=== PATIENT | male | born 1935 | race Caucasian/White ===

== ENCOUNTER 2016-11-05 15:47 | Observation (INO) | payer MEDICARE, OTHER ==
[2016-11-05] MEDS ORDERED: Sodium Chloride 0.9% 5 ML Syringe FLUSH PRN (16:48)
[2016-11-05] MEDS ORDERED: cefTRIAXone 1 GM in Sodium Chloride 0.9% 50 ML IV SCH (17:00)
[2016-11-05] MEDS: Celecoxib 100 MG Cap PO SCH (17:40)
[2016-11-05] MEDS: cefTRIAXone 1 GM Vial IVPUSH SCH (17:41)
[2016-11-05] MEDS ORDERED: Nitroglycerin 0.4 MG Tab.SL SL PRN (18:22)
[2016-11-05] MEDS ORDERED: Non-Formulary Medication 1 Each (Metformin [Glucophage] 500 MG) PO SCH (18:30)
[2016-11-05] MEDS: Fish Oil/Omega-3 Fatty Acids 1 Gm Cap PO SCH (20:31)
[2016-11-05] MEDS: Simvastatin 20 MG Tab PO SCH (20:32)
[2016-11-05] MEDS: Midodrine 5 MG Tab PO SCH (20:32)
[2016-11-05] MEDS ORDERED: FATTY ACIDS PO SCH (21:00)
[2016-11-05] MEDS ORDERED: OMEGA PO SCH (21:00)
[2016-11-06] MEDS: Omeprazole 20 MG Cap.CR PO SCH ×2 (06:34→16:43)
[2016-11-06] MEDS: Carbidopa/Levodopa 25-100 MG Tab PO SCH ×3 (06:34→16:41)
[2016-11-06] MEDS: Sodium Chloride 1 GM Tab PO SCH (08:18)
[2016-11-06] MEDS: Enalapril 5 MG Tab PO SCH (08:19)
[2016-11-06] MEDS: metFORMIN 500 MG Tab PO SCH ×2 (08:20→17:12)
[2016-11-06] MEDS: Fish Oil/Omega-3 Fatty Acids 1 Gm Cap PO SCH ×2 (08:20→20:16)
[2016-11-06] MEDS: Midodrine 5 MG Tab PO SCH ×3 (08:20→20:17)
[2016-11-06] MEDS: Sertraline 50 MG Tab PO SCH (08:21)
[2016-11-06] MEDS: Calcium Citrate/Vitamin D3 315 MG-250 Unit Tab PO SCH ×2 (08:21→17:12)
[2016-11-06] MEDS ORDERED: Non-Formulary Medication 1 Each (Simvastatin [Simvastatin] 40 MG) PO SCH (09:00)
[2016-11-06] MEDS ORDERED: Non-Formulary Medication 1 Each (Prochlorperazine [Compazine] 10 MG) PO SCH (09:00)
[2016-11-06] MEDS ORDERED: ENALAPRIL MALEATE 2.5 MG PO SCH (09:00)
[2016-11-06] MEDS: Liraglutide (rDNA Origin) 0.6 MG/0.1 ML 3 ML Pen SUBCUT SCH (09:10)
[2016-11-06] MEDS: TRESIBA SUBCUT SCH (09:12)
[2016-11-06] MEDS: [UNRECOGNIZED DRUG - OTHER] SUBCUT SCH (09:12)
--- NOTE | 2016-11-06 10:48 | PN ---
11/06/2016 PATIENT NAME: NAVNEET VALLE CHIEF COMPLAINT: Does feel better. Has some edema in his left hand. HISTORY: This 81-year-old gentleman came to clinic, saw Sandra Erleeanna, was admitted to the hospital for ongoing cellulitis and worsening left hand pain. He was diagnosed with cellulitis on 10/29/2016. Started on oral cephalosporin. He returned the following day, this was increased to t.i.d. due to worsening pain and swelling. At that time, he was initiated on prednisone 20 mg for three days. Uric acid level at that time was normal; however, he stated the prednisone has not helped much. He had some increasing pain and redness and swelling. Unable to make a closed fist, so he was admitted for IV antibiotics. The patient does have a history of myelodysplastic syndrome. He is on Revlimid. He is followed by web services manager/oncologist in [place]. He does have a history of atrial fibrillation, type 2 diabetes, Parkinson's disease, and hyponatremia or/and orthostatic hypotension. PHYSICAL EXAMINATION: VITAL SIGNS: Temperature 97.5, blood pressure 122/77, heart rate 80, O2 sats 94% on room air, and respiratory rate 16. GENERAL: The patient is alert and oriented. He is in no acute distress. He was sitting in a chair this morning, just visiting. He is polite and lucid. Left-hand he exhibits some decreased range of motion. On admission, the redness was demarcated; however, it is receding slightly with decrease in tenderness and decrease in overall edema, still has some small to moderate amount of edema and erythema in the left hand extending from his wrist to his finger,November 05, 2016 not quite his finger tips now, less tender, is able to move it more. Good distal pulses noted. CV: Irregular rhythm; however, normal rate. LUNGS: Clear to auscultation. No adventitious sounds. LABORATORY DATA: This morning; white count 3.2, RBCs of 3.50, hematocrit 32.6, MCV 93, and MCH 32. INR is slightly elevated at 3.4; however, trending down. Coumadin is being held. IMPRESSION/PLAN: 1. Cellulitis of multiple joints of the left hand and fingers, much improved. Continue on Rocephin 1 g every 24 hours. They are showing great improvement. 2. Myelodysplastic syndrome. 3. Paroxysmal atrial fibrillation. Does not appear to be on any rate control; however, his rate is controlled. He is over coagulated right now, holding Coumadin due to elevation of INR; however, it trending down. We will monitor this. 4. Type 2 diabetes with long-term use of insulin. He is on long-acting basal and Tresiba. He is also on GLP1 agonist of Victoza. 5. Orthostatic hypotension. We will check sodium level in the morning. Currently, he is on sodium chloride tablets. 6. Parkinson's disease with a significant resting tremor of the right arm. He is on Sinemet. Overall plan; continue Rocephin. Continue NSAIDs. Ice to hand. We will keep him in a sling. Trend INRs. Hold Coumadin. The patient is improving. Review x-ray from [facility]. /[id number]/MODL
[2016-11-06] MEDS ORDERED: Magnesium Oxide 500 MG Tab PO SCH (11:00)
[2016-11-06] MEDS: Prochlorperazine 5 MG Tab PO SCH (12:08)
[2016-11-06] MEDS: REVLIMID 10 MG PO SCH (12:09)
[2016-11-06] MEDS: Magnesium Oxide 500 MG Tab PO SCH (12:09)
[2016-11-06] MEDS: Celecoxib 100 MG Cap PO SCH (16:42)
[2016-11-06] MEDS: cefTRIAXone 1 GM Vial IVPUSH SCH (16:45)
[2016-11-06] MEDS: Multivitamins with Minerals/Iron/Folic Acid/Lycopene Tab PO SCH (17:14)
[2016-11-06] MEDS ORDERED: Non-Formulary Medication 1 Each (Multivit-Min/Fa/Lycopene/Lut [Centrum Silver] 1 TAB) PO SCH (18:00)
[2016-11-06] MEDS: Simvastatin 20 MG Tab PO SCH (20:17)
[2016-11-07] MEDS: Carbidopa/Levodopa 25-100 MG Tab PO SCH ×3 (06:30→16:04)
[2016-11-07] MEDS: Omeprazole 20 MG Cap.CR PO SCH ×2 (06:31→16:04)
[2016-11-07] MEDS: REVLIMID 10 MG PO SCH (08:21)
[2016-11-07] MEDS: Prochlorperazine 5 MG Tab PO SCH (08:22)
[2016-11-07] MEDS: Midodrine 5 MG Tab PO SCH ×2 (08:23→13:12)
[2016-11-07] MEDS: Calcium Citrate/Vitamin D3 315 MG-250 Unit Tab PO SCH ×2 (08:23→17:07)
[2016-11-07] MEDS: Fish Oil/Omega-3 Fatty Acids 1 Gm Cap PO SCH (08:23)
[2016-11-07] MEDS: TRESIBA SUBCUT SCH (08:24)
[2016-11-07] MEDS: metFORMIN 500 MG Tab PO SCH ×2 (08:24→17:07)
[2016-11-07] MEDS: [UNRECOGNIZED DRUG - OTHER] SUBCUT SCH (08:24)
[2016-11-07] MEDS: Sertraline 50 MG Tab PO SCH (08:25)
[2016-11-07] MEDS: Sodium Chloride 1 GM Tab PO SCH (08:25)
[2016-11-07] MEDS: Enalapril 5 MG Tab PO SCH (08:26)
[2016-11-07] MEDS: Liraglutide (rDNA Origin) 0.6 MG/0.1 ML 3 ML Pen SUBCUT SCH (08:27)
[2016-11-07] MEDS: Magnesium Oxide 500 MG Tab PO SCH (11:30)
[2016-11-07 15:49] VITALS: BP 145/86
[2016-11-07] MEDS: cefTRIAXone 1 GM Vial IVPUSH SCH (16:08)
--- NOTE | 2016-11-07 16:50 | PCM.DCSUM1 ---
Discharge Summary - Hospital Course Brief History: This is an 81 year old male initially presented to the [facility] and was admitted for cellulitis. The patient was diagnosed with left hand cellulitis on 10/29/16 and started on keflex 500 mg BID. He returned the following day as the pain and swelling had worsened. The keflex was increased to 500 mg TID and he was initiated on prednisone 20 mg for 3 days. Uric acid level was normal at that time. The patient stated the prednisone didn't help much. He presented with worsening redness, pain, and swelling--and having a hard time making a closed fist. - Discharge Data Discharge Date: 11/07/16 Discharge Disposition: Home, Self-Care 01 Condition: Good - Patient Summary/Data Complications: No complications during hospital stay Hospital Course: Hospital course went well, he was placed on IV antibiotics and his redness and swelling decreased greatly. We did place ice on it and he kept his extremity elevated in a sling. Uric acid level was normal - Patient Instructions Diet: Usual Diet as Tolerated Activity: Apply Ice, Elevate Extremity Driving: May Drive Today Showering/Bathing: May Shower Notify Provider of: Fever, Increased Pain, Swelling and Redness Other/Special Instructions: Only take 1 mg of your Coumadin tonight. After that the INR/coumadin clinic will monitor your levels. - Discharge Plan Prescriptions/Med Rec: Cephalexin [Keflex] 500 mg PO Q12HR #20 cap Home Medications: Home Meds Calcium Carbonate/Vitamin D3 [Calcium 600 + Vit D 400] 1 tab PO BIDMEALS [History] Carbidopa/Levodopa [Carbidopa-Levodopa 25-100] 2 tab PO TID@0730,1130,1630 04/24 [History] Enalapril Maleate [Vasotec] 2.5 mg PO DAILY 04/24/14 [History] Magnesium Oxide [Magnesium] 400 mg PO DAILY 04/24/14 [History] Multivit-Min/FA/Lycopene/Lut [Centrum Silver] 1 tab PO DAILY@1800 04/24/14 [ History] Nitroglycerin [Nitrostat] 1 tab SL Q5M PRN 04/24/14 [History] Bethany-3 Fatty Acids [Fish Oil] 900 mg PO BID 04/24/14 [History] Simvastatin 40 mg PO DAILY 04/24/14 [History] metFORMIN [Glucophage] 500 mg PO BIDM 04/24/14 [History] Insulin Degludec [Tresiba Flextouch U-100] 24 units SUBCUT DAILY 03/23/16 [ History] Liraglutide [Victoza] 1.2 mg SUBCUT DAILY 03/23/16 [History] Omeprazole 20 mg PO BIDMEALS 03/23/16 [History] Sertraline [Zoloft] 50 mg PO DAILY 03/23/16 [History] Midodrine 5 mg PO TID 05/24/16 [History] Sodium Chloride 1 gm PO DAILY 05/24/16 [History] Warfarin Sodium [Jantoven] 2 tab PO DAILY 07/05/16 [History] Lenalidomide [Revlimid] 10 mg PO DAILY 11/05/16 [History] Prochlorperazine [Compazine] 10 mg PO DAILY 11/05/16 [History] Cephalexin [Keflex] 500 mg PO Q12HR #20 cap 11/07/16 [Rx] Referrals: Saleem Nolan ROOFER GYPSUM [Nurse Practitioner] - (Early next week) - Discharge Summary/Plan Comment DC Time >30 min.: No Discharge Summary/Plan Comment: Final diagnoses Cellulitis right hand, much improved. Normal uric acid level myelodysplastic syndrome CAD and atrial fibrillation. He is on warfarin and enalapril. Take 1 mg of Coumadin daily of discharge type 2 diabetes mellitus. Parkinson's disease. orthostatic hypotension and hyponatremia. - Patient Data Vitals - Most Recent: Last Vital Signs Temp 97.3 F 11/07/16 15:00 Pulse 88 11/07/16 15:00 Resp 18 11/07/16 15:00 BP 145/86 H 11/07/16 15:00 Pulse Ox 96 11/07/16 15:00 Weight - Most Recent: 197 lb 5 oz I&O - Last 24 hours: Intake & Output 11/07/16 11/07/16 11/07/16 06:59 14:59 22:59 Intake Total 0 420 Output Total 1000 400 Balance -1000 20 Lab Results - Last 24 hrs: Laboratory Results - last 24 hr 11/06/16 11/07/16 11/07/16 Range/Units 17:07 06:28 07:53 PT TNP INR 2.6 H (0.9-1.1) POC Glucose 155 H 208 H (74-106) mg/dl Med Orders - Current: Current Medications Calcium Citrate (Calcium Citrate + D) 1 tab PO BIDMEALS [facility] Last Admin: 11/07/16 08:23 Dose: 1 tab Carbidopa/Levodopa (Sinemet 25-100 Mg) 2 tab PO TID@0730,1130,1630 [facility] Last Admin: 11/07/16 16:04 Dose: 2 tab Ceftriaxone Sodium (Rocephin) 1 gm IVPUSH Q24H [facility] Last Admin: 11/07/16 16:08 Dose: 1 gm Enalapril Maleate (Vasotec) 2.5 mg PO DAILY [facility] Last Admin: 11/07/16 08:26 Dose: 2.5 mg Fish Oil (Fish Oil) 1 gm PO BID [facility] Last Admin: 11/07/16 08:23 Dose: 1 gm Liraglutide (Victoza) 1.2 mg SUBCUT DAILY [facility] Last Admin: 11/07/16 08:27 Dose: 1.2 mg Magnesium Oxide (Magnesium Oxide) 500 mg PO DAILY@1200 [facility] Last Admin: 11/07/16 11:30 Dose: 500 mg Metformin HCl (Glucophage) 500 mg PO BIDM [facility] Last Admin: 11/07/16 08:24 Dose: 500 mg Midodrine (Midodrine) 5 mg PO TID [facility] Last Admin: 11/07/16 13:12 Dose: 5 mg Multivitamins/Minerals (Centrum) 1 tab PO DAILY@1800 [facility] Last Admin: 11/06/16 17:14 Dose: 1 tab Nitroglycerin (Nitrostat) 0.4 mg SL Q5M PRN PRN Reason: Chest Pain Omeprazole (Omeprazole) 20 mg PO BIDAC [facility] Last Admin: 11/07/16 16:04 Dose: 20 mg Ptom Tresiba Flextouch 100uinits/Ml Pen 24 each SUBCUT DAILY [facility] Last Admin: 11/07/16 08:24 Dose: 24 each Ptom Revlimid (10mg Capsule) 1 each PO DAILY [facility] Last Admin: 11/07/16 08:21 Dose: 1 each Prochlorperazine Maleate (Compazine) 10 mg PO DAILY [facility] Last Admin: 11/07/16 08:22 Dose: 10 mg Sertraline HCl (Zoloft) 50 mg PO DAILY [facility] Last Admin: 11/07/16 08:25 Dose: 50 mg Simvastatin (Zocor) 40 mg PO BEDTIME [facility] Last Admin: 11/06/16 20:17 Dose: 40 mg Sodium Chloride (Syrex Flush) 5 ml FLUSH Q8HR PRN PRN Reason: Keep Vein Open Last Admin: 11/05/16 17:43 Dose: 5 ml Sodium Chloride (Sodium Chloride) 1 gm PO DAILY [facility] Last Admin: 11/07/16 08:25 Dose: 1 gm Discontinued Medications Celecoxib (Celebrex) 200 mg PO DAILY@1700 [facility] Stop: 11/06/16 17:01 Last Admin: 11/06/16 16:42 Dose: 200 mg Magnesium Oxide (Magnesium Oxide) 400 mg PO DAILY [facility] *Q Meaningful Use (DIS) - VTE *Q VTE Criteria *Q: - Stroke *Q Stroke Criteria *Q: - AMI *Q AMI Criteria *Q:
[2016-11-07] MEDS: Multivitamins with Minerals/Iron/Folic Acid/Lycopene Tab PO SCH (17:07)
== END 2016-11-07 17:20 | disposition home or self-care (01) ==
LOC: KA.MS 15:50
PROVIDERS: ADMIT Nurse Practitioner Family; ATTEND Family Medicine
DX: L03.114 Cellulitis of left upper limb (principal); L03.012 Cellulitis of left finger; D46.C Myelodysplastic syndrome with isolated del(5q) chromosomal abnormality; E78.2 Mixed hyperlipidemia; E11.9 Type 2 diabetes mellitus without complications; E87.1 Hypo-osmolality and hyponatremia; I95.1 Orthostatic hypotension; G20 Parkinson's disease; Z79.01 Long term (current) use of anticoagulants; Z79.899 Other long term (current) drug therapy; Z88.8 Allergy status to other drugs, medicaments and biological substances; I48.0 Paroxysmal atrial fibrillation; F41.9 Anxiety disorder, unspecified; K21.9 Gastro-esophageal reflux disease without esophagitis; I10 Essential (primary) hypertension; I25.810 Atherosclerosis of coronary artery bypass graft(s) without angina pectoris; Z98.890 Other specified postprocedural states
CPT/HCPCS: 36415; 36416; 82962; 85025; 85610; 96374; 96376; A9270; G0378; G0379; J0696; Q0164

== ENCOUNTER 2016-11-12 18:47 | Observation (INO) | payer MEDICARE, OTHER ==
[2016-11-12] MEDS: Sodium Chloride 0.9% 50 ML SDV FLUSH ONE ×2 (19:00→20:24)
[2016-11-12] MEDS: Iopamidol 755 Mg/ML 75 ML Bottle IVPUSH ONE ×2 (19:00→20:24)
--- NOTE | 2016-11-12 19:41 | EDM.PDOC ---
ED HPI GENERAL MEDICAL PROBLEM - General Chief Complaint: General Stated Complaint: FELL BACKWARDS Time Seen by Provider: 11/12/16 19:15 Source of Information: Reports: Patient, Family History Limitations: Reports: No limitations - History of Present Illness INITIAL COMMENTS - FREE TEXT/NARRATIVE: 81 yo wm with PMH of Parkinson's and recent hospitalization for left arm swelling and possible cellulitis, presents to ER with complaints of a fall at home. Pt reports he was standing up and lost his balance falling backwards. Pt denies any injury. Pt major complaint is left arm swelling since his hospitalization last week. Pt states he is scheduled for venous doppler of left arm tomorrow in clinic. Pt reports he was treated for cellulitis in left hand which improved. Pt reports over the last few russ he can started to swell again and now swelling is into elbow. Pt denies any erythema but states his arm is warm to the touch. Onset: today Duration: Day(s): (1) Location: Reports: upper extremity, left. Denies: head, neck, chest, abdomen, back, pelvis Quality: Reports: Ache Severity: severe Improves with: Reports: Immobilization Worsens with: Reports: Movement Associated Symptoms: Reports: no other symptoms - Related Data Allergies Allergy/AdvReac Type Severity Reaction Status Date / Time morphine Allergy Intermediate Nausea and Verified 11/12/16 19:32 Vomiting Home Meds: Home Meds Calcium Carbonate/Vitamin D3 [Calcium 600 + Vit D 400] 1 tab PO BIDMEALS [History] Carbidopa/Levodopa [Carbidopa-Levodopa 25-100] 2 tab PO TID@0730,1130,1630 04/24 [History] Enalapril Maleate [Vasotec] 2.5 mg PO DAILY 04/24/14 [History] Magnesium Oxide [Magnesium] 400 mg PO DAILY 04/24/14 [History] Multivit-Min/FA/Lycopene/Lut [Centrum Silver] 1 tab PO DAILY@1800 04/24/14 [ History] Nitroglycerin [Nitrostat] 1 tab SL Q5M PRN 04/24/14 [History] Burgess-3 Fatty Acids [Fish Oil] 900 mg PO BID 04/24/14 [History] Simvastatin 40 mg PO DAILY 04/24/14 [History] metFORMIN [Glucophage] 500 mg PO BIDM 04/24/14 [History] Insulin Degludec [Tresiba Flextouch U-100] 24 units SUBCUT DAILY 03/23/16 [ History] Liraglutide [Victoza] 1.2 mg SUBCUT DAILY 03/23/16 [History] Omeprazole 20 mg PO BIDMEALS 03/23/16 [History] Sertraline [Zoloft] 50 mg PO DAILY 03/23/16 [History] Midodrine 5 mg PO TID 05/24/16 [History] Sodium Chloride 1 gm PO DAILY 05/24/16 [History] Warfarin Sodium [Jantoven] 2 tab PO DAILY 07/05/16 [History] Lenalidomide [Revlimid] 10 mg PO DAILY 11/05/16 [History] Prochlorperazine [Compazine] 10 mg PO DAILY PRN 11/05/16 [History] Cephalexin [Keflex] 500 mg PO Q12HR #20 cap 11/07/16 [Rx] predniSONE [Prednisone] 10 mg PO DAILY 11/12/16 [History] Past Medical History HEENT History: Reports: Other (see below) Other HEENT History: surgery to right eye to remove piece of steel, 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", I don't make red blood cells Immunologic History: Reports: None Oncologic (Cancer) History: Reports: Prostate Dermatologic History: Reports: None - Infectious Disease History Infectious Disease History: Reports: Measles - Past Surgical History Head Surgeries/Procedures: Reports: None HEENT Surgical History: Reports: Eye surgery, Other (see below) Other HEENT Surgeries/Procedures: see above Cardiovascular Surgical History: Reports: Coronary artery bypass Respiratory Surgical History: Reports: None GI Surgical History: Reports: Appendectomy, Colonoscopy, EGD, Other (see below) Other GI Surgeries/Procedures: hx of bleeding s/p colonoscopy in 2012, source of bleeding found to be from biopsy site Male Surgical History: Reports: Prostate Biopsy, Other (see below) Other Male Surgeries/Procedures: external radiation performed for prostate cancer in 2002 Endocrine Surgical History: Reports: None Neurological Surgical History: Reports: None Musculoskeletal Surgical History: Reports: Hip replacement, Other (see below) Other Musculoskeletal Surgeries/Procedures:: right hip replaced in 1998 Social & Family History - Family History Cardiac: Reports: Aneurysm, MA Neurological: Reports: Cerebral aneurysms Endocrine/Metabolic: Reports: Diabetes, type II Oncologic: Reports: Breast - Tobacco Use Smoking Status *Q: Never Smoker Second Hand Smoke Exposure: No - Caffeine Use Caffeine Use: Reports: Coffee, Soda - Recreational Drug Use Recreational Drug Use: No - Living Situation & Occupation Occupation: retired ED ROS GENERAL - Review of Systems Review Of Systems: See Below Constitutional: Reports: no symptoms HEENT: Reports: No symptoms Respiratory: Reports: No Symptoms. Denies: Shortness of Breath, Pleuritic Chest Pain, Cough Cardiovascular: Reports: No symptoms, Lightheadedness. Denies: Chest pain, Dyspnea on exertion, Palpitations, PND, Syncope Endocrine: Reports: no symptoms GI/Abdominal: Reports: No symptoms : Reports: no symptoms Musculoskeletal: Reports: no symptoms Skin: Reports: no symptoms Neurological: Reports: No Symptoms Psychiatric: Reports: No symptoms Hematologic/Lymphatic: Reports: no symptoms Immunologic: Reports: no symptoms ED EXAM, GENERAL - Physical Exam Exam: See Below Exam Limited By: No limitations General Appearance: alert, WD/WN, no apparent distress Eye Exam: bilateral eye: EOMI, PERRL Nose: normal inspection, normal mucosa, no blood Throat/Mouth: Normal inspection, Normal lips, Normal teeth, Normal gums, Normal oropharynx, Normal voice, No airway compromise Head: atraumatic, normocephalic Neck: normal inspection, supple, non-tender, full range of motion Respiratory/Chest: no respiratory distress, lungs clear, normal breath sounds, no accessory muscle use, chest non-tender Cardiovascular: normal peripheral pulses, regular rate, rhythm, no edema, no gallop, no JVD, no murmur, no rub GI/Abdominal: normal bowel sounds, soft, non tender, no organomegaly, no distention, no abnormal bruit, no mass Back Exam: normal inspection, full range of motion, NT Extremities: normal inspection, normal range of motion, non-tender, normal capillary refill, no pedal edema Neurological: alert, oriented, CN II-XII intact, normal cognition, normal gait, normal reflexes, no motor/sensory deficits Psychiatric: normal affect, normal mood Skin Exam: Warm, Dry, Intact, Normal color, No rash Lymphatic: no adenopathy EKG INTERPRETATION EKG Date: 11/12/16 Time: 19:31 Rhythm: NSR Rate (beats/min): 97 [place]: normal QRS: RBBB ST-T: normal QT: normal Comparison: NA - no prior EKG Course - Vital Signs Last Recorded V/S: Last Vital Signs Temp 37.3 C 11/12/16 19:01 Pulse 96 11/12/16 19:01 Resp 18 11/12/16 19:01 BP 122/61 11/12/16 19:01 Pulse Ox 93 L 11/12/16 19:01 - Orders/Labs/Meds Orders: Active Orders 24 hr Category Date Time Status EKG Documentation Completion [RC] ASDIRECTED Care 11/12/16 19:07 Active Chest 2V [CR] Stat Exams 11/12/16 19:06 Taken Chest w Cont [CT] Stat Exams 11/12/16 19:47 Ordered Sodium Chloride 0.9% @ 999 MLS/HR (1000ml) Med 11/12/16 20:14 Ordered Sodium Chloride 0.9% [Normal Saline] 1,000 ml IV .BOLUS Medication Orders Sodium Chloride (Normal Saline) 1,000 mls @ 999 mls/hr IV .BOLUS ONE Stop: 11/12/16 21:14 Last Admin: 11/12/16 20:24 Dose: 999 mls/hr Labs: Laboratory Tests 11/12/16 11/12/16 11/12/16 Range/Units 19:15 19:15 19:15 WBC 3.9 L (5.0-10.0) 10^3/uL RBC 3.18 L (4.50-6.00) 10^6/uL Hgb 10.1 L (13.0-17.0) g/dL Hct 30.3 L (40.0-52.0) % MCV 95.1 H (82.0-92.0) fL MCH 31.8 H (27.0-31.0) pg MCHC 33.4 (32.0-36.0) g/dL RDW 16.3 H (11.5-14.5) % Plt Count 120 L (150-300) 10^3/uL MPV 7.3 L (7.4-10.4) fL Neut % (Auto) 61.2 (50.0-70.0) % Lymph % (Auto) 22.1 (20.0-40.0) % [place] % (Auto) 13.2 H (2.0-8.0) % Eos % (Auto) 2.6 (1.0-3.0) % Baso % (Auto) 0.9 (0.0-1.0) % Neut # (Auto) 2.4 L (2.5-7.0) 10^3/uL Lymph # (Auto) 0.9 L (1.0-4.0) 10^3/uL [place] # (Auto) 0.5 (0.1-0.8) 10^3/uL Eos # (Auto) 0.1 (0.1-0.3) 10^3/uL Baso # (Auto) 0.0 (0.0-0.1) 10^3/uL PT 19.0 H (8.9-11.4) SEC INR 1.8 H (0.9-1.1) APTT (20.8-31.2) SEC D-Dimer, Quantitative (<400) ng/mL Sodium 132 L (136-145) mmol/L Potassium 4.3 (3.3-5.3) mmol/L Chloride 98 (98-115) mmol/L Carbon Dioxide 28.2 (21.0-32.0) mmol/L BUN 18 (6-25) mg/dL Creatinine 1.06 (0.51-1.17) mg/dL Est Cr Clr Drug Dosing 59.67 mL/min Estimated GFR (MDRD) > 60 mL/min Glucose 402 H (70-110) mg/dL Calcium 8.4 L (8.7-10.3) mg/dL Total Bilirubin 0.8 (0.2-1.0) mg/dL AST 15 (15-37) U/L ALT 34 (12-78) U/L Alkaline Phosphatase 103 (46-116) IU/L Creatine Kinase (26-276) U/L CK-MB (CK-2) (0.00-4.30) ng/mL Troponin I (0.00-0.070) ng/mL Total Protein 6.7 (6.4-8.2) g/dL Albumin 2.66 L (3.00-4.80) g/dL Specimen Type Urine Color (YELLOW) Urine Appearance (CLEAR) Urine pH (5.0-9.0) Ur Specific [place] (1.005-1.030) Urine Protein (NEGATIVE) mg/dL Urine Glucose (UA) (NEGATIVE) mg/dL Urine Ketones (NEGATIVE) mg/dL Urine Occult Blood (NEGATIVE) Urine Nitrite (NEGATIVE) Urine Bilirubin (NEGATIVE) Urine Urobilinogen (0.2-1.0) E.U./dL Ur Leukocyte Esterase (NEGATIVE) Urine RBC /HPF Urine WBC /HPF Ur Epithelial Cells /LPF Amorphous Sediment (0/HPF) /HPF Urine Bacteria (NONE TO FEW) /HPF Urine Mucus (NEGATIVE) /LPF 11/12/16 11/12/16 11/12/16 Range/Units 19:15 19:15 19:15 WBC (5.0-10.0) 10^3/uL RBC (4.50-6.00) 10^6/uL Hgb (13.0-17.0) g/dL Hct (40.0-52.0) % MCV (82.0-92.0) fL MCH (27.0-31.0) pg MCHC (32.0-36.0) g/dL RDW (11.5-14.5) % Plt Count (150-300) 10^3/uL MPV (7.4-10.4) fL Neut % (Auto) (50.0-70.0) % Lymph % (Auto) (20.0-40.0) % [place] % (Auto) (2.0-8.0) % Eos % (Auto) (1.0-3.0) % Baso % (Auto) (0.0-1.0) % Neut # (Auto) (2.5-7.0) 10^3/uL Lymph # (Auto) (1.0-4.0) 10^3/uL [place] # (Auto) (0.1-0.8) 10^3/uL Eos # (Auto) (0.1-0.3) 10^3/uL Baso # (Auto) (0.0-0.1) 10^3/uL PT (8.9-11.4) SEC INR (0.9-1.1) APTT 36.1 H (20.8-31.2) SEC D-Dimer, Quantitative 603 H (<400) ng/mL Sodium (136-145) mmol/L Potassium (3.3-5.3) mmol/L Chloride (98-115) mmol/L Carbon Dioxide (21.0-32.0) mmol/L BUN (6-25) mg/dL Creatinine (0.51-1.17) mg/dL Est Cr Clr Drug Dosing mL/min Estimated GFR (MDRD) mL/min Glucose (70-110) mg/dL Calcium (8.7-10.3) mg/dL Total Bilirubin (0.2-1.0) mg/dL AST (15-37) U/L ALT (12-78) U/L Alkaline Phosphatase (46-116) IU/L Creatine Kinase 48 (26-276) U/L CK-MB (CK-2) 1.20 (0.00-4.30) ng/mL Troponin I 0.10 H* (0.00-0.070) ng/mL Total Protein (6.4-8.2) g/dL Albumin (3.00-4.80) g/dL Specimen Type Urine Color (YELLOW) Urine Appearance (CLEAR) Urine pH (5.0-9.0) Ur Specific [place] (1.005-1.030) Urine Protein (NEGATIVE) mg/dL Urine Glucose (UA) (NEGATIVE) mg/dL Urine Ketones (NEGATIVE) mg/dL Urine Occult Blood (NEGATIVE) Urine Nitrite (NEGATIVE) Urine Bilirubin (NEGATIVE) Urine Urobilinogen (0.2-1.0) E.U./dL Ur Leukocyte Esterase (NEGATIVE) Urine RBC /HPF Urine WBC /HPF Ur Epithelial Cells /LPF Amorphous Sediment (0/HPF) /HPF Urine Bacteria (NONE TO FEW) /HPF Urine Mucus (NEGATIVE) /LPF 11/12/16 Range/Units 19:55 WBC (5.0-10.0) 10^3/uL RBC (4.50-6.00) 10^6/uL Hgb (13.0-17.0) g/dL Hct (40.0-52.0) % MCV (82.0-92.0) fL MCH (27.0-31.0) pg MCHC (32.0-36.0) g/dL RDW (11.5-14.5) % Plt Count (150-300) 10^3/uL MPV (7.4-10.4) fL Neut % (Auto) (50.0-70.0) % Lymph % (Auto) (20.0-40.0) % [place] % (Auto) (2.0-8.0) % Eos % (Auto) (1.0-3.0) % Baso % (Auto) (0.0-1.0) % Neut # (Auto) (2.5-7.0) 10^3/uL Lymph # (Auto) (1.0-4.0) 10^3/uL [place] # (Auto) (0.1-0.8) 10^3/uL Eos # (Auto) (0.1-0.3) 10^3/uL Baso # (Auto) (0.0-0.1) 10^3/uL PT (8.9-11.4) SEC INR (0.9-1.1) APTT (20.8-31.2) SEC D-Dimer, Quantitative (<400) ng/mL Sodium (136-145) mmol/L Potassium (3.3-5.3) mmol/L Chloride (98-115) mmol/L Carbon Dioxide (21.0-32.0) mmol/L BUN (6-25) mg/dL Creatinine (0.51-1.17) mg/dL Est Cr Clr Drug Dosing mL/min Estimated GFR (MDRD) mL/min Glucose (70-110) mg/dL Calcium (8.7-10.3) mg/dL Total Bilirubin (0.2-1.0) mg/dL AST (15-37) U/L ALT (12-78) U/L Alkaline Phosphatase (46-116) IU/L Creatine Kinase (26-276) U/L CK-MB (CK-2) (0.00-4.30) ng/mL Troponin I (0.00-0.070) ng/mL Total Protein (6.4-8.2) g/dL Albumin (3.00-4.80) g/dL Specimen Type Urincc Urine Color Yellow (YELLOW) Urine Appearance Clear (CLEAR) Urine pH 6.5 (5.0-9.0) Ur Specific [place] 1.020 (1.005-1.030) Urine Protein >=300 H (NEGATIVE) mg/dL Urine Glucose (UA) >=1000 H (NEGATIVE) mg/dL Urine Ketones Negative (NEGATIVE) mg/dL Urine Occult Blood Small H (NEGATIVE) Urine Nitrite Negative (NEGATIVE) Urine Bilirubin Negative (NEGATIVE) Urine Urobilinogen 0.2 (0.2-1.0) E.U./dL Ur Leukocyte Esterase Negative (NEGATIVE) Urine RBC 0-5 /HPF Urine WBC 0-5 /HPF Ur Epithelial Cells Few /LPF Amorphous Sediment Rare (0/HPF) /HPF Urine Bacteria Rare (NONE TO FEW) /HPF Urine Mucus Rare H (NEGATIVE) /LPF Meds: Medications Generic Name Dose Route Start Last Admin Trade Name Freq PRN Reason Stop Dose Admin Sodium Chloride 1,000 mls @ 999 mls/hr 11/12/16 20:14 11/12/16 20:24 Normal Saline IV 11/12/16 21:14 999 mls/hr .BOLUS ONE Administration Discontinued Medications Generic Name Dose Route Start Last Admin Trade Name Freq PRN Reason Stop Dose Admin Iopamidol 75 ml 11/12/16 19:58 11/12/16 20:24 Isovue-370 (76%) IVPUSH 11/12/16 19:59 Not Given ONETIME ONE Sodium Chloride 100 ml 11/12/16 20:00 11/12/16 20:24 Normal Saline FLUSH 11/12/16 20:01 Not Given ONETIME ONE - Radiology Interpretation Free Text/Narrative:: CXR- NAD Departure - Departure Time of Disposition: 21:10 Disposition: Refer to Observation Condition: fair Clinical Impression: Hyperglycemia, Hyponatremia, Elevated troponin I level, Arm pain, left Forms: ED Department Discharge - My Orders Last 24 Hours: My Active Orders 11/12/16 19:06 Chest 2V [CR] Stat 11/12/16 19:07 EKG Documentation Completion [RC] ASDIRECTED 11/12/16 19:47 Chest w Cont [CT] Stat 11/12/16 20:14 Sodium Chloride 0.9% @ 999 MLS/HR (1000ml) Sodium Chloride 0.9% [Normal Saline] 1,000 ml IV .BOLUS - Assessment/Plan Last 24 Hours: My Active Orders 11/12/16 19:06 Chest 2V [CR] Stat 11/12/16 19:07 EKG Documentation Completion [RC] ASDIRECTED 11/12/16 19:47 Chest w Cont [CT] Stat 11/12/16 20:14 Sodium Chloride 0.9% @ 999 MLS/HR (1000ml) Sodium Chloride 0.9% [Normal Saline] 1,000 ml IV .BOLUS Assessment:: 1. elevated trop i 2. hyperglycemia- steroid induced? 3. left arm pain and swelling Plan: 1. observation to [facility] 2. gentle fluid hydration 3. repeat trop I 4. hydrocodone for pain 5. insulin sliding scale
[2016-11-12 19:56] LABS: CHLORIDE,CL 98 mmol/L (98-115); SODIUM,NA 132 mmol/L (136-145)
[2016-11-12] MEDS ORDERED: Sodium Chloride 0.9% 1,000 ML IV ONE (20:14)
[2016-11-12] MEDS ORDERED: Sodium Chloride 0.9% 5 ML Syringe FLUSH PRN (21:15)
[2016-11-12] MEDS ORDERED: Insulin Regular, Human 100 Units/ML 10 ML Vial SUBCUT STA (21:17)
[2016-11-12] MEDS: Sodium Chloride 0.9% 1,000 ML IV SCH (21:40)
[2016-11-12] MEDS: Acetaminophen/HYDROcodone 325-5 MG Tab PO PRN (21:40)
[2016-11-12] MEDS ORDERED: Aspirin 81 MG Tab.Chew ONE (22:43)
[2016-11-12] MEDS ORDERED: Enoxaparin 100 MG/1 ML Syringe ONE (22:44)
[2016-11-12] MEDS ORDERED: Enoxaparin 100 MG/1 ML Syringe SUBCUT ONE (22:45)
[2016-11-12] MEDS ORDERED: Aspirin 81 MG Tab.Chew PO ONE (22:45)
[2016-11-13] MEDS ORDERED: Ondansetron 4 MG/2 ML SDV IVPUSH PRN (00:01)
[2016-11-13] MEDS ORDERED: EPINEPHrine 1:10,000 1 MG/10 ML Syringe IVPUSH PRN (08:35)
[2016-11-13] MEDS ORDERED: Atropine 0.1 MG/ML 10 ML Syringe IVPUSH PRN (08:35)
[2016-11-13] MEDS ORDERED: Lidocaine 2% 100 MG/5 ML Syringe IVPUSH PRN (08:35)
[2016-11-13] MEDS ORDERED: Nitroglycerin 0.4 MG Tab.SL SL PRN ×2 (08:35→10:19)
[2016-11-13] MEDS: Acetaminophen/HYDROcodone 325-5 MG Tab PO PRN (09:04)
[2016-11-13 09:37] LABS: CHLORIDE,CL 103 mmol/L (98-115); SODIUM,NA 137 mmol/L (136-145)
--- NOTE | 2016-11-13 10:00 | PCM.HP ---
H&P History of Present Illness - General Date of Service: 11/13/16 Admit Problem/Dx: Admission Diagnosis/Problem Admission Diagnosis/Problem Hyperglycemia Source of Information: Patient, Old records, Provider, RN History Limitations: Reports: No limitations - History of Present Illness Initial Comments - Free Text/Narative: This 81 yo gentleman is a recent hospitalization and cellulitis was admitted through the emergency department after the patient complained of a fall at home when he lost his balance and fell backwards. He was able to brace himself so he did not hit his head. Denies any injury however the patient has been complaining of left arm edema since her recent hospitalization. He was scheduled for a venous Doppler ultrasound of his left arm today to rule out any DVT. Previous admission she seemed to recover approximately 75% from IV antibiotics. Over the past few days he noticed his left elbow and his left hand starting to swell. Recent uric acid levels were normal. Left Hand Pain Score (Numeric/FACES): 10 - Related Data Allergies/Adverse Reactions: Allergies Allergy/AdvReac Type Severity Reaction Status Date / Time morphine Allergy Intermediate Nausea and Verified 11/12/16 19:32 Vomiting Home Medications: Home Meds Calcium Carbonate/Vitamin D3 [Calcium 600 + Vit D 400] 1 tab PO BIDMEALS [History] Carbidopa/Levodopa [Carbidopa-Levodopa 25-100] 2 tab PO TID@0730,1130,1630 04/24 [History] Enalapril Maleate [Vasotec] 2.5 mg PO DAILY 04/24/14 [History] Magnesium Oxide [Magnesium] 400 mg PO DAILY 04/24/14 [History] Multivit-Min/FA/Lycopene/Lut [Centrum Silver] 1 tab PO DAILY@1800 04/24/14 [ History] Nitroglycerin [Nitrostat] 1 tab SL Q5M PRN 04/24/14 [History] [place]-3 Fatty Acids [Fish Oil] 900 mg PO BID 04/24/14 [History] Simvastatin 40 mg PO DAILY 04/24/14 [History] metFORMIN [Glucophage] 500 mg PO BIDM 04/24/14 [History] Insulin Degludec [Tresiba Flextouch U-100] 24 units SUBCUT DAILY 03/23/16 [ History] Liraglutide [Victoza] 1.2 mg SUBCUT DAILY 03/23/16 [History] Omeprazole 20 mg PO BIDMEALS 03/23/16 [History] Sertraline [Zoloft] 50 mg PO DAILY 03/23/16 [History] Midodrine 5 mg PO TID 05/24/16 [History] Sodium Chloride 1 gm PO DAILY 05/24/16 [History] Warfarin Sodium [Jantoven] 2 tab PO DAILY 07/05/16 [History] Lenalidomide [Revlimid] 10 mg PO DAILY 11/05/16 [History] Prochlorperazine [Compazine] 10 mg PO DAILY PRN 11/05/16 [History] Cephalexin [Keflex] 500 mg PO Q12HR #20 cap 11/07/16 [Rx] predniSONE [Prednisone] 10 mg PO DAILY 11/12/16 [History] Past Medical History HEENT History: Reports: Other (see below) Other HEENT History: surgery to right eye to remove piece of steel, 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", I don't make red blood cells Immunologic History: Reports: None Oncologic (Cancer) History: Reports: Prostate Dermatologic History: Reports: None - Infectious Disease History Infectious Disease History: Reports: Measles - Past Surgical History Head Surgeries/Procedures: Reports: None HEENT Surgical History: Reports: Eye surgery, Other (see below) Other HEENT Surgeries/Procedures: see above Cardiovascular Surgical History: Reports: Coronary artery bypass Respiratory Surgical History: Reports: None GI Surgical History: Reports: Appendectomy, Colonoscopy, EGD, Other (see below) Other GI Surgeries/Procedures: hx of bleeding s/p colonoscopy in 2012, source of bleeding found to be from biopsy site Male Surgical History: Reports: Prostate Biopsy, Other (see below) Other Male Surgeries/Procedures: external radiation performed for prostate cancer in 2002 Endocrine Surgical History: Reports: None Neurological Surgical History: Reports: None Musculoskeletal Surgical History: Reports: Hip replacement, Other (see below) Other Musculoskeletal Surgeries/Procedures:: right hip replaced in 1998 Social & Family History - Family History Cardiac: Reports: Aneurysm, [place] Neurological: Reports: Cerebral aneurysms Endocrine/Metabolic: Reports: Diabetes, type II Oncologic: Reports: Breast - Tobacco Use Smoking Status *Q: Never Smoker Second Hand Smoke Exposure: No - Caffeine Use Caffeine Use: Reports: Coffee, Soda - Alcohol Use Days Per Week of Alcohol Use: 0 - Recreational Drug Use Recreational Drug Use: No - Living Situation & Occupation Occupation: retired H&P Review of Systems - Review of Systems: Review Of Systems: See Below General: Reports: no symptoms HEENT: Reports: no symptoms Pulmonary: Reports: No Symptoms Cardiovascular: Denies: chest pain, dyspnea on exertion, lightheadedness, blood pressure problem Gastrointestinal: Reports: No symptoms Genitourinary: Reports: no symptoms Musculoskeletal: Reports: joint pain, joint swelling (Left hand, left elbow) Skin: Reports: erythema (Left hand and left elbow), change in color Psychiatric: Reports: no symptoms Neurological: Reports: No Symptoms Hematologic/Lymphatic: Denies: swollen glands Immunologic: Reports: other (removed from Revlimed) Exam - Exam Exam: See Below - Vital Signs Vital Signs: Last Vital Signs Temp 97.4 F 11/13/16 06:15 Pulse 72 11/13/16 06:15 Resp 18 11/13/16 06:15 BP 115/63 11/13/16 06:15 Pulse Ox 94 L 11/13/16 08:05 Weight: 195 lb 14.4 oz - Exam Quality Assessment: No: supplemental oxygen General: alert, oriented, 4 HEENT: PERRLA, Hearing intact, Mucosa moist & pink, Nares patent, Normal nasal septum, Posterior pharynx clear, Conjunctiva clear, EOMI, EACs clear, TMs clear Neck: supple, trachea midline, 2 Lungs: Clear to auscultation, Normal respiratory effort Cardiovascular: regular rate, regular rhythm, normal S1, normal S2 Abdomen: Normal Bowel Sounds, Soft Rectal (Males) Exam: Deferred Back Exam: No: CVA tenderness (L), CVA tenderness (R) Extremities: increased warmth (Increased warmth and slight edema left elbow, left hand--severe resting tremor right arm) Skin: other (Erythremia left elbow, mild effusion). No: ecchymosis Neuro Extensive - Mental Status: alert Neuro Extensive - Motor, Sensory, Reflexes: CN II-XII intact, normal gait, normal reflexes Psychiatric: alert, normal affect, normal mood - Patient Data Lab Results last 24 hrs: Laboratory Results - last 24 hr 11/13/16 11/13/16 11/13/16 Range/Units 06:11 08:05 08:05 WBC 3.2 L (5.0-10.0) 10^3/uL RBC 3.04 L (4.50-6.00) 10^6/uL Hgb 9.8 L (13.0-17.0) g/dL Hct 29.0 L (40.0-52.0) % MCV 95.3 H (82.0-92.0) fL MCH 32.3 H (27.0-31.0) pg MCHC 33.9 (32.0-36.0) g/dL RDW 15.5 H (11.5-14.5) % Plt Count 103 L (150-300) 10^3/uL MPV 7.7 (7.4-10.4) fL Neut % (Auto) 51.1 (50.0-70.0) % Lymph % (Auto) 31.1 (20.0-40.0) % [place] % (Auto) 11.5 H (2.0-8.0) % Eos % (Auto) 6.0 H (1.0-3.0) % Baso % (Auto) 0.3 (0.0-1.0) % Neut # (Auto) 1.6 L (2.5-7.0) 10^3/uL Lymph # (Auto) 1.0 (1.0-4.0) 10^3/uL [place] # (Auto) 0.4 (0.1-0.8) 10^3/uL Eos # (Auto) 0.2 (0.1-0.3) 10^3/uL Baso # (Auto) 0.0 (0.0-0.1) 10^3/uL PT 17.9 H (8.9-11.4) SEC INR 1.7 H (0.9-1.1) Sodium (136-145) mmol/L Potassium (3.3-5.3) mmol/L Chloride (98-115) mmol/L Carbon Dioxide (21.0-32.0) mmol/L BUN (6-25) mg/dL Creatinine (0.51-1.17) mg/dL Est Cr Clr Drug Dosing mL/min Estimated GFR (MDRD) mL/min Glucose (70-110) mg/dL POC Glucose 122 H (74-106) mg/dl Calcium (8.7-10.3) mg/dL Troponin I (0.00-0.070) ng/mL 11/13/16 Range/Units 08:05 WBC (5.0-10.0) 10^3/uL RBC (4.50-6.00) 10^6/uL Hgb (13.0-17.0) g/dL Hct (40.0-52.0) % MCV (82.0-92.0) fL MCH (27.0-31.0) pg MCHC (32.0-36.0) g/dL RDW (11.5-14.5) % Plt Count (150-300) 10^3/uL MPV (7.4-10.4) fL Neut % (Auto) (50.0-70.0) % Lymph % (Auto) (20.0-40.0) % [place] % (Auto) (2.0-8.0) % Eos % (Auto) (1.0-3.0) % Baso % (Auto) (0.0-1.0) % Neut # (Auto) (2.5-7.0) 10^3/uL Lymph # (Auto) (1.0-4.0) 10^3/uL [place] # (Auto) (0.1-0.8) 10^3/uL Eos # (Auto) (0.1-0.3) 10^3/uL Baso # (Auto) (0.0-0.1) 10^3/uL PT (8.9-11.4) SEC INR (0.9-1.1) Sodium 137 (136-145) mmol/L Potassium 3.9 (3.3-5.3) mmol/L Chloride 103 (98-115) mmol/L Carbon Dioxide 28.6 (21.0-32.0) mmol/L BUN 15 (6-25) mg/dL Creatinine 1.00 (0.51-1.17) mg/dL Est Cr Clr Drug Dosing 63.25 mL/min Estimated GFR (MDRD) > 60 mL/min Glucose 116 H (70-110) mg/dL POC Glucose (74-106) mg/dl Calcium 8.5 L (8.7-10.3) mg/dL Troponin I 0.10 H* (0.00-0.070) ng/mL Result Diagrams: 11/13/16 08:05 11/13/16 08:05 *Q Meaningful Use (ADM) - VTE *Q VTE Criteria *Q: - Stroke *Q Stroke Criteria *Q: - AMI *Q AMI Criteria *Q: Problem List Initiated/Reviewed/Updated: Yes Orders Last 24hrs: Active Orders 24 hr Category Date Time Status Communication Order [RC] 0900 Care 11/13/16 00:02 Active Elbow 2V Lt [CR] Routine Exams 11/13/16 09:05 Ordered Atropine [Atropine 0.1 MG/ML] Med 11/13/16 08:35 Active 0 mg IVPUSH ASDIRECTED PRN EPINEPHrine [EPINEPHrine 1:10,000] Med 11/13/16 08:35 Active 1 mg IVPUSH ASDIRECTED PRN Lidocaine 2% [Xylocaine 2%] Med 11/13/16 08:35 Active 0 mg IVPUSH ASDIRECTED PRN Nitroglycerin [Nitrostat] Med 11/13/16 08:35 Active 0.4 mg SL ASDIRECTED PRN Ondansetron [Zofran] Med 11/13/16 00:01 Active 4 mg IVPUSH Q4H PRN Sodium Chloride 0.9% [Normal Saline] 1,000 ml Med 11/12/16 21:30 Active IV ASDIRECTED Medication Orders Hydrocodone Bitart/Acetaminophen ([place] 325-5 Mg) 1 tab PO Q4H PRN PRN Reason: Pain (moderate 4-6) Last Admin: 11/13/16 09:04 Dose: 1 tab Admin: 11/12/16 21:40 Dose: 1 tab Atropine Sulfate (Atropine 0.1 Mg/Ml) 0 mg IVPUSH ASDIRECTED PRN PRN Reason: Heart Epinephrine HCl (Epinephrine 1:10,000) 1 mg IVPUSH ASDIRECTED PRN PRN Reason: Heart Sodium Chloride (Normal Saline) 1,000 mls @ 75 mls/hr IV ASDIRECTED WILLARD Last Admin: 11/12/16 21:40 Dose: 75 mls/hr Lidocaine HCl (Xylocaine 2%) 0 mg IVPUSH ASDIRECTED PRN PRN Reason: Heart Nitroglycerin (Nitrostat) 0.4 mg SL ASDIRECTED PRN PRN Reason: Heart Ondansetron HCl (Zofran) 4 mg IVPUSH Q4H PRN PRN Reason: Nausea/Vomiting Sodium Chloride (Syrex Flush) 5 ml FLUSH Q8HR PRN PRN Reason: Keep Vein Open Assessment/Plan Comment:: HISTORY OF PRESENT ILLNESS This 81 yo gentleman is a recent hospitalization and cellulitis was admitted through the emergency department after the patient complained of a fall at home when he lost his balance and fell backwards. He was able to brace himself so he did not hit his head. Denies any injury however the patient has been complaining of left arm edema since her recent hospitalization. He was scheduled for a venous Doppler ultrasound of his left arm today to rule out any DVT. Previous admission she seemed to recover approximately 75% from IV antibiotics. Over the past few days he noticed his left elbow and his left hand starting to swell. Recent uric acid levels were normal. ESR increased to 89 from 56 past few weeks. Venous ultrasound of left upper extremity was scheduled at the [facility] today to help rule out DVT. IMPRESSION/PLAN Likely pseudogout, patient may need intra-articular injections at this time we' ll start on oral steroids. Unable to tolerate NSAIDs due to Coumadin usage, x- ray left elbow today, pain measures, uric acid level. ESR 89, CRP 76 Myocardial infarction, non-STEMI, slightly elevated cardio biomarkers on initial presentation, on telemetry, Rafa, CALI risk high due to status post CABG, CAD, Has not been on a beta niru will start low dose today Coronary artery disease with recent non-ST elevation myocardial infarction May/2016 with large fixed defect felt to be related to a previous CABG; recently seen by cardiolgy and recommend medical treatment and management of hemoglobin levels and transfuse if below 10 due to his anemia and MDS Paroxysmal Atrial fibrillation, chronic and stable. Continue warfarin. 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 - Hgb improved and stable 12.0 today - Transfuse parameters if Hb <10g/dL and symptomatic from anemia. Or transfuse to keep Hb 7-8 g/dL. Type 2 diabetes mellitus--steroid-induced hyperglycemia, 15 units NovoLog given last night--much improved. On Tresiba, Victoza and metformin. Renal function is normal.
[2016-11-13] MEDS: Omeprazole 20 MG Cap.CR PO SCH ×2 (11:22→18:33)
[2016-11-13] MEDS: Sodium Chloride 1 GM Tab PO SCH (11:22)
[2016-11-13] MEDS: Sertraline 50 MG Tab PO SCH (11:22)
[2016-11-13] MEDS: Enalapril 5 MG Tab PO SCH (11:23)
[2016-11-13] MEDS: Metoprolol Succinate 25 MG Tab.ER PO SCH (11:23)
[2016-11-13] MEDS: TRESIBA U SUBCUT SCH (11:24)
[2016-11-13] MEDS: Liraglutide (rDNA Origin) 0.6 MG/0.1 ML 3 ML Pen SUBCUT SCH (11:25)
[2016-11-13] MEDS: Carbidopa/Levodopa 25-100 MG Tab PO SCH ×2 (11:31→16:46)
[2016-11-13] MEDS ORDERED: predniSONE 20 MG Tab PO ONE (12:00)
[2016-11-13] MEDS: Midodrine 5 MG Tab PO SCH ×2 (14:01→22:02)
[2016-11-13] MEDS: Warfarin 2 MG Tab PO SCH (18:33)
[2016-11-13] MEDS: Warfarin 2.5 MG Tab PO SCH (18:33)
[2016-11-13] MEDS: Simvastatin 20 MG Tab PO SCH (22:02)
[2016-11-14] MEDS: Sodium Chloride 0.9% 1,000 ML IV SCH ×2 (06:31→20:11)
[2016-11-14] MEDS: Carbidopa/Levodopa 25-100 MG Tab PO SCH ×3 (07:58→16:08)
[2016-11-14] MEDS: Omeprazole 20 MG Cap.CR PO SCH ×2 (07:58→18:49)
[2016-11-14] MEDS: Enalapril 5 MG Tab PO SCH (08:37)
[2016-11-14] MEDS: Sertraline 50 MG Tab PO SCH (08:38)
[2016-11-14] MEDS: Magnesium Oxide 500 MG Tab PO SCH (08:38)
[2016-11-14] MEDS: Midodrine 5 MG Tab PO SCH ×3 (08:38→20:10)
[2016-11-14] MEDS: Sodium Chloride 1 GM Tab PO SCH (08:38)
[2016-11-14] MEDS ORDERED: Lidocaine 1% with EPINEPHrine 1:100,000 20 ML MDV INJECT ONE (08:45)
[2016-11-14] MEDS: Liraglutide (rDNA Origin) 0.6 MG/0.1 ML 3 ML Pen SUBCUT SCH (08:46)
[2016-11-14] MEDS: TRESIBA U SUBCUT SCH (08:47)
[2016-11-14] MEDS: Metoprolol Succinate 25 MG Tab.ER PO SCH (08:48)
[2016-11-14] MEDS ORDERED: predniSONE 20 MG Tab PO ONE ×2 (11:13)
--- NOTE | 2016-11-14 11:13 | PCM.PN ---
- General Info Date of Service: 11/14/16 Functional Status: Denies: pain controlled - Review of Systems General: Denies: Fever HEENT: Reports: no symptoms Pulmonary: Reports: no symptoms Cardiovascular: Denies: Chest Pain, Palpitations Gastrointestinal: Reports: No symptoms Musculoskeletal: Reports: arm pain, hand pain, joint swelling Skin: Reports: other (Redness left hand left elbow) Neurological: Reports: Pre-Existing Deficit, Tremors (Resting tremor right arm) . Denies: Confusion Psychiatric: Reports: no symptoms - Patient Data Vitals - most recent: Last Vital Signs Temp 97.8 F 11/14/16 07:00 Pulse 77 11/14/16 08:48 Resp 16 11/14/16 07:00 BP 128/67 11/14/16 08:48 Pulse Ox 93 L 11/14/16 07:20 Weight - most recent: 195 lb 14.4 oz I&O - last 24 hours: Intake & Output 11/13/16 11/14/16 11/14/16 22:59 06:59 14:59 Intake Total 800 610 Balance 800 610 Lab Results last 24 hrs: Laboratory Results - last 24 hr 11/13/16 11/13/16 11/13/16 Range/Units 11:16 17:44 22:33 POC Glucose 266 H 294 H 336 H (74-106) mg/dl Troponin I (0.00-0.070) ng/mL 11/14/16 11/14/16 Range/Units 05:59 07:25 POC Glucose 204 H (74-106) mg/dl Troponin I 0.10 H* (0.00-0.070) ng/mL Med Orders - Current: Current Medications Hydrocodone Bitart/Acetaminophen ([place] 325-5 Mg) 1 tab PO Q4H PRN PRN Reason: Pain (moderate 4-6) Last Admin: 11/13/16 09:04 Dose: 1 tab Atropine Sulfate (Atropine 0.1 Mg/Ml) 0 mg IVPUSH ASDIRECTED PRN PRN Reason: Heart Carbidopa/Levodopa (Sinemet 25-100 Mg) 2 tab PO TID@0730,1130,1630 [facility] Last Admin: 11/14/16 07:58 Dose: 2 tab Enalapril Maleate (Vasotec) 2.5 mg PO DAILY [facility] Last Admin: 11/14/16 08:37 Dose: 2.5 mg Epinephrine HCl (Epinephrine 1:10,000) 1 mg IVPUSH ASDIRECTED PRN PRN Reason: Heart Sodium Chloride (Normal Saline) 1,000 mls @ 75 mls/hr IV ASDIRECTED [facility] Last Admin: 11/14/16 06:31 Dose: 75 mls/hr Lidocaine HCl (Xylocaine 2%) 0 mg IVPUSH ASDIRECTED PRN PRN Reason: Heart Liraglutide (Victoza) 1.2 mg SUBCUT DAILY [facility] Last Admin: 11/14/16 08:46 Dose: 1.2 mg Magnesium Oxide (Magnesium Oxide) 500 mg PO DAILY [facility] Last Admin: 11/14/16 08:38 Dose: 500 mg Metoprolol Succinate (Toprol Xl) 12.5 mg PO DAILY [facility] Last Admin: 11/14/16 08:48 Dose: 12.5 mg Midodrine (Midodrine) 5 mg PO TID [facility] Last Admin: 11/14/16 08:38 Dose: 5 mg Nitroglycerin (Nitrostat) 0.4 mg SL Q5M PRN PRN Reason: Chest Pain Omeprazole (Omeprazole) 20 mg PO BIDMEALS [facility] Last Admin: 11/14/16 07:58 Dose: 20 mg Ondansetron HCl (Zofran) 4 mg IVPUSH Q4H PRN PRN Reason: Nausea/Vomiting Ptom Tresiba (Flextouch U-100) 24 each SUBCUT DAILY [facility] Last Admin: 11/14/16 08:47 Dose: 24 each Sertraline HCl (Zoloft) 50 mg PO DAILY [facility] Last Admin: 11/14/16 08:38 Dose: 50 mg Simvastatin (Zocor) 40 mg PO BEDTIME [facility] Last Admin: 11/13/16 22:02 Dose: 40 mg Sodium Chloride (Syrex Flush) 5 ml FLUSH Q8HR PRN PRN Reason: Keep Vein Open Sodium Chloride (Sodium Chloride) 1 gm PO DAILY [facility] Last Admin: 11/14/16 08:38 Dose: 1 gm Warfarin Sodium (Coumadin) 3 mg PO MoFr@1800 [facility] Warfarin Sodium (Coumadin) 2 mg PO SuTuWeThSa@1800 [facility] Last Admin: 11/13/16 18:33 Dose: 2 mg Warfarin Sodium (Coumadin) 2.5 mg PO SuTuWeThSa@1800 [facility] Last Admin: 11/13/16 18:33 Dose: 2.5 mg Discontinued Medications Aspirin (Aspirin) Confirm Administered Dose 81 mg .ROUTE .STK-MED ONE Stop: 11/12/16 22:44 Last Admin: 11/12/16 23:59 Dose: Not Given Aspirin (Aspirin) 81 mg PO ONETIME ONE Stop: 11/12/16 22:46 Last Admin: 11/12/16 22:50 Dose: 81 mg Enoxaparin Sodium (Lovenox) Confirm Administered Dose 100 mg .ROUTE .STK-MED ONE Stop: 11/12/16 22:45 Last Admin: 11/13/16 00:00 Dose: Not Given Enoxaparin Sodium (Lovenox) 90 mg SUBCUT ONETIME ONE Stop: 11/12/16 22:46 Last Admin: 11/13/16 00:00 Dose: 90 mg Sodium Chloride (Normal Saline) 1,000 mls @ 999 mls/hr IV .BOLUS ONE Stop: 11/12/16 21:14 Last Admin: 11/12/16 20:24 Dose: 999 mls/hr Insulin Human Regular (Novolin R) 15 unit SUBCUT NOW STA PRN Reason: Protocol Stop: 11/12/16 21:18 Last Admin: 11/12/16 23:55 Dose: 15 unit Iopamidol (Isovue-370 (76%)) 75 ml IVPUSH ONETIME ONE Stop: 11/12/16 19:59 Last Admin: 11/12/16 20:24 Dose: Not Given Prednisone (Prednisone) 40 mg PO ONETIME ONE Stop: 11/13/16 12:01 Last Admin: 11/13/16 11:24 Dose: 40 mg Sodium Chloride (Normal Saline) 100 ml FLUSH ONETIME ONE Stop: 11/12/16 20:01 Last Admin: 11/12/16 20:24 Dose: Not Given - Exam Quality Assessment: No: supplemental oxygen General: alert, oriented Neck: supple Lungs: Clear to auscultation, Normal respiratory effort Cardiovascular: Regular Rate, Regular Rhythm Abdomen: bowel sounds present, soft, no tenderness, no distension Extremities: no tenderness/swelling (Demarcated erythema and edema left hand-- improving effusion left elbow, slightly warm), edema Wound/Incisions: erythema improving Psy/Mental Status: alert, normal affect, normal mood - Problem List Review Problem List Initiated/Reviewed/Updated: Yes - My Orders Last 24 Hours: My Active Orders 11/13/16 10:19 Nitroglycerin [Nitrostat] 0.4 mg SL Q5M PRN 11/13/16 11:00 Enalapril [Vasotec] 2.5 mg PO DAILY Liraglutide [Victoza] 1.2 mg SUBCUT DAILY Metoprolol Succinate [Toprol XL] 12.5 mg PO DAILY Patient's Own Medication [Ptom] 24 each SUBCUT DAILY Sertraline [Zoloft] 50 mg PO DAILY Sodium Chloride 1 gm PO DAILY 11/13/16 11:30 Carbidopa/Levodopa [Sinemet 25-100 mg] 2 tab PO TID@0730,1130,1630 Omeprazole 20 mg PO BIDMEALS 11/13/16 14:00 Midodrine 5 mg PO TID 11/13/16 18:00 Warfarin [Coumadin] 2 mg PO SuTuWeThSa@1800 Warfarin [Coumadin] 2.5 mg PO SuTuWeThSa@1800 11/13/16 21:00 Simvastatin [Zocor] 40 mg PO BEDTIME 11/14/16 09:00 Magnesium Oxide 500 mg PO DAILY 11/15/16 05:30 INR,PT,PROTHROMBIN TIME [COAG] Routine 11/16/16 18:00 Warfarin [Coumadin] 3 mg PO MoFr@1800 11/17/16 05:30 INR,PT,PROTHROMBIN TIME [COAG] Routine 11/19/16 05:30 INR,PT,PROTHROMBIN TIME [COAG] Routine - Plan Plan:: HISTORY OF PRESENT ILLNESS This 81 yo gentleman is a recent hospitalization and cellulitis was admitted through the emergency department after the patient complained of a fall at home when he lost his balance and fell backwards. He was able to brace himself so he did not hit his head. Denies any injury however the patient has been complaining of left arm edema since her recent hospitalization. He was scheduled for a venous Doppler ultrasound of his left arm today to rule out any DVT. Previous admission she seemed to recover approximately 75% from IV antibiotics. Over the past few days he noticed his left elbow and his left hand starting to swell. Recent uric acid levels were normal. ESR increased to 89 from 56 past few weeks. Venous ultrasound of left upper extremity was scheduled at the [facility] today to help rule out DVT. Nurses reported improved pain and swelling left hand and elbow, also some PVCs multifocal reported by nurses. Radiographs left elbow show moderate joint effusion with mild degenerative changes diffuse IMPRESSION/PLAN Left joint/olecranon effusion Dr Franco aspirated serous fluid--we'll send off for CCP and crystals--continue with oral steroids Likely pseudogout, continue with oral steroids. Unable to tolerate NSAIDs due to Coumadin usage, pain measures, uric acid level. ESR 89, CRP 76 Myocardial infarction, non-STEMI, slightly elevated cardio biomarkers on initial presentation, on telemetry, Lovenox, CALI risk high due to status post CABG, CAD, Has not been on a beta niru will start low dose today Coronary artery disease with recent non-ST elevation myocardial infarction May/2016 with large fixed defect felt to be related to a previous CABG; recently seen by cardiolgy and recommend medical treatment and management of hemoglobin levels and transfuse if below 10 due to his anemia and MDS Paroxysmal Atrial fibrillation, chronic and stable. Continue warfarin. 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 - Hgb improved and stable 12.0 today - Transfuse parameters if Hb <10g/dL and symptomatic from anemia. Or transfuse to keep Hb 7-8 g/dL. Type 2 diabetes mellitus--steroid-induced hyperglycemia, 15 units NovoLog given last night--much improved. On Tresiba, Victoza and metformin. Renal function is normal. Restart metformin today
[2016-11-14] MEDS: Acetaminophen/HYDROcodone 325-5 MG Tab PO PRN (13:59)
[2016-11-14] MEDS: Warfarin 2.5 MG Tab PO SCH (18:49)
[2016-11-14] MEDS: Warfarin 2 MG Tab PO SCH (18:49)
[2016-11-14] MEDS: Simvastatin 20 MG Tab PO SCH (20:10)
[2016-11-15 06:45] VITALS: BP 156/78
[2016-11-15] MEDS: Carbidopa/Levodopa 25-100 MG Tab PO SCH ×2 (07:17→11:18)
[2016-11-15] MEDS: Omeprazole 20 MG Cap.CR PO SCH (07:17)
[2016-11-15] MEDS: Magnesium Oxide 500 MG Tab PO SCH (08:27)
[2016-11-15] MEDS: TRESIBA U SUBCUT SCH (08:27)
[2016-11-15] MEDS: Midodrine 5 MG Tab PO SCH (08:27)
[2016-11-15] MEDS: Metoprolol Succinate 25 MG Tab.ER PO SCH (08:28)
[2016-11-15] MEDS: Sodium Chloride 1 GM Tab PO SCH (08:28)
[2016-11-15] MEDS: Enalapril 5 MG Tab PO SCH (08:29)
[2016-11-15] MEDS: Sertraline 50 MG Tab PO SCH (08:29)
[2016-11-15] MEDS: Liraglutide (rDNA Origin) 0.6 MG/0.1 ML 3 ML Pen SUBCUT SCH (08:29)
--- NOTE | 2016-11-16 08:28 | DISCH ---
FINAL DIAGNOSES: 1. Pseudogout with positive calcium pyrophosphate (CCP) polyarticular involving left hand, left elbow. 2. Myocardial infarction, non-STEMI. Slightly elevated cardiac biomarkers on initial presentation. CALI risk score high due to post CABG coronary artery disease. Start a low-dose beta-niru. 3. Coronary artery disease with recent non ST-elevation myocardial infarction in May 2016. 4. Myelodysplastic syndrome. Holding Revlimid during this admission. Consider starting back up after steroid completion. 5. 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 Hemoglobin goals is to keep greater than 10. 6. Type 2 diabetes with steroid-induced hyperglycemia. This was covered while in the hospital, improving. 7. Status post recent fall, non injury. HISTORY: An 81-year-old gentleman who was recently hospitalized with cellulitis into his right hand, was admitted through the ED after the patient complained of a fall at home. He said he lost his balance, he fell backwards; however, he was able to brace himself so he did not hit his head. Denied any injury. He had been complaining of his left arm edema since his recent hospitalization, which was just a few days prior to this one. He was scheduled to have a venous Doppler ultrasound of his left arm on the day of admission to rule out any DVT. On previous admission, he seemed to recover approximately 75% from IV antibiotics. Over the past few days prior to this admission, he had noticed his left elbow and his left hand is starting to swell. His recent uric acid levels were normal. He had an elevated ESR of 89, which is up from mid 50s this past few weeks. He was admitted due to failing outpatient therapy. DIAGNOSTICS: X-rays left elbow on admission showed a moderate joint effusion with diffuse mild degenerative changes. Other significant lab values of troponin on admission was 0.10, slightly elevated, it was normal on discharge. HOSPITAL COURSE: Went quite well. We did aspirate some serous fluid from a joint effusion in the left elbow that was sent off to lab, came back as a CCP consistent with pseudogout. He was started on steroids; however, he did have a complication with a mild myocardial infarction and non-STEMI. He was placed on telemetry. He did have a few polymorphic PVCs; however, no other aberrancy. I did give him Lovenox, his CALI risk score was high due to history of coronary artery disease. He has CABG, he has been seen in the past by Cardiology and recommended medical management. We did start him on a low-dose beta-niru. He had no chest pain. We have been holding his Levemir due to his myelodysplastic syndrome. He never became hemodynamically stable. We did place him on insulin to help for his hyperglycemia due to steroid use. He felt much better. NSAIDs were not given due to him being on Coumadin. His INR was monitored carefully, it was therapeutic on discharge at 2.2. PHYSICAL EXAMINATION ON DISCHARGE: VITAL SIGNS: Blood pressure 156/78, temperature 97.6, O2 sats 95%, respiratory rate 18. LUNGS: Clear to auscultation. CV: Slightly irregular. Left hand much improved, mild edema. No warmth. Left elbow much improved, he is back to about 90% of the baseline on abduction and Apley scratch. MEDICATIONS: Metoprolol succinate 12.5 mg daily (newly added). Prednisone 20 mg p.o. daily for 3 days, 15 for 3 days, 10 mg for 3 days, 5 mg for 3 days, and discontinue (newly added). DISPOSITION: The patient will be discharged from the hospital. He is ready to go. I feel he has exceeded any benefit in his stay here. He was given specific instructions to report any increase in pain or swelling. He will follow up with Sandra Lara, nurse practitioner, tomorrow. RECOMMENDATIONS AT FOLLOWUP: Ensure INR Clinic is aware of his discharge and current INR of 2.2. Review medication compliance. The patient may need colchicine after tapering down of his steroids. MEDICAL DECISION MAKIN minutes was spent on this discharge planning, process, and pharmacy consultation. /[id number]/MODL
[2016-11-16] MEDS ORDERED: Warfarin 2 MG Tab PO SCH (18:00)
--- NOTE | 2016-11-27 08:02 | OR ---
DATE OF SURGERY: 11/15/2016 SURGEON: Yomaira Navas MD PREOPERATIVE DIAGNOSIS: The patient's left elbow effusion. POSTOPERATIVE DIAGNOSIS: The patient's left elbow effusion. OPERATION PERFORMED: Aspiration of left elbow effusion. DESCRIPTION OF PROCEDURE: Informed consent was obtained from the patient regarding this procedure. All possible complications were thoroughly discussed. He agrees to proceed. He was kept in sitting position. The skin on the posterolateral aspect of the left elbow was prepped and anesthetized the needle tract with Xylocaine 1%. Introduced an 18-gauge needle into the elbow joint and aspirated approximately 5 mL of a straw-colored fluid. This fluid was sent for histology. The patient tolerated procedure very well. There were no problems. /[id number]/MODL
== END 2016-11-15 13:40 | disposition home or self-care (01) ==
LOC: KA.ED 18:47 → KA.MS 21:15
PROVIDERS: ADMIT Physician Assistant Medical; ATTEND Nurse Practitioner Family
DX: M25.422 Effusion, left elbow (principal); E09.65 Drug or chemical induced diabetes mellitus with hyperglycemia; M19.022 Primary osteoarthritis, left elbow; I25.2 Old myocardial infarction; I10 Essential (primary) hypertension; I25.10 Atherosclerotic heart disease of native coronary artery without angina pectoris; D46.9 Myelodysplastic syndrome, unspecified; K21.9 Gastro-esophageal reflux disease without esophagitis; I45.10 Unspecified right bundle-branch block; G20 Parkinson's disease; I48.0 Paroxysmal atrial fibrillation; I49.3 Ventricular premature depolarization; R79.1 Abnormal coagulation profile; Z95.1 Presence of aortocoronary bypass graft; Z91.81 History of falling; Z86.73 Personal history of transient ischemic attack (TIA), and cerebral infarction without residual deficits; Z90.49 Acquired absence of other specified parts of digestive tract; Z85.46 Personal history of malignant neoplasm of prostate; Z98.890 Other specified postprocedural states; Z79.4 Long term (current) use of insulin; Z79.899 Other long term (current) drug therapy; Z79.82 Long term (current) use of aspirin; Z88.5 Allergy status to narcotic agent; Z79.01 Long term (current) use of anticoagulants; W19.XXXA Unspecified fall, initial encounter
CPT/HCPCS: 36415; 71020; 71260; 73070; 80048; 80053; 81001; 82550; 82553; 82962; 84484; 85025; 85379; 85610; 85730; 87205; 89060; 93005; 96360; 96361; 96372; 99285; A9270; G0378; J1650; J1817; J7030; Q9967; 86200; J3490

== ENCOUNTER 2016-12-07 12:08 | Inpatient (IN) | payer MEDICARE, OTHER ==
[2016-12-07] MEDS ORDERED: Lidocaine 2% 100 MG/5 ML Syringe IVPUSH PRN (15:36)
[2016-12-07] MEDS ORDERED: Nitroglycerin 0.4 MG Tab.SL SL PRN ×2 (15:36→20:41)
[2016-12-07] MEDS ORDERED: EPINEPHrine 1:10,000 1 MG/10 ML Syringe IVPUSH PRN (15:36)
[2016-12-07] MEDS ORDERED: Atropine 0.1 MG/ML 10 ML Syringe IVPUSH PRN (15:36)
[2016-12-07] MEDS ORDERED: Prochlorperazine 5 MG Tab PO PRN (20:41)
[2016-12-07] MEDS ORDERED: Insulin Aspart 100 Units/ML 3 ML Pen SUBCUT SCH (20:45)
[2016-12-07] MEDS: Simvastatin 20 MG Tab PO SCH (21:16)
[2016-12-07] MEDS: metFORMIN 500 MG Tab PO SCH (21:17)
[2016-12-07] MEDS: Midodrine 5 MG Tab PO SCH (21:17)
[2016-12-08] MEDS: Sodium Chloride 0.9% 1,000 ML IV SCH ×2 (06:21→20:32)
[2016-12-08 08:14] LABS: CHLORIDE,CL 101 mmol/L (98-115); SODIUM,NA 132 mmol/L (136-145)
[2016-12-08] MEDS: Carbidopa/Levodopa 25-100 MG Tab PO SCH ×3 (08:27→17:05)
[2016-12-08] MEDS: metFORMIN 500 MG Tab PO SCH ×2 (08:27→17:05)
[2016-12-08] MEDS: Midodrine 5 MG Tab PO SCH ×3 (08:27→20:31)
[2016-12-08] MEDS: Calcium Citrate/Vitamin D3 315 MG-250 Unit Tab PO SCH ×2 (08:27→17:05)
[2016-12-08] MEDS: Sodium Chloride 1 GM Tab PO SCH (08:27)
[2016-12-08] MEDS: Omeprazole 20 MG Cap.CR PO SCH ×2 (08:28→17:05)
[2016-12-08] MEDS: Magnesium Oxide 500 MG Tab PO SCH (08:28)
[2016-12-08] MEDS: Metoprolol Succinate 25 MG Tab.ER PO SCH (08:28)
[2016-12-08] MEDS: Sertraline 50 MG Tab PO SCH (08:28)
[2016-12-08] MEDS: Enalapril 5 MG Tab PO SCH (08:29)
[2016-12-08] MEDS: Liraglutide (rDNA Origin) 0.6 MG/0.1 ML 3 ML Pen SUBCUT SCH (08:33)
--- NOTE | 2016-12-08 11:17 | PCM.PN ---
- General Info Date of Service: 12/08/16 Admission Dx/Problem (Free Text): Chief complaint: Headache History of present illness: Patient is an 81-year-old white female with a complex history-atrial fibrillation, myelodysplastic syndrome, pseudogout, orthostatic hypotension, adult-onset diabetes mellitus type 2 with insulin supplementation, coronary artery disease, hyperlipidemia, Parkinson's disease, prostate cancer, GERD, previous CVA, anxiety, Patient presented on day of admission-12/07/16 with concerns of increased shortness breath, dizziness, weakness and frontal headache. Patient reported that the symptoms started on 12/06/16 and progressively worsened. Significant frontal headache and he typically does not get headaches. Patient [place]16 but caught himself and did not hit his head. He does have some associated shortness breath, weakness, dizziness , nausea but denied any cough, fever, chills, chest pain, or palpitations. Patient had been laying down in his house prior to admission-not out in the extreme heat of the day-had not taken anything for his headache. Patient has a history of myelodysplastic syndrome with 5q deletion. Patient was restarted on Revlimid one week ago after a month-long bout of pseudogout of the left elbow and hand. She reports that he had been quite sleepy, overall not feeling well and his Parkinson tremor had worsened since restarting this medication. Other history: Paroxysmal atrial fibrillation-warfarin, Toprol-XL Coronary artery disease, status post CABG Chronic hyponatremia-on sodium 1 g every day Chronic Parkinson's disease-Sinemet followed by neurology Chronic orthostatic hypotension-on midodrine Adult-onset diabetes mellitus type 2-tresiba, NovoLog, the toes are, metformin Patient admitted to observation bed for further evaluation, treatment, observation. Working diagnosis at the time of admission: Frontal headache Shortness of breath Generalized weakness Hypotension Myelodysplastic syndrome Paroxysmal atrial fibrillation Atherosclerosis of coronary artery Adult-onset diabetes type 2 Parkinson's disease Status post CABG Patient admitted monitored closely-vital signs, neuro checks, CAT scan of the head without contrast done on admission-no acute findings IV of normal saline at 75 cc an hour, Accu-Cheks 4 times a day, neuro checks every 4 hours, social work consult _ Patient reports today: Headache still present but 50% better Generalized knxfnmvj-ryoeiaamk-dnuwrh't even stand up yesterday but now doing somewhat better today Denied any nausea, vomiting, chest pain, shortness breath, abdominal pain, and the urinary symptoms Denied any fever, chills Bowels and bladder working fairly well-has had a bowel movement Appetite fair-improving Dizziness still quite marked Still feels very lethargic/sleeping-really seemed to develop after he started taking the Revlimid Still very weak Otherwise, Overall feels pretty good Nurses report today: Headache somewhat last Very drowsy and tired and weak yet No energy Weak and dizzy especially when Denied any fever, chills Lives alone Concern at home with patient's medication compliance Unintentional weight loss Failure to thrive-concern patient is only eating doughnuts-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 Denies: Fever, Chills HEENT: Reports: no symptoms Pulmonary: Reports: no symptoms. Denies: shortness of breath, pleuritic chest pain, cough, sputum, wheezing Cardiovascular: Reports: Lightheadedness (With exertion). Denies: Chest Pain, Palpitations, Edema Gastrointestinal: Reports: Decreased appetite (Improving). Denies: Abdominal pain, Constipation, Diarrhea, Nausea, Vomiting Genitourinary: Reports: no symptoms Musculoskeletal: Reports: other (Left elbow were pseudogout was is doing much better) Skin: Reports: pallor. Denies: cyanosis Neurological: Reports: Weakness, Other (Concern for some recent memory loss but converses easily today and remembers me and is alert and oriented x3 today) Psychiatric: Reports: no symptoms - Patient Data Vitals - most recent: Last Vital Signs Temp 97.6 F 12/08/16 06:37 Pulse 91 12/08/16 08:28 Resp 20 12/08/16 06:37 BP 126/71 12/08/16 08:29 Pulse Ox 92 L 12/08/16 06:37 Orthostatic Blood Pressure [ 90/49 Standing] Orthostatic Blood Pressure [ 91/45 Sitting] Orthostatic Blood Pressure [ 96/57 Supine] Weight - most recent: 195 lb 14.4 oz I&O - last 24 hours: Intake & Output 12/07/16 12/08/16 12/08/16 22:59 06:59 14:59 Intake Total 391 731 Output Total 500 Balance -109 731 Lab Results last 24 hrs: Laboratory Results - last 24 hr 12/07/16 12/07/16 12/07/16 Range/Units 16:05 18:21 21:15 WBC (5.0-10.0) 10^3/uL RBC (4.50-6.00) 10^6/uL Hgb (13.0-17.0) g/dL Hct (40.0-52.0) % MCV (82.0-92.0) fL MCH (27.0-31.0) pg MCHC (32.0-36.0) g/dL RDW (11.5-14.5) % Plt Count (150-300) 10^3/uL MPV (7.4-10.4) fL Neut % (Auto) (50.0-70.0) % Lymph % (Auto) (20.0-40.0) % [place] % (Auto) (2.0-8.0) % Eos % (Auto) (1.0-3.0) % Baso % (Auto) (0.0-1.0) % Neut # (Auto) (2.5-7.0) 10^3/uL Lymph # (Auto) (1.0-4.0) 10^3/uL [place] # (Auto) (0.1-0.8) 10^3/uL Eos # (Auto) (0.1-0.3) 10^3/uL Baso # (Auto) (0.0-0.1) 10^3/uL PT TNP INR 1.5 H (0.9-1.1) Sodium (136-145) mmol/L Potassium (3.3-5.3) mmol/L Chloride (98-115) mmol/L Carbon Dioxide (21.0-32.0) mmol/L BUN (6-25) mg/dL Creatinine (0.51-1.17) mg/dL Est Cr Clr Drug Dosing mL/min Estimated GFR (MDRD) mL/min Glucose (70-110) mg/dL POC Glucose 292 H 257 H (74-106) mg/dl Calcium (8.7-10.3) mg/dL Specimen Type Urine Color (YELLOW) Urine Appearance (CLEAR) Urine pH (5.0-9.0) Ur Specific Lowman (1.005-1.030) Urine Protein (NEGATIVE) mg/dL Urine Glucose (UA) (NEGATIVE) mg/dL Urine Ketones (NEGATIVE) mg/dL Urine Occult Blood (NEGATIVE) Urine Nitrite (NEGATIVE) Urine Bilirubin (NEGATIVE) Urine Urobilinogen (0.2-1.0) E.U./dL Ur Leukocyte Esterase (NEGATIVE) Urine RBC /HPF Urine WBC /HPF Ur Epithelial Cells /LPF Urine Bacteria (NONE TO FEW) /HPF Urine Mucus (NEGATIVE) /LPF 12/07/16 12/08/16 12/08/16 Range/Units 21:20 06:17 07:31 WBC 4.0 L (5.0-10.0) 10^3/uL RBC 2.81 L (4.50-6.00) 10^6/uL Hgb 8.9 L (13.0-17.0) g/dL Hct 26.9 L (40.0-52.0) % MCV 95.5 H (82.0-92.0) fL MCH 31.5 H (27.0-31.0) pg MCHC 33.0 (32.0-36.0) g/dL RDW 17.4 H (11.5-14.5) % Plt Count 100 L (150-300) 10^3/uL MPV 7.7 (7.4-10.4) fL Neut % (Auto) 68.7 (50.0-70.0) % Lymph % (Auto) 14.1 L (20.0-40.0) % [place] % (Auto) 5.9 (2.0-8.0) % Eos % (Auto) 11.0 H (1.0-3.0) % Baso % (Auto) 0.3 (0.0-1.0) % Neut # (Auto) 2.8 (2.5-7.0) 10^3/uL Lymph # (Auto) 0.6 L (1.0-4.0) 10^3/uL [place] # (Auto) 0.2 (0.1-0.8) 10^3/uL Eos # (Auto) 0.4 H (0.1-0.3) 10^3/uL Baso # (Auto) 0.0 (0.0-0.1) 10^3/uL PT INR (0.9-1.1) Sodium (136-145) mmol/L Potassium (3.3-5.3) mmol/L Chloride (98-115) mmol/L Carbon Dioxide (21.0-32.0) mmol/L BUN (6-25) mg/dL Creatinine (0.51-1.17) mg/dL Est Cr Clr Drug Dosing mL/min Estimated GFR (MDRD) mL/min Glucose (70-110) mg/dL POC Glucose 174 H (74-106) mg/dl Calcium (8.7-10.3) mg/dL Specimen Type Urinblad Urine Color Yellow (YELLOW) Urine Appearance Clear (CLEAR) Urine pH 7.0 (5.0-9.0) Ur Specific Lowman 1.020 (1.005-1.030) Urine Protein 100 H (NEGATIVE) mg/dL Urine Glucose (UA) 500 H (NEGATIVE) mg/dL Urine Ketones Negative (NEGATIVE) mg/dL Urine Occult Blood Trace-intact H (NEGATIVE) Urine Nitrite Negative (NEGATIVE) Urine Bilirubin Negative (NEGATIVE) Urine Urobilinogen 0.2 (0.2-1.0) E.U./dL Ur Leukocyte Esterase Negative (NEGATIVE) Urine RBC 0-5 /HPF Urine WBC Not seen /HPF Ur Epithelial Cells Moderate H /LPF Urine Bacteria Not seen (NONE TO FEW) /HPF Urine Mucus Rare H (NEGATIVE) /LPF 12/08/16 12/08/16 Range/Units 07:31 07:31 WBC (5.0-10.0) 10^3/uL RBC (4.50-6.00) 10^6/uL Hgb (13.0-17.0) g/dL Hct (40.0-52.0) % MCV (82.0-92.0) fL MCH (27.0-31.0) pg MCHC (32.0-36.0) g/dL RDW (11.5-14.5) % Plt Count (150-300) 10^3/uL MPV (7.4-10.4) fL Neut % (Auto) (50.0-70.0) % Lymph % (Auto) (20.0-40.0) % [place] % (Auto) (2.0-8.0) % Eos % (Auto) (1.0-3.0) % Baso % (Auto) (0.0-1.0) % Neut # (Auto) (2.5-7.0) 10^3/uL Lymph # (Auto) (1.0-4.0) 10^3/uL [place] # (Auto) (0.1-0.8) 10^3/uL Eos # (Auto) (0.1-0.3) 10^3/uL Baso # (Auto) (0.0-0.1) 10^3/uL PT 14.8 H INR 1.4 H (0.9-1.1) Sodium 132 L (136-145) mmol/L Potassium 3.9 (3.3-5.3) mmol/L Chloride 101 (98-115) mmol/L Carbon Dioxide 25.5 (21.0-32.0) mmol/L BUN 20 (6-25) mg/dL Creatinine 1.14 (0.51-1.17) mg/dL Est Cr Clr Drug Dosing 55.49 mL/min Estimated GFR (MDRD) > 60 mL/min Glucose 180 H (70-110) mg/dL POC Glucose (74-106) mg/dl Calcium 8.4 L (8.7-10.3) mg/dL Specimen Type Urine Color (YELLOW) Urine Appearance (CLEAR) Urine pH (5.0-9.0) Ur Specific Lowman (1.005-1.030) Urine Protein (NEGATIVE) mg/dL Urine Glucose (UA) (NEGATIVE) mg/dL Urine Ketones (NEGATIVE) mg/dL Urine Occult Blood (NEGATIVE) Urine Nitrite (NEGATIVE) Urine Bilirubin (NEGATIVE) Urine Urobilinogen (0.2-1.0) E.U./dL Ur Leukocyte Esterase (NEGATIVE) Urine RBC /HPF Urine WBC /HPF Ur Epithelial Cells /LPF Urine Bacteria (NONE TO FEW) /HPF Urine Mucus (NEGATIVE) /LPF Med Orders - Current: Current Medications Atropine Sulfate (Atropine 0.1 Mg/Ml) 0 mg IVPUSH ASDIRECTED PRN PRN Reason: Heart Calcium Citrate (Calcium Citrate + D) 1 tab PO BIDMEALS [facility] Last Admin: 12/08/16 08:27 Dose: 1 tab Carbidopa/Levodopa (Sinemet 25-100 Mg) 2 tab PO TID@0730,1130,1630 [facility] Last Admin: 12/08/16 08:27 Dose: 2 tab Enalapril Maleate (Vasotec) 2.5 mg PO DAILY [facility] Last Admin: 12/08/16 08:29 Dose: 2.5 mg Epinephrine HCl (Epinephrine 1:10,000) 1 mg IVPUSH ASDIRECTED PRN PRN Reason: Heart Sodium Chloride (Normal Saline) 1,000 mls @ 75 mls/hr IV ASDIRECTED [facility] Last Admin: 12/08/16 06:21 Dose: 75 mls/hr Insulin Aspart (Novolog) 8 unit SUBCUT QID PRN PRN Reason: Hyperglycemia Lidocaine HCl (Xylocaine 2%) 0 mg IVPUSH ASDIRECTED PRN PRN Reason: Heart Liraglutide (Victoza) 1.2 mg SUBCUT DAILY [facility] Last Admin: 12/08/16 08:33 Dose: 1.2 mg Magnesium Oxide (Magnesium Oxide) 500 mg PO DAILY [facility] Last Admin: 12/08/16 08:28 Dose: 500 mg Metformin HCl (Glucophage) 500 mg PO BIDM [facility] Last Admin: 12/08/16 08:27 Dose: 500 mg Metoprolol Succinate (Toprol Xl) 12.5 mg PO DAILY [facility] Last Admin: 12/08/16 08:28 Dose: 12.5 mg Midodrine (Midodrine) 5 mg PO TID [facility] Last Admin: 12/08/16 08:27 Dose: 5 mg Multivitamins/Minerals (Centrum) 1 tab PO DAILY@1800 [facility] Nitroglycerin (Nitrostat) 0.4 mg SL Q5M PRN PRN Reason: Chest Pain Non-Formulary Medication (Insulin Degludec [Tresiba Flextouch U-100]) 24 units SUBCUT DAILY [facility] Omeprazole (Omeprazole) 20 mg PO BIDMEALS [facility] Last Admin: 12/08/16 08:28 Dose: 20 mg Prochlorperazine Maleate (Compazine) 10 mg PO DAILY PRN PRN Reason: Nausea Sertraline HCl (Zoloft) 50 mg PO DAILY [facility] Last Admin: 12/08/16 08:28 Dose: 50 mg Simvastatin (Zocor) 40 mg PO BEDTIME [facility] Last Admin: 12/07/16 21:16 Dose: 40 mg Sodium Chloride (Sodium Chloride) 1 gm PO DAILY [facility] Last Admin: 12/08/16 08:27 Dose: 1 gm Warfarin Sodium (Coumadin) 3 mg PO MOFR@1800 [facility] Warfarin Sodium (Coumadin) 4.5 mg PO SUTUWETHSA@1800 [facility] Discontinued Medications Insulin Aspart (Novolog) 8 unit SUBCUT ASDIRECTED [facility] Nitroglycerin (Nitrostat) 0.4 mg SL ASDIRECTED PRN PRN Reason: Heart Warfarin Sodium (Coumadin) 3 mg PO ONETIME ONE Stop: 12/07/16 19:05 Last Admin: 12/07/16 19:30 Dose: 3 mg - Exam Quality Assessment: No: supplemental oxygen General: alert, oriented, cooperative, no acute distress, lethargic, other ( Increased generalized fatigue, lying in bed, pale, conversive, generalized weakness-significant) HEENT: Pupils equal, Pupils reactive, EOMI, Mucous membr. moist/pink. No: Scleral icterus Neck: supple, trachea midline, no JVD, no thyromegaly. No: lymphadenopathy Lungs: Normal respiratory effort, Decreased breath sounds, Rales (Occasional crackle in the bases). No: Rhonchi, Wheezing Cardiovascular: Irregular Rhythm, Murmurs Abdomen: bowel sounds present, soft, no tenderness, no distension. No: rigidity , rebound, guarding, tenderness, distension Extremities: no edema, no calf tenderness Skin: warm, dry, intact Neurological: no new focal deficit Psy/Mental Status: alert, normal affect, depressed (Seemed a little down in the dumps but no suicidal ideations) - Problem List Review Problem List Initiated/Reviewed/Updated: Yes - My Orders Last 24 Hours: My Active Orders 12/07/16 20:41 Nitroglycerin [Nitrostat] 0.4 mg SL Q5M PRN Prochlorperazine [Compazine] 10 mg PO DAILY PRN 12/07/16 20:45 metFORMIN [Glucophage] 500 mg PO BIDM 12/07/16 21:00 Midodrine 5 mg PO TID Simvastatin [Zocor] 40 mg PO BEDTIME 12/08/16 07:30 Carbidopa/Levodopa [Sinemet 25-100 mg] 2 tab PO TID@0730,1130,1630 12/08/16 08:00 Calcium Citrate/Vitamin D3 [Calcium Citrate + D] 1 tab PO BIDMEALS Omeprazole 20 mg PO BIDMEALS 12/08/16 09:00 Enalapril [Vasotec] 2.5 mg PO DAILY Insulin Degludec [Tresiba Flextouch U-100] 24 units SUBCUT DAILY Liraglutide [Victoza] 1.2 mg SUBCUT DAILY Magnesium Oxide 500 mg PO DAILY Metoprolol Succinate [Toprol XL] 12.5 mg PO DAILY Sertraline [Zoloft] 50 mg PO DAILY Sodium Chloride 1 gm PO DAILY 12/08/16 18:00 FA/Lycopene/Lut/MV,Ca,Iron,Min [Centrum] 1 tab PO DAILY@1800 12/10/16 18:00 Warfarin [Coumadin] 3 mg PO MOFR@1800 - Assessment Assessment:: Primary diagnosis: Frontal mbbdepbu-yokinevwu-eukjups may be medication stwcxuy-Rrnwgoie-pqykq 50% better Shortness of breath-no complaints-resolved Generalized emttvvne-nzfgcddgxj-dnrnqj for patient to go home on his own-needs to be stronger-may need long-term placement Unintentional weight loss Multiple recurrent hospitalizations-3 in the last 60 days Failure to thrive Hypotension-improving Unable to go home and safely take care of himself Recurrent hospital admission Other diagnoses: Pseudogout-left elbow-better control Myelodysplastic syndrome Anemia-suspect more secondary to above-8.9 Paroxysmal atrial fibrillation-controlled ventricular rate Atherosclerosis of coronary artery/CAD-stable Adult-onset diabetes type 2-blood sugar somewhat variable Parkinson's disease-increased with rdczdmiyjf-Zjsacfhd-sjvipj still quite pronounced Status post CABG Chronic hyponatremia history Hyperlipidemia Cholesterol lowering therapy Anxiety/component of depression History previous CVA-2004 History GERD-good control - Plan Plan:: Reviewed present treatment regimen-continue same regimen except changes as listed below Continue IV fluids Continue discontinue Revlimid Change to hospital inpatient admission Physical therapy consult Social work consult pending-may need long-term placement Unable to go home and safely live alone at present Talked with patient he agrees with this evaluation treatment plan
[2016-12-08] MEDS: Insulin Aspart 100 Units/ML 3 ML Pen SUBCUT PRN ×2 (11:49→21:18)
[2016-12-08] MEDS: Multivitamins with Minerals/Iron/Folic Acid/Lycopene Tab PO SCH (17:05)
[2016-12-08] MEDS: Simvastatin 20 MG Tab PO SCH (20:31)
[2016-12-09] MEDS: Carbidopa/Levodopa 25-100 MG Tab PO SCH ×3 (07:58→17:02)
[2016-12-09] MEDS: Magnesium Oxide 500 MG Tab PO SCH (08:00)
[2016-12-09] MEDS: Sertraline 50 MG Tab PO SCH (08:00)
[2016-12-09] MEDS: Omeprazole 20 MG Cap.CR PO SCH ×2 (08:00→17:07)
[2016-12-09] MEDS: Calcium Citrate/Vitamin D3 315 MG-250 Unit Tab PO SCH ×2 (08:00→17:06)
[2016-12-09] MEDS: Sodium Chloride 1 GM Tab PO SCH (08:00)
[2016-12-09] MEDS: Midodrine 5 MG Tab PO SCH ×3 (08:00→20:16)
[2016-12-09] MEDS: Metoprolol Succinate 25 MG Tab.ER PO SCH (08:00)
[2016-12-09] MEDS: metFORMIN 500 MG Tab PO SCH ×2 (08:00→17:06)
[2016-12-09] MEDS: Enalapril 5 MG Tab PO SCH (08:01)
[2016-12-09] MEDS: Liraglutide (rDNA Origin) 0.6 MG/0.1 ML 3 ML Pen SUBCUT SCH (08:05)
--- NOTE | 2016-12-09 10:30 | PCM.PN ---
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 Patient reported that the symptoms started on 12/06/16 and progressively worsened. Significant frontal headache and he typically does not get headaches. Patient [place] the [place] 12[place]06[place]16 but caught himself and did not hit his head. He does have some associated shortness breath, weakness, dizziness , nausea but denied any cough, fever, chills, chest pain, or palpitations. Patient had been laying down in his house prior to admission-not out in the extreme heat of the day-had not taken anything for his headache. Patient has a history of myelodysplastic syndrome with 5q deletion. Patient was restarted on Revlimid one week ago after a month-long bout of pseudogout of the left elbow and hand. She reports that he had been quite sleepy, overall not feeling well and his Parkinson tremor had worsened since restarting this medication. Other history: Paroxysmal atrial fibrillation-warfarin, Toprol-XL Coronary artery disease, status post CABG Chronic hyponatremia-on sodium 1 g every day Chronic Parkinson's disease-Sinemet followed by neurology Chronic orthostatic hypotension-on midodrine Adult-onset diabetes mellitus type 2-tresiba, NovoLog, the toes are, metformin Patient admitted to observation bed for further evaluation, treatment, observation. Working diagnosis at the time of admission: Frontal headache Shortness of breath Generalized weakness Hypotension Myelodysplastic syndrome Paroxysmal atrial fibrillation Atherosclerosis of coronary artery Adult-onset diabetes type 2 Parkinson's disease Status post CABG Patient admitted monitored closely-vital signs, neuro checks, CAT scan of the head without contrast done on admission-no acute findings IV of normal saline at 75 cc an hour, Accu-Cheks 4 times a day, neuro checks every 4 hours, social work consult _ Patient reports today: Feels better in regards to no more headache but now developed diarrhea Diarrhea since yesterday-3 liquid brown stools today Strength improving but not ideal-reports he can at least stay on now Headache gone GI upset but no vomiting Blood sugars elevated after prednisone-usually goes down once he becomes active again and is able to be out and about and walk Nurses report today: Very tired get Loose stools-question medication related No complaints of headache Decreased appetite-not optimal food/fluids intake Functional Status: Reports: pain controlled, tolerating diet, ambulating ( Somewhat with assist), urinating - Review of Systems General: Reports: Weakness, Fatigue, Malaise, Appetite (Decreased). Denies: Fever, Chills HEENT: Reports: no symptoms Pulmonary: Reports: no symptoms. Denies: shortness of breath, cough, wheezing Cardiovascular: Denies: Chest Pain, Palpitations, Edema, Lightheadedness Gastrointestinal: Reports: Abdominal pain (Morbid GI upset discomfort), Decreased appetite, Diarrhea (4 stools since yesterday), Flatus, Nausea. Denies : Constipation, Difficulty swallowing, Hematochezia, Melena Genitourinary: Reports: no symptoms Musculoskeletal: Reports: no symptoms Skin: Reports: no symptoms, other (Abrasion left leg healing) Neurological: Reports: No Symptoms Psychiatric: Reports: no symptoms - Patient Data Vitals - most recent: Last Vital Signs Temp 97.1 F 12/09/16 06:22 Pulse 89 12/09/16 08:00 Resp 20 12/09/16 06:22 BP 125/57 L 12/09/16 08:01 Pulse Ox 94 L 12/09/16 06:22 Orthostatic Blood Pressure [ 90/49 Standing] Orthostatic Blood Pressure [ 91/45 Sitting] Orthostatic Blood Pressure [ 96/57 Supine] Weight - most recent: 195 lb 14.4 oz I&O - last 24 hours: Intake & Output 12/08/16 12/09/16 12/09/16 22:59 06:59 14:59 Intake Total 794 678 Balance 794 678 Lab Results last 24 hrs: Laboratory Results - last 24 hr 12/08/16 12/08/16 12/08/16 Range/Units 11:41 17:15 21:16 POC Glucose 247 H 180 H 203 H (74-106) mg/dl 12/09/16 Range/Units 06:11 POC Glucose 214 H (74-106) mg/dl Med Orders - Current: Current Medications Atropine Sulfate (Atropine 0.1 Mg/Ml) 0 mg IVPUSH ASDIRECTED PRN PRN Reason: Heart Calcium Citrate (Calcium Citrate + D) 1 tab PO BIDMEALS [facility] Last Admin: 12/09/16 08:00 Dose: 1 tab Carbidopa/Levodopa (Sinemet 25-100 Mg) 2 tab PO TID@0730,1130,1630 [facility] Last Admin: 12/09/16 07:58 Dose: 2 tab Enalapril Maleate (Vasotec) 2.5 mg PO DAILY [facility] Last Admin: 12/09/16 08:01 Dose: 2.5 mg Epinephrine HCl (Epinephrine 1:10,000) 1 mg IVPUSH ASDIRECTED PRN PRN Reason: Heart Sodium Chloride (Normal Saline) 1,000 mls @ 75 mls/hr IV ASDIRECTED [facility] Last Admin: 12/08/16 20:32 Dose: 75 mls/hr Insulin Aspart (Novolog) 8 unit SUBCUT QID PRN PRN Reason: Hyperglycemia Last Admin: 12/08/16 21:18 Dose: 4 units Lidocaine HCl (Xylocaine 2%) 0 mg IVPUSH ASDIRECTED PRN PRN Reason: Heart Liraglutide (Victoza) 1.2 mg SUBCUT DAILY [facility] Last Admin: 12/09/16 08:05 Dose: 1.2 mg Magnesium Oxide (Magnesium Oxide) 500 mg PO DAILY [facility] Last Admin: 12/09/16 08:00 Dose: 500 mg Metformin HCl (Glucophage) 500 mg PO BIDM [facility] Last Admin: 12/09/16 08:00 Dose: 500 mg Metoprolol Succinate (Toprol Xl) 12.5 mg PO DAILY [facility] Last Admin: 12/09/16 08:00 Dose: 12.5 mg Midodrine (Midodrine) 5 mg PO TID [facility] Last Admin: 12/09/16 08:00 Dose: 5 mg Multivitamins/Minerals (Centrum) 1 tab PO DAILY@1800 [facility] Last Admin: 12/08/16 17:05 Dose: 1 tab Nitroglycerin (Nitrostat) 0.4 mg SL Q5M PRN PRN Reason: Chest Pain Non-Formulary Medication (Insulin Degludec [Tresiba Flextouch U-100]) 24 units SUBCUT DAILY [facility] Omeprazole (Omeprazole) 20 mg PO BIDMEALS [facility] Last Admin: 12/09/16 08:00 Dose: 20 mg Prochlorperazine Maleate (Compazine) 10 mg PO DAILY PRN PRN Reason: Nausea Sertraline HCl (Zoloft) 50 mg PO DAILY [facility] Last Admin: 12/09/16 08:00 Dose: 50 mg Simvastatin (Zocor) 40 mg PO BEDTIME [facility] Last Admin: 12/08/16 20:31 Dose: 40 mg Sodium Chloride (Sodium Chloride) 1 gm PO DAILY [facility] Last Admin: 12/09/16 08:00 Dose: 1 gm Warfarin Sodium (Coumadin) 3 mg PO MOFR@1800 [facility] Warfarin Sodium (Coumadin) 4.5 mg PO SUTUWETHSA@1800 [facility] Last Admin: 12/08/16 17:06 Dose: 4.5 mg Discontinued Medications Insulin Aspart (Novolog) 8 unit SUBCUT ASDIRECTED [facility] Nitroglycerin (Nitrostat) 0.4 mg SL ASDIRECTED PRN PRN Reason: Heart Warfarin Sodium (Coumadin) 3 mg PO ONETIME ONE Stop: 12/07/16 19:05 Last Admin: 12/07/16 19:30 Dose: 3 mg - Exam Quality Assessment: No: supplemental oxygen General: alert, oriented, cooperative, no acute distress, lethargic, other ( Lying in bed but does sit up with request-pale, weak, generalized fatigue, does not appear septic or toxic) HEENT: Pupils equal, Pupils reactive, EOMI, Mucous membr. moist/pink. No: Scleral icterus Neck: supple, trachea midline, no JVD, no thyromegaly. No: lymphadenopathy Lungs: Clear to auscultation, Normal respiratory effort. No: Rhonchi, Wheezing Cardiovascular: Regular Rate, Regular Rhythm, Murmurs (Slight) Abdomen: bowel sounds present, soft, no tenderness, no distension. No: rigidity , rebound, guarding, distension, abnormal bowel sounds, organomegaly Extremities: no edema, no calf tenderness Skin: warm, dry, intact, other (Pallor/somewhat ashen) Neurological: no new focal deficit Psy/Mental Status: alert, normal affect, normal mood - Problem List Review Problem List Initiated/Reviewed/Updated: Yes - My Orders Last 24 Hours: My Active Orders 12/08/16 12:08 Admission Status [Patient Status] [ADT] Routine 12/08/16 12:10 Consult to Physical Therapy [PT Evaluation and Treatment] [CONS] Routine 12/08/16 18:00 FA/Lycopene/Lut/MV,Ca,Iron,Min [Centrum] 1 tab PO DAILY@1800 12/10/16 18:00 Warfarin [Coumadin] 3 mg PO MOFR@1800 - Assessment Assessment:: Primary diagnosis: Diarrhea-acute onset-question etiology Frontal headache-resolved Shortness of breath-resolved Generalized ehrumjya-[id number]-arkngh for patient to go home on his own-needs to be stronger-may need long-term placement-discussed with patient-patient not really receptive to this Unintentional weight loss-rule out other occult pathology Multiple recurrent hospitalizations-3 in the last 60 days Failure to thrive Hypotension-resolved Unable to go home and safely take care of himself Recurrent hospital admission Other diagnoses: Pseudogout-left elbow-controlled Myelodysplastic syndrome Anemia-suspect more secondary to above-8.9 Paroxysmal atrial fibrillation-controlled ventricular rate-heart rate actually quite regular today Atherosclerosis of coronary artery/CAD-stable Adult-onset diabetes type 2-blood sugar running somewhat elevated Parkinson's disease-increased with [id number]-[id number] still quite pronounced Status post CABG Chronic hyponatremia history Hyperlipidemia Cholesterol lowering therapy Anxiety/component of depression History previous CVA-2004 History GERD-good control - Plan Plan:: Reviewed present treatment regimen-continue same regimen except changes as listed below Continue IV fluids Stool for C. difficile CBC, CMP in a.m. Physical therapy consult Social work consult pending-may need long-term placement Unable to go home and safely live alone at present Talked with patient he agrees with this evaluation treatment plan
[2016-12-09] MEDS: Sodium Chloride 0.9% 1,000 ML IV SCH (10:31)
[2016-12-09] MEDS: Multivitamins with Minerals/Iron/Folic Acid/Lycopene Tab PO SCH (17:07)
[2016-12-09] MEDS: Insulin Aspart 100 Units/ML 3 ML Pen SUBCUT PRN (17:50)
[2016-12-09] MEDS: Simvastatin 20 MG Tab PO SCH (20:16)
[2016-12-10] MEDS: Sodium Chloride 0.9% 1,000 ML IV SCH ×2 (00:06→13:15)
[2016-12-10] MEDS: Carbidopa/Levodopa 25-100 MG Tab PO SCH ×3 (08:02→17:37)
[2016-12-10] MEDS: Omeprazole 20 MG Cap.CR PO SCH ×2 (08:02→17:38)
[2016-12-10] MEDS: Calcium Citrate/Vitamin D3 315 MG-250 Unit Tab PO SCH ×2 (08:03→17:37)
[2016-12-10] MEDS: metFORMIN 500 MG Tab PO SCH ×2 (08:03→17:38)
[2016-12-10] MEDS: Sodium Chloride 1 GM Tab PO SCH (08:04)
[2016-12-10] MEDS: Midodrine 5 MG Tab PO SCH ×3 (08:04→21:22)
[2016-12-10] MEDS: Metoprolol Succinate 25 MG Tab.ER PO SCH (08:04)
[2016-12-10] MEDS: Magnesium Oxide 500 MG Tab PO SCH (08:04)
[2016-12-10] MEDS: Sertraline 50 MG Tab PO SCH (08:06)
[2016-12-10] MEDS: Enalapril 5 MG Tab PO SCH (08:06)
[2016-12-10] MEDS: Liraglutide (rDNA Origin) 0.6 MG/0.1 ML 3 ML Pen SUBCUT SCH (08:06)
[2016-12-10 08:08] LABS: CHLORIDE,CL 105 mmol/L (98-115); SODIUM,NA 135 mmol/L (136-145)
[2016-12-10] MEDS: Insulin Aspart 100 Units/ML 3 ML Pen SUBCUT PRN (08:08)
--- NOTE | 2016-12-10 12:28 | PN ---
12/10/2016 PATIENT NAME: NAVNEET VALLE SUBJECTIVE: The patient states he is feeling a little bit better today. He states his headache is gone. He says that his energy level is a little bit better. He is not feeling quite short of breath. The patient did present to clinic on Saturday with concerns about shortness of breath, dizziness, weakness, headache, and low blood pressure. He just did not feel well. The patient does have multiple medical problems. OBJECTIVE: VITAL SIGNS: Today, temperature is 96.8, pulse is 71, blood pressure is 131/66, and oxygen saturations are 92% on room air. Respiratory rate is 20. GENERAL: This is an elderly gentleman, , in no acute distress. He does look pale to me. He does look very drained, low energy level on exam. LUNGS: His lungs sounds are clear in upper lobes, diminished at bilateral bases. HEART: Heart tones are irregularly irregular consistent with atrial fibrillation. ABDOMEN: Soft, nontender, and nondistended. Bowel sounds are present x4. No pedal edema noted on exam. LABORATORY DATA: The patient's lab work that was obtained today, the patient's CBC shows a white count slightly low at 3.4. The patient's hemoglobin is low at 9.0. Chemistry panel shows GFR greater than 60. Albumin is low at 2.26, total protein is low at 6.3, otherwise unremarkable. IMPRESSION: 1. Episode of shortness of breath, dizziness, weakness, headache, and hypotension with anemia. The patient's hemoglobin today is only 9.0. He is symptomatic at this level. I am going to transfuse 1 unit of packed RBCs. Repeat a CBC in the morning, see how he is feeling. I may consider sending him home. The patient has been hospitalized three times in the last couple of months. He does live by himself in [place], [place]. 2. Diabetes mellitus type 2. Continue with Tresiba injection 24 units daily. We will continue to monitor blood sugars. Continue with sliding scale NovoLog for high blood sugars. Continue with metformin 500 mg twice a day along with Victoza injection once daily 1.2 mg daily. 3. History of Parkinson's disease. Continue with Sinemet as ordered. 4. History of coronary artery disease with hypertension. Continue with Vasotec 2.5 mg daily along with metoprolol succinate 12.5 mg daily. The patient is also on midodrine 5 mg three times a day for hypotension. He can have Nitrostat tablets as needed for chest pain. 5. History of hypomagnesemia. Continue with magnesium oxide 500 mg twice a day. 6. Gastroesophageal reflux disease. Continue with omeprazole twice daily. 7. History of depression. Continue with Zoloft 50 mg daily. 8. Hyperlipidemia. Continue with Zocor 40 mg daily. 9. Hyponatremia. Continue with 1 g of sodium chloride daily. 10.History of atrial fibrillation. Continue with Coumadin as ordered. 11.History of myelodysplastic syndromes. /[id number]/MODL MTDD
[2016-12-10] MEDS ORDERED: Sodium Chloride 0.9% 250 ML ONE (14:57)
[2016-12-10] MEDS: Multivitamins with Minerals/Iron/Folic Acid/Lycopene Tab PO SCH (17:38)
[2016-12-10] MEDS: INSULIN DEGLUDEC SUBCUT SCH ×2 (18:47→18:48)
[2016-12-10] MEDS: Simvastatin 20 MG Tab PO SCH (21:22)
[2016-12-11] MEDS: Sodium Chloride 0.9% 1,000 ML IV SCH (04:36)
[2016-12-11 06:41] VITALS: BP 130/68
[2016-12-11] MEDS: Omeprazole 20 MG Cap.CR PO SCH (07:46)
[2016-12-11] MEDS: Carbidopa/Levodopa 25-100 MG Tab PO SCH (07:46)
[2016-12-11] MEDS: Calcium Citrate/Vitamin D3 315 MG-250 Unit Tab PO SCH (07:46)
[2016-12-11] MEDS: metFORMIN 500 MG Tab PO SCH (07:46)
[2016-12-11] MEDS: INSULIN DEGLUDEC SUBCUT SCH (08:13)
[2016-12-11] MEDS: Sodium Chloride 1 GM Tab PO SCH (08:14)
[2016-12-11] MEDS: Midodrine 5 MG Tab PO SCH (08:14)
[2016-12-11] MEDS: Metoprolol Succinate 25 MG Tab.ER PO SCH (08:14)
[2016-12-11] MEDS: Magnesium Oxide 500 MG Tab PO SCH (08:14)
[2016-12-11] MEDS: Sertraline 50 MG Tab PO SCH (08:14)
[2016-12-11] MEDS: Liraglutide (rDNA Origin) 0.6 MG/0.1 ML 3 ML Pen SUBCUT SCH (08:15)
[2016-12-11] MEDS: Enalapril 5 MG Tab PO SCH (08:15)
--- NOTE | 2016-12-12 09:27 | DISCH ---
ADMITTING DIAGNOSIS: Hypotension, weakness, and new onset headache. FINAL DIAGNOSIS: Headache, resolved; blood pressure, stable; anemia, improved; weakness and fatigue, improved also. BRIEF HISTORY AND ESSENTIAL PHYSICAL FINDINGS: The patient had presented to the clinic this past Saturday with concerns about a frontal headache. He was feeling very weak and fatigued. He did not have strength, he felt short of breath. He was kind of dizzy, he just had generalized malaise. He does live at home by himself in [place], [place]. He has had frequent hospital stays lately. Head CT at that time was negative for any acute findings. He was hospitalized at that time for further evaluation and treatment. SIGNIFICANT LABS XRAYS AND CONSULTATION FINDINGS: The patient did have a CT of the head upon admission, which was negative for any acute processes. The patient's lab work that he obtained throughout his hospital stay. Blood work that was obtained on 12/10/2016 CBC showed a white count of slightly low at 3.4. The patient's hemoglobin at that time was 9.0, platelet count was 105. The patient's chemistry panel was unremarkable except for albumin low at 2.26 and total protein low at 6.3. On the day of discharge, the patient's repeat lab work. CBC showed a white count slightly low at 3.2, hemoglobin had come up to 9.9, platelet count at 112, INR at that time was in therapeutic range at 2.2. Blood sugars have been well controlled throughout the hospital stay. COURSE IN HOSPITAL WITH COMPLICATIONS IF ANY: The patient's strength did improve. He did have a physical therapy consult to help with strengthening. The patient was transfused 1 unit of packed RBCs. On telemetry, he had no irregular heart rhythms throughout the hospital stay. The patient even stated on day of discharge that his Parkinson's symptoms are improved, his strength feels better, and he is not dizzy. No chest pain or shortness of breath. CONDITION TREATMENT AND FINAL DISPOSITION ON DISCHARGE AND PROGNOSIS: Condition is stable. Final disposition will be home. IMPRESSION AND PLAN: 1. Recent episode of shortness of breath, dizziness, weakness, and headache with some low blood pressure. Most likely secondary to anemia. Plan: I am going to send the patient home. The patient has had frequent hospitalizations lately. I did discuss with the patient about considering senior living placement. At this time, he wants to go home. He does not want to consider senior living placement at this time. He did have a mental health social worker consult. The patient's hemoglobin was low at 9.0, he is very symptomatic when it is that low. We transfused him 1 unit of packed RBCs. His hemoglobin came up to 9.9, and he felt much better. He felt more improved, more strength. He denied any further dizziness, weakness, headache, or shortness of breath. 2. History of diabetes mellitus type 2. Plan: I am going to send the patient on his regular medications. We are going to continue with Tresiba 24 units injected daily. He does check his blood sugars at home. We will continue with metformin 500 mg twice a day along with Victoza injection once a day at 1.2 mg. 3. History of Parkinson's disease. Continue with Sinemet as ordered. 4. History of coronary artery disease with hypertension. Plan: Continue with Vasotec 2.5 mg daily along with Toprol-XL 12.5 mg daily. The patient also does take midodrine 5 mg three times a day for hypotension. He can also take some Nitrostat tablets as needed for chest pain if needed. 5. History of hypomagnesemia. Plan: Continue with magnesium oxide 500 mg twice a day. 6. History of GERD. Continue with omeprazole twice daily. 7. History of depression. Plan: Continue with Zoloft 50 mg daily. 8. Hyperlipidemia. Plan: Continue with Zocor 40 mg daily. 9. History of hyponatremia. Plan: Continue with 1 g of sodium chloride daily in the morning. 10.History of atrial fibrillation. Continue with Coumadin as ordered. INR clinic does manage him. 11.History of MDS. OVERALL PLAN: The patient will follow up in the clinic with Sandra Lara in next week for re-evaluation at that time. I am going to start the patient on Niferex 150 mg daily for his anemia. We will see at that time how his stomach is handling it and if he is having any further episodes of dizziness or weakness. /[id number]/MODL
== END 2016-12-11 10:35 | disposition home or self-care (01) | DRG 103 ==
LOC: KA.MS 12:08 → OBSVTOIN 12-08 12:08 → UNDODISIN 12-11 10:35
PROVIDERS: ADMIT Nurse Practitioner Family; ATTEND Nurse Practitioner Family
DX: R51 Headache (principal); E87.1 Hypo-osmolality and hyponatremia; R06.02 Shortness of breath; D64.9 Anemia, unspecified; R53.1 Weakness; D46.9 Myelodysplastic syndrome, unspecified; I48.91 Unspecified atrial fibrillation; I25.10 Atherosclerotic heart disease of native coronary artery without angina pectoris; G20 Parkinson's disease; I95.1 Orthostatic hypotension; E11.9 Type 2 diabetes mellitus without complications; E83.42 Hypomagnesemia; F32.9 Major depressive disorder, single episode, unspecified; Z79.899 Other long term (current) drug therapy; Z79.4 Long term (current) use of insulin; Z88.8 Allergy status to other drugs, medicaments and biological substances; Z79.01 Long term (current) use of anticoagulants; Z95.1 Presence of aortocoronary bypass graft; Z79.51 Long term (current) use of inhaled steroids
CPT/HCPCS: 36415; 36416; 70450; 80048; 82962 ×4; 85025; 85610 ×2; 96360; 96361; A9270 ×12; G0378; J1815; J7030; 36430; 80053; 81001; 86850; 86900; 86901; 86920; 86922; 87324; 97110-GP; 97162-GP; J3490; J7050; P9016

== ENCOUNTER 2017-02-16 08:37 | Emergency (ER) | payer MEDICARE, OTHER ==
[2017-02-16] MEDS ORDERED: Ibuprofen 600 MG Tab PO ONE (09:12)
--- NOTE | 2017-02-16 09:16 | EDM.PDOC ---
ED HPI GENERAL MEDICAL PROBLEM - General Chief Complaint: Back Pain or Injury Stated Complaint: RIGHT FLANK PAIN Time Seen by Provider: 02/16/17 09:00 Source of Information: Reports: Patient, Family History Limitations: Reports: No Limitations - History of Present Illness INITIAL COMMENTS - FREE TEXT/NARRATIVE: 82 YO WM presents to ER with right upper back pain x 2 days. Pt denies any injury. Pt reports pain is worse with movement. Pt denies any dysuria, urinary frequency or urgency. Pt denies any fever/chills. Pt reports he is in physical therapy for stregthening but denies any noted injury. Pt denies shortness of breath or chest pain. Onset Date: 02/14/17 Duration: Day(s): (2) Location: Reports: Back Quality: Reports: Ache Severity: Mild Improves with: Reports: Rest Worsens with: Reports: Movement Associated Symptoms: Reports: No Other Symptoms. Denies: Chest Pain, Cough, cough w sputum, Fever/Chills, Nausea/Vomiting, Shortness of Breath Right Back Pain Score (Numeric/FACES): 8 - Related Data Allergies Allergy/AdvReac Type Severity Reaction Status Date / Time morphine Allergy Intermediate Nausea and Verified 11/12/16 19:32 Vomiting Home Meds: Home Meds Calcium Carbonate/Vitamin D3 [Calcium 600 + Vit D 400] 1 tab PO BIDMEALS [History] Carbidopa/Levodopa [Carbidopa-Levodopa 25-100] 2 tab PO TID@0730,1130,1630 04/24 [History] Enalapril Maleate [Vasotec] 2.5 mg PO DAILY 04/24/14 [History] Magnesium Oxide [Magnesium] 400 mg PO DAILY 04/24/14 [History] Multivit-Min/FA/Lycopene/Lut [Centrum Silver] 1 tab PO DAILY@1800 04/24/14 [ History] Nitroglycerin [Nitrostat] 1 tab SL Q5M PRN 04/24/14 [History] Simvastatin 40 mg PO BEDTIME 04/24/14 [History] metFORMIN [Glucophage] 500 mg PO BIDM 04/24/14 [History] Insulin Degludec [Tresiba Flextouch U-100] 24 units SUBCUT DAILY 03/23/16 [ History] Liraglutide [Victoza] 1.2 mg SUBCUT DAILY 03/23/16 [History] Omeprazole 20 mg PO BIDMEALS 03/23/16 [History] Sertraline [Zoloft] 50 mg PO DAILY 03/23/16 [History] Midodrine 5 mg PO TID 05/24/16 [History] Sodium Chloride 1 gm PO DAILY 05/24/16 [History] Warfarin Sodium [Jantoven] 3 mg PO MOFR@1800 07/05/16 [History] Prochlorperazine [Compazine] 10 mg PO DAILY PRN 11/05/16 [History] Metoprolol Succinate [Toprol XL] 12.5 mg PO DAILY #30 tab.er 11/15/16 [Rx] Insulin Aspart [NovoLOG] 8 units SUBCUT ASDIRECTED PRN 12/07/16 [History] Lenalidomide [Revlimid] 10 mg PO 12/07/16 [History] Warfarin Sodium [Jantoven] 4.5 mg PO SUTUWETHSA@1800 12/07/16 [History] Iron Aspgly&PS/B12/C/Ca/FA/Suc [Niferex-150 Forte] 1 cap PO DAILY #30 cap [Rx] Cyclobenzaprine [Flexeril] 10 mg PO TID PRN #15 tablet 02/16/17 [Rx] predniSONE 20 mg PO WITHBREAKFAST #15 tablet 02/16/17 [Rx] traMADol [Ultram] 50 mg PO Q6H PRN #15 tablet 02/16/17 [Rx] Past Medical History HEENT History: Reports: Other (See Below) Other HEENT History: surgery to right eye to remove piece of steel, 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 Genitourinary History: Reports: Prostate Disorder Musculoskeletal History: Reports: None Neurological History: Reports: CVA, Parkinson's Psychiatric History: Reports: None Endocrine/Metabolic History: Reports: Diabetes, Type II Hematologic History: Reports: Anemia, Other (See Below) Other Hematologic History: MDS Immunologic History: Reports: None Oncologic (Cancer) History: Reports: Prostate Dermatologic History: Reports: None - Infectious Disease History Infectious Disease History: Reports: Measles - Past Surgical History Head Surgeries/Procedures: Reports: None HEENT Surgical History: Reports: Eye Surgery, Other (See Below) Cardiovascular Surgical History: Reports: Coronary Artery Bypass Respiratory Surgical History: Reports: None GI Surgical History: Reports: Appendectomy, Colonoscopy, EGD, Other (See Below) Male Surgical History: Reports: Prostate Biopsy, Other (See Below) Neurological Surgical History: Reports: None Musculoskeletal Surgical History: Reports: Hip Replacement, Other (See Below) Social & Family History - Family History Cardiac: Reports: Aneurysm, [place] Neurological: Reports: Cerebral Aneurysms Endocrine/Metabolic: Reports: Diabetes, type II Oncologic: Reports: Breast - Tobacco Use Smoking Status *Q: Never Smoker Second Hand Smoke Exposure: No - Caffeine Use Caffeine Use: Reports: Coffee, Soda - Alcohol Use Days Per Week of Alcohol Use: 0 - Recreational Drug Use Recreational Drug Use: No - Living Situation & Occupation Occupation: Retired ED ROS GENERAL - Review of Systems Review Of Systems: See Below Constitutional: Reports: No Symptoms HEENT: Reports: No Symptoms Respiratory: Reports: No Symptoms Cardiovascular: Reports: No Symptoms Endocrine: Reports: No Symptoms GI/Abdominal: Reports: No Symptoms : Reports: No Symptoms Musculoskeletal: Reports: Back Pain (right upper back pain) Skin: Reports: No Symptoms Neurological: Reports: No Symptoms Psychiatric: Reports: No Symptoms Hematologic/Lymphatic: Reports: No Symptoms Immunologic: Reports: No Symptoms ED EXAM, UPPER BACK/NECK PAIN - Physical Exam Exam: See Below Exam Limited By: No Limitations General Appearance: Alert, WD/WN, No Apparent Distress Throat/Mouth Exam: Normal Inspection, Normal Lips, Normal Teeth, Normal Gums, Normal Oropharynx, Normal Voice, No Airway Compromise Head Exam: Atraumatic, Normocephalic Neck Exam: Non-Tender, Full Range of Motion, Normal Alignment, Normal Inspection Cardiovascular/Respiratory: Regular Rate, Rhythm, No M/R/G, Normal Peripheral Pulses, No JVD, Normal Breath Sounds, No Respiratory Distress GI/Abdominal: Normal Bowel Sounds, Soft, Non-Tender, No Organomegaly, No Distention, No Abnormal Bruit, No Mass Back Exam: Muscle Spasm (right upper back- reproducible), Paraspinal Tenderness. No: CVA Tenderness (L), CVA Tenderness (R), Vertebral Tenderness Extremities: Normal Inspection, Normal Range of Motion, Non-Tender, No Pedal Edema, Normal Capillary Refill Neurologic: senior systems engineer II-XII nml As Tested, No Motor/Sensory Deficits, Alert, Normal Mood/Affect, Oriented x 3 Psychiatric: Normal Affect, Normal Mood Skin Exam: Normal Color, Warm/Dry Lymphatic: No Adenopathy Course - Vital Signs Last Recorded V/S: Last Vital Signs Temp 36.3 C 02/16/17 09:40 Pulse 73 02/16/17 09:40 Resp 18 02/16/17 09:40 BP 138/71 02/16/17 09:40 Pulse Ox 99 02/16/17 09:40 - Orders/Labs/Meds Orders: Active Orders 24 hr Category Date Time Status Chest 2V [CR] Stat Exams 02/16/17 09:12 Ordered Labs: Laboratory Tests 02/16/17 Range/Units 09:40 Specimen Type Urincc Urine Color Yellow (YELLOW) Urine Appearance Clear (CLEAR) Urine pH 8.5 (5.0-9.0) Ur Specific [place] 1.020 (1.005-1.030) Urine Protein >=300 H (NEGATIVE) mg/dL Urine Glucose (UA) 500 H (NEGATIVE) mg/dL Urine Ketones Negative (NEGATIVE) mg/dL Urine Occult Blood Negative (NEGATIVE) Urine Nitrite Negative (NEGATIVE) Urine Bilirubin Negative (NEGATIVE) Urine Urobilinogen 0.2 (0.2-1.0) E.U./dL Ur Leukocyte Esterase Negative (NEGATIVE) Urine RBC 0-5 /HPF Urine WBC 0-5 /HPF Ur Epithelial Cells Few /LPF Urine Bacteria Few (NONE TO FEW) /HPF Meds: Medications Discontinued Medications Generic Name Dose Route Start Last Admin Trade Name Freq PRN Reason Stop Dose Admin Ibuprofen 600 mg 02/16/17 09:12 02/16/17 09:28 Motrin PO 02/16/17 09:13 600 mg ONETIME ONE Administration - Radiology Interpretation Free Text/Narrative:: CXR- NAD Departure - Departure Time of Disposition: 09:58 Disposition: Home, Self-Care 01 Condition: Good Clinical Impression: Strain of thoracic spine Qualifiers: Encounter type: initial encounter Qualified Code(s): S29.019A - Strain of muscle and tendon of unspecified wall of thorax, initial encounter - Discharge Information Prescriptions: Cyclobenzaprine [Flexeril] 10 mg PO TID PRN #15 tablet PRN Reason: Muscle Spasm predniSONE 20 mg PO WITHBREAKFAST #15 tablet traMADol [Ultram] 50 mg PO Q6H PRN #15 tablet PRN Reason: Pain Instructions: Thoracic Strain, [id number] Referrals: Yomaira Navas MD [Primary Care Provider] - - My Orders Last 24 Hours: My Active Orders 02/16/17 09:12 Chest 2V [CR] Stat - Assessment/Plan Last 24 Hours: My Active Orders 02/16/17 09:12 Chest 2V [CR] Stat Assessment:: 1. Thoracic strain Plan: 1. flexirl 10mg PO TID PRN 2. ultram 50mg PO Q6 PRN 3. prednisone 60mg PO QD x 5 days 4. heat to back 5. follow up in clinic for further evaluation and treatment 6. return to ER for worsening symptoms
[2017-02-16 09:48] VITALS: BP 138/71
== END 2017-02-16 11:05 | disposition home or self-care (01) ==
LOC: KA.ED 08:37
DX: S29.012A Strain of muscle and tendon of back wall of thorax, initial encounter (principal); I10 Essential (primary) hypertension; I25.2 Old myocardial infarction; K21.9 Gastro-esophageal reflux disease without esophagitis; Z86.73 Personal history of transient ischemic attack (TIA), and cerebral infarction without residual deficits; E11.9 Type 2 diabetes mellitus without complications; Z86.2 Personal history of diseases of the blood and blood-forming organs and certain disorders involving the immune mechanism; Z95.1 Presence of aortocoronary bypass graft; Z90.49 Acquired absence of other specified parts of digestive tract; Z96.649 Presence of unspecified artificial hip joint; Z85.46 Personal history of malignant neoplasm of prostate; Z79.4 Long term (current) use of insulin; Z79.899 Other long term (current) drug therapy; Z88.5 Allergy status to narcotic agent; X58.XXXA Exposure to other specified factors, initial encounter
CPT/HCPCS: 71020; 81001; 99284; A9270; 99283

== ENCOUNTER 2017-04-07 14:20 | Emergency (ER) | payer MEDICARE, OTHER ==
[2017-04-07 14:36] VITALS: BP 126/68
--- NOTE | 2017-04-07 15:28 | EDM.PDOC ---
ED HPI GENERAL MEDICAL PROBLEM - General Chief Complaint: General Stated Complaint: STIFF NECK AND HEADACHE Time Seen by Provider: 04/07/17 15:09 Source of Information: Reports: Patient History Limitations: Reports: No Limitations - History of Present Illness INITIAL COMMENTS - FREE TEXT/NARRATIVE: PT STATES HE WAS SEEN BY [facility] 2 TIMES THIS PAST WEEK FOR NECK PAIN. SYMPTOMS PERSISTED AND BECAME WORSE TODAY AND NOW WITH HEADACHE. DENIES FEVER, TRAUMA, N/V/D, VISION CHANGES, CP, OR SOB. Onset: Gradual Duration: Day(s):, Getting Worse Location: Reports: Head, Neck Quality: Reports: Ache, Pressure Severity: Moderate Improves with: Reports: None Worsens with: Reports: Movement Associated Symptoms: Reports: Headaches. 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 Headache Pain Score (Numeric/FACES): 8 Neck Pain Score (Numeric/FACES): 8 - Related Data Allergies Allergy/AdvReac Type Severity Reaction Status Date / Time morphine Allergy Intermediate Nausea and Verified 04/07/17 14:49 Vomiting Home Meds: Home Meds Calcium Carbonate/Vitamin D3 [Calcium 600 + Vit D 400] 1 tab PO BIDMEALS [History] Carbidopa/Levodopa [Carbidopa-Levodopa 25-100] 1.5 tab PO 04/24/14 [ History] Enalapril Maleate [Vasotec] 2.5 mg PO DAILY 04/24/14 [History] Magnesium Oxide [Magnesium] 400 mg PO DAILY 04/24/14 [History] Multivit-Min/FA/Lycopene/Lut [Centrum Silver] 1 tab PO DAILY@1800 04/24/14 [ History] Nitroglycerin [Nitrostat] 1 tab SL Q5M PRN 04/24/14 [History] Simvastatin 40 mg PO BEDTIME 04/24/14 [History] Insulin Degludec [Tresiba Flextouch U-100] 24 units SUBCUT DAILY 03/23/16 [ History] Liraglutide [Victoza] 1.8 mg SUBCUT DAILY 03/23/16 [History] Omeprazole 20 mg PO BIDMEALS 03/23/16 [History] Sertraline [Zoloft] 50 mg PO DAILY 03/23/16 [History] Midodrine 5 mg PO TID 05/24/16 [History] Sodium Chloride 1 gm PO DAILY 05/24/16 [History] Warfarin Sodium [Jantoven] 3 mg PO SUTUWETHFRSA 07/05/16 [History] Metoprolol Succinate [Toprol XL] 12.5 mg PO DAILY #30 tab.er 11/15/16 [Rx] Lenalidomide [Revlimid] 10 mg PO DAILY 12/07/16 [History] Warfarin Sodium [Jantoven] 4.5 mg PO MO 12/07/16 [History] Iron Aspgly&PS/B12/C/Ca/FA/Suc [Niferex-150 Forte] 1 cap PO DAILY #30 cap [Rx] Cyclobenzaprine [Flexeril] 10 mg PO TID PRN #15 tablet 02/16/17 [Rx] predniSONE 20 mg PO WITHBREAKFAST #15 tablet 02/16/17 [Rx] Past Medical History HEENT History: Reports: Other (See Below) Other HEENT History: surgery to right eye to remove piece of steel, now has decreased vision to this eye Cardiovascular History: Reports: Hypertension, [place] Respiratory History: Reports: None Gastrointestinal History: Reports: GERD, Other (See Below) Other Gastrointestinal History: Hx of bleeding ulcer. Genitourinary History: Reports: Prostate Disorder Musculoskeletal History: Reports: None Neurological History: Reports: CVA, Parkinson's Psychiatric History: Reports: None Endocrine/Metabolic History: Reports: Diabetes, Type II Hematologic History: Reports: Anemia, Other (See Below) Other Hematologic History: MDS Immunologic History: Reports: None Oncologic (Cancer) History: Reports: Prostate Dermatologic History: Reports: None - Infectious Disease History Infectious Disease History: Reports: Measles - Past Surgical History Head Surgeries/Procedures: Reports: None HEENT Surgical History: Reports: Eye Surgery, Other (See Below) Cardiovascular Surgical History: Reports: Coronary Artery Bypass Respiratory Surgical History: Reports: None GI Surgical History: Reports: Appendectomy, Colonoscopy, EGD, Other (See Below) Male Surgical History: Reports: Prostate Biopsy, Other (See Below) Neurological Surgical History: Reports: None Musculoskeletal Surgical History: Reports: Hip Replacement, Other (See Below) Social & Family History - Family History Family Medical History: Noncontributory Cardiac: Reports: Aneurysm, [place] Neurological: Reports: Cerebral Aneurysms Endocrine/Metabolic: Reports: Diabetes, type II Oncologic: Reports: Breast - Tobacco Use Smoking Status *Q: Never Smoker Second Hand Smoke Exposure: No - Caffeine Use Caffeine Use: Reports: Coffee, Soda - Alcohol Use Days Per Week of Alcohol Use: 0 - Recreational Drug Use Recreational Drug Use: No - Living Situation & Occupation Occupation: Retired ED ROS GENERAL - Review of Systems Review Of Systems: ROS reveals no pertinent complaints other than HPI. Constitutional: Reports: No Symptoms HEENT: Reports: No Symptoms Respiratory: Reports: No Symptoms Cardiovascular: Reports: No Symptoms Endocrine: Reports: No Symptoms GI/Abdominal: Reports: No Symptoms : Reports: No Symptoms Musculoskeletal: Reports: No Symptoms Skin: Reports: No Symptoms Neurological: Reports: Headache. Denies: Confusion, Dizziness, Numbness, Syncope, Tingling, Trouble Speaking, Change in Speech Psychiatric: Reports: No Symptoms Hematologic/Lymphatic: Reports: No Symptoms Immunologic: Reports: No Symptoms ED EXAM, GENERAL - Physical Exam Exam: See Below Exam Limited By: No Limitations General Appearance: Alert, WD/WN, Mild Distress Eye Exam: Bilateral Eye: Normal Inspection Ears: Normal External Exam, Normal Canal, Normal TMs Nose: Normal Inspection, Normal Mucosa, No Blood Throat/Mouth: Normal Inspection, Normal Oropharynx, No Airway Compromise Head: Atraumatic, Normocephalic Neck: Limited Range of Motion, Tender Lateral. No: Carotid Bruit, Lymphadenopathy (L), Lymphadenopathy (R) Respiratory/Chest: No Respiratory Distress, Lungs Clear, Normal Breath Sounds Cardiovascular: Regular Rate, Rhythm, Systolic Murmur GI/Abdominal: Normal Bowel Sounds, Soft, Non-Tender Back Exam: Normal Inspection. No: CVA Tenderness (L), CVA Tenderness (R) Extremities: Normal Inspection Neurological: Alert, Oriented, CN II-XII Intact, Normal Cognition Psychiatric: Normal Affect, Normal Mood Skin Exam: Warm, Dry, Intact, Normal Color, No Rash Lymphatic: No Adenopathy Course - Vital Signs Last Recorded V/S: Last Vital Signs Temp 97.1 F 04/07/17 14:31 Pulse 95 04/07/17 14:31 Resp 18 04/07/17 14:31 BP 126/68 04/07/17 14:31 Pulse Ox 93 L 04/07/17 14:31 - Orders/Labs/Meds Orders: Active Orders 24 hr Category Date Time Status Head wo Cont [CT] Stat Exams 04/07/17 15:10 Ordered CBC WITH AUTO DIFF [HEME] Stat Lab 04/07/17 15:10 Ordered COMPREHENSIVE METABOLIC PN,CMP [CHEM] Stat Lab 04/07/17 15:10 Ordered INR,PT,PROTHROMBIN TIME [COAG] Stat Lab 04/07/17 15:10 Ordered PTT,PARTIAL THROMBOPLSTIN TIME [COAG] Stat Lab 04/07/17 15:10 Ordered - Radiology Interpretation Free Text/Narrative:: CT WITHOUT CONTRAST OF HEAD NEGATIVE FOR ACUTE PROCESS CT Results Date: 04/07/17 - Re-Assessments/Exams Free Text/Narrative Re-Assessment/Exam: 04/07/17 16:19 PT AFEBRILE, NONTOXIC APPEARING, VSS, STIFFNESS AND KATZ SUBSIDING. Departure - Departure Time of Disposition: 16:25 Disposition: Home, Self-Care 01 Condition: Good Clinical Impression: Degenerative disc disease, cervical, Cervical muscle pain, Muscle spasms of neck - Discharge Information Instructions: Muscle Cramps and Spasms, Degenerative Disk Disease, Headache and Arthritis Referrals: Sandra Lara CLEAN UP HELPER BANQUET [Primary Care Provider] - Additional Instructions: FOLLOW UP AT [facility] IN 1-2 DAYS. AVOID [facility] UNTIL YOU SEE PCP. RETURN TO ER IF SYMPTOMS WORSEN - My Orders Last 24 Hours: My Active Orders 04/07/17 15:10 Head wo Cont [CT] Stat CBC WITH AUTO DIFF [HEME] Stat COMPREHENSIVE METABOLIC PN,CMP [CHEM] Stat INR,PT,PROTHROMBIN TIME [COAG] Stat PTT,PARTIAL THROMBOPLSTIN TIME [COAG] Stat - Assessment/Plan Last 24 Hours: My Active Orders 04/07/17 15:10 Head wo Cont [CT] Stat CBC WITH AUTO DIFF [HEME] Stat COMPREHENSIVE METABOLIC PN,CMP [CHEM] Stat INR,PT,PROTHROMBIN TIME [COAG] Stat PTT,PARTIAL THROMBOPLSTIN TIME [COAG] Stat Assessment:: DEGENERATIVE CERVICAL DISC DISEASE
[2017-04-07 15:32] LABS: CHLORIDE,CL 100 mmol/L (98-115); SODIUM,NA 135 mmol/L (136-145)
[2017-04-07] MEDS ORDERED: Diazepam 5 MG Tab PO ONE (16:12)
== END 2017-04-07 16:35 | disposition home or self-care (01) ==
LOC: KA.ED 14:20
DX: M50.30 Other cervical disc degeneration, unspecified cervical region (principal); I10 Essential (primary) hypertension; I25.2 Old myocardial infarction; E11.9 Type 2 diabetes mellitus without complications; K21.9 Gastro-esophageal reflux disease without esophagitis; Z86.73 Personal history of transient ischemic attack (TIA), and cerebral infarction without residual deficits; Z79.899 Other long term (current) drug therapy; Z79.4 Long term (current) use of insulin; Z79.01 Long term (current) use of anticoagulants; Z88.5 Allergy status to narcotic agent; Z86.79 Personal history of other diseases of the circulatory system; Z95.1 Presence of aortocoronary bypass graft
CPT/HCPCS: 36415; 70450; 80053; 85025; 85610; 85730; 99284; A9270

== ENCOUNTER 2017-04-08 20:30 | Observation (INO) | payer MEDICARE, OTHER ==
[2017-04-08] MEDS ORDERED: Sodium Chloride 0.9% 5 ML Syringe FLUSH PRN (20:41)
[2017-04-08] MEDS ORDERED: Sodium Chloride 0.9% 1,000 ML IV SCH (20:45)
--- NOTE | 2017-04-08 20:54 | EDM.PDOC ---
ED HPI GENERAL MEDICAL PROBLEM - General Chief Complaint: Headache Stated Complaint: HEADACHES,DIZZINESS,STIFF NECK Time Seen by Provider: 04/08/17 20:41 Source of Information: Reports: Patient History Limitations: Reports: No Limitations - History of Present Illness INITIAL COMMENTS - FREE TEXT/NARRATIVE: PT SEEN HERE LAST NIGHT FOR CHRONIC NECK PAIN AND KATZ SYMPTOMS. LAB WORK AND CT HEAD WAS NEGATIVE. PT GIVEN VALIUM AND SYMPTOMS SUBSIDED AND WAS D/C HOME. PAIN GRADUALLY RETURNED TODAY AND HE DOES NOT HAVE ANY MEDICATION AT THE HOUSE SO DECIDED TO PRESENT TO ER. DENIES VISION CHANGES, FACIAL NUMBNESS OR TINGLING, FEVER, TRAUMA, HREAD INJURY, CP, SOB, OR N/V/D. Onset: Gradual Duration: Day(s): Location: Reports: Head, Neck Quality: Reports: Ache, Pressure Improves with: Reports: None Worsens with: Reports: None Associated Symptoms: Reports: No Other Symptoms, Headaches - Related Data Allergies Allergy/AdvReac Type Severity Reaction Status Date / Time morphine Allergy Intermediate Nausea and Verified 04/08/17 20:32 Vomiting Home Meds: Home Meds Calcium Carbonate/Vitamin D3 [Calcium 600 + Vit D 400] 1 tab PO BIDMEALS [History] Carbidopa/Levodopa [Carbidopa-Levodopa 25-100] 1.5 tab PO 04/24/14 [ History] Enalapril Maleate [Vasotec] 2.5 mg PO DAILY 04/24/14 [History] Magnesium Oxide [Magnesium] 400 mg PO DAILY 04/24/14 [History] Multivit-Min/FA/Lycopene/Lut [Centrum Silver] 1 tab PO DAILY@1800 04/24/14 [ History] Nitroglycerin [Nitrostat] 1 tab SL Q5M PRN 04/24/14 [History] Simvastatin 40 mg PO BEDTIME 04/24/14 [History] Insulin Degludec [Tresiba Flextouch U-100] 24 units SUBCUT DAILY 03/23/16 [ History] Liraglutide [Victoza] 1.8 mg SUBCUT DAILY 03/23/16 [History] Omeprazole 20 mg PO BIDMEALS 03/23/16 [History] Sertraline [Zoloft] 50 mg PO DAILY 03/23/16 [History] Midodrine 5 mg PO TID 05/24/16 [History] Sodium Chloride 1 gm PO DAILY 05/24/16 [History] Warfarin Sodium [Jantoven] 3 mg PO SUTUWETHFRSA 07/05/16 [History] Metoprolol Succinate [Toprol XL] 12.5 mg PO DAILY #30 tab.er 11/15/16 [Rx] Lenalidomide [Revlimid] 10 mg PO DAILY 12/07/16 [History] Warfarin Sodium [Jantoven] 4.5 mg PO MO 12/07/16 [History] Iron Aspgly&PS/B12/C/Ca/FA/Suc [Niferex-150 Forte] 1 cap PO DAILY #30 cap [Rx] Cyclobenzaprine [Flexeril] 10 mg PO TID PRN #15 tablet 02/16/17 [Rx] predniSONE 20 mg PO WITHBREAKFAST #15 tablet 02/16/17 [Rx] Past Medical History HEENT History: Reports: Other (See Below) Other HEENT History: surgery to right eye to remove piece of steel, now has 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 Genitourinary History: Reports: Prostate Disorder Musculoskeletal History: Reports: None Neurological History: Reports: CVA, Parkinson's Psychiatric History: Reports: None Endocrine/Metabolic History: Reports: Diabetes, Type II Hematologic History: Reports: Anemia, Other (See Below) Other Hematologic History: MDS Immunologic History: Reports: None Oncologic (Cancer) History: Reports: Prostate Dermatologic History: Reports: None - Infectious Disease History Infectious Disease History: Reports: Measles - Past Surgical History Head Surgeries/Procedures: Reports: None HEENT Surgical History: Reports: Eye Surgery, Other (See Below) Cardiovascular Surgical History: Reports: Coronary Artery Bypass Respiratory Surgical History: Reports: None GI Surgical History: Reports: Appendectomy, Colonoscopy, EGD, Other (See Below) Male Surgical History: Reports: Prostate Biopsy, Other (See Below) Neurological Surgical History: Reports: None Musculoskeletal Surgical History: Reports: Hip Replacement, Other (See Below) Social & Family History - Family History Family Medical History: Noncontributory Cardiac: Reports: Aneurysm, [place] Neurological: Reports: Cerebral Aneurysms Endocrine/Metabolic: Reports: Diabetes, type II Oncologic: Reports: Breast - Tobacco Use Smoking Status *Q: Never Smoker Second Hand Smoke Exposure: No - Caffeine Use Caffeine Use: Reports: Coffee, Soda - Alcohol Use Days Per Week of Alcohol Use: 0 - Recreational Drug Use Recreational Drug Use: No - Living Situation & Occupation Occupation: Retired ED ROS GENERAL - Review of Systems Review Of Systems: ROS reveals no pertinent complaints other than HPI. Constitutional: Reports: No Symptoms HEENT: Reports: No Symptoms Respiratory: Reports: No Symptoms Cardiovascular: Reports: No Symptoms Endocrine: Reports: No Symptoms GI/Abdominal: Reports: No Symptoms : Reports: No Symptoms Musculoskeletal: Reports: Neck Pain (OF CHRONIC NATURE) Skin: Reports: No Symptoms Neurological: Reports: Headache. Denies: Dizziness, Numbness, Change in Speech Psychiatric: Reports: No Symptoms Hematologic/Lymphatic: Reports: No Symptoms Immunologic: Reports: No Symptoms - Physical Exam Exam: See Below Exam Limited By: No Limitations General Appearance: Alert, WD/WN, No Apparent Distress Eye Exam: Bilateral Eye: Normal Inspection Ears: Normal External Exam, Normal Canal, Normal TMs Nose: Normal Inspection, Normal Mucosa, No Blood Throat/Mouth: Normal Inspection, Normal Oropharynx, No Airway Compromise Head Exam: Atraumatic, Normocephalic Neck: Limited Range of Motion, Tender Lateral. No: Lymphadenopathy (L), Lymphadenopathy (R) Respiratory/Chest: No Respiratory Distress, Lungs Clear, Normal Breath Sounds, No Accessory Muscle Use, Chest Non-Tender Cardiovascular: Regular Rate, Rhythm GI/Abdominal: Normal Bowel Sounds, Soft, Non-Tender Neuro Exam (Abbreviated): Alert, Oriented, CN II-XII Intact, Normal Cognition Extremities: Normal Inspection, No Pedal Edema Psychiatric: Normal Affect, Normal Mood Skin Exam: Warm, Dry, Intact, Normal Color, No Rash Course - Orders/Labs/Meds Orders: Active Orders 24 hr Category Date Time Status Patient Status [ADT] Routine ADT 04/08/17 20:45 Ordered Oxygen Therapy [RC] PRN Care 04/08/17 20:45 Ordered Peripheral IV Care [RC] . DIRECTED Care 04/08/17 20:41 Ordered VTE/DVT Education [RC] PER UNIT ROUTINE Care 04/08/17 20:45 Ordered Vital Signs [RC] Q4H Care 04/08/17 20:45 Ordered Sodium Chloride 0.9% @ 125 MLS/HR (1000ml) Med 04/08/17 20:45 Ordered Sodium Chloride 0.9% [Normal Saline] 1,000 ml IV ASDIRECTED Sodium Chloride 0.9% [Syrex Flush] Med 04/08/17 20:41 Ordered 5 ml FLUSH Q8HR PRN Peripheral IV Insertion Adult [OM.PC] Routine Oth 04/08/17 20:41 Ordered Resuscitation Status Routine Resus Stat 04/08/17 20:45 Ordered Medication Orders Sodium Chloride (Normal Saline) 1,000 mls @ 125 mls/hr IV ASDIRECTED WILLARD Sodium Chloride (Syrex Flush) 5 ml FLUSH Q8HR PRN PRN Reason: Keep Vein Open Meds: Medications Generic Name Dose Route Start Last Admin Trade Name Freq PRN Reason Stop Dose Admin Sodium Chloride 1,000 mls @ 125 mls/hr 04/08/17 20:45 Normal Saline IV ASDIRECTED WILLARD Sodium Chloride 5 ml 04/08/17 20:41 Syrex Flush FLUSH Q8HR PRN Keep Vein Open Discontinued Medications Generic Name Dose Route Start Last Admin Trade Name Freq PRN Reason Stop Dose Admin Diazepam 5 mg 04/08/17 20:41 Valium IVPUSH 04/08/17 20:42 ONETIME ONE - Re-Assessments/Exams Free Text/Narrative Re-Assessment/Exam: 04/08/17 20:54 PT AFEBRILE, NONTOXIC APPEARING, VSS. DISCUSSED CASE WITH JENNY LARA NP. WILL ADMIT TO OBS AND FOLLOW Departure - Departure Time of Disposition: 20:55 Disposition: Refer to Observation Condition: Fair Clinical Impression: Tension-type headache, Chronic neck pain - Discharge Information Referrals: Jenny Lara NP [Primary Care Provider] - Forms: ED Department Discharge - My Orders Last 24 Hours: My Active Orders 04/08/17 20:41 Peripheral IV Care [RC] . DIRECTED Sodium Chloride 0.9% [Syrex Flush] 5 ml FLUSH Q8HR PRN Peripheral IV Insertion Adult [OM.PC] Routine 04/08/17 20:45 Patient Status [ADT] Routine Oxygen Therapy [RC] PRN VTE/DVT Education [RC] PER UNIT ROUTINE Vital Signs [RC] Q4H Sodium Chloride 0.9% @ 125 MLS/HR (1000ml) Sodium Chloride 0.9% [Normal Saline] 1,000 ml IV ASDIRECTED Resuscitation Status Routine - Assessment/Plan Last 24 Hours: My Active Orders 04/08/17 20:41 Peripheral IV Care [RC] . DIRECTED Sodium Chloride 0.9% [Syrex Flush] 5 ml FLUSH Q8HR PRN Peripheral IV Insertion Adult [OM.PC] Routine 04/08/17 20:45 Patient Status [ADT] Routine Oxygen Therapy [RC] PRN VTE/DVT Education [RC] PER UNIT ROUTINE Vital Signs [RC] Q4H Sodium Chloride 0.9% @ 125 MLS/HR (1000ml) Sodium Chloride 0.9% [Normal Saline] 1,000 ml IV ASDIRECTED Resuscitation Status Routine Assessment:: HEADACHE / CHRONIC NECK PAIN Plan: ADMIT TO OBS FOR LUND
[2017-04-08] MEDS ORDERED: Nitroglycerin 0.4 MG Tab.SL SL PRN (20:58)
[2017-04-08] MEDS ORDERED: Acetaminophen 500 MG Tab PO PRN (21:00)
[2017-04-08] MEDS ORDERED: Warfarin 2 MG Tab ONE (22:08)
[2017-04-08] MEDS ORDERED: Warfarin 2.5 MG Tab ONE (22:09)
[2017-04-08] MEDS: Carbidopa/Levodopa 25-100 MG Tab ONE (22:14)
[2017-04-08] MEDS: Simvastatin 20 MG Tab PO SCH (22:14)
[2017-04-08] MEDS ORDERED: Warfarin 2.5 MG Tab PO SCH (22:30)
[2017-04-08] MEDS ORDERED: Warfarin 2.5 MG Tab PO ONE (22:30)
[2017-04-08] MEDS ORDERED: Warfarin 2 MG Tab PO ONE (22:30)
[2017-04-08] MEDS ORDERED: Carbidopa/Levodopa 25-100 MG Tab ONE (22:47)
[2017-04-08] MEDS: Carbidopa/Levodopa 25-100 MG Tab PO SCH (22:49)
[2017-04-09] MEDS ORDERED: Ketorolac 30 MG/ML SDV IVPUSH ONE (02:02)
[2017-04-09] MEDS: Omeprazole 20 MG Cap.CR PO SCH ×2 (06:33→17:13)
[2017-04-09 07:50] LABS: CHLORIDE,CL 106 mmol/L (98-115); SODIUM,NA 142 mmol/L (136-145)
[2017-04-09] MEDS ORDERED: predniSONE 20 MG Tab PO SCH (08:00)
[2017-04-09] MEDS: Calcium Citrate/Vitamin D3 315 MG-250 Unit Tab PO SCH ×2 (08:28→17:53)
[2017-04-09] MEDS: Magnesium Oxide 500 MG Tab PO SCH (08:29)
[2017-04-09] MEDS: Carbidopa/Levodopa 25-100 MG Tab PO SCH ×5 (08:31→20:13)
[2017-04-09] MEDS: Sodium Chloride 1 GM Tab PO SCH (08:32)
[2017-04-09] MEDS: Sertraline 50 MG Tab PO SCH (08:33)
[2017-04-09] MEDS: Metoprolol Succinate 25 MG Tab.ER PO SCH (08:33)
[2017-04-09] MEDS: Enalapril 5 MG Tab PO SCH (08:34)
[2017-04-09] MEDS: Midodrine 5 MG Tab PO SCH ×3 (08:51→20:14)
[2017-04-09] MEDS ORDERED: LIRAGLUTIDE 0.6 MG/0.1 ML SUBCUT SCH (09:00)
[2017-04-09] MEDS ORDERED: Liraglutide (rDNA Origin) 0.6 MG/0.1 ML 3 ML Pen SUBCUT SCH (09:00)
[2017-04-09] MEDS ORDERED: Iron Polysaccharides Complex 150 MG Cap PO SCH (09:00)
[2017-04-09] MEDS ORDERED: Acetaminophen 500 MG Tab PO SCH (09:00)
[2017-04-09] MEDS ORDERED: INSULIN DEGLUDEC 100 UNIT/ML SQ SCH (09:00)
[2017-04-09] MEDS ORDERED: [UNRECOGNIZED DRUG - OTHER] PO SCH (09:00)
[2017-04-09] MEDS: REVLIMID 10 MG PO SCH (09:01)
[2017-04-09] MEDS: LIRAGLUTIDE 0.6 MG/0.1 ML SUBCUT SCH (09:01)
[2017-04-09] MEDS: INSULIN DEGLUDEC 100 UNIT/ML SUBCUT SCH (09:01)
[2017-04-09] MEDS: Ketoprofen 12 GM, Menthol 1.8 GM, Trolamine Salicylate/Aloe Vera 46.2 GM TOP SCH ×12 (10:09→20:14)
[2017-04-09] MEDS: Cyclobenzaprine 5 MG Tab PO SCH ×3 (11:37→20:14)
--- NOTE | 2017-04-09 13:20 | PCM.HP ---
H&P History of Present Illness - General Date of Service: 04/09/17 Admit Problem/Dx: Admission Diagnosis/Problem Admission Diagnosis/Problem Headache Source of Information: Patient, Old Records, RN History Limitations: Reports: No Limitations - History of Present Illness Initial Comments - Free Text/Narative: This 82-year-old gentleman who has had multiple ED visits and multiple admissions was admitted last night for acute on chronic neck pain and headache symptoms. Patient was seen twice in the ED first released home and then he returns the next evening for neck pain. ED evaluation determined CT was negative. His initial ED visit 48 hours ago he was given Valium and it seemed to subside his symptoms quite a bit. However the next day he said his pain gradually returned. Denied facial numbness tingling strokelike symptoms or head injury. Had no nausea vomiting diarrhea or chest pain or shortness of breath or visual changes. Patient does live alone and is independent fairly well on his own neck and head Pain Score (Numeric/FACES): 7 - Related Data Allergies/Adverse Reactions: Allergies Allergy/AdvReac Type Severity Reaction Status Date / Time morphine Allergy Intermediate Nausea and Verified 04/08/17 20:32 Vomiting Home Medications: Home Meds Calcium Carbonate/Vitamin D3 [Calcium 600 + Vit D 400] 1 tab PO BIDMEALS [History] Carbidopa/Levodopa [Carbidopa-Levodopa 25-100] 1.5 tab PO 5X04/24/14 [ History] Enalapril Maleate [Vasotec] 2.5 mg PO DAILY 04/24/14 [History] Magnesium Oxide [Magnesium] 400 mg PO DAILY 04/24/14 [History] Multivit-Min/FA/Lycopene/Lut [Centrum Silver] 1 tab PO DAILY@1800 04/24/14 [ History] Nitroglycerin [Nitrostat] 1 tab SL Q5M PRN 04/24/14 [History] Simvastatin 40 mg PO BEDTIME 04/24/14 [History] Insulin Degludec [Tresiba Flextouch U-100] 24 units SUBCUT DAILY 03/23/16 [ History] Liraglutide [Victoza] 1.8 mg SUBCUT DAILY 03/23/16 [History] Omeprazole 20 mg PO BIDMEALS 03/23/16 [History] Sertraline [Zoloft] 50 mg PO DAILY 03/23/16 [History] Midodrine 5 mg PO TID 05/24/16 [History] Sodium Chloride 1 gm PO DAILY 05/24/16 [History] Warfarin Sodium [Jantoven] 3 mg PO SUTUWETHFRSA 07/05/16 [History] Metoprolol Succinate [Toprol XL] 12.5 mg PO DAILY #30 tab.er 11/15/16 [Rx] Lenalidomide [Revlimid] 10 mg PO DAILY 12/07/16 [History] Warfarin Sodium [Jantoven] 4.5 mg PO MO 12/07/16 [History] Iron Aspgly&PS/B12/C/Ca/FA/Suc [Niferex-150 Forte] 1 cap PO DAILY #30 cap [Rx] Cyclobenzaprine [Flexeril] 10 mg PO TID PRN #15 tablet 02/16/17 [Rx] Past Medical History HEENT History: Reports: Other (See Below) Other HEENT History: surgery to right eye to remove piece of steel, now has decreased vision to this eye Cardiovascular History: Reports: Hypertension, [place] Respiratory History: Reports: None Gastrointestinal History: Reports: GERD, Other (See Below) Other Gastrointestinal History: Hx of bleeding ulcer. Genitourinary History: Reports: Prostate Disorder Musculoskeletal History: Reports: None Neurological History: Reports: CVA, Parkinson's Psychiatric History: Reports: None Endocrine/Metabolic History: Reports: Diabetes, Type II Hematologic History: Reports: Anemia, Other (See Below) Other Hematologic History: MDS Immunologic History: Reports: None Oncologic (Cancer) History: Reports: Prostate Dermatologic History: Reports: None - Infectious Disease History Infectious Disease History: Reports: Measles - Past Surgical History Head Surgeries/Procedures: Reports: None HEENT Surgical History: Reports: Eye Surgery, Other (See Below) Cardiovascular Surgical History: Reports: Coronary Artery Bypass Respiratory Surgical History: Reports: None GI Surgical History: Reports: Appendectomy, Colonoscopy, EGD, Other (See Below) Male Surgical History: Reports: Prostate Biopsy, Other (See Below) Neurological Surgical History: Reports: None Musculoskeletal Surgical History: Reports: Hip Replacement, Other (See Below) Social & Family History - Family History HEENT: Reports: None Cardiac: Reports: Aneurysm, [place] : Reports: None OBGYN: Reports: None Musculoskeletal: Reports: None Neurological: Reports: Cerebral Aneurysms Psychiatric: Reports: None Endocrine/Metabolic: Reports: Diabetes, type II Hematologic: Reports: None Immunologic: Reports: None Dermatologic: Reports: None Oncologic: Reports: Breast - Tobacco Use Smoking Status *Q: Never Smoker Second Hand Smoke Exposure: No - Caffeine Use Caffeine Use: Reports: Coffee, Soda - Alcohol Use Days Per Week of Alcohol Use: 0 - Recreational Drug Use Recreational Drug Use: No - Living Situation & Occupation Occupation: Retired H&P Review of Systems - Review of Systems: Review Of Systems: See Below General: Reports: No Symptoms HEENT: Denies: Ear Pain Pulmonary: Reports: No Symptoms Cardiovascular: Reports: No Symptoms Gastrointestinal: Reports: No Symptoms Genitourinary: Reports: No Symptoms Musculoskeletal: Reports: Neck Pain Skin: Reports: No Symptoms Psychiatric: Reports: No Symptoms Neurological: Denies: Confusion, Dizziness, Headache, Numbness, Seizure, Syncope , Tingling, Change in Speech Hematologic/Lymphatic: Reports: Anemia Immunologic: Reports: No Symptoms Exam - Exam Exam: See Below - Vital Signs Vital Signs: Last Vital Signs Temp 97.2 F 04/09/17 06:16 Pulse 78 04/09/17 08:33 Resp 20 04/09/17 06:16 BP 130/82 04/09/17 08:34 Pulse Ox 95 04/09/17 07:00 Weight: 199 lb - Exam Quality Assessment: No: Supplemental Oxygen General: Alert, Oriented, Cooperative. No: Mild Distress, Sedated, Lethargic HEENT: Hearing Intact, Mucosa Moist & Haring Neck: No: Full Range of Motion (Cervical range of motion limited by approximately 50%. 35 left and right rotation. Very poor extension and flexion), Lymphadenopathy Lungs: Clear to Auscultation, Normal Respiratory Effort Cardiovascular: Regular Rate, Regular Rhythm GI/Abdominal Exam: Normal Bowel Sounds, Soft, Non-Tender, No Organomegaly, No Distention, No Abnormal Bruit, No Mass, Pelvis Stable (Male) Exam: Deferred Rectal (Males) Exam: Deferred Back Exam: No: CVA Tenderness (L), CVA Tenderness (R), Muscle Spasm Extremities: No Pedal Edema Peripheral Pulses: 2+: Radial (L), Radial (R) Skin: Warm, Dry, Intact Neurological: Cranial Nerves Intact, Strength Equal Bilateral, Normal Speech, Sensation Intact Neuro Extensive - Mental Status: Alert, Oriented x3, Normal Mood/Affect, Normal Cognition Neuro Extensive - Motor, Sensory, Reflexes: CN II-XII Intact Psychiatric: Alert, Normal Affect, Normal Mood - Patient Data Lab Results Last 24 hrs: Laboratory Results - last 24 hr 04/09/17 04/09/17 04/09/17 Range/Units 06:32 07:17 07:18 WBC 2.0 L (5.0-10.0) 10^3/uL RBC 3.00 L (4.50-6.00) 10^6/uL Hgb 9.4 L (13.0-17.0) g/dL Hct 29.3 L (40.0-52.0) % MCV 97.7 H (82.0-92.0) fL MCH 31.2 H (27.0-31.0) pg MCHC 32.0 (32.0-36.0) g/dL RDW 18.2 H (11.5-14.5) % Plt Count 101 L (150-300) 10^3/uL MPV 9.1 (7.4-10.4) fL Neut % (Auto) 38.1 L (50.0-70.0) % Lymph % (Auto) 33.8 (20.0-40.0) % [place] % (Auto) 22.1 H (2.0-8.0) % Eos % (Auto) 5.4 H (1.0-3.0) % Baso % (Auto) 0.6 (0.0-1.0) % Neut # (Auto) 0.8 L (2.5-7.0) 10^3/uL Lymph # (Auto) 0.7 L (1.0-4.0) 10^3/uL [place] # (Auto) 0.4 (0.1-0.8) 10^3/uL Eos # (Auto) 0.1 (0.1-0.3) 10^3/uL Baso # (Auto) 0.0 (0.0-0.1) 10^3/uL ESR 82 H (0-15) mm/hr Sodium (136-145) mmol/L Potassium (3.3-5.3) mmol/L Chloride (98-115) mmol/L Carbon Dioxide (21.0-32.0) mmol/L BUN (6-25) mg/dL Creatinine (0.51-1.17) mg/dL Est Cr Clr Drug Dosing mL/min Estimated GFR (MDRD) mL/min Glucose (70-110) mg/dL POC Glucose 135 H (74-106) mg/dl Calcium (8.7-10.3) mg/dL Magnesium (1.8-2.4) mg/dL 04/09/17 Range/Units 07:18 WBC (5.0-10.0) 10^3/uL RBC (4.50-6.00) 10^6/uL Hgb (13.0-17.0) g/dL Hct (40.0-52.0) % MCV (82.0-92.0) fL MCH (27.0-31.0) pg MCHC (32.0-36.0) g/dL RDW (11.5-14.5) % Plt Count (150-300) 10^3/uL MPV (7.4-10.4) fL Neut % (Auto) (50.0-70.0) % Lymph % (Auto) (20.0-40.0) % [place] % (Auto) (2.0-8.0) % Eos % (Auto) (1.0-3.0) % Baso % (Auto) (0.0-1.0) % Neut # (Auto) (2.5-7.0) 10^3/uL Lymph # (Auto) (1.0-4.0) 10^3/uL [place] # (Auto) (0.1-0.8) 10^3/uL Eos # (Auto) (0.1-0.3) 10^3/uL Baso # (Auto) (0.0-0.1) 10^3/uL ESR (0-15) mm/hr Sodium 142 (136-145) mmol/L Potassium 4.0 (3.3-5.3) mmol/L Chloride 106 (98-115) mmol/L Carbon Dioxide 27.1 (21.0-32.0) mmol/L BUN 16 (6-25) mg/dL Creatinine 0.96 (0.51-1.17) mg/dL Est Cr Clr Drug Dosing 64.73 mL/min Estimated GFR (MDRD) > 60 mL/min Glucose 144 H (70-110) mg/dL POC Glucose (74-106) mg/dl Calcium 8.4 L (8.7-10.3) mg/dL Magnesium 2.0 (1.8-2.4) mg/dL Result Diagrams: 04/09/17 07:18 04/09/17 07:18 *Q Meaningful Use (ADM) - VTE *Q VTE Criteria *Q: - Stroke *Q Stroke Criteria *Q: - AMI *Q AMI Criteria *Q: Problem List Initiated/Reviewed/Updated: Yes Orders Last 24hrs: Active Orders 24 hr Category Date Time Status Blood Glucose Check, Bedside [] ONETIME Care 04/09/17 07:00 Active Up With Assistance [] DAILY Care 04/08/17 21:01 Active ADA Diabetic [[place] [employer] Diet] [DIET Diet 04/09/17 Breakfast Active ] Cervical Spine 2V or 3V [CR] Routine Exams 04/09/17 10:34 Taken Acetaminophen [Tylenol Extra Strength] Med 04/09/17 09:00 Active 1,000 mg PO Q8H Calcium Citrate/Vitamin D3 [Calcium Citrate + D] Med 04/09/17 08:00 Active 2 tab PO BIDMEALS Carbidopa/Levodopa [Sinemet 25-100 mg] Med 04/09/17 08:00 Active 1.5 tab PO 5XDAY Cyclobenzaprine [Flexeril] Med 04/09/17 11:00 Active 5 mg PO TID Enalapril [Vasotec] Med 04/09/17 09:00 Active 2.5 mg PO DAILY FA/Lycopene/Lut/MV,Ca,Iron,Min [Centrum] Med 04/09/17 18:00 Active 1 tab PO DAILY@1800 Iron Polysaccharides Complex [Ferrex 150] Med 04/10/17 12:00 Active 150 mg PO DAILY@1200 Ketoprofen 12 gm Med 04/09/17 09:00 Active Menthol 1.8 gm Trolamine Salicylate/Aloe Vera [Aspercreme 10%] 46.2 gm TOP QID Magnesium Oxide Med 04/09/17 09:00 Active 500 mg PO DAILY Metoprolol Succinate [Toprol XL] Med 04/09/17 09:00 Active 12.5 mg PO DAILY Midodrine Med 04/09/17 09:00 Active 5 mg PO TID Nitroglycerin [Nitrostat] Med 04/08/17 20:58 Active 0.4 mg SL Q5M PRN Omeprazole Med 04/09/17 07:00 Active 20 mg PO BID@0700,1700 Patient's Own Medication [Ptom] Med 04/09/17 09:00 Active 1 each PO DAILY Patient's Own Medication [Ptom] Med 04/09/17 09:00 Active 1.8 each SUBCUT DAILY Patient's Own Medication [Ptom] Med 04/09/17 09:00 Active 24 each SUBCUT DAILY Sertraline [Zoloft] Med 04/09/17 09:00 Active 50 mg PO DAILY Simvastatin [Zocor] Med 04/08/17 21:00 Active 40 mg PO BEDTIME Sodium Chloride Med 04/09/17 09:00 Active 1 gm PO DAILY Warfarin [Coumadin] Med 04/15/17 18:00 Active 2 mg PO Mo@1800 Warfarin [Coumadin] Med 04/15/17 18:00 Active 2.5 mg PO Mo@1800 Warfarin [Coumadin] Med 04/09/17 18:00 Hold 3 mg PO SuTuWeThFrSa@1800 Medication Orders Acetaminophen (Tylenol Extra Strength) 1,000 mg PO Q8H [facility] Last Admin: 04/09/17 10:08 Dose: 1,000 mg Calcium Citrate (Calcium Citrate + D) 2 tab PO BIDMEALS [facility] Last Admin: 04/09/17 08:28 Dose: 2 tab Carbidopa/Levodopa (Sinemet 25-100 Mg) 1.5 tab PO 5XDAY [facility] Last Admin: 04/09/17 11:37 Dose: 1.5 tab Admin: 04/09/17 08:31 Dose: 1.5 tab Admin: 04/08/17 22:49 Dose: 0.5 tab Ketoprofen 12 gm/ Menthol 1.8 gm/ Trolamine Salicylate 46.2 gm 0 gm TOP QID [facility] Last Admin: 04/09/17 10:09 Dose: 1 edy Cyclobenzaprine HCl (Flexeril) 5 mg PO TID [facility] Last Admin: 04/09/17 11:37 Dose: 5 mg Enalapril Maleate (Vasotec) 2.5 mg PO DAILY [facility] Last Admin: 04/09/17 08:34 Dose: 2.5 mg Magnesium Oxide (Magnesium Oxide) 500 mg PO DAILY [facility] Last Admin: 04/09/17 08:29 Dose: 500 mg Metoprolol Succinate (Toprol Xl) 12.5 mg PO DAILY [facility] Last Admin: 04/09/17 08:33 Dose: 12.5 mg Midodrine (Midodrine) 5 mg PO TID [facility] Last Admin: 04/09/17 08:51 Dose: 5 mg Multivitamins/Minerals (Centrum) 1 tab PO DAILY@1800 [facility] Nitroglycerin (Nitrostat) 0.4 mg SL Q5M PRN PRN Reason: Chest Pain Omeprazole (Omeprazole) 20 mg PO BID@0700,1700 [facility] Last Admin: 04/09/17 06:33 Dose: 20 mg PtomRevlimid 10 (Mg Capsule) 1 each PO DAILY [facility] Last Admin: 04/09/17 09:01 Dose: 1 each Ptom Insulin Degludec (Tresiba) * 100 Unit/Ml Pen 24 each SUBCUT DAILY [facility] Last Admin: 04/09/17 09:01 Dose: 24 each Ptom Liraglutide (Rdna Origin) 0.6 Mg/0.1 Ml 3 Ml Pen 1.8 each SUBCUT DAILY [facility] Last Admin: 04/09/17 09:01 Dose: 1.8 each Polysaccharide Iron Complex (Ferrex 150) 150 mg PO DAILY@1200 [facility] Sertraline HCl (Zoloft) 50 mg PO DAILY [facility] Last Admin: 04/09/17 08:33 Dose: 50 mg Simvastatin (Zocor) 40 mg PO BEDTIME [facility] Last Admin: 04/08/17 22:14 Dose: 40 mg Sodium Chloride (Syrex Flush) 5 ml FLUSH Q8HR PRN PRN Reason: Keep Vein Open Sodium Chloride (Sodium Chloride) 1 gm PO DAILY [facility] Last Admin: 04/09/17 08:32 Dose: 1 gm Warfarin Sodium (Coumadin) 3 mg PO SuTuWeThFrSa@1800 [facility] Warfarin Sodium (Coumadin) 2.5 mg PO Mo@1800 [facility] Warfarin Sodium (Coumadin) 2 mg PO Mo@1800 [facility] Assessment/Plan Comment:: HISTORY OF PRESENT ILLNESS This 82-year-old gentleman who has had multiple ED visits and multiple admissions was admitted last night for acute on chronic neck pain and headache symptoms. Patient was seen twice in the ED first released home and then he returns the next evening for neck pain. ED evaluation determined CT was negative. His initial ED visit 48 hours ago he was given Valium and it seemed to subside his symptoms quite a bit. However the next day he said his pain gradually returned. Denied facial numbness tingling strokelike symptoms or head injury. Had no nausea vomiting diarrhea or chest pain or shortness of breath or visual changes. Patient does live alone and is independent fairly well on his own Further workup needed, Since arrival on the floor other orders/diagnostics required include cervical neck x-rays. Impression/plan Cervical neck pain, rule out polymyalgia rheumatica, muscle spasms, x-rays today cervical spine. Prednisone 20 mg 1, low-dose Flexeril, NSAID topical 4 times a day, change Tylenol to scheduled. Patient may need cervical nerve block. ESR today OTHER CHRONIC MEDICAL CONDITIONS History of Myocardial infarction, non-STEMI, History of CABG, on beta niru CAD, seen by cardiolgy and recommend medical treatment and management Coronary artery disease with non-ST elevation myocardial infarction 2015 with large fixed defect felt to be related to a previous CABG; Paroxysmal Atrial fibrillation, chronic and stable. 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 - Hgb improved and stable 12.0 today - Transfuse parameters if Hb <10g/dL and symptomatic from anemia. Or transfuse to keep Hb 7-8 g/dL. Type 2 diabetes mellitus--steroid-induced hyperglycemia, Tresiba, Victoza. Since given 20 mg of prednisone monitor for steroid-induced hyperglycemia CODE STATUS, full code .
[2017-04-09] MEDS: Carbidopa/Levodopa 25-100 MG Tab ONE (13:27)
[2017-04-09] MEDS ORDERED: Ibuprofen 400 MG Tab PO SCH (15:29)
[2017-04-09] MEDS: Ibuprofen 400 MG Tab PO SCH ×2 (16:36→23:03)
[2017-04-09] MEDS ORDERED: Multivitamins with Minerals/Iron/Folic Acid/Lycopene Tab PO SCH (18:00)
[2017-04-09] MEDS: Acetaminophen 500 MG Tab PO SCH (20:13)
[2017-04-09] MEDS: Simvastatin 20 MG Tab PO SCH (20:14)
[2017-04-10] MEDS: Omeprazole 20 MG Cap.CR PO SCH (06:36)
[2017-04-10] MEDS: Acetaminophen 500 MG Tab PO SCH (06:36)
[2017-04-10] MEDS: Calcium Citrate/Vitamin D3 315 MG-250 Unit Tab PO SCH (07:41)
[2017-04-10] MEDS: Carbidopa/Levodopa 25-100 MG Tab PO SCH ×2 (07:41→10:53)
[2017-04-10] MEDS: Cyclobenzaprine 5 MG Tab PO SCH (09:04)
[2017-04-10] MEDS: Sertraline 50 MG Tab PO SCH (09:04)
[2017-04-10] MEDS: Sodium Chloride 1 GM Tab PO SCH (09:04)
[2017-04-10] MEDS: Magnesium Oxide 500 MG Tab PO SCH (09:04)
[2017-04-10] MEDS: Midodrine 5 MG Tab PO SCH (09:04)
[2017-04-10] MEDS: Ibuprofen 400 MG Tab PO SCH (09:07)
[2017-04-10] MEDS: Ketoprofen 12 GM, Menthol 1.8 GM, Trolamine Salicylate/Aloe Vera 46.2 GM TOP SCH ×3 (09:08)
[2017-04-10] MEDS: LIRAGLUTIDE 0.6 MG/0.1 ML SUBCUT SCH (09:09)
[2017-04-10] MEDS: INSULIN DEGLUDEC 100 UNIT/ML SUBCUT SCH (09:09)
[2017-04-10] MEDS: REVLIMID 10 MG PO SCH (09:09)
[2017-04-10] MEDS: Enalapril 5 MG Tab PO SCH (09:17)
[2017-04-10] MEDS: Metoprolol Succinate 25 MG Tab.ER PO SCH (09:18)
[2017-04-10 09:20] VITALS: BP 95/59
[2017-04-10] MEDS ORDERED: Phytonadione 1 MG/0.5 ML Syringe SUBCUT ONE (09:33)
[2017-04-10] MEDS ORDERED: predniSONE 10 MG Tab PO ONE (10:04)
[2017-04-10] MEDS ORDERED: Iron Polysaccharides Complex 150 MG Cap PO SCH (12:00)
--- NOTE | 2017-04-11 08:12 | DISCH ---
FINAL DIAGNOSES: 1. Cervical neck pain and spasms. 2. Possible polymyalgia rheumatica. 3. Cervical spondylosis. HISTORY: This 82-year-old gentleman who had multiple ED visits and multiple admissions over the past few weeks, was admitted into observation status. He came to the ED for acute on chronic neck pain and headache symptoms. The patient was seen twice in the ED, first released at home, then returned about 24 hours later for ongoing neck pain. His initial evaluation, he was given Valium. He had some improvement in the ED; however, he stated he returned back due to worsening symptoms. ED evaluation determined CT of the head was negative. He denied any facial numbness, tingling, or any stroke-like symptoms. Denied any head injuries. No nausea, vomiting. No chest pain. No shortness of breath. The patient does live alone and is quite independent, fairly well on his own, he does continue to drive. The patient does have recent history of possible septic joint and elbow, was recently given antibiotics. He did seem to have a mild headache with some parietal scalp sensation; however, no temporal headaches. No visual changes. HOSPITAL COURSE: Quite uneventful. However, he did have initial pain on admission and again through the middle of the night, he was given ketorolac. The patient is on Coumadin. I was holding this Coumadin in anticipation of cervical nerve blocks. Cervical x-rays were done which show advanced lower cervical spondylosis. He was given NSAIDs. Coumadin was held in anticipation of possible cervical nerve block. Likely, the patient could have polymyalgia rheumatica. Prednisone was given 20 mg x1 on initial presentation. He was discharged on 10 mg p.o. daily. He was given nonsteroidal creams to his neck. The patient had significant improvement in his pain. SIGNIFICANT LABS: ESR on morning of admission was 82, concerning for rheumatological etiology. White count low, hemoglobin 9.4, hematocrit 29.3. INR on discharge was 2.6. Sodium, potassium, BUN, and creatinine were good. MICROBIOLOGY: None. He was also given low-dose ibuprofen. Tylenol was changed to scheduled. He was also given Valium 1 time in the emergency department. He never became hemodynamically unstable. No visual changes. No temporal headache. No shoulder pain. MEDICATION CHANGES/ADJUSTMENTS: 1. Acetaminophen 1 g every 8 hours (changed from p.r.n. to scheduled). 2. Diclofenac sodium Voltaren gel 1% t.i.d. to cervical neck area (newly added). 3. Prednisone 10 mg p.o. daily, #14 tablets given (newly added). 4. Coumadin, hold until further notice, likely after his injection. The patient can continue on all other home medications except Coumadin until further notice. Continue with PPI therapy. REVIEW OF SYSTEMS: Significant improvement in cervical neck range of motion and pain 1/10 pain scale. Denies visual decrease. Denies temporal headache. No scalp tenderness. No allodynia. Negative shoulder pathology. Denies any weakness. Denies any facial drooping or slurred speech. PHYSICAL EXAM ON DISCHARGE: VITAL SIGNS: Blood pressure low 100/60. Weight 199 pounds, heart rate 72 and regular, O2 sats 95% on room air. HEENT: Eyes, full accommodation. Equal EOM. NECK: Cervical neck range of motion, right rotation 50%, reduction around 25%. Left rotation down significantly approximately 20 degrees. No palpable temporal artery nodularity. GENERAL: The patient is alert and oriented. DISPOSITION: The patient will be discharged home. He is to take his prescribed medicine as directed. He will follow up tomorrow at [facility], 2 p.m. for possible cervical nerve injection. He was given vitamin K 1 mg upon discharge. INR check tomorrow. Hopefully, we get this down to 1.2. He will follow up with Sandra Lara in approximately one week at [facility]. RECOMMENDATIONS AT FOLLOWUP: Assess for improvement from cervical nerve block. Ensure Coumadin has been restarted. Assess ESR level. MEDICAL DECISION MAKIN minutes was spent on this discharge planning and process. /[id number]/MODL MTDD
[2017-04-15] MEDS ORDERED: Warfarin 2 MG Tab PO SCH (18:00)
[2017-04-15] MEDS ORDERED: Warfarin 2.5 MG Tab PO SCH (18:00)
== END 2017-04-10 10:55 | disposition home or self-care (01) ==
LOC: KA.ED 20:30 → KA.MS 20:45
PROVIDERS: ADMIT Physician Assistant Surgical; ATTEND Nurse Practitioner Family
DX: M47.892 Other spondylosis, cervical region (principal); I10 Essential (primary) hypertension; K21.9 Gastro-esophageal reflux disease without esophagitis; E11.9 Type 2 diabetes mellitus without complications; I63.9 Cerebral infarction, unspecified; I21.3 ST elevation (STEMI) myocardial infarction of unspecified site; Z88.8 Allergy status to other drugs, medicaments and biological substances; Z79.4 Long term (current) use of insulin; Z79.01 Long term (current) use of anticoagulants; Z79.899 Other long term (current) drug therapy; Z98.890 Other specified postprocedural states; Z95.1 Presence of aortocoronary bypass graft; Z90.49 Acquired absence of other specified parts of digestive tract; Z96.649 Presence of unspecified artificial hip joint
CPT/HCPCS: 36415; 72040; 80048; 82962; 83735; 85025; 85610; 85651; 96361; 96372; 96375; 99284; A9270; G0378; J1885; J3360; J7030; 96374

== ENCOUNTER 2017-05-23 17:03 | Inpatient (IN) | payer MEDICARE, OTHER ==
[2017-05-23] MEDS ORDERED: Furosemide 40 MG/4 ML VIAL ONE (18:44)
[2017-05-23] MEDS: Warfarin 2 MG Tab PO SCH (19:00)
[2017-05-23] MEDS ORDERED: Furosemide 40 MG/4 ML VIAL IVPUSH ONE (19:21)
[2017-05-23] MEDS ORDERED: Warfarin 2 MG Tab PO ONE (19:22)
[2017-05-23] MEDS ORDERED: Nitroglycerin 0.4 MG Tab.SL SL PRN (20:47)
[2017-05-23] MEDS ORDERED: Non-Formulary Medication 1 Each (Warfarin 3 MG) PO SCH (21:00)
[2017-05-23] MEDS ORDERED: Carbidopa/Levodopa 25-100 MG Tab ONE (21:36)
[2017-05-23] MEDS: Diclofenac Sodium 1% Gel 100 GM Tube TOP SCH (21:38)
[2017-05-23] MEDS: Acetaminophen 500 MG Tab PO SCH (21:39)
[2017-05-23] MEDS: Simvastatin 20 MG Tab PO SCH (21:39)
[2017-05-23] MEDS: Carbidopa/Levodopa 25-100 MG Tab PO SCH (21:41)
[2017-05-24] MEDS: Acetaminophen 500 MG Tab PO SCH ×4 (05:45→21:45)
[2017-05-24] MEDS: Carbidopa/Levodopa 25-100 MG Tab PO SCH ×5 (08:45→20:28)
[2017-05-24] MEDS: Magnesium Oxide 500 MG Tab PO SCH (08:47)
[2017-05-24] MEDS: Enalapril 5 MG Tab PO SCH (08:49)
[2017-05-24] MEDS: Metoprolol Succinate 25 MG Tab.ER PO SCH (08:49)
[2017-05-24] MEDS: Sertraline 50 MG Tab PO SCH (08:51)
[2017-05-24] MEDS: INSULIN DEGLUDEC 100 UNIT/ML SQ SCH (08:52)
[2017-05-24] MEDS: Liraglutide (rDNA Origin) 0.6 MG/0.1 ML 3 ML Pen SUBCUT SCH (08:54)
[2017-05-24] MEDS: Diclofenac Sodium 1% Gel 100 GM Tube TOP SCH ×3 (08:58→20:34)
[2017-05-24] MEDS ORDERED: [UNRECOGNIZED DRUG - OTHER] PO SCH (09:00)
[2017-05-24] MEDS ORDERED: Iron Polysaccharides Complex 150 MG Cap PO SCH (10:45)
[2017-05-24] MEDS: Iron Polysaccharides Complex 150 MG Cap PO SCH (11:44)
--- NOTE | 2017-05-24 12:35 | PN ---
05/24/2017 PATIENT NAME: NAVNEET VALLE CHIEF COMPLAINT: Overall does feel better, however, is still does have some weakness and an ongoing cough. The patient was seen and evaluated yesterday at [facility]. He had some shortness of breath, weakness, and a cough. He has had blood work done on 05/16/2017, noted to be anemic, hemoglobin 8.8. He did receive a 1 unit of blood and then shortly after that he developed a cough and had some more shortness of breath, weak, and cold-like symptoms, feeling cold. The patient does have systolic heart failure. BNP 2 weeks ago was 1340. He was placed in the hospital and he did lose some weight last night, approximately 8 pounds. He was seen and evaluated on 05/06/2017, where his weight was down to 188 pounds from 213 pounds. At that time, his Lasix and potassium were discontinued. Recent echocardiogram shows EF 50%, dilatation of the ascending aorta, moderate pulmonary hypertension. Does have moderately dilated right and left atrium. The patient has had multiple admissions for various reasons such as weakness. The patient does have coronary artery disease, atrial fibrillation, type 2 diabetes, Parkinson, hyperlipidemia, MDS, chronic CHF with depression with history of prostate cancer and history of CABG. Significant outpatient workup includes BNP 1160. White count 1.2, RBC is 3.14, hemoglobin 10, hematocrit 31.4, MCV 100, RDW significant at 74. Sodium 132, normal potassium, creatinine 0.99, BUN 19, calcium 8.8. Alkaline phosphatase, ALT, and AST normal. Normal albumin. Chest x-ray was obtained at [facility] still pending. Labs this morning, INR 2.4. Sodium and other chemistries normal. Calcium 8.4. PHYSICAL EXAMINATION: The patient weight down to 182 pounds, 8 pounds loss. VITAL SIGNS: Blood pressure 110/68, heart rate 77, O2 sats 98% on 2 L nasal cannula. GENERAL: The patient is alert and oriented. LUNGS: Mild crackles, left lower base. NECK: Negative JVD. Negative hepatojugular reflux. CV: Slightly S3 sound. ABDOMINAL: Soft. Good bowel tones. EXTREMITIES: Little edema lower extremities. IMPRESSION AND PLAN: 1. Heart failure with preserved ejection fraction, acute, much improved diuretic therapy. Doubtful that it is infectious process. 2. Neutropenia. White count 1.2. ANC below 500. In light of that and his immunocompromised state, we will start antibiotics. 3. Atrial fibrillation paroxysmal. CHADS2-VASc score high on anticoagulation, therapeutic INR, rate controlled. 4. Mild dysplastic syndrome, decreased ANC. 5. Parkinson disease. Negative cogwheel rigidity. 6. Debilitation and weakness, significant. The patient most likely will be placed in long-term care. Social Service consultation. OVERALL PLAN: We will continue diuresing, monitoring patient, start antibiotics due to decreased ANC. So, service consultation for possible long-term care placement or assisted living. /[id number]/MODL
[2017-05-24] MEDS: Levofloxacin 500 MG Tab PO SCH (13:07)
[2017-05-24] MEDS: Warfarin 2 MG Tab PO SCH (18:25)
[2017-05-24] MEDS: Simvastatin 20 MG Tab PO SCH (20:29)
[2017-05-25] MEDS: Acetaminophen 500 MG Tab PO SCH ×3 (06:29→21:07)
[2017-05-25] MEDS: Carbidopa/Levodopa 25-100 MG Tab PO SCH ×5 (08:26→21:06)
[2017-05-25] MEDS: Magnesium Oxide 500 MG Tab PO SCH (08:27)
[2017-05-25] MEDS: Iron Polysaccharides Complex 150 MG Cap PO SCH (08:27)
[2017-05-25] MEDS: Diclofenac Sodium 1% Gel 100 GM Tube TOP SCH ×3 (08:29→22:08)
[2017-05-25] MEDS: Sertraline 50 MG Tab PO SCH (08:30)
[2017-05-25] MEDS: Liraglutide (rDNA Origin) 0.6 MG/0.1 ML 3 ML Pen SUBCUT SCH (08:32)
[2017-05-25] MEDS: INSULIN DEGLUDEC 100 UNIT/ML SQ SCH (08:34)
[2017-05-25] MEDS: Metoprolol Succinate 25 MG Tab.ER PO SCH (10:02)
[2017-05-25] MEDS: Enalapril 5 MG Tab PO SCH (10:03)
--- NOTE | 2017-05-25 11:12 | PCM.PN ---
- General Info Date of Service: 05/25/17 Functional Status: Denies: Pain Controlled, Tolerating Diet - Review of Systems General: Denies: Fever HEENT: Denies: No Symptoms Pulmonary: Reports: Shortness of Breath (mild SOB with activity. states significantly improving.). Denies: Cough, Wheezing Cardiovascular: Denies: Chest Pain, Palpitations Gastrointestinal: Denies: No Symptoms Musculoskeletal: Denies: No Symptoms Skin: Denies: No Symptoms - Patient Data Vitals - Most Recent: Last Vital Signs Temp 96.9 F 05/25/17 06:24 Pulse 90 05/25/17 06:24 Resp 18 05/25/17 06:24 BP 94/45 L 05/25/17 06:24 Pulse Ox 96 05/25/17 06:24 Weight - Most Recent: 182 lb 11.2 oz I&O - Last 24 Hours: Intake & Output 05/24/17 05/25/17 05/25/17 22:59 06:59 14:59 Intake Total 150 250 Output Total 100 Balance 50 250 Lab Results Last 24 Hours: Laboratory Results - last 24 hr 05/24/17 05/24/17 05/24/17 Range/Units 11:41 17:32 20:33 WBC (5.0-10.0) 10^3/uL RBC (4.50-6.00) 10^6/uL Hgb (13.0-17.0) g/dL Hct (40.0-52.0) % MCV (82.0-92.0) fL MCH (27.0-31.0) pg MCHC (32.0-36.0) g/dL RDW (11.5-14.5) % Plt Count (150-300) 10^3/uL MPV (7.4-10.4) fL Neut % (Auto) (50.0-70.0) % Lymph % (Auto) (20.0-40.0) % Cole % (Auto) (2.0-8.0) % Eos % (Auto) (1.0-3.0) % Baso % (Auto) (0.0-1.0) % Neut # (Auto) (2.5-7.0) 10^3/uL Lymph # (Auto) (1.0-4.0) 10^3/uL Cole # (Auto) (0.1-0.8) 10^3/uL Eos # (Auto) (0.1-0.3) 10^3/uL Baso # (Auto) (0.0-0.1) 10^3/uL PT (8.9-11.4) SEC INR (0.9-1.1) POC Glucose 193 H 173 H 200 H (74-106) mg/dl 05/25/17 05/25/17 05/25/17 Range/Units 06:28 07:10 07:10 WBC 1.6 L* (5.0-10.0) 10^3/uL RBC 3.12 L (4.50-6.00) 10^6/uL Hgb 9.2 L (13.0-17.0) g/dL Hct 30.1 L (40.0-52.0) % MCV 96.4 H (82.0-92.0) fL MCH 29.5 (27.0-31.0) pg MCHC 30.6 L (32.0-36.0) g/dL RDW 23.0 H (11.5-14.5) % Plt Count 84 L (150-300) 10^3/uL MPV 9.0 (7.4-10.4) fL Neut % (Auto) 36.5 L (50.0-70.0) % Lymph % (Auto) 39.4 (20.0-40.0) % Cole % (Auto) 18.7 H (2.0-8.0) % Eos % (Auto) 3.7 H (1.0-3.0) % Baso % (Auto) 1.7 H (0.0-1.0) % Neut # (Auto) 0.6 L (2.5-7.0) 10^3/uL Lymph # (Auto) 0.6 L (1.0-4.0) 10^3/uL Cole # (Auto) 0.3 (0.1-0.8) 10^3/uL Eos # (Auto) 0.1 (0.1-0.3) 10^3/uL Baso # (Auto) 0.0 (0.0-0.1) 10^3/uL PT 34.1 H (8.9-11.4) SEC INR 3.5 H (0.9-1.1) POC Glucose 90 (74-106) mg/dl Med Orders - Current: Current Medications Acetaminophen (Tylenol Extra Strength) 1,000 mg PO Q8HR [facility] Last Admin: 05/25/17 06:29 Dose: 1,000 mg Carbidopa/Levodopa (Sinemet 25-100 Mg) 1.5 tab PO 5XDAY [facility] Last Admin: 05/25/17 08:26 Dose: 1.5 tab Diclofenac Sodium (Voltaren 1% Gel) 0 gm TOP TID [facility] Last Admin: 05/25/17 08:29 Dose: Not Given Enalapril Maleate (Vasotec) 2.5 mg PO DAILY [facility] Last Admin: 05/25/17 10:03 Dose: Not Given Levofloxacin (Levaquin) 500 mg PO Q24H [facility] Last Admin: 05/24/17 13:07 Dose: 500 mg Liraglutide (Victoza) 1.2 mg SUBCUT DAILY [facility] Last Admin: 05/25/17 08:32 Dose: 1.2 mg Magnesium Oxide (Magnesium Oxide) 500 mg PO DAILY [facility] Last Admin: 05/25/17 08:27 Dose: 500 mg Metoprolol Succinate (Toprol Xl) 12.5 mg PO DAILY [facility] Last Admin: 05/25/17 10:02 Dose: Not Given Nitroglycerin (Nitrostat) 0.4 mg SL Q5M PRN PRN Reason: Chest Pain Polysaccharide Iron Complex (Ferrex 150) 150 mg PO DAILY [facility] Last Admin: 05/25/17 08:27 Dose: 150 mg Sertraline HCl (Zoloft) 50 mg PO DAILY [facility] Last Admin: 05/25/17 08:30 Dose: 50 mg Simvastatin (Zocor) 40 mg PO BEDTIME [facility] Last Admin: 05/24/17 20:29 Dose: 40 mg Sodium Chloride (Syrex Flush) 5 ml FLUSH Q8HR PRN PRN Reason: Keep Vein Open Warfarin Sodium (Coumadin) 3 mg PO SuTuWeThFrSa@1800 [facility] Last Admin: 05/24/17 18:25 Dose: 3 mg Warfarin Sodium (Coumadin) 2 mg PO MO@1800 [facility] Warfarin Sodium (Coumadin) 2.5 mg PO Mo@1800 [facility] Discontinued Medications Carbidopa/Levodopa (Sinemet 25-100 Mg) Confirm Administered Dose 2 tab .ROUTE .STK-MED ONE Stop: 05/23/17 21:37 Last Admin: 05/23/17 22:36 Dose: Not Given Furosemide (Lasix) Confirm Administered Dose 40 mg .ROUTE .STK-MED ONE Stop: 05/23/17 18:45 Last Admin: 05/24/17 19:40 Dose: Not Given Furosemide (Lasix) 40 mg IVPUSH NOW ONE Stop: 05/23/17 19:22 Last Admin: 05/23/17 19:20 Dose: 40 mg Polysaccharide Iron Compl/Vitamins (Niferex-150 Forte) 1 cap PO DAILY [facility] Last Admin: 05/24/17 19:40 Dose: Not Given Polysaccharide Iron Complex (Ferrex 150) 150 mg PO DAILY [facility] Warfarin Sodium (Coumadin) Confirm Administered Dose 3 mg .ROUTE .STK-MED ONE Stop: 05/23/17 19:14 Last Admin: 05/24/17 19:40 Dose: Not Given Warfarin Sodium (Coumadin) 4.5 mg PO MO@1800 [facility] - Exam General: No: Alert, Oriented, Cooperative, No Acute Distress Neck: No: Supple Lungs: No: Normal Respiratory Effort, Crackles (faint crackles in the LLL) Cardiovascular: No: Regular Rate, Regular Rhythm GI/Abdominal Exam: No: Normal Bowel Sounds, Soft, Non-Tender Extremities: No: Normal Inspection, Non-Tender, Pedal Edema (trace edema of the lower extremities bilateral to ankles.) - Problem List Review Problem List Initiated/Reviewed/Updated: Yes - Assessment Assessment:: Assessment and plan. Heart failure with preserved ejection fraction. Improving with diuretic management. Patient had initially been seen at [facility] due to shortness of breath, weakness and cough. He was placed on Levaquin therapy. We'll progress with therapy 48 hours. History reveals a hemoglobin of 8.8 with 1 unit of packed RBCs. As a result patient did develop cough, shortness of breath , cold like symptoms and weakness. His BNP 2 weeks ago was 1340. He has had weight loss with current medication protocol. Weight stable at 182 pounds. Recent echocardiogram indicated an ejection fraction of 50%, dilatation of the ascending aorta, moderate pulmonary hypertension. He does have a moderately dilated right and left atrium. Neutropenia/mild dysplastic syndrome White count today is 1.6 which has improved from yesterday at 1.2. In review of patient records it is noted that he is managed by oncology and received Revlimid routinely. last dose was on 2016. It appears his baseline WBC is around 2.0. He does have routine follow-up with oncology. We will obtain a CBC on Saturday. Atrial fibrillation, paroxysmal. Patient does receive anticoagulation, INR, rate controlled. Parkinson's disease. Dehabilitation/weakness. Consideration for long-term care placement with social service consultation. Remaining history includes hyperlipidemia, depression, history of prostate cancer and history of CABG. Discussed case with
[2017-05-25] MEDS: Levofloxacin 500 MG Tab PO SCH (13:21)
[2017-05-25] MEDS ORDERED: Warfarin 2 MG Tab PO ONE (17:38)
[2017-05-25] MEDS: Warfarin 2 MG Tab PO SCH (17:39)
[2017-05-25] MEDS ORDERED: Warfarin 2 MG Tab ONE (20:58)
[2017-05-25] MEDS: Simvastatin 20 MG Tab PO SCH (21:06)
[2017-05-26] MEDS: Acetaminophen 500 MG Tab PO SCH ×3 (06:53→22:00)
[2017-05-26] MEDS: Carbidopa/Levodopa 25-100 MG Tab PO SCH ×5 (08:42→20:05)
[2017-05-26] MEDS: Magnesium Oxide 500 MG Tab PO SCH (08:43)
[2017-05-26] MEDS: Metoprolol Succinate 25 MG Tab.ER PO SCH (08:43)
[2017-05-26] MEDS: Iron Polysaccharides Complex 150 MG Cap PO SCH (08:43)
[2017-05-26] MEDS: INSULIN DEGLUDEC 100 UNIT/ML SQ SCH (08:43)
[2017-05-26] MEDS: Enalapril 5 MG Tab PO SCH (08:44)
[2017-05-26] MEDS: Liraglutide (rDNA Origin) 0.6 MG/0.1 ML 3 ML Pen SUBCUT SCH (08:44)
[2017-05-26] MEDS: Diclofenac Sodium 1% Gel 100 GM Tube TOP SCH (08:44)
[2017-05-26] MEDS: Sertraline 50 MG Tab PO SCH (08:44)
[2017-05-26] MEDS ORDERED: Furosemide 40 MG/4 ML VIAL IVPUSH ONE (11:04)
[2017-05-26] MEDS ORDERED: Diclofenac Sodium 1% Gel 100 GM Tube TOP PRN (11:06)
--- NOTE | 2017-05-26 11:52 | PCM.PN ---
- General Info Date of Service: 05/26/17 Functional Status: Denies: Pain Controlled, Tolerating Diet, Ambulating (notes some SOB with ambulation) - Review of Systems General: Denies: Fever HEENT: Denies: Ear Pain, Headaches, Sore Throat Pulmonary: Reports: Shortness of Breath (reports mild increased SOB since yesterday. Has increased cough with phlegm production), Cough, Sputum (clear in nature) Cardiovascular: Reports: Dyspnea on Exertion (with ambulation), Edema (left lower extremty). Denies: Chest Pain, Palpitations Gastrointestinal: Denies: Abdominal Pain, Constipation, Decreased Appetite Musculoskeletal: Denies: No Symptoms - Patient Data Vitals - Most Recent: Last Vital Signs Temp 98.4 F 05/26/17 11:00 Pulse 95 05/26/17 11:00 Resp 18 05/26/17 11:00 BP 113/77 05/26/17 11:00 Pulse Ox 97 05/26/17 11:00 Weight - Most Recent: 182 lb 8 oz I&O - Last 24 Hours: Intake & Output 05/25/17 05/26/17 05/26/17 22:59 06:59 14:59 Intake Total 120 150 Output Total 400 100 Balance -280 50 Lab Results Last 24 Hours: Laboratory Results - last 24 hr 05/25/17 05/25/17 05/25/17 Range/Units 11:35 17:26 21:05 PT (8.9-11.4) SEC INR (0.9-1.1) POC Glucose 215 H 190 H 129 H (74-106) mg/dl 05/26/17 05/26/17 Range/Units 06:36 07:25 PT 37.1 H (8.9-11.4) SEC INR 3.8 H (0.9-1.1) POC Glucose 92 (74-106) mg/dl Med Orders - Current: Current Medications Acetaminophen (Tylenol Extra Strength) 1,000 mg PO Q8HR [facility] Last Admin: 05/26/17 06:53 Dose: Not Given Carbidopa/Levodopa (Sinemet 25-100 Mg) 1.5 tab PO 5XDAY [facility] Last Admin: 05/26/17 11:18 Dose: 1.5 tab Diclofenac Sodium (Voltaren 1% Gel) 4 gm TOP TID PRN PRN Reason: Pain Enalapril Maleate (Vasotec) 2.5 mg PO DAILY [facility] Last Admin: 05/26/17 08:44 Dose: 2.5 mg Levofloxacin (Levaquin) 500 mg PO DAILY@1400 [facility] Liraglutide (Victoza) 1.2 mg SUBCUT DAILY [facility] Last Admin: 05/26/17 08:44 Dose: 1.2 mg Magnesium Oxide (Magnesium Oxide) 500 mg PO DAILY [facility] Last Admin: 05/26/17 08:43 Dose: 500 mg Metoprolol Succinate (Toprol Xl) 12.5 mg PO DAILY [facility] Last Admin: 05/26/17 08:43 Dose: 12.5 mg Nitroglycerin (Nitrostat) 0.4 mg SL Q5M PRN PRN Reason: Chest Pain Polysaccharide Iron Complex (Ferrex 150) 150 mg PO DAILY [facility] Last Admin: 05/26/17 08:43 Dose: 150 mg Sertraline HCl (Zoloft) 50 mg PO DAILY [facility] Last Admin: 05/26/17 08:44 Dose: 50 mg Simvastatin (Zocor) 40 mg PO BEDTIME [facility] Last Admin: 05/25/17 21:06 Dose: 40 mg Sodium Chloride (Syrex Flush) 5 ml FLUSH Q8HR PRN PRN Reason: Keep Vein Open Warfarin Sodium (Coumadin) 3 mg PO SuTuWeThFrSa@1800 [facility] Last Admin: 05/25/17 17:39 Dose: Not Given Warfarin Sodium (Coumadin) 2 mg PO MO@1800 [facility] Warfarin Sodium (Coumadin) 2.5 mg PO Mo@1800 [facility] Discontinued Medications Carbidopa/Levodopa (Sinemet 25-100 Mg) Confirm Administered Dose 2 tab .ROUTE .STK-MED ONE Stop: 05/23/17 21:37 Last Admin: 05/23/17 22:36 Dose: Not Given Diclofenac Sodium (Voltaren 1% Gel) 0 gm TOP TID [facility] Last Admin: 05/26/17 08:44 Dose: Not Given Furosemide (Lasix) Confirm Administered Dose 40 mg .ROUTE .STK-MED ONE Stop: 05/23/17 18:45 Last Admin: 05/24/17 19:40 Dose: Not Given Furosemide (Lasix) 40 mg IVPUSH NOW ONE Stop: 05/23/17 19:22 Last Admin: 05/23/17 19:20 Dose: 40 mg Furosemide (Lasix) 20 mg IVPUSH NOW ONE Stop: 05/26/17 11:05 Last Admin: 05/26/17 11:19 Dose: 20 mg Levofloxacin (Levaquin) 500 mg PO Q24H [facility] Last Admin: 05/25/17 13:21 Dose: 500 mg Polysaccharide Iron Compl/Vitamins (Niferex-150 Forte) 1 cap PO DAILY [facility] Last Admin: 05/24/17 19:40 Dose: Not Given Polysaccharide Iron Complex (Ferrex 150) 150 mg PO DAILY [facility] Warfarin Sodium (Coumadin) Confirm Administered Dose 3 mg .ROUTE .STK-MED ONE Stop: 05/23/17 19:14 Last Admin: 05/24/17 19:40 Dose: Not Given Warfarin Sodium (Coumadin) 4.5 mg PO MO@1800 [facility] Warfarin Sodium (Coumadin) 2 mg PO ONETIME ONE Stop: 05/25/17 17:39 Last Admin: 05/25/17 21:05 Dose: 2 mg Warfarin Sodium (Coumadin) Confirm Administered Dose 2 mg .ROUTE .STK-MED ONE Stop: 05/25/17 20:59 Last Admin: 05/25/17 17:40 Dose: 2 mg - Exam General: No: Alert, Oriented, Cooperative, No Acute Distress Neck: No: Supple Lungs: No: Normal Respiratory Effort, Crackles (Fine crackles in the LLL) Cardiovascular: No: Regular Rate, Regular Rhythm GI/Abdominal Exam: No: Normal Bowel Sounds, Soft, Non-Tender Extremities: No: Non-Tender, Pedal Edema (trace to 1 + edema of the LL extremity to above the ankle) Skin: No: Warm, Dry - Problem List Review Problem List Initiated/Reviewed/Updated: Yes - My Orders Last 24 Hours: My Active Orders 05/26/17 10:58 Incentive Breathing [RT Incentive Spirometry] [RC] ASDIRECTED 05/26/17 11:06 Diclofenac Sodium [Voltaren 1% Gel] 4 gm TOP TID PRN 05/27/17 05:11 CBC WITH AUTO DIFF [HEME] Routine CMP [COMPREHENSIVE METABOLIC PN,CMP] [CHEM] Routine - Assessment Assessment:: Assessment and plan. Heart failure with preserved ejection fraction. Improving with diuretic management. Patient had initially been seen at [facility] due to shortness of breath, weakness and cough. He was placed on Levaquin therapy. We'll progress with therapy 48 hours. Discussed change in patient status with Dr. Horan this AM. Note slight increased SOB especially with ambulation, increased fine crackles in LLL and trace to 1 + edema of the LL extremity. Will continue Levaquin for an additional day and give a one time dose of Lasix 20mg IVP today. Weight is stable. Will reevaluate medication management tomorrow. History reveals a hemoglobin of 8.8 with 1 unit of packed RBCs. As a result patient did develop cough, shortness of breath, cold like symptoms and weakness. His BNP 2 weeks ago was 1340. He has had weight loss with current medication protocol. Weight stable at 182 pounds. Recent echocardiogram indicated an ejection fraction of 50%, dilatation of the ascending aorta, moderate pulmonary hypertension. He does have a moderately dilated right and left atrium. Neutropenia/mild dysplastic syndrome Recent white count is 1.6 which has improved from 1.2. In review of patient records it is noted that he is managed by oncology and receives Revlimid routinely. last dose was on 2016. It appears his baseline WBC is around 2.0. He does have routine follow-up with oncology. We will obtain a CBC,CMP, INR on Saturday. Atrial fibrillation, paroxysmal. Patient does receive anticoagulation, INR, rate controlled. Previously notified of incorrect coumadin dose given last evening. INR today 3.8. Will hold Coumadin dose today and restart tomorrow. Parkinson's disease. Dehabilitation/weakness. Consideration for long-term care placement with social service consultation. Discussed post hospital placement with patient today. presently his wish is to return to his home. Encouraged him to consider alternatives for assistance of his needs. Readdress tomorrow. Remaining history includes hyperlipidemia, depression, history of prostate cancer and history of CABG. Discussed case with
[2017-05-26] MEDS: Levofloxacin 500 MG Tab PO SCH (14:07)
[2017-05-26] MEDS: Simvastatin 20 MG Tab PO SCH (20:05)
[2017-05-26] MEDS ORDERED: Nystatin Ointment 15 GM Tube TOP SCH (21:00)
[2017-05-27] MEDS: Acetaminophen 500 MG Tab PO SCH ×3 (06:40→21:26)
[2017-05-27] MEDS: Carbidopa/Levodopa 25-100 MG Tab PO SCH ×5 (08:16→20:54)
[2017-05-27] MEDS: Sertraline 50 MG Tab PO SCH (08:17)
[2017-05-27] MEDS: INSULIN DEGLUDEC 100 UNIT/ML SQ SCH (08:17)
[2017-05-27] MEDS: Iron Polysaccharides Complex 150 MG Cap PO SCH (08:17)
[2017-05-27] MEDS: Magnesium Oxide 500 MG Tab PO SCH (08:17)
[2017-05-27] MEDS: Liraglutide (rDNA Origin) 0.6 MG/0.1 ML 3 ML Pen SUBCUT SCH (08:18)
[2017-05-27 08:35] LABS: CHLORIDE,CL 105 mmol/L (98-115); SODIUM,NA 139 mmol/L (136-145)
[2017-05-27] MEDS: Metoprolol Succinate 25 MG Tab.ER PO SCH (09:33)
[2017-05-27] MEDS: Enalapril 5 MG Tab PO SCH (09:34)
--- NOTE | 2017-05-27 10:53 | PCM.PN ---
- General Info Date of Service: 05/27/17 Functional Status: Reports: Pain Controlled, Tolerating Diet, Ambulating, Incentive Spirometry. Denies: New Symptoms - Review of Systems General: Reports: Weakness HEENT: Reports: No Symptoms Pulmonary: Denies: Cough, Wheezing Cardiovascular: Denies: Dyspnea on Exertion, Edema, Lightheadedness Gastrointestinal: Reports: No Symptoms Genitourinary: Reports: No Symptoms Musculoskeletal: Reports: No Symptoms Neurological: Reports: Weakness. Denies: Confusion Psychiatric: Reports: No Symptoms - Patient Data Vitals - Most Recent: Last Vital Signs Temp 97.8 F 05/27/17 06:33 Pulse 80 05/27/17 09:33 Resp 18 05/27/17 06:33 BP 120/67 05/27/17 09:33 Pulse Ox 97 05/27/17 07:50 Weight - Most Recent: 179 lb 8 oz I&O - Last 24 Hours: Intake & Output 05/26/17 05/27/17 05/27/17 22:59 06:59 14:59 Intake Total 150 100 Balance 150 100 Lab Results Last 24 Hours: Laboratory Results - last 24 hr 05/26/17 05/26/17 05/26/17 Range/Units 12:11 17:30 21:05 WBC (5.0-10.0) 10^3/uL RBC (4.50-6.00) 10^6/uL Hgb (13.0-17.0) g/dL Hct (40.0-52.0) % MCV (82.0-92.0) fL MCH (27.0-31.0) pg MCHC (32.0-36.0) g/dL RDW (11.5-14.5) % Plt Count (150-300) 10^3/uL MPV (7.4-10.4) fL Neut % (Auto) (50.0-70.0) % Lymph % (Auto) (20.0-40.0) % Walsh % (Auto) (2.0-8.0) % Eos % (Auto) (1.0-3.0) % Baso % (Auto) (0.0-1.0) % Neut # (Auto) (2.5-7.0) 10^3/uL Lymph # (Auto) (1.0-4.0) 10^3/uL Walsh # (Auto) (0.1-0.8) 10^3/uL Eos # (Auto) (0.1-0.3) 10^3/uL Baso # (Auto) (0.0-0.1) 10^3/uL PT (8.9-11.4) SEC INR (0.9-1.1) Sodium (136-145) mmol/L Potassium (3.3-5.3) mmol/L Chloride (98-115) mmol/L Carbon Dioxide (21.0-32.0) mmol/L BUN (6-25) mg/dL Creatinine (0.51-1.17) mg/dL Est Cr Clr Drug Dosing mL/min Estimated GFR (MDRD) mL/min Glucose (70-110) mg/dL POC Glucose 169 H 175 H 184 H (74-106) mg/dl Calcium (8.7-10.3) mg/dL Total Bilirubin (0.2-1.0) mg/dL AST (15-37) U/L ALT (12-78) U/L Alkaline Phosphatase (46-116) IU/L Total Protein (6.4-8.2) g/dL Albumin (3.00-4.80) g/dL 05/27/17 05/27/17 05/27/17 Range/Units 07:35 07:35 07:35 WBC 2.2 L (5.0-10.0) 10^3/uL RBC 3.15 L (4.50-6.00) 10^6/uL Hgb 9.8 L (13.0-17.0) g/dL Hct 30.5 L (40.0-52.0) % MCV 96.9 H (82.0-92.0) fL MCH 31.1 H (27.0-31.0) pg MCHC 32.1 (32.0-36.0) g/dL RDW 23.1 H (11.5-14.5) % Plt Count 84 L (150-300) 10^3/uL MPV 8.8 (7.4-10.4) fL Neut % (Auto) 39.8 L (50.0-70.0) % Lymph % (Auto) 42.6 H (20.0-40.0) % Walsh % (Auto) 14.1 H (2.0-8.0) % Eos % (Auto) 1.1 (1.0-3.0) % Baso % (Auto) 2.4 H (0.0-1.0) % Neut # (Auto) 0.9 L (2.5-7.0) 10^3/uL Lymph # (Auto) 0.9 L (1.0-4.0) 10^3/uL Walsh # (Auto) 0.3 (0.1-0.8) 10^3/uL Eos # (Auto) 0.0 L (0.1-0.3) 10^3/uL Baso # (Auto) 0.1 (0.0-0.1) 10^3/uL PT 25.7 H (8.9-11.4) SEC INR 2.6 H (0.9-1.1) Sodium 139 (136-145) mmol/L Potassium 4.3 (3.3-5.3) mmol/L Chloride 105 (98-115) mmol/L Carbon Dioxide 28.3 (21.0-32.0) mmol/L BUN 24 (6-25) mg/dL Creatinine 1.05 (0.51-1.17) mg/dL Est Cr Clr Drug Dosing 59.19 mL/min Estimated GFR (MDRD) > 60 mL/min Glucose 113 H (70-110) mg/dL POC Glucose (74-106) mg/dl Calcium 8.6 L (8.7-10.3) mg/dL Total Bilirubin 0.6 (0.2-1.0) mg/dL AST 31 (15-37) U/L ALT 20 (12-78) U/L Alkaline Phosphatase 117 H (46-116) IU/L Total Protein 6.3 L (6.4-8.2) g/dL Albumin 2.66 L (3.00-4.80) g/dL Med Orders - Current: Current Medications Acetaminophen (Tylenol Extra Strength) 1,000 mg PO Q8HR [facility] Last Admin: 05/27/17 06:40 Dose: Not Given Carbidopa/Levodopa (Sinemet 25-100 Mg) 1.5 tab PO 5XDAY [facility] Last Admin: 05/27/17 08:16 Dose: 1.5 tab Diclofenac Sodium (Voltaren 1% Gel) 4 gm TOP TID PRN PRN Reason: Pain Enalapril Maleate (Vasotec) 2.5 mg PO DAILY [facility] Last Admin: 05/27/17 09:34 Dose: Not Given Levofloxacin (Levaquin) 500 mg PO DAILY@1400 [facility] Last Admin: 05/26/17 14:07 Dose: 500 mg Liraglutide (Victoza) 1.2 mg SUBCUT DAILY [facility] Last Admin: 05/27/17 08:18 Dose: 1.2 mg Magnesium Oxide (Magnesium Oxide) 500 mg PO DAILY [facility] Last Admin: 05/27/17 08:17 Dose: 500 mg Metoprolol Succinate (Toprol Xl) 12.5 mg PO DAILY [facility] Last Admin: 05/27/17 09:33 Dose: 12.5 mg Nitroglycerin (Nitrostat) 0.4 mg SL Q5M PRN PRN Reason: Chest Pain Polysaccharide Iron Complex (Ferrex 150) 150 mg PO DAILY [facility] Last Admin: 05/27/17 08:17 Dose: 150 mg Sertraline HCl (Zoloft) 50 mg PO DAILY [facility] Last Admin: 05/27/17 08:17 Dose: 50 mg Simvastatin (Zocor) 40 mg PO BEDTIME [facility] Last Admin: 05/26/17 20:05 Dose: 40 mg Sodium Chloride (Syrex Flush) 5 ml FLUSH Q8HR PRN PRN Reason: Keep Vein Open Warfarin Sodium (Coumadin) 3 mg PO SuTuWeThFrSa@1800 [facility] Last Admin: 05/25/17 17:39 Dose: Not Given Warfarin Sodium (Coumadin) 2 mg PO MO@1800 [facility] Warfarin Sodium (Coumadin) 2.5 mg PO Mo@1800 [facility] Discontinued Medications Carbidopa/Levodopa (Sinemet 25-100 Mg) Confirm Administered Dose 2 tab .ROUTE .STK-MED ONE Stop: 05/23/17 21:37 Last Admin: 05/23/17 22:36 Dose: Not Given Diclofenac Sodium (Voltaren 1% Gel) 0 gm TOP TID [facility] Last Admin: 05/26/17 08:44 Dose: Not Given Furosemide (Lasix) Confirm Administered Dose 40 mg .ROUTE .STK-MED ONE Stop: 05/23/17 18:45 Last Admin: 05/24/17 19:40 Dose: Not Given Furosemide (Lasix) 40 mg IVPUSH NOW ONE Stop: 05/23/17 19:22 Last Admin: 05/23/17 19:20 Dose: 40 mg Furosemide (Lasix) 20 mg IVPUSH NOW ONE Stop: 05/26/17 11:05 Last Admin: 05/26/17 11:19 Dose: 20 mg Levofloxacin (Levaquin) 500 mg PO Q24H [facility] Last Admin: 05/25/17 13:21 Dose: 500 mg Polysaccharide Iron Compl/Vitamins (Niferex-150 Forte) 1 cap PO DAILY [facility] Last Admin: 05/24/17 19:40 Dose: Not Given Polysaccharide Iron Complex (Ferrex 150) 150 mg PO DAILY [facility] Warfarin Sodium (Coumadin) Confirm Administered Dose 3 mg .ROUTE .STK-MED ONE Stop: 05/23/17 19:14 Last Admin: 05/24/17 19:40 Dose: Not Given Warfarin Sodium (Coumadin) 4.5 mg PO MO@1800 [facility] Warfarin Sodium (Coumadin) 2 mg PO ONETIME ONE Stop: 05/25/17 17:39 Last Admin: 05/25/17 21:05 Dose: 2 mg Warfarin Sodium (Coumadin) Confirm Administered Dose 2 mg .ROUTE .STK-MED ONE Stop: 05/25/17 20:59 Last Admin: 05/25/17 17:40 Dose: 2 mg - Exam Quality Assessment: No: Supplemental Oxygen General: Alert, Oriented Neck: Supple Lungs: Rhonchi Cardiovascular: Irregular Rhythm GI/Abdominal Exam: Soft, Distended (Male) Exam: Deferred Back Exam: No: CVA Tenderness (L), CVA Tenderness (R) Extremities: No Pedal Edema Skin: Warm, Dry, Intact Neurological: No New Focal Deficit Psy/Mental Status: Alert, Normal Affect, Normal Mood - Problem List Review Problem List Initiated/Reviewed/Updated: Yes - My Orders Last 24 Hours: My Active Orders 05/26/17 14:00 Levofloxacin [Levaquin] 500 mg PO DAILY@1400 05/28/17 05:15 INR,PT,PROTHROMBIN TIME [COAG] DAILY - Plan Plan:: HISTORY; this gentleman was initially admitted to the [facility] due to shortness of breath weakness and a cough. It appeared he had some fluid overload status when he received a unit of blood due to anemia hemoglobin 8.8. Date he developed significant coughing more shortness of breath and weak with flulike symptoms. Patient does have myelodysplastic syndrome. BNP 2 weeks ago was 1340. He has been diuresing well since being in the hospital with significant weight loss. Impression/plan HFpEF; EF 50%, moderate PH. Left atrium dilatation, with preserved ejection fraction he may be candidate for Entresto, will have to view echocardiogram were closely and make determination. MAP 60-70's. Continue low-dose CÉSAR inhibitor, continue BB. Now euvolemic, hold Lasix. Likely at dry weight 179 Anemia, hemoglobin 9.8. ACD; iron supplementation MDS; white count 2.2, slight improvement, followed by oncology, Revlimid routinely, last dose was on 05/23/2017. Atrial fibrillation, paroxysmal. BB for rate control, therapeutic INR, [id number]- VASc 4. continue anticoagulation, MAP adequate. Supracoagulation, improved to 2.6 today. Continue anticoagulation Coumadin. Parkinson's disease, carbidopa levodopa, Dehabilitation/weakness. Patient refusing long-term care or assisted living. PT consultation today for possible swing bed therapy to optimize for home status. HLD; Zocor, DMT2; GLP1-a. Disposition; likely can be discharged from acute care within the next 24 hours. PT consultation for possible swing bed therapy here optimize for potential home status.
[2017-05-27] MEDS: Levofloxacin 500 MG Tab PO SCH (13:54)
[2017-05-27] MEDS: Sodium Chloride 0.9% 5 ML Syringe FLUSH PRN ×2 (17:32→20:55)
[2017-05-27] MEDS ORDERED: Warfarin 2.5 MG Tab PO SCH (18:00)
[2017-05-27] MEDS ORDERED: Warfarin 2 MG Tab PO SCH ×3 (18:00)
[2017-05-27] MEDS ORDERED: WARFARIN PO SCH (20:47)
[2017-05-27] MEDS: Simvastatin 20 MG Tab PO SCH (20:54)
[2017-05-28] MEDS: Acetaminophen 500 MG Tab PO SCH (06:19)
[2017-05-28] MEDS: Sodium Chloride 0.9% 5 ML Syringe FLUSH PRN (06:22)
[2017-05-28] MEDS: Carbidopa/Levodopa 25-100 MG Tab PO SCH ×2 (08:14→10:52)
[2017-05-28] MEDS: Magnesium Oxide 500 MG Tab PO SCH (08:15)
[2017-05-28] MEDS: Liraglutide (rDNA Origin) 0.6 MG/0.1 ML 3 ML Pen SUBCUT SCH (08:15)
[2017-05-28] MEDS: Sertraline 50 MG Tab PO SCH (08:15)
[2017-05-28] MEDS: Iron Polysaccharides Complex 150 MG Cap PO SCH (08:15)
[2017-05-28] MEDS: INSULIN DEGLUDEC 100 UNIT/ML SQ SCH (08:16)
[2017-05-28] MEDS: Metoprolol Succinate 25 MG Tab.ER PO SCH (09:27)
[2017-05-28] MEDS: Enalapril 5 MG Tab PO SCH (09:27)
[2017-05-28 11:44] VITALS: BP 120/72
--- NOTE | 2017-05-29 07:41 | DISCH ---
FINAL DIAGNOSES: 1. Acute heart failure with preserved ejection fraction, much improved at dry weight 178 pounds. 2. Anemia/anemia of chronic disease, iron supplementation, recent blood transfusion. 3. Myelodysplastic syndrome. He is on immune modulator, needs to be restarted. White count 2.2, followed by Oncology. 4. Atrial fibrillation, paroxysmal, beta niru for rate control. Therapeutic INR. CHADS2-VASc score 4. Continue anticoagulation. Mean arterial pressure adequate. 5. Parkinson's disease, on carbidopa levodopa. 6. Debilitation, weakness, much improved. Physical therapy consultation and evaluation. The patient does not qualify for inpatient swing bed therapy neither home health. BRIEF HISTORY: This elderly gentleman with multiple admissions in the past few months, was evaluated at [facility] due to cough, shortness of breath, and some weakness. He did have blood transfusion 1 unit which he became shortness of breath, likely fluid overload, became weak and had some cold-like symptoms. He did have a BNP a couple of weeks ago was 1340. He did have his Lasix and potassium discontinued on outpatient. HOSPITAL COURSE: Hospital course went fairly well. Physical therapy did not qualify him for swing bed. He was given diuretics, and he responded with weight loss of approximately 8 pounds, was short of breath on admission. However, on discharge, he was ambulating in the halls. No shortness of breath. No edema. He never became hemodynamically unstable. He did not require blood transfusions. He had atrial fibrillation, we continue with beta niru due to high MARJAN VASc score. At one point, he was slightly supra-coagulated; however, doses were adjusted and held and it was therapeutic on discharge. He continued on Zocor, also on his GLP-1 agonist for diabetes. PHYSICAL EXAM ON DISCHARGE: VITAL SIGNS: On discharge, blood pressure 121/78, heart rate 70, temperature 98.1. LUNGS: Clear to auscultation. CV: Irregular rate and rhythm, however, rate was controlled. He had no pedal edema. GI: Soft and tender. NEUROLOGIC: The patient is alert and oriented. Physical therapy evaluation demonstrated normal Tinetti Gait, good step length clearance, quite independent, no instability. Tinetti balance score 15. LABORATORY DATA: White count 2.2, hemoglobin 9.8, hematocrit 30.5, MCV 96.9, INR 2.5. Sodium, potassium, BUN, and creatinine are normal. Glucose 135, calcium 8.6 corrected to albumin of 2.66, total protein is 6.3, alkaline phosphatase slightly high at 117. MEDICATIONS: The patient can continue on home medications including immunomodulator. DISPOSITION: The patient will be discharged from the hospital. He is to report any weakness, shortness of breath. He is to weigh himself. He will follow up with Priscilla Moraes as outpatient next week. MEDICAL DECISION MAKIN minutes was spent on this discharge planning process. /[id number]/MODL
== END 2017-05-28 12:55 | disposition home or self-care (01) | DRG 293 ==
LOC: KA.MS 17:07
PROVIDERS: ADMIT Physician Assistant Medical; ATTEND Nurse Practitioner Family
DX: I50.20 Unspecified systolic (congestive) heart failure (principal); D63.8 Anemia in other chronic diseases classified elsewhere; D46.9 Myelodysplastic syndrome, unspecified; I48.91 Unspecified atrial fibrillation; G20 Parkinson's disease; R53.1 Weakness; Z79.899 Other long term (current) drug therapy; Z79.01 Long term (current) use of anticoagulants
CPT/HCPCS: 36415; 36416; 80048; 80053; 81001; 82962; 85025; 85610; 97161-GP; A9270-GY; J1940; J3490

== ENCOUNTER 2017-08-05 09:28 | Inpatient (IN) | payer MEDICARE, OTHER ==
[2017-08-05] MEDS ORDERED: Aspirin 81 MG Tab.Chew PO ONE (09:43)
[2017-08-05] MEDS ORDERED: Aspirin 81 MG Tab.Chew ONE (09:45)
--- NOTE | 2017-08-05 10:15 | EDM.PDOC ---
ED HPI GENERAL MEDICAL PROBLEM - General Chief Complaint: Chest Pain Time Seen by Provider: 08/05/17 09:50 Source of Information: Reports: Patient History Limitations: Reports: No Limitations - History of Present Illness INITIAL COMMENTS - FREE TEXT/NARRATIVE: Patient presents with complaint of chest pain and dyspnea that he felt 0300 ( about 7 hours ago). He got up and took a Nitro and then sat up in his recliner awhile. The chest pain went away pretty quick and the dyspnea improved but didn 't completely resolve. He hasn't had any chest pain since then but says he has had to use his nitro about 5-6 times in the last two weeks. Pt denies neck, jaw , arm or shoulder pain. He had an [place] in 1991 and 3 vessel CABG in 1998. He has carried Nitro ever since then but says he has never had to use it until the last two weeks. He says he did take his regular medications this morning, including his metoprolol. He has Myelodysplastic Syndrome. Pt takes warfarin for A Fib. Treatments PRODUCT EXAMINER: Reports: Nitroglycerin - Related Data Allergies Allergy/AdvReac Type Severity Reaction Status Date / Time morphine Allergy Intermediate Nausea and Verified 08/05/17 09:50 Vomiting Home Meds: Home Meds Calcium Carbonate/Vitamin D3 [Calcium 600 + Vit D 400] 1 tab PO BIDMEALS [History] Carbidopa/Levodopa [Carbidopa-Levodopa 25-100] 1.5 tab PO 5XDAY 04/24/14 [ History] Enalapril Maleate [Vasotec] 2.5 mg PO DAILY 04/24/14 [History] Magnesium Oxide [Magnesium] 400 mg PO DAILY 04/24/14 [History] Multivit-Min/FA/Lycopene/Lut [Centrum Silver] 1 tab PO DAILY@1800 04/24/14 [ History] Nitroglycerin [Nitrostat] 1 tab SL Q5M PRN 04/24/14 [History] Simvastatin 40 mg PO BEDTIME 04/24/14 [History] Insulin Degludec [Tresiba Flextouch U-100] 24 units SUBCUT DAILY 03/23/16 [ History] Liraglutide [Victoza] 1.2 mg SUBCUT DAILY 03/23/16 [History] Sertraline [Zoloft] 50 mg PO DAILY 03/23/16 [History] Midodrine 5 mg PO TID 05/24/16 [History] Warfarin Sodium [Jantoven] 3 mg PO SUTUTHSA 07/05/16 [History] Metoprolol Succinate [Toprol XL] 12.5 mg PO DAILY #30 tab.er 11/15/16 [Rx] Warfarin Sodium [Jantoven] 4.5 mg PO MOWEFR 12/07/16 [History] Iron Aspgly&PS/B12/C/Ca/FA/Suc [Niferex-150 Forte] 1 cap PO DAILY #30 cap [Rx] Diclofenac Sodium [Voltaren 1% Gel] 100 gm TOP TID PRN 05/25/17 [History] Acetaminophen [Tylenol Extra Strength] 1,000 mg PO Q8HR PRN 08/05/17 [History] Cetirizine [ZyrTEC] 5 mg PO DAILY PRN 08/05/17 [History] Lenalidomide [Revlimid] 5 mg PO DAILY 08/05/17 [History] Omeprazole 20 mg PO DAILY 08/05/17 [History] Past Medical History HEENT History: Reports: Other (See Below) Other HEENT History: surgery to right eye to remove piece of steel, now has 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 Genitourinary History: Reports: Prostate Disorder Musculoskeletal History: Reports: None Neurological History: Reports: CVA, Parkinson's Psychiatric History: Reports: None Endocrine/Metabolic History: Reports: Diabetes, Type II Hematologic History: Reports: Anemia, Other (See Below) Other Hematologic History: MDS Immunologic History: Reports: None Oncologic (Cancer) History: Reports: Prostate Dermatologic History: Reports: None - Infectious Disease History Infectious Disease History: Reports: Influenza, Measles, Mumps - Past Surgical History Head Surgeries/Procedures: Reports: None HEENT Surgical History: Reports: Eye Surgery, Other (See Below) Cardiovascular Surgical History: Reports: Coronary Artery Bypass Respiratory Surgical History: Reports: None GI Surgical History: Reports: Appendectomy, Colonoscopy, EGD, Other (See Below) Male Surgical History: Reports: Prostate Biopsy, Other (See Below) Neurological Surgical History: Reports: None Musculoskeletal Surgical History: Reports: Hip Replacement, Other (See Below) Social & Family History - Family History Family Medical History: Noncontributory HEENT: Reports: None Cardiac: Reports: Aneurysm, [place] : Reports: None OBGYN: Reports: None Musculoskeletal: Reports: None Neurological: Reports: Cerebral Aneurysms Psychiatric: Reports: None Endocrine/Metabolic: Reports: Diabetes, type II Hematologic: Reports: None Immunologic: Reports: None Dermatologic: Reports: None Oncologic: Reports: Breast - Tobacco Use Smoking Status *Q: Never Smoker Second Hand Smoke Exposure: No - Caffeine Use Caffeine Use: Reports: Coffee, Soda - Alcohol Use Days Per Week of Alcohol Use: 0 - Recreational Drug Use Recreational Drug Use: No - Living Situation & Occupation Occupation: Retired ED ROS GENERAL - Review of Systems Review Of Systems: See Below Constitutional: Denies: Fever, Chills, Malaise, Weakness HEENT: Denies: Ear Pain, Throat Pain, Vision Change Respiratory: Reports: Shortness of Breath. Denies: Cough Cardiovascular: Reports: Chest Pain. Denies: Lightheadedness, Syncope GI/Abdominal: Denies: Abdominal Pain, Constipation, Diarrhea, Nausea, Vomiting : Denies: Dysuria, Flank Pain Musculoskeletal: Reports: No Symptoms Skin: Denies: Cyanosis, Jaundice, Mottled, Pallor, Diaphoresis Neurological: Denies: Confusion, Dizziness, Headache, Seizure, Syncope, Trouble Speaking Psychiatric: Denies: Agitation, Anxiety, Confusion ED EXAM, GENERAL - Physical Exam Exam: See Below Exam Limited By: No Limitations General Appearance: Alert, WD/WN, No Apparent Distress Eye Exam: Bilateral Eye: EOMI, Normal Inspection, PERRL Ears: Normal External Exam, Hearing Grossly Normal Nose: Normal Inspection, No Blood Throat/Mouth: Normal Inspection, Normal Lips, Normal Voice, No Airway Compromise Head: Atraumatic, Normocephalic Neck: Normal Inspection, Supple, Non-Tender, Full Range of Motion. No: Carotid Bruit Respiratory/Chest: No Respiratory Distress, Lungs Clear, Normal Breath Sounds, No Accessory Muscle Use Cardiovascular: Normal Peripheral Pulses, Regular Rate, Rhythm, No Edema, No Murmur GI/Abdominal: Normal Bowel Sounds, Soft, Non-Tender, No Organomegaly, No Distention, No Abnormal Bruit, No Mass Back Exam: Normal Inspection, Full Range of Motion. No: CVA Tenderness (L), CVA Tenderness (R) Extremities: Normal Inspection, Normal Range of Motion, Non-Tender, No Pedal Edema Neurological: Alert, Oriented, Normal Cognition, No Motor/Sensory Deficits Psychiatric: Normal Affect, Normal Mood Skin Exam: Warm, Dry, Intact, Normal Color, No Rash Course - Vital Signs Last Recorded V/S: Last Vital Signs Temp 97.1 F 08/05/17 09:47 Pulse 104 H 08/05/17 09:47 Resp 20 08/05/17 09:47 BP 149/104 H 08/05/17 09:47 Pulse Ox 97 08/05/17 09:47 - Orders/Labs/Meds Orders: Active Orders 24 hr Category Date Time Status Patient Status [ADT] Routine ADT 08/05/17 10:51 Ordered EKG Documentation Completion [RC] ASDIRECTED Care 08/05/17 09:44 Active EKG 12 Lead [EK] Routine Ther 08/05/17 09:43 Ordered Labs: Laboratory Tests 08/05/17 08/05/17 08/05/17 Range/Units 09:35 09:35 09:35 WBC 2.7 L (5.0-10.0) 10^3/uL RBC 2.74 L (4.50-6.00) 10^6/uL Hgb 9.1 L (13.0-17.0) g/dL Hct 27.4 L (40.0-52.0) % MCV 100.0 H (82.0-92.0) fL MCH 33.2 H (27.0-31.0) pg MCHC 33.2 (32.0-36.0) g/dL RDW 21.1 H (11.5-14.5) % Plt Count 71 L (150-300) 10^3/uL MPV 8.7 (7.4-10.4) fL Add Manual Diff Yes Neutrophils % (Manual) 35 L (50-70) % Lymphocytes % (Manual) 52 H (20-40) % Monocytes % (Manual) 13 H (2-8) % Eosinophils % (Manual) 0 L (1-3) % Basophils % (Manual) 0 (0-1) % Anisocytosis 1+ slight Tear Drop Cells Occasional Elliptocytes 1+ slight Schistocytes Occasional PT 22.0 H (8.9-11.4) SEC INR 2.2 H (0.9-1.1) Sodium 142 (136-145) mmol/L Potassium 4.6 (3.3-5.3) mmol/L Chloride 105 (98-115) mmol/L Carbon Dioxide 28.1 (21.0-32.0) mmol/L BUN 23 (6-25) mg/dL Creatinine 0.99 (0.51-1.17) mg/dL Est Cr Clr Drug Dosing 62.77 mL/min Estimated GFR (MDRD) > 60 mL/min Glucose 212 H (70-110) mg/dL Calcium 8.6 L (8.7-10.3) mg/dL Creatine Kinase 51 (26-276) U/L CK-MB (CK-2) 1.70 (0.00-4.30) ng/mL Troponin I 0.05 (0.00-0.070) ng/mL Meds: Medications Discontinued Medications Generic Name Dose Route Start Last Admin Trade Name Freq PRN Reason Stop Dose Admin Aspirin 324 mg 08/05/17 09:43 08/05/17 09:58 Aspirin PO 08/05/17 09:44 324 mg ONETIME ONE Administration Aspirin Confirm 08/05/17 09:45 08/05/17 09:58 Aspirin Administered 08/05/17 09:46 Not Given Dose 324 mg .ROUTE .STK-MED ONE - Re-Assessments/Exams Free Text/Narrative Re-Assessment/Exam: 08/05/17 10:47 Pt given ASA 81 x 4 tabs. EKG shows Sinus Rhythm with frequent PVCs. Troponin is normal at 0.05, WBC is 2.7. Discussed findings with Dr. Franco who accepted for admission for unstable angina. Discussed this with patient who is agreeable with this plan. Patient has remained stable throughout ER course. 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
[2017-08-05 10:23] LABS: CHLORIDE,CL 105 mmol/L (98-115); SODIUM,NA 142 mmol/L (136-145)
[2017-08-05] MEDS ORDERED: Cetirizine 10 MG Tab PO PRN (11:26)
[2017-08-05] MEDS ORDERED: Acetaminophen 500 MG Tab PO PRN (11:26)
[2017-08-05] MEDS: Carbidopa/Levodopa 25-100 MG Tab PO SCH ×4 (11:40→20:13)
[2017-08-05] MEDS ORDERED: Ondansetron 4 MG/2 ML SDV IV PRN (12:18)
[2017-08-05] MEDS ORDERED: Sodium Chloride 0.9% 5 ML Syringe FLUSH PRN (12:18)
[2017-08-05] MEDS: Nitroglycerin 0.2 MG/HR Transdermal Patch TRDERM SCH (12:43)
[2017-08-05] MEDS ORDERED: Diclofenac Sodium 1% Gel 100 GM Tube TOP PRN (14:00)
[2017-08-05] MEDS ORDERED: Lidocaine 2% 100 MG/5 ML Syringe IVPUSH PRN (15:44)
[2017-08-05] MEDS ORDERED: Nitroglycerin 0.4 MG Tab.SL SL PRN (15:44)
[2017-08-05] MEDS ORDERED: EPINEPHrine 1:10,000 1 MG/10 ML Syringe IVPUSH PRN (15:44)
[2017-08-05] MEDS ORDERED: Atropine 0.1 MG/ML 10 ML Syringe IVPUSH PRN (15:44)
[2017-08-05] MEDS: Calcium Citrate/Vitamin D3 315 MG-250 Unit Tab PO SCH (17:49)
[2017-08-06] MEDS: Carbidopa/Levodopa 25-100 MG Tab PO SCH ×5 (08:24→20:03)
[2017-08-06] MEDS: Nitroglycerin 0.2 MG/HR Transdermal Patch TRDERM SCH (08:24)
[2017-08-06] MEDS: Calcium Citrate/Vitamin D3 315 MG-250 Unit Tab PO SCH ×2 (08:24→17:52)
[2017-08-06] MEDS: Enalapril 5 MG Tab PO SCH (08:25)
[2017-08-06] MEDS: Liraglutide (rDNA Origin) 0.6 MG/0.1 ML 3 ML Pen SUBCUT SCH (08:27)
[2017-08-06] MEDS: [UNRECOGNIZED DRUG - OTHER] SUBCUT SCH (08:28)
[2017-08-06] MEDS: TRESIBA SUBCUT SCH (08:28)
[2017-08-06] MEDS ORDERED: Insulin Detemir 100 Units/ML 3 ML Pen SUBCUT SCH (09:00)
[2017-08-06] MEDS ORDERED: Metoprolol Succinate 25 MG Tab.ER PO SCH ×2 (09:00→10:15)
--- NOTE | 2017-08-06 09:44 | PCM.HP ---
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 He was admitted for rule out DE with a working diagnosis of angina. However further interview with patient the morning he stated he never did have chest pain. He stated he woke up at 0300 in the morning like he usually does extremely thirsty, it did admit to some shortness of breath. He took the nitroglycerin due to his shortness of breath and then it went away. 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 He states he goes to the gym almost daily rides a 30-minute stationary bicycle along with brisk walks around his gym. He stated he has not done this about the past 3 days because of overall not feeling well. He does have atrial fibrillation which he takes anticoagulation. 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 Patient has had multiple hospital admissions for various reasons over the past 1-2 years. His cardiac history is significant for DE in 1991 and 3-vessel CABG in 1998. - Related Data Allergies/Adverse Reactions: Allergies Allergy/AdvReac Type Severity Reaction Status Date / Time morphine Allergy Intermediate Nausea and Verified 08/05/17 09:50 Vomiting Home Medications: Home Meds Calcium Carbonate/Vitamin D3 [Calcium 600 + Vit D 400] 1 tab PO BIDMEALS [History] Carbidopa/Levodopa [Carbidopa-Levodopa 25-100] 1.5 tab PO 5XDAY 04/24/14 [ History] Enalapril Maleate [Vasotec] 2.5 mg PO DAILY 04/24/14 [History] Magnesium Oxide [Magnesium] 400 mg PO DAILY 04/24/14 [History] Multivit-Min/FA/Lycopene/Lut [Centrum Silver] 1 tab PO DAILY@1800 04/24/14 [ History] Nitroglycerin [Nitrostat] 1 tab SL Q5M PRN 04/24/14 [History] Simvastatin 40 mg PO BEDTIME 04/24/14 [History] Insulin Degludec [Tresiba Flextouch U-100] 24 units SUBCUT DAILY 03/23/16 [ History] Liraglutide [Victoza] 1.2 mg SUBCUT DAILY 03/23/16 [History] Sertraline [Zoloft] 50 mg PO DAILY 03/23/16 [History] Midodrine 5 mg PO TID 05/24/16 [History] Warfarin Sodium [Jantoven] 3 mg PO SUTUTHSA 07/05/16 [History] Metoprolol Succinate [Toprol XL] 12.5 mg PO DAILY #30 tab.er 11/15/16 [Rx] Warfarin Sodium [Jantoven] 4.5 mg PO MOWEFR 12/07/16 [History] Iron Aspgly&PS/B12/C/Ca/FA/Suc [Niferex-150 Forte] 1 cap PO DAILY #30 cap [Rx] Diclofenac Sodium [Voltaren 1% Gel] 100 gm TOP TID PRN 05/25/17 [History] Acetaminophen [Tylenol Extra Strength] 1,000 mg PO Q8HR PRN 08/05/17 [History] Cetirizine [ZyrTEC] 5 mg PO DAILY PRN 08/05/17 [History] Lenalidomide [Revlimid] 5 mg PO DAILY 08/05/17 [History] Omeprazole 20 mg PO DAILY 08/05/17 [History] Past Medical History HEENT History: Reports: Other (See Below) Other HEENT History: surgery to right eye to remove piece of steel, 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 Genitourinary History: Reports: Prostate Disorder Musculoskeletal History: Reports: None Neurological History: Reports: CVA, Parkinson's Psychiatric History: Reports: None Endocrine/Metabolic History: Reports: Diabetes, Type II Hematologic History: Reports: Anemia, Other (See Below) Other Hematologic History: MDS Immunologic History: Reports: None Oncologic (Cancer) History: Reports: Prostate Other Oncologic History: MDS Dermatologic History: Reports: None - Infectious Disease History Infectious Disease History: Reports: Influenza, Measles, Mumps - Past Surgical History Head Surgeries/Procedures: Reports: None HEENT Surgical History: Reports: Eye Surgery, Other (See Below) Cardiovascular Surgical History: Reports: Coronary Artery Bypass Respiratory Surgical History: Reports: None GI Surgical History: Reports: Appendectomy, Colonoscopy, EGD, Other (See Below) Male Surgical History: Reports: Prostate Biopsy Neurological Surgical History: Reports: None Musculoskeletal Surgical History: Reports: Hip Replacement Social & Family History - Family History HEENT: Reports: None Cardiac: Reports: Aneurysm, DE : Reports: None OBGYN: Reports: None Musculoskeletal: Reports: None Neurological: Reports: Cerebral Aneurysms Psychiatric: Reports: None Endocrine/Metabolic: Reports: Diabetes, type II Hematologic: Reports: None Immunologic: Reports: None Dermatologic: Reports: None Oncologic: Reports: Breast - Tobacco Use Smoking Status *Q: Never Smoker Second Hand Smoke Exposure: No - Caffeine Use Caffeine Use: Reports: Soda - Alcohol Use Days Per Week of Alcohol Use: 0 - Recreational Drug Use Recreational Drug Use: No - Living Situation & Occupation Occupation: Retired H&P Review of Systems - Review of Systems: Review Of Systems: See Below General: Reports: Other HEENT: Reports: Other Pulmonary: Denies: Shortness of Breath, Pleuritic Chest Pain, Cough, Sputum, Hemoptysis Cardiovascular: Denies: Chest Pain, Orthopnea, PND, Edema Gastrointestinal: Reports: No Symptoms Genitourinary: Reports: No Symptoms Musculoskeletal: Reports: No Symptoms Skin: Reports: No Symptoms Psychiatric: Reports: No Symptoms Neurological: Reports: Pre-Existing Deficit, Other (parkinson tremor right hand) Hematologic/Lymphatic: Reports: Anemia, Easy Bleeding Immunologic: Reports: No Symptoms Exam - Exam Exam: See Below - Vital Signs Vital Signs: Last Vital Signs Temp 99.1 F 08/06/17 06:28 Pulse 89 08/06/17 08:24 Resp 18 08/06/17 06:28 BP 118/72 08/06/17 08:25 Pulse Ox 97 08/06/17 08:45 Weight: 190 lb - Exam General: Alert, Oriented, Cooperative. No: Mild Distress HEENT: Mucosa Moist & Mccaskill, Nares Patent Neck: Supple, Trachea Midline, 2 Lungs: Clear to Auscultation, Normal Respiratory Effort. No: Decreased Breath Sounds, Crackles, Rales Cardiovascular: Irregular Rhythm, Tachycardia GI/Abdominal Exam: Normal Bowel Sounds, Soft, Non-Tender, No Organomegaly, No Distention, No Abnormal Bruit, No Mass, Pelvis Stable (Male) Exam: Deferred Rectal (Males) Exam: Deferred Back Exam: No: CVA Tenderness (R) Extremities: No Pedal Edema. No: Pedal Edema Peripheral Pulses: 0: Radial (L) (bypass, no radial pulse. ), 2+: Radial (R) Skin: Warm, Dry, Intact Neurological: Cranial Nerves Intact, Reflexes Equal Bilateral Neuro Extensive - Mental Status: Alert, Oriented x3, Normal Mood/Affect, Normal Cognition Neuro Extensive - Motor, Sensory, Reflexes: CN II-XII Intact Psychiatric: Alert, Normal Affect, Normal Mood - Patient Data Lab Results Last 24 hrs: Laboratory Results - last 24 hr 08/05/17 Range/Units 14:55 Troponin I 0.04 (0.00-0.070) ng/mL Result Diagrams: 08/05/17 09:35 08/05/17 09:35 EKG INTERPRETATION EKG Date: 08/06/17 Rhythm: A-Fib Hurley: Normal P-Wave: Absent QRS: RBBB ST-T: Normal QT: Normal Comparison: Change From Previous EKG *Q Meaningful Use (ADM) - VTE *Q VTE Criteria *Q: - Stroke *Q Stroke Criteria *Q: - AMI *Q AMI Criteria *Q: Problem List Initiated/Reviewed/Updated: Yes Orders Last 24hrs: Active Orders 24 hr Category Date Time Status Patient Status [ADT] Routine ADT 08/05/17 10:51 Ordered Cardiac Monitoring [RC] 0300,0700,1100,1500,1900,2300 Care 08/05/17 12:18 Active EKG Documentation Completion [RC] 0700 Care 08/05/17 15:57 Active Oxygen Therapy [RC] PRN Care 08/05/17 12:18 Active Up to Chair [RC] ASDIRECTED Care 08/05/17 12:18 Active Vital Signs [RC] 0300,0700,1100,1500,1900,2300 Care 08/05/17 12:18 Active Consult to Case Management [CONS] Routine Cons 08/05/17 12:18 Active Heart Healthy Diet [DIET] Diet 08/05/17 Lunch Active Acetaminophen [Tylenol Extra Strength] Med 08/05/17 11:26 Active 1,000 mg PO Q8HR PRN Atropine [Atropine 0.1 MG/ML] Med 08/05/17 15:44 Active 0 mg IVPUSH ASDIRECTED PRN Calcium Citrate/Vitamin D3 [Calcium Citrate + D] Med 08/05/17 18:00 Active 2 tab PO BIDMEALS Carbidopa/Levodopa [Sinemet 25-100 mg] Med 08/05/17 11:30 Active 1.5 tab PO 5XDAY Cetirizine [ZyrTEC] Med 08/05/17 11:26 Active 5 mg PO DAILY PRN Diclofenac Sodium [Voltaren 1% Gel] Med 08/05/17 14:00 Active 1 gm TOP TID PRN EPINEPHrine [EPINEPHrine 1:10,000] Med 08/05/17 15:44 Active 1 mg IVPUSH ASDIRECTED PRN Enalapril [Vasotec] Med 08/06/17 09:00 Active 2.5 mg PO DAILY Lidocaine 2% [Xylocaine 2%] Med 08/05/17 15:44 Active 0 mg IVPUSH ASDIRECTED PRN Liraglutide [Victoza] Med 08/06/17 09:00 Active 1.2 mg SUBCUT DAILY Metoprolol Succinate [Toprol XL] Med 08/06/17 09:00 Active 12.5 mg PO DAILY Nitroglycerin [Nitro-Dur 0.2 MG/Hr] Med 08/05/17 12:30 Active 0.2 mg TRDERM DAILY Nitroglycerin [Nitrostat] Med 08/05/17 15:44 Active 0.4 mg SL ASDIRECTED PRN Ondansetron [Zofran] Med 08/05/17 12:18 Active 4 mg IV Q4H PRN Patient's Own Medication [Ptom] Med 08/06/17 09:00 Active 1 each PO DAILY Patient's Own Medication [Ptom] Med 08/06/17 09:00 Active 24 each SUBCUT DAILY Remove Patch Med 08/05/17 21:00 Active 1 ea TRDERM BEDTIME Sodium Chloride 0.9% [Syrex Flush] Med 08/05/17 12:18 Active 5 ml FLUSH Q8HR PRN Saline Lock Insert [OM.PC] Routine Oth 08/05/17 12:18 Ordered Code Status [Resuscitation Status] Routine Resus Stat 08/05/17 12:16 Ordered EKG 12 Lead [EK] Routine Ther 08/06/17 07:00 Ordered Medication Orders Acetaminophen (Tylenol Extra Strength) 1,000 mg PO Q8HR PRN PRN Reason: Pain Atropine Sulfate (Atropine 0.1 Mg/Ml) 0 mg IVPUSH ASDIRECTED PRN PRN Reason: Heart Calcium Citrate (Calcium Citrate + D) 2 tab PO BIDMEALS [facility] Last Admin: 08/06/17 08:24 Dose: 2 tab Admin: 08/05/17 17:49 Dose: 2 tab Carbidopa/Levodopa (Sinemet 25-100 Mg) 1.5 tab PO 5XDAY [facility] Last Admin: 08/06/17 08:24 Dose: 1.5 tab Admin: 08/05/17 20:13 Dose: 1.5 tab Admin: 08/05/17 17:49 Dose: 1.5 tab Admin: 08/05/17 14:01 Dose: 1.5 tab Admin: 08/05/17 11:40 Dose: 1.5 tab Cetirizine HCl (Zyrtec) 5 mg PO DAILY PRN PRN Reason: Congestion Diclofenac Sodium (Voltaren 1% Gel) 1 gm TOP TID PRN PRN Reason: Pain Enalapril Maleate (Vasotec) 2.5 mg PO DAILY [facility] Last Admin: 08/06/17 08:25 Dose: 2.5 mg Epinephrine HCl (Epinephrine 1:10,000) 1 mg IVPUSH ASDIRECTED PRN PRN Reason: Heart Lidocaine HCl (Xylocaine 2%) 0 mg IVPUSH ASDIRECTED PRN PRN Reason: Heart Liraglutide (Victoza) 1.2 mg SUBCUT DAILY [facility] Last Admin: 08/06/17 08:27 Dose: 1.2 units Metoprolol Succinate (Toprol Xl) 12.5 mg PO DAILY [facility] Last Admin: 08/06/17 08:24 Dose: 12.5 mg Miscellaneous Information (Remove Patch) 1 ea TRDERM BEDTIME [facility] Last Admin: 08/05/17 20:14 Dose: 1 ea Nitroglycerin (Nitro-Dur 0.2 Mg/Hr) 0.2 mg TRDERM DAILY [facility] Last Admin: 08/06/17 08:24 Dose: 0.2 mg Admin: 08/05/17 12:43 Dose: 0.2 mg Nitroglycerin (Nitrostat) 0.4 mg SL ASDIRECTED PRN PRN Reason: Heart Ondansetron HCl (Zofran) 4 mg IV Q4H PRN PRN Reason: Nausea/Vomiting Ptom ( Lenalidomide [ Revlimid] 5 Mg Capsule 1 each PO DAILY [facility] Ptom Tresiba 100u/Ml (Insulin Degludec Injection) 24 each SUBCUT DAILY [facility] Last Admin: 08/06/17 08:28 Dose: 24 each Sodium Chloride (Syrex Flush) 5 ml FLUSH Q8HR PRN PRN Reason: Keep Vein Open Assessment/Plan Comment:: HISTORY OF PRESENT ILLNESS This 82-year-old gentleman came to the ED stating he had shortness of breath and chest pain which started at 0300 and the morning in which he took a nitroglycerin and it went away. He was admitted for rule out DE with a working diagnosis of angina. However further interview with patient the morning he stated he never did have chest pain. He stated he woke up at 0300 in the morning like he usually does extremely thirsty, it did admit to some shortness of breath. He took the nitroglycerin due to his shortness of breath and then it went away. 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 He states he goes to the gym almost daily rides a 30-minute stationary bicycle along with brisk walks around his gym. He stated he has not done this about the past 3 days because of overall not feeling well. He does have atrial fibrillation which he takes anticoagulation. 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 Patient has had multiple hospital admissions for various reasons over the past 1-2 years. His cardiac history is significant for DE in 1991 and 3-vessel CABG in 1998. Upon arrival to the floor patient required further intervention including, labs , medication adjustments and additions, medication reconciliation. Primary assessment Rule out angina, history not consistent with angina, with further investigation/ patient interviewing denies having chest pain at all. History consistent with likely A. fib with RVR Atrial fibrillation, RVR, chronic, rate control strategy, HR 100-115, needs improved control, anticoagulation with Coumadin, therapeutic INR 2.2. [id number] VASc Score high 6. HAS-BLED riskhigh-6. Does admit to some dark stools, will guaic stools. Hemoglobin 9.1, history--MDS. Withhold aspirin, increase BB/ metoprolol 25 mg succinate daily starting today. Continue with telemetry, ambulate on the floor Thrombocytopenia, platelets 71,000, currently on immune modulator Revlimid for MDS. Not actively bleeding, will monitor closely Chronic medical problems Hypertension, BB/ACEI, creatinine good. Increase BB T2DM; GLP-1A, Tresiba. Parkinson's disease, stable MDS, immune modulator Revlimid Overall plan, disposition, discharge planning, increase beta niru for improved rate control, ambulatory on floor today. Guiac stools, Likely discharge in a.m. if patient has better rate control. Monitor for any worsening thrombocytopenia
[2017-08-06] MEDS: LENALIDOMIDE 5 MG PO SCH (10:50)
[2017-08-06] MEDS: Omeprazole 20 MG Cap.CR PO SCH (10:50)
[2017-08-07] MEDS: Omeprazole 20 MG Cap.CR PO SCH (07:42)
[2017-08-07] MEDS: Enalapril 5 MG Tab PO SCH (08:08)
[2017-08-07] MEDS: LENALIDOMIDE 5 MG PO SCH (08:08)
[2017-08-07] MEDS: Calcium Citrate/Vitamin D3 315 MG-250 Unit Tab PO SCH ×2 (08:08→17:40)
[2017-08-07] MEDS: TRESIBA SUBCUT SCH (08:09)
[2017-08-07] MEDS: [UNRECOGNIZED DRUG - OTHER] SUBCUT SCH (08:09)
[2017-08-07] MEDS: Liraglutide (rDNA Origin) 0.6 MG/0.1 ML 3 ML Pen SUBCUT SCH (08:09)
[2017-08-07] MEDS: Carbidopa/Levodopa 25-100 MG Tab PO SCH ×5 (08:09→19:59)
[2017-08-07] MEDS: Nitroglycerin 0.2 MG/HR Transdermal Patch TRDERM SCH (08:10)
[2017-08-07] MEDS ORDERED: Metoprolol Succinate 25 MG Tab.ER PO SCH (09:00)
[2017-08-07] MEDS ORDERED: Metoprolol Succinate 25 MG Tab.ER PO ONE (09:03)
--- NOTE | 2017-08-07 09:39 | PCM.PN ---
- General Info Date of Service: 08/07/17 Functional Status: Reports: Pain Controlled, Tolerating Diet, Ambulating, Urinating. Denies: New Symptoms - Review of Systems General: Reports: No Symptoms HEENT: Reports: No Symptoms Pulmonary: Reports: No Symptoms. Denies: Cough, Sputum Cardiovascular: Denies: Chest Pain, Palpitations, Dyspnea on Exertion, Orthopnea , PND, Edema, Lightheadedness Gastrointestinal: Reports: No Symptoms Genitourinary: Reports: No Symptoms Skin: Reports: No Symptoms Neurological: Reports: Pre-Existing Deficit (Parkinson's tremor). Denies: Difficulty Walking, Weakness Psychiatric: Reports: No Symptoms - Patient Data Vitals - Most Recent: Last Vital Signs Temp 98.8 F 08/07/17 06:20 Pulse 90 08/07/17 08:09 Resp 18 08/07/17 06:20 BP 126/74 08/07/17 08:09 Pulse Ox 94 L 08/07/17 06:40 Weight - Most Recent: 190 lb I&O - Last 24 Hours: Intake & Output 08/06/17 08/07/17 08/07/17 22:59 06:59 14:59 Intake Total 500 200 Output Total 200 300 Balance 300 -100 Lab Results Last 24 Hours: Laboratory Results - last 24 hr 08/07/17 08/07/17 08/07/17 Range/Units 01:31 06:55 07:25 PT TNP INR 1.9 H (0.9-1.1) POC Glucose 138 H 108 H (74-106) mg/dl He Results Last 24 Hours: Microbiology 08/06/17 13:00 Stool Occult Blood (HE) - Final Stool / Feces - Stool, Formed Med Orders - Current: Current Medications Acetaminophen (Tylenol Extra Strength) 1,000 mg PO Q8HR PRN PRN Reason: Pain Atropine Sulfate (Atropine 0.1 Mg/Ml) 0 mg IVPUSH ASDIRECTED PRN PRN Reason: Heart Calcium Citrate (Calcium Citrate + D) 2 tab PO BIDMEALS [facility] Last Admin: 08/07/17 08:08 Dose: 2 tab Carbidopa/Levodopa (Sinemet 25-100 Mg) 1.5 tab PO 5XDAY [facility] Last Admin: 08/07/17 08:09 Dose: 1.5 tab Cetirizine HCl (Zyrtec) 5 mg PO DAILY PRN PRN Reason: Congestion Diclofenac Sodium (Voltaren 1% Gel) 1 gm TOP TID PRN PRN Reason: Pain Enalapril Maleate (Vasotec) 2.5 mg PO DAILY [facility] Last Admin: 08/07/17 08:08 Dose: 2.5 mg Epinephrine HCl (Epinephrine 1:10,000) 1 mg IVPUSH ASDIRECTED PRN PRN Reason: Heart Lidocaine HCl (Xylocaine 2%) 0 mg IVPUSH ASDIRECTED PRN PRN Reason: Heart Liraglutide (Victoza) 1.2 mg SUBCUT DAILY [facility] Last Admin: 08/07/17 08:09 Dose: 1.2 units Metoprolol Succinate (Toprol Xl) 25 mg PO DAILY [facility] Last Admin: 08/07/17 08:09 Dose: 25 mg Miscellaneous Information (Remove Patch) 1 ea TRDERM BEDTIME [facility] Last Admin: 08/06/17 21:15 Dose: 1 ea Nitroglycerin (Nitro-Dur 0.2 Mg/Hr) 0.2 mg TRDERM DAILY [facility] Last Admin: 08/07/17 08:10 Dose: 0.2 mg Nitroglycerin (Nitrostat) 0.4 mg SL ASDIRECTED PRN PRN Reason: Heart Omeprazole (Omeprazole) 20 mg PO ACBREAKFAST [facility] Last Admin: 08/07/17 07:42 Dose: 20 mg Ondansetron HCl (Zofran) 4 mg IV Q4H PRN PRN Reason: Nausea/Vomiting Ptom ( Lenalidomide [ Revlimid] 5 Mg Capsule 1 each PO DAILY [facility] Last Admin: 08/07/17 08:08 Dose: 1 each Ptom Tresiba 100u/Ml (Insulin Degludec Injection) 24 each SUBCUT DAILY [facility] Last Admin: 08/07/17 08:09 Dose: 24 each Sodium Chloride (Syrex Flush) 5 ml FLUSH Q8HR PRN PRN Reason: Keep Vein Open Discontinued Medications Aspirin (Aspirin) 324 mg PO ONETIME ONE Stop: 08/05/17 09:44 Last Admin: 08/05/17 09:58 Dose: 324 mg Aspirin (Aspirin) Confirm Administered Dose 324 mg .ROUTE .STK-MED ONE Stop: 08/05/17 09:46 Last Admin: 08/05/17 09:58 Dose: Not Given Insulin Detemir (Levemir) 24 unit SUBCUT DAILY [facility] Metoprolol Succinate (Toprol Xl) 12.5 mg PO DAILY [facility] Last Admin: 08/06/17 08:24 Dose: 12.5 mg Metoprolol Succinate (Toprol Xl) 12.5 mg PO ONETIME [facility] Stop: 08/06/17 11:00 Last Admin: 08/06/17 10:50 Dose: 12.5 mg Metoprolol Succinate (Toprol Xl) 25 mg PO ONETIME ONE Stop: 08/07/17 09:04 - Exam Quality Assessment: No: Supplemental Oxygen General: Alert, Oriented Neck: Supple Lungs: Clear to Auscultation, Normal Respiratory Effort Cardiovascular: Irregular Rhythm, Tachycardia GI/Abdominal Exam: Soft Back Exam: No: CVA Tenderness (L), CVA Tenderness (R) Extremities: No: Pedal Edema Peripheral Pulses: 0: Radial (L), 2+: Radial (R) Skin: Other (No pallor this) Psy/Mental Status: Alert, Normal Affect, Normal Mood - Problem List Review Problem List Initiated/Reviewed/Updated: Yes - My Orders Last 24 Hours: My Active Orders 08/06/17 09:00 Enalapril [Vasotec] 2.5 mg PO DAILY Liraglutide [Victoza] 1.2 mg SUBCUT DAILY Patient's Own Medication [Ptom] 1 each PO DAILY Patient's Own Medication [Ptom] 24 each SUBCUT DAILY 08/06/17 10:30 Omeprazole 20 mg PO ACBREAKFAST 08/07/17 09:00 Metoprolol Succinate [Toprol XL] 25 mg PO DAILY 08/07/17 Breakfast ADA Diabetic [[employer] Diet] [DIET] - Plan Plan:: HISTORY OF PRESENT ILLNESS This 82-year-old gentleman came to the ED stating he had shortness of breath and chest pain which started at 0300 and the morning in which he took a nitroglycerin and it went away. He was admitted for rule out AK with a working diagnosis of angina. However further interview with patient the morning he stated he never did have chest pain. He stated he woke up at 0300 in the morning like he usually does extremely thirsty, it did admit to some shortness of breath. He took the nitroglycerin due to his shortness of breath and then it went away. He does have a history of myocardial infarction 1992 however has been stable. He states he goes to the gym almost daily rides a 30-minute stationary bicycle along with brisk walks around his gym. He stated he has not done this about the past 3 days because of overall not feeling well. He does have atrial fibrillation which he takes anticoagulation. 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 Patient has had multiple hospital admissions for various reasons over the past 1-2 years. His cardiac history is significant for AK in 1991 and 3-vessel CABG in 1998. Update today; no chest pain since admission, telemetry reviewed improvement in heart rate however upon ambulation breaks through into 120s. HR 80s to 90s at rest. Stool positive for Hemoccult. Primary assessment Rule out angina, history not consistent with angina, with further investigation/ patient interviewing denies having chest pain at all. History consistent with likely A. fib with RVR Atrial fibrillation, RVR, chronic, rate control strategy, HR 90-120, still needs improved control, start back on anticoagulation with Coumadin, INR 1.9. [id number] Score high 6. HAS-BLED riskhigh-6. Does admit to some dark stools, positive guaic stools. Recheck hemoglobin today. history--MDS. Withhold aspirin , increase BB/metoprolol to 50mg succinate daily starting today. Continue with telemetry, ambulate on the floor to assess heart rate. Thrombocytopenia, platelets 71,000, currently on immune modulator Revlimid for MDS. Not actively bleeding, will monitor closely Anemia, myelodysplastic syndrome, possible GI ulceration along with low haptoglobin with possible low level hemolysis. Has had fluid overload with previous transfusions so caution is advised. Transfuse if symptomatic anemia or hemoglobin <8. Will hold off for any transfusion since no active CAD. He has been exercising in bike 30 minutes everyday without any chest pain or shortness of breath. Chronic medical problems Hypertension, BB/ACEI, creatinine good. Increase metoprolol to 50 mg Increase BB T2DM; GLP-1A, Tresiba. Parkinson's disease, stable MDS, immune modulator Revlimid Overall plan, disposition, discharge planning, increase beta niru for improved rate control, ambulatory on floor today. Start back on Coumadin despite guaiac stools. PPI therapy. Likely discharge in a.m. if patient has better rate control. Monitor for any worsening thrombocytopenia. Check hemoglobin today.
[2017-08-07] MEDS ORDERED: [UNRECOGNIZED DRUG - OTHER] PO SCH (09:45)
[2017-08-07] MEDS ORDERED: Non-Formulary Medication 1 Each (Omeprazole [Omeprazole] 20 MG) PO SCH (09:45)
[2017-08-07] MEDS: Sertraline 50 MG Tab PO SCH (11:25)
[2017-08-07] MEDS: Iron Polysaccharides Complex 150 MG Cap PO SCH (11:27)
[2017-08-07] MEDS: Midodrine 5 MG Tab PO SCH ×2 (14:10→19:59)
[2017-08-07] MEDS ORDERED: Warfarin 0.5 MG, Warfarin 4 MG PO SCH ×2 (18:00)
[2017-08-07] MEDS ORDERED: Warfarin 2 MG Tab PO SCH (18:00)
[2017-08-07] MEDS ORDERED: Multivitamins with Minerals/Iron/Folic Acid/Lycopene Tab PO SCH (18:00)
[2017-08-07] MEDS ORDERED: Simvastatin 20 MG Tab PO SCH (21:00)
[2017-08-08 06:23] VITALS: BP 116/59
[2017-08-08] MEDS: Omeprazole 20 MG Cap.CR PO SCH (07:45)
[2017-08-08] MEDS: [UNRECOGNIZED DRUG - OTHER] SUBCUT SCH (08:21)
[2017-08-08] MEDS: TRESIBA SUBCUT SCH (08:21)
[2017-08-08] MEDS: Carbidopa/Levodopa 25-100 MG Tab PO SCH ×2 (08:22→11:23)
[2017-08-08] MEDS: Liraglutide (rDNA Origin) 0.6 MG/0.1 ML 3 ML Pen SUBCUT SCH (08:22)
[2017-08-08] MEDS: LENALIDOMIDE 5 MG PO SCH (08:22)
[2017-08-08] MEDS: Enalapril 5 MG Tab PO SCH (08:23)
[2017-08-08] MEDS: Calcium Citrate/Vitamin D3 315 MG-250 Unit Tab PO SCH (08:23)
[2017-08-08] MEDS: Nitroglycerin 0.2 MG/HR Transdermal Patch TRDERM SCH (08:24)
[2017-08-08] MEDS: Sertraline 50 MG Tab PO SCH (08:30)
[2017-08-08] MEDS: Iron Polysaccharides Complex 150 MG Cap PO SCH (08:30)
[2017-08-08] MEDS: Midodrine 5 MG Tab PO SCH (08:30)
[2017-08-08] MEDS ORDERED: Magnesium Oxide 500 MG Tab PO SCH (09:00)
[2017-08-08] MEDS ORDERED: Metoprolol Succinate 50 MG Tab.ER PO SCH (09:00)
[2017-08-08] MEDS ORDERED: Warfarin 2 MG Tab PO SCH (18:00)
--- NOTE | 2017-08-09 08:10 | DISCH ---
FINAL DIAGNOSIS: 1. Atrial fibrillation, controlled variable rhythm, chronic rate control strategy, beta-niru increased to 50 mg succinate qd, Coumadin 1.9. CHAD2 - VASc score, high at 6. HAS-BLED, high risk of 6. Does admit to some dark stools, was taking iron prior to admission. Positive guaiac stool. Aspirin withheld. Increased beta niru. 2. Thrombocytopenia. 3. 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 4. Claudication, likely peripheral vascular disease. Further workup needed. 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 HISTORY: This 82-year-old gentleman initially came to the emergency department stating he has some shortness of breath and chest pain which started at 0300, the morning of admission. He had to take a nitroglycerin. He stated it went away. He was admitted for rule out myocardial infarction with a working diagnosis of angina. However, further interview with the patient the morning on rounds, he stated he never did have chest pain despite what he informed the ED provider. He stated he woke up at 0300 in the morning like he usually does, extremely thirsty. Chest pain did not wake him up. He did admit to some shortness of breath at that time. He took nitroglycerin due only to his shortness of breath and then he stated it went away. He does have a history of myocardial infarction in 1991. However, this has all been stable. The patient is quite active. He goes to the gym almost daily, rides a 3-minute stationary bicycle along with brisk walks around the gym. However, he had not done that in about three days prior to coming into the ED because he stated he just was not feeling overall very good. He does have a history of atrial fibrillation in which he was on anticoagulation of Coumadin. He is being followed closely by Hematology due to MDS. He does have multiple admissions for various reasons over the past 1-2 years. His cardiac history is significant for myocardial infarction in 1991 with a 3-vessel CABG in 1998. Morning of rounds, the patient was on telemetry. He did have a fast heart rate, approximately 120. Over the course of a day or two in the hospital, I slowly increased his metoprolol. He did have much improved heart rate. However, he did have some breakthroughs around 100-115 on ambulation. He never did have chest pains. I kept him on telemetry. He never did have shortness of breath. No fluid overload. Stool for guaiac, however, was positive, but he was never hemodynamically unstable. Platelets did decrease down to 71,000. I did hold his aspirin, however, I continued him on his Coumadin. However, he did miss the first dose while in hospital. INR was therapeutic on admission, it was 1.9 on discharge. The patient did have ongoing chronic pain in back of both lower extremities, likely claudication, relieved at rest. MEDICATIONS: Metoprolol succinate 50 mg p.o. daily (newly increased from 12.5 daily), aspirin (hold). He can continue on all other home medications including Coumadin despite guaiac stool positive. DISPOSITION: The patient will be discharged from the hospital. Special instructions to include monitoring for any lightheadedness or chest pain or shortness of breath. CONSIDERATIONS AT FOLLOWUP: Likely will need a colonoscopy. Decision to continue Coumadin highly probable due to high risk CHAD2-VASc score. Possibly consider INR 1.5-1.8 as target. Transfuse if symptomatic anemia or hemoglobin below 8. Not a good candidate for any transfusions d/t hx of flash PE, consider if active CAD sx only. The patient will need further evaluation for liver ultrasound scheduled as outpatient, previously scheduled. Consider workuk for his bilateral claudication--could be pseudo. The patient will follow up next week with Sandra Lara APRN [facility]. /[id number]/MODL MTDD
== END 2017-08-08 14:40 | disposition home or self-care (01) | DRG 309 ==
LOC: KA.ED 09:28 → KA.MS 10:50
PROVIDERS: ADMIT Physician Assistant Surgical; ATTEND Family Medicine
DX: I25.110 Atherosclerotic heart disease of native coronary artery with unstable angina pectoris (principal); I48.91 Unspecified atrial fibrillation; K92.2 Gastrointestinal hemorrhage, unspecified; D62 Acute posthemorrhagic anemia; I25.2 Old myocardial infarction; D69.6 Thrombocytopenia, unspecified; D63.0 Anemia in neoplastic disease; D46.9 Myelodysplastic syndrome, unspecified; I73.9 Peripheral vascular disease, unspecified; I10 Essential (primary) hypertension; E11.9 Type 2 diabetes mellitus without complications; G20 Parkinson's disease; Z88.5 Allergy status to narcotic agent; Z79.899 Other long term (current) drug therapy; Z79.01 Long term (current) use of anticoagulants; Z79.4 Long term (current) use of insulin; Z85.46 Personal history of malignant neoplasm of prostate; Z86.73 Personal history of transient ischemic attack (TIA), and cerebral infarction without residual deficits
CPT/HCPCS: 36415; 80048; 82550; 82553; 84484; 85025; 85610; 86140; 93005; 99285; A9270; 36416; 82272; 82962; J3490

== ENCOUNTER 2017-08-26 11:59 | Emergency (ER) | payer MEDICARE, OTHER ==
[2017-08-26 12:30] VITALS: BP 120/59
--- NOTE | 2017-08-26 13:07 | EDM.PDOC ---
ED HPI GENERAL MEDICAL PROBLEM - General Chief Complaint: General Stated Complaint: ITCHY RASH ALL OVER BACK AND NECK Time Seen by Provider: 08/26/17 12:53 Source of Information: Reports: Patient History Limitations: Reports: No Limitations - History of Present Illness INITIAL COMMENTS - FREE TEXT/NARRATIVE: Patient presents with some itchy spots on his upper back that he says developed while he was hospitalized for his A Fib. He has otherwise been doing well since he was discharged from the hospital last week. - Related Data Allergies Allergy/AdvReac Type Severity Reaction Status Date / Time morphine Allergy Intermediate Nausea and Verified 08/26/17 12:33 Vomiting Home Meds: Home Meds Calcium Carbonate/Vitamin D3 [Calcium 600 + Vit D 400] 1 tab PO BIDMEALS [History] Carbidopa/Levodopa [Carbidopa-Levodopa 25-100] 1.5 tab PO 5XDAY 04/24/14 [ History] Enalapril Maleate [Vasotec] 2.5 mg PO DAILY 04/24/14 [History] Magnesium Oxide [Magnesium] 400 mg PO DAILY 04/24/14 [History] Multivit-Min/FA/Lycopene/Lut [Centrum Silver] 1 tab PO DAILY@1800 04/24/14 [ History] Nitroglycerin [Nitrostat] 1 tab SL Q5M PRN 04/24/14 [History] Simvastatin 40 mg PO BEDTIME 04/24/14 [History] Insulin Degludec [Tresiba Flextouch U-100] 24 units SUBCUT DAILY 03/23/16 [ History] Liraglutide [Victoza] 1.2 mg SUBCUT DAILY 03/23/16 [History] Sertraline [Zoloft] 50 mg PO DAILY 03/23/16 [History] Midodrine 5 mg PO TID 05/24/16 [History] Warfarin Sodium [Jantoven] 3 mg PO SUTUTHSA 07/05/16 [History] Warfarin Sodium [Jantoven] 4.5 mg PO MOWEFR 12/07/16 [History] Iron Aspgly&PS/B12/C/Ca/FA/Suc [Niferex-150 Forte] 1 cap PO DAILY #30 cap [Rx] Diclofenac Sodium [Voltaren 1% Gel] 100 gm TOP TID PRN 05/25/17 [History] Acetaminophen [Tylenol Extra Strength] 1,000 mg PO Q8HR PRN 08/05/17 [History] Cetirizine [ZyrTEC] 5 mg PO DAILY PRN 08/05/17 [History] Lenalidomide [Revlimid] 5 mg PO DAILY 08/05/17 [History] Omeprazole 20 mg PO DAILY 08/05/17 [History] Metoprolol Succinate 50 mg PO DAILY #30 tab.er.24h 08/08/17 [Rx] Past Medical History HEENT History: Reports: Other (See Below) Other HEENT History: surgery to right eye to remove piece of steel, 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 Genitourinary History: Reports: Prostate Disorder Musculoskeletal History: Reports: None Neurological History: Reports: CVA, Parkinson's Psychiatric History: Reports: None Endocrine/Metabolic History: Reports: Diabetes, Type II Hematologic History: Reports: Anemia, Other (See Below) Other Hematologic History: MDS Immunologic History: Reports: None Oncologic (Cancer) History: Reports: Prostate Other Oncologic History: MDS Dermatologic History: Reports: None - Infectious Disease History Infectious Disease History: Reports: Influenza, Measles, Mumps - Past Surgical History Head Surgeries/Procedures: Reports: None HEENT Surgical History: Reports: Eye Surgery Cardiovascular Surgical History: Reports: Coronary Artery Bypass Respiratory Surgical History: Reports: None GI Surgical History: Reports: Appendectomy, Colonoscopy, EGD, Other (See Below) Male Surgical History: Reports: Prostate Biopsy Neurological Surgical History: Reports: None Musculoskeletal Surgical History: Reports: Hip Replacement Social & Family History - Family History Family Medical History: Noncontributory HEENT: Reports: None Cardiac: Reports: Aneurysm, [place] : Reports: None OBGYN: Reports: None Musculoskeletal: Reports: None Neurological: Reports: Cerebral Aneurysms Psychiatric: Reports: None Endocrine/Metabolic: Reports: Diabetes, type II Hematologic: Reports: None Immunologic: Reports: None Dermatologic: Reports: None Oncologic: Reports: Breast - Tobacco Use Smoking Status *Q: Never Smoker Second Hand Smoke Exposure: No - Caffeine Use Caffeine Use: Reports: Soda - Alcohol Use Days Per Week of Alcohol Use: 0 - Recreational Drug Use Recreational Drug Use: No - Living Situation & Occupation Occupation: Retired ED ROS GENERAL - Review of Systems Review Of Systems: See Below Constitutional: Denies: Fever, Weakness, Decreased Appetite HEENT: Reports: No Symptoms Respiratory: Denies: Shortness of Breath Cardiovascular: Reports: Edema (mild in his ankles when he doesn't elevate like he was instructed). Denies: Chest Pain, Syncope GI/Abdominal: Denies: Abdominal Pain, Vomiting : Reports: No Symptoms Musculoskeletal: Reports: No Symptoms Skin: Reports: Pruritis, Rash (upper back) Neurological: Denies: Confusion, Seizure, Syncope Psychiatric: Denies: Agitation, Anxiety, Confusion ED EXAM, GENERAL - Physical Exam Exam: See Below Exam Limited By: No Limitations General Appearance: Alert, WD/WN, No Apparent Distress Eye Exam: Bilateral Eye: EOMI, Normal Inspection, PERRL Ears: Normal External Exam, Hearing Grossly Normal Nose: Normal Inspection, No Blood Throat/Mouth: Normal Inspection, Normal Lips, Normal Voice, No Airway Compromise Head: Atraumatic, Normocephalic Neck: Full Range of Motion Respiratory/Chest: No Respiratory Distress, Lungs Clear, Normal Breath Sounds, No Accessory Muscle Use Cardiovascular: Regular Rate, Rhythm, No Murmur Neurological: Alert, Oriented, Normal Cognition Psychiatric: Normal Affect, Normal Mood Skin Exam: Warm, Dry, Intact, Normal Color, Other (There are 6-8 mildly erythematous macules with small scabs intact. No cellulitis, papules or pustules. Skin is dry.) Course - Vital Signs Last Recorded V/S: Last Vital Signs Temp 97.6 F 08/26/17 12:27 Pulse 99 08/26/17 12:27 Resp 18 08/26/17 12:27 BP 120/59 L 08/26/17 12:27 Pulse Ox 99 08/26/17 12:27 - Re-Assessments/Exams Free Text/Narrative Re-Assessment/Exam: 08/26/17 13:13 Discussed findings and treatment plan with patient. Pt is discharged in stable condition with instructions to follow up with his PCP if this persists. Departure - Departure Time of Disposition: 13:01 Disposition: Home, Self-Care 01 Condition: Good Clinical Impression: Pruritus - Discharge Information Instructions: Pruritus Referrals: Sandra Lara PRINTING SPECIALIST [Primary Care Provider] - Additional Instructions: 1. Drink adequate fluids/water. 2. Use moisturizer lotion for the itch and if needed can use [id number] hydrocortisone cream. 3. You can use your Zyrtec for the itch also. 4. Follow up with your PCP if not improving in a few days.
== END 2017-08-26 13:35 | disposition home or self-care (01) ==
LOC: KA.ED 11:59
DX: L29.9 Pruritus, unspecified (principal); I10 Essential (primary) hypertension; E11.9 Type 2 diabetes mellitus without complications; Z88.5 Allergy status to narcotic agent; Z79.899 Other long term (current) drug therapy; Z79.4 Long term (current) use of insulin; Z79.01 Long term (current) use of anticoagulants
CPT/HCPCS: 99282

== ENCOUNTER 2017-09-02 12:40 | Inpatient (IN) | payer MEDICARE, OTHER ==
[2017-09-02] MEDS ORDERED: Sodium Chloride 0.9% 5 ML Syringe FLUSH PRN (13:18)
[2017-09-02] MEDS ORDERED: EPINEPHrine 1:10,000 1 MG/10 ML Syringe IVPUSH PRN (13:20)
[2017-09-02] MEDS ORDERED: Nitroglycerin 0.4 MG Tab.SL SL PRN ×2 (13:20→18:34)
[2017-09-02] MEDS ORDERED: Lidocaine 2% 100 MG/5 ML Syringe IVPUSH PRN (13:20)
[2017-09-02] MEDS ORDERED: Atropine 0.1 MG/ML 10 ML Syringe IVPUSH PRN (13:20)
[2017-09-02] MEDS: Furosemide 40 MG/4 ML VIAL IVPUSH SCH ×2 (13:52→17:46)
[2017-09-02] MEDS: Spironolactone 25 MG Tab PO SCH (14:51)
[2017-09-02] MEDS: Carvedilol 6.25 MG Tab PO SCH (17:47)
[2017-09-02] MEDS ORDERED: Diclofenac Sodium 1% Gel 100 GM Tube TOP PRN (18:34)
[2017-09-02] MEDS ORDERED: Acetaminophen 500 MG Tab PO PRN (18:34)
[2017-09-02] MEDS: Midodrine 5 MG Tab PO SCH (20:44)
[2017-09-02] MEDS: Enalapril 5 MG Tab PO SCH (20:44)
[2017-09-02] MEDS: Calcium Citrate/Vitamin D3 315 MG-250 Unit Tab PO SCH (20:44)
[2017-09-02] MEDS: Simvastatin 20 MG Tab PO SCH (20:45)
[2017-09-03] MEDS ORDERED: Carbidopa/Levodopa 25-100 MG Tab PO SCH ×2 (07:30→19:30)
[2017-09-03] MEDS ORDERED: Omeprazole 20 MG Cap.CR PO SCH (07:30)
[2017-09-03] MEDS ORDERED: Furosemide 40 MG/4 ML VIAL IVPUSH SCH (08:00)
[2017-09-03] MEDS: Carvedilol 6.25 MG Tab PO SCH ×2 (08:16→17:50)
[2017-09-03] MEDS: Spironolactone 25 MG Tab PO SCH (08:52)
[2017-09-03] MEDS: Iron Polysaccharides Complex 150 MG Cap PO SCH (08:54)
[2017-09-03] MEDS: Magnesium Oxide 500 MG Tab PO SCH (08:54)
[2017-09-03] MEDS: Calcium Citrate/Vitamin D3 315 MG-250 Unit Tab PO SCH ×2 (08:54→17:54)
[2017-09-03] MEDS: Midodrine 5 MG Tab PO SCH ×3 (08:55→20:01)
[2017-09-03] MEDS: Sertraline 50 MG Tab PO SCH (08:56)
[2017-09-03] MEDS: LENALIDOMIDE 5 MG PO SCH (08:57)
[2017-09-03] MEDS: TRESIBA U SUBCUT SCH (08:59)
[2017-09-03] MEDS ORDERED: Cetirizine 10 MG Tab PO PRN (09:00)
[2017-09-03] MEDS ORDERED: Carbidopa/Levodopa 25-100 MG Tab PO ONE (09:00)
[2017-09-03] MEDS ORDERED: [UNRECOGNIZED DRUG - OTHER] PO SCH (09:00)
[2017-09-03] MEDS: Liraglutide (rDNA Origin) 0.6 MG/0.1 ML 3 ML Pen SUBCUT SCH (09:01)
[2017-09-03] MEDS ORDERED: Omeprazole 20 MG Cap.CR PO PRN (09:45)
--- NOTE | 2017-09-03 10:31 | PN ---
09/03/2017 PATIENT NAME: NAVNEET VALLE CHIEF COMPLAINT: Feels much better, much less edema, 1+ in his lower extremities, diuresed well, lost approximately 3 to 4 pounds since admission. HISTORY: This 82-year-old patient who has had multiple hospitalizations due to various acute on chronic medical conditions over the past few months. He was admitted for acute on chronic congestive heart failure exacerbation. He was admitted by Dr. Arnett. The patient had been seen a few days ago by another [facility] provider for continued monitoring of acute CHF exacerbation. He had been responding poorly to outpatient therapy and having increasing shortness of breath with retention of fluid in his lower extremities. A BNP was checked at that time. The patient's renal function was stable with GFR of 61 with a potassium of 3.8. However, his BNP was noted to be increased at 1979 at that time. However, the patient did refuse admission. The patient's Lasix was increased a few days ago from 40 daily to 40 b.i.d. Upon the day of admission yesterday, the patient states that he had noted some mild improvement in his lower extremity edema. However, ongoing shortness of breath, especially with exertion, however, denied any chest pain or cough. He was up considerably about 9 pounds from just a few days. The patient does have a combined systolic and diastolic heart failure with history of atrial fibrillation, right bundle branch block. The patient normally does walk approximately 2 to 3 miles per day with cycling also. Chest x-ray, baseline admission does show enlargement of cardiac however, mild. EKG, right bundle-branch block. Daily weight. The patient is 191 pounds, approximately 3 pounds since admission yesterday, decrease. LABS: Sodium 140, potassium 3.8, BUN 25, creatinine 1.25, calcium 8.8, glucose 142. BNP 1979, dated 09/02. INR yesterday 1.8. He is on Coumadin. PHYSICAL EXAMINATION: GENERAL: The patient is alert and oriented. LUNGS: Clear to auscultation with good breath sounds, all godinez are clear. NECK: Negative JVD. CV: Irregular rate and rhythm, however, controlled rate. GI: Good bowel tones. LOWER EXTREMITIES: 1+ pitting edema. VITAL SIGNS: Blood pressure 118/65, slightly up from this morning. Heart rate 78, irregular, temperature 98.3, O2 sats 94% on room air, respiratory rate 20. IMPRESSION/PLAN: 1. Heart failure, preserved ejection fraction of 50%, however combined systolic and diastolic dysfunction. Metoprolol succinate was discontinued. Superior Coreg was added yesterday on admission. Mean arterial pressure, 70s to 80s. Aldosterone antagonist of Aldactone was added yesterday. Discontinued potassium supplementation. The patient continues to diurese. Strict intakes and output. Daily weights. Reduce Lasix to 40 mg IV push daily. The patient responding clinically, dramatic improvement. Low- sodium diet. 2. Atrial fibrillation, currently on anticoagulation Coumadin. High SNQ3HO2- VASc score. Reassess INR in the a.m. 3. Type 2 diabetes mellitus, currently on Victoza, Tresiba, recent A1c 7.2%. 4. History of MDS, followed closely by Hematology. 5. Parkinson's disease with ongoing tremor, on carbidopa-levodopa .. DISCHARGE PLANNING: The patient will continue in inpatient status. He is responding clinically to diuretics and medication adjustments and additions. Daily weights. Decrease IV Lasix. Social Service consult due to multiple admissions. [facility] actually sooner rather than later. The patient is on long list of replacement. We can discontinue telemetry today. /[id number]/MODL
[2017-09-03] MEDS: Carbidopa/Levodopa 25-100 MG Tab PO SCH ×4 (10:53→20:01)
[2017-09-03] MEDS ORDERED: Warfarin 2 MG Tab PO SCH (18:00)
[2017-09-03] MEDS: Simvastatin 20 MG Tab PO SCH (20:01)
[2017-09-03] MEDS: Enalapril 5 MG Tab PO SCH (20:02)
[2017-09-04] MEDS: Magnesium Oxide 500 MG Tab PO SCH (08:20)
[2017-09-04] MEDS: Carvedilol 6.25 MG Tab PO SCH (08:21)
[2017-09-04] MEDS: Spironolactone 25 MG Tab PO SCH (08:21)
[2017-09-04] MEDS: Carbidopa/Levodopa 25-100 MG Tab PO SCH ×2 (08:23→10:28)
[2017-09-04] MEDS: Midodrine 5 MG Tab PO SCH (08:24)
[2017-09-04] MEDS: Calcium Citrate/Vitamin D3 315 MG-250 Unit Tab PO SCH (08:24)
[2017-09-04] MEDS: Sertraline 50 MG Tab PO SCH (08:26)
[2017-09-04] MEDS: Iron Polysaccharides Complex 150 MG Cap PO SCH (08:26)
[2017-09-04] MEDS: LENALIDOMIDE 5 MG PO SCH (08:28)
[2017-09-04] MEDS: Liraglutide (rDNA Origin) 0.6 MG/0.1 ML 3 ML Pen SUBCUT SCH (08:52)
[2017-09-04] MEDS: TRESIBA U SUBCUT SCH (08:54)
[2017-09-04] MEDS ORDERED: Furosemide 40 MG/4 ML VIAL IVPUSH SCH (09:00)
[2017-09-04 11:13] VITALS: BP 119/65
[2017-09-04] MEDS ORDERED: Warfarin 2.5 MG Tab PO SCH ×2 (18:00)
[2017-09-04] MEDS ORDERED: Warfarin 0.5 MG, Warfarin 4 MG PO SCH ×2 (18:00)
--- NOTE | 2017-09-05 08:27 | DISCH ---
FINAL DIAGNOSES: 1. Heart failure with preserved ejection fraction, combined systolic and diastolic dysfunction exacerbation, much improved. 2. Atrial fibrillation, currently on anticoagulation, high CHAD2-VASc score. 3. Type 2 diabetes mellitus, currently on Victoza and Tresiba, recent A1c 7.2%. 4. History of myelodysplastic syndrome, followed closely by Hematology. 5. Parkinson's disease with ongoing tremor. He is on carbidopa and levodopa. HISTORY OF ADMISSION: An 82-year-old patient who has had multiple hospitalizations due to various acute on chronic medical conditions over the past few months. He was admitted due to acute on chronic congestive heart failure. He was seen in the clinic a few days prior to the day he came in for ongoing increasing in his weight in his extremities. He did have medication adjustments. BNP was checked at that time, which was elevated. However, the patient did refuse admission. The patient's Lasix was increased a few days ago from 40 daily to 40 b.i.d. On the day of admission, the patient stated he had noticed some mild improvement in his lower extremities. However, he had worsening shortness of breath, especially on exertion. Did not have any chest pains or cough. He stated his weight was up 9 pounds just in the past few days. HOSPITAL COURSE: Hospital course went well. It was uneventful. He did lose 8 pounds of fluid. He had 4+ pitting edema in the lower extremities on admission, it was 1+ on discharge. His Lasix was increased on admission from 40 daily to 40 b.i.d., Aldactone was added 25 mg on admission, the patient's Coreg was added in replace of metoprolol succinate. DIAGNOSTICS: Chest x-ray on admission did show enlargement of the cardiac profile with right bundle-branch block. He did not have any chest pain. We had him on a low-sodium and a diabetic diet. He got extensive education regarding performing ankle pumps and daily weights and low-sodium diet. All electrolytes were monitored. BNP reduced by almost 50% to 1160. Sodium 140, potassium 4.2, BUN 24, creatinine 1.17, estimated GFR 60. MEDICATION ADJUSTMENTS: Metoprolol succinate was discontinued, Coreg 3.125 mg p.o. b.i.d. was added (newly added), Lasix 40 mg p.o. daily, and Aldactone 25 mg p.o. daily that was newly added on this admission. PHYSICAL EXAMINATION: GENERAL: The patient was alert and oriented, ambulatory in room. LUNGS: Clear to auscultation. NECK: Negative JVD. CARDIOVASCULAR: No S3 sound. EXTREMITIES: Lower extremities, 1+ pitting edema. DISPOSITION: The patient will be discharged from the hospital, close followup in the clinic within 48 hours. Educated the patient regarding low-sodium diet, warm ankle pumps, incentive spirometer, keep legs elevated when sitting in chair, daily weights at home, bring weight logs to the clinic, and report any shortness of breath or any increasing in his weight. /[id number]/MODL
== END 2017-09-04 12:50 | disposition home or self-care (01) | DRG 293 ==
LOC: KA.MS 12:40
PROVIDERS: ADMIT Internal Medicine; ATTEND Nurse Practitioner Family
DX: I50.40 Unspecified combined systolic (congestive) and diastolic (congestive) heart failure (principal); I48.91 Unspecified atrial fibrillation; E11.9 Type 2 diabetes mellitus without complications; G20 Parkinson's disease; D46.9 Myelodysplastic syndrome, unspecified; Z79.899 Other long term (current) drug therapy; Z79.01 Long term (current) use of anticoagulants; Z88.5 Allergy status to narcotic agent
CPT/HCPCS: 36415; 80048; 82962; 83880; 85610; A9270-GY; J1940; J3490

== ENCOUNTER 2017-10-19 09:16 | Emergency (ER) | payer MEDICARE, OTHER ==
[2017-10-19 09:41] VITALS: BP 105/53
--- NOTE | 2017-10-19 10:03 | EDM.PDOC ---
ED HPI GENERAL MEDICAL PROBLEM - General Chief Complaint: Upper Extremity Injury/Pain Stated Complaint: RIGHT ARM PAIN Time Seen by Provider: 10/19/17 09:30 Source of Information: Reports: Patient History Limitations: Reports: No Limitations - History of Present Illness INITIAL COMMENTS - FREE TEXT/NARRATIVE: Patient is an 82-year-old gentleman who presents to the emergency department from the assisted living nursing facility this morning with a complaint of right upper extremity pain. Patient states pain began on 2 days ago after riding stationary bike. Bike is said to be both upper extremity and leg manipulation. Patient states had some aching of his shoulder following the use of the bike and daily the pain has increased in to right bicep. Patient denies any pain distal to elbow, chest pain, shortness of breath, nausea, vomiting, diarrhea, or pain anywhere else. Patient is currently on Coumadin. Onset: Gradual Onset Date: 10/17/17 Duration: Day(s):, Getting Worse Location: Reports: Upper Extremity, Right Quality: Reports: Ache Severity: Mild Improves with: Reports: Rest Worsens with: Reports: Movement Context: Reports: Exercise Associated Symptoms: Reports: No Other Symptoms - Related Data Allergies Allergy/AdvReac Type Severity Reaction Status Date / Time morphine Allergy Intermediate Nausea and Verified 10/19/17 09:41 Vomiting Home Meds: Home Meds Calcium Carbonate/Vitamin D3 [Calcium 600 + Vit D 400] 1 tab PO BIDMEALS [History] Carbidopa/Levodopa [Carbidopa-Levodopa 25-100] 1.5 tab PO 5X04/24/14 [ History] Enalapril Maleate [Vasotec] 2.5 mg PO BEDTIME 04/24/14 [History] Magnesium Oxide [Magnesium] 400 mg PO DAILY 04/24/14 [History] Multivit-Min/FA/Lycopene/Lut [Centrum Silver] 1 tab PO DAILY@1800 04/24/14 [ History] Nitroglycerin [Nitrostat] 1 tab SL Q5M PRN 04/24/14 [History] Simvastatin 40 mg PO BEDTIME 04/24/14 [History] Insulin Degludec [Tresiba Flextouch U-100] 24 units SUBCUT DAILY 03/23/16 [ History] Liraglutide [Victoza] 1.2 mg SUBCUT DAILY 03/23/16 [History] Sertraline [Zoloft] 50 mg PO DAILY 03/23/16 [History] Midodrine 5 mg PO TID 05/24/16 [History] Warfarin Sodium [Jantoven] 3 mg PO ASDIRECTED 07/05/16 [History] Warfarin Sodium [Jantoven] 4.5 mg PO ASDIRECTED 12/07/16 [History] Diclofenac Sodium [Voltaren 1% Gel] 100 gm TOP TID PRN 05/25/17 [History] Acetaminophen [Tylenol Extra Strength] 1,000 mg PO Q8HR PRN 08/05/17 [History] Cetirizine [ZyrTEC] 5 mg PO DAILY PRN 08/05/17 [History] Lenalidomide [Revlimid] 5 mg PO DAILY 08/05/17 [History] Omeprazole 20 mg PO DAILY PRN 08/05/17 [History] Iron Aspgly&PS/B12/C/Ca/FA/Suc [Niferex-150 Forte] 1 cap PO DAILY 09/02/17 [ History] Carvedilol [Coreg] 3.125 mg PO BIDMEALS #60 tablet 09/04/17 [Rx] Furosemide [Lasix] 40 mg PO DAILY #60 tablet 09/04/17 [Rx] Spironolactone [Aldactone] 25 mg PO DAILY #30 tablet 09/04/17 [Rx] Past Medical History HEENT History: Reports: Other (See Below) Other HEENT History: surgery to right eye to remove piece of steel, 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 Genitourinary History: Reports: Prostate Disorder Musculoskeletal History: Reports: None Neurological History: Reports: CVA, Parkinson's Psychiatric History: Reports: None Endocrine/Metabolic History: Reports: Diabetes, Type II Hematologic History: Reports: Anemia, Other (See Below) Other Hematologic History: MDS Immunologic History: Reports: None Oncologic (Cancer) History: Reports: Prostate Other Oncologic History: MDS Dermatologic History: Reports: None - Infectious Disease History Infectious Disease History: Reports: Influenza, Measles, Mumps - Past Surgical History Head Surgeries/Procedures: Reports: None HEENT Surgical History: Reports: Eye Surgery Cardiovascular Surgical History: Reports: Coronary Artery Bypass Respiratory Surgical History: Reports: None GI Surgical History: Reports: Appendectomy, Colonoscopy, EGD, Other (See Below) Male Surgical History: Reports: Prostate Biopsy Neurological Surgical History: Reports: None Musculoskeletal Surgical History: Reports: Hip Replacement Social & Family History - Family History Family Medical History: Noncontributory HEENT: Reports: None Cardiac: Reports: Aneurysm, [place] : Reports: None OBGYN: Reports: None Musculoskeletal: Reports: None Neurological: Reports: Cerebral Aneurysms Psychiatric: Reports: None Endocrine/Metabolic: Reports: Diabetes, type II Hematologic: Reports: None Immunologic: Reports: None Dermatologic: Reports: None Oncologic: Reports: Breast - Tobacco Use Smoking Status *Q: Never Smoker Second Hand Smoke Exposure: No - Caffeine Use Caffeine Use: Reports: Soda - Alcohol Use Days Per Week of Alcohol Use: 0 - Recreational Drug Use Recreational Drug Use: No - Living Situation & Occupation Occupation: Retired Review of Systems - Review of Systems Review Of Systems: ROS reveals no pertinent complaints other than HPI. Constitutional: Reports: No Symptoms Eyes: Reports: No Symptoms Ears: Reports: No Symptoms Nose: Reports: No Symptoms Mouth/Throat: Reports: No Symptoms Respiratory: Reports: No Symptoms Cardiovascular: Reports: No Symptoms GI/Abdominal: Reports: No Symptoms Genitourinary: Reports: No Symptoms Musculoskeletal: Reports: Arm Pain (Right upper extremity from elbow to shoulder.), Muscle Pain Skin: Reports: No Symptoms Neurological: Reports: No Symptoms Psychiatric: Reports: No Symptoms ED EXAM, GENERAL - Physical Exam Exam: See Below Exam Limited By: No Limitations General Appearance: Alert, WD/WN, No Apparent Distress Nose: Normal Inspection, Normal Mucosa, No Blood Throat/Mouth: Normal Inspection, Normal Oropharynx, No Airway Compromise Head: Atraumatic, Normocephalic Neck: Normal Inspection, Supple, Tender Lateral (Right side with motion to left) . No: Lymphadenopathy (L), Lymphadenopathy (R) Respiratory/Chest: No Respiratory Distress, Lungs Clear, Normal Breath Sounds, No Accessory Muscle Use, Chest Non-Tender Cardiovascular: Regular Rate, Rhythm, No Murmur Back Exam: Normal Inspection Extremities: Arm Pain (Right upper extremity tender to palpation from posterior elbow, bicep, and shoulder with range of motion. No erythema, palpable cord, or edema distal to elbow ) Neurological: Alert, Oriented, Normal Cognition Psychiatric: Normal Affect, Normal Mood Skin Exam: Warm, Dry, Intact, Normal Color, No Rash Lymphatic: No Adenopathy Course - Vital Signs Last Recorded V/S: Last Vital Signs Temp 97.7 F 10/19/17 09:25 Pulse 56 L 10/19/17 09:25 Resp 18 10/19/17 09:25 BP 105/53 L 10/19/17 09:25 Pulse Ox 97 10/19/17 09:25 - Orders/Labs/Meds Orders: Active Orders 24 hr Category Date Time Status CBC WITH AUTO DIFF [HEME] Stat Lab 10/19/17 10:03 Ordered COMPREHENSIVE METABOLIC PN,CMP [CHEM] Stat Lab 10/19/17 10:03 Ordered INR,PT,PROTHROMBIN TIME [COAG] Stat Lab 10/19/17 10:03 Ordered Ice Pack [Ice Therapy] [OM.PC] Routine Oth 10/19/17 09:56 Ordered - Re-Assessments/Exams Free Text/Narrative Re-Assessment/Exam: 10/19/17 10:54 Patient afebrile, nontoxic appearing, vital signs stable. He is discussed with Dr. Camacho and she is aware of irregular lab values, which were found to be stable for him. Patient will be advised to not ride stationary bicycle until symptoms resolve. Patient will follow-up at [facility] on Saturday. Departure - Departure Time of Disposition: 10:55 Disposition: Home, Self-Care 01 Condition: Good Clinical Impression: Musculoskeletal arm pain Qualifiers: Laterality: right Qualified Code(s): M79.601 - Pain in right arm - Discharge Information Instructions: Shoulder Pain, [id number], Musculoskeletal Pain Referrals: Sandra Lara [employer] [Primary Care Provider] - Forms: ED Department Discharge Additional Instructions: Follow-up at [facility] on Saturday. Do not ride stationary bike until okayed by primary care doctor. Return to emergency room sooner if symptoms continue or worsen. - My Orders Last 24 Hours: My Active Orders 10/19/17 09:56 Ice Pack [Ice Therapy] [OM.PC] Routine 10/19/17 10:03 CBC WITH AUTO DIFF [HEME] Stat COMPREHENSIVE METABOLIC PN,CMP [CHEM] Stat INR,PT,PROTHROMBIN TIME [COAG] Stat - Assessment/Plan Last 24 Hours: My Active Orders 10/19/17 09:56 Ice Pack [Ice Therapy] [OM.PC] Routine 10/19/17 10:03 CBC WITH AUTO DIFF [HEME] Stat COMPREHENSIVE METABOLIC PN,CMP [CHEM] Stat INR,PT,PROTHROMBIN TIME [COAG] Stat Assessment:: Right upper extremity muscular skeletal pain Plan: Follow-up at [facility] in 2 days
[2017-10-19 10:45] LABS: CHLORIDE,CL 98 mmol/L (98-115); SODIUM,NA 134 mmol/L (136-145)
== END 2017-10-19 11:15 | disposition home or self-care (01) ==
LOC: KA.ED 09:16
DX: M79.601 Pain in right arm (principal); I10 Essential (primary) hypertension; I25.2 Old myocardial infarction; E11.9 Type 2 diabetes mellitus without complications; Z88.5 Allergy status to narcotic agent; Z79.899 Other long term (current) drug therapy; Z79.4 Long term (current) use of insulin
CPT/HCPCS: 36415; 80053; 85025; 85610; 99283

== ENCOUNTER 2018-03-24 12:41 | Inpatient (IN) | payer MEDICARE, OTHER ==
[2018-03-24] MEDS ORDERED: Furosemide 40 MG/4 ML VIAL IVPUSH ONE ×2 (14:30→17:30)
[2018-03-24] MEDS ORDERED: Atropine 0.1 MG/ML 10 ML Syringe IVPUSH PRN (15:00)
[2018-03-24] MEDS ORDERED: EPINEPHrine 1:10,000 1 MG/10 ML Syringe IVPUSH PRN (15:00)
[2018-03-24] MEDS ORDERED: Nitroglycerin 0.4 MG Tab.SL SL PRN ×2 (15:00→16:00)
[2018-03-24] MEDS ORDERED: Lidocaine 2% 100 MG/5 ML Syringe IVPUSH PRN (15:00)
[2018-03-24] MEDS ORDERED: Acetaminophen 325 MG Tab PO ONE (15:03)
[2018-03-24] MEDS ORDERED: diphenhydrAMINE 25 MG Cap PO ONE (15:10)
[2018-03-24] MEDS ORDERED: Sodium Chloride 0.9% 250 ML IV SCH (15:15)
[2018-03-24] MEDS ORDERED: Diclofenac Sodium 1% Gel 100 GM Tube TOP PRN (16:00)
[2018-03-24] MEDS ORDERED: Carbidopa/Levodopa 25-100 MG Tab PO SCH (16:30)
[2018-03-24] MEDS ORDERED: INSULIN DEGLUDEC 100 UNIT/ML SQ SCH (16:30)
[2018-03-24] MEDS: Carbidopa/Levodopa 25-100 MG Tab PO SCH ×2 (17:34→21:30)
[2018-03-24] MEDS: Calcium Citrate/Vitamin D3 315 MG-250 Unit Tab PO SCH (17:35)
[2018-03-24] MEDS: Midodrine 5 MG Tab PO SCH (17:35)
[2018-03-24] MEDS: Phytonadione 100 MCG Tab PO SCH (17:36)
[2018-03-24] MEDS: Carvedilol 6.25 MG Tab PO SCH (17:36)
[2018-03-24] MEDS ORDERED: Insulin Aspart 100 Units/ML 3 ML Pen SUBCUT ONE (21:22)
[2018-03-24] MEDS: Simvastatin 20 MG Tab PO SCH (21:30)
[2018-03-24] MEDS: Magnesium Oxide 500 MG Tab PO SCH (21:30)
[2018-03-25] MEDS: Omeprazole 20 MG Cap.CR PO SCH (06:38)
[2018-03-25] MEDS ORDERED: Carbidopa/Levodopa 25-100 MG Tab PO SCH (07:30)
[2018-03-25 08:03] LABS: ANION GAP 7.5 mmol/L (5-15)
[2018-03-25] MEDS ORDERED: Liraglutide (rDNA Origin) 0.6 MG/0.1 ML 3 ML Pen SUBCUT SCH (09:00)
[2018-03-25] MEDS: Iron Polysaccharides Complex 150 MG Cap PO SCH (09:01)
[2018-03-25] MEDS: Calcium Citrate/Vitamin D3 315 MG-250 Unit Tab PO SCH ×2 (09:01→18:01)
[2018-03-25] MEDS: Sertraline 50 MG Tab PO SCH (09:01)
[2018-03-25] MEDS: Carvedilol 6.25 MG Tab PO SCH ×2 (09:01→18:02)
[2018-03-25] MEDS: Midodrine 5 MG Tab PO SCH ×3 (09:01→18:02)
[2018-03-25] MEDS: Carbidopa/Levodopa 25-100 MG Tab PO SCH ×4 (09:02→21:27)
[2018-03-25] MEDS: INSULIN DEGLUDEC 200 UNIT/ML SUBCUT SCH (09:02)
[2018-03-25] MEDS: LIRAGLUTIDE SUBCUT SCH (09:03)
[2018-03-25] MEDS: LENALIDOMIDE 2.5 MG PO SCH (09:03)
--- NOTE | 2018-03-25 11:42 | PCM.PN ---
- General Info Date of Service: 03/25/18 Functional Status: Reports: Pain Controlled, Tolerating Diet, Ambulating, Urinating. Denies: New Symptoms - Review of Systems General: Reports: No Symptoms HEENT: Reports: No Symptoms Pulmonary: Denies: Shortness of Breath, Cough, Wheezing Cardiovascular: Reports: Edema. Denies: Chest Pain, Palpitations, Orthopnea, PND, Lightheadedness Gastrointestinal: Reports: No Symptoms Genitourinary: Reports: No Symptoms Musculoskeletal: Reports: No Symptoms Skin: Reports: No Symptoms Neurological: Reports: No Symptoms Psychiatric: Reports: No Symptoms - Patient Data Vitals - Most Recent: Last Vital Signs Temp 97.9 F 03/25/18 11:00 Pulse 77 03/25/18 11:00 Resp 18 03/25/18 11:00 BP 85/42 L 03/25/18 11:00 Pulse Ox 93 L 03/25/18 11:00 Weight - Most Recent: 207 lb 1.6 oz I&O - Last 24 Hours: Intake & Output 03/24/18 03/25/18 03/25/18 22:59 06:59 14:59 Intake Total 695 100 Output Total 1900 2425 Balance -1205 -2325 Lab Results Last 24 Hours: Laboratory Results - last 24 hr 03/24/18 03/24/18 03/24/18 Range/Units 13:15 17:29 21:11 WBC (5.00-10.00) 10^3/uL RBC (4.50-6.00) 10^6/uL Hgb (13.0-17.0) g/dL Hct (40.0-52.0) % MCV (82.0-92.0) fL MCH (27.0-31.0) pg MCHC (32.0-36.0) g/dL RDW (11.5-14.5) % Plt Count (150-400) 10^3/uL Add Manual Diff Neutrophils % (Manual) (50-70) % Lymphocytes % (Manual) (20-40) % Monocytes % (Manual) (2-8) % Eosinophils % (Manual) (1-3) % Absolute Neutrophils Lymphocytes # (Manual) Monocytes # (Manual) Eosinophils # (Manual) Platelet Estimate PT (8.9-11.4) SEC INR (0.9-1.1) Sodium (136-145) mmol/L Potassium (3.3-5.3) mmol/L Chloride (98-115) mmol/L Carbon Dioxide (21.0-32.0) mmol/L Anion Gap (5-15) mmol/L BUN (6-25) mg/dL Creatinine (0.51-1.17) mg/dL Est Cr Clr Drug Dosing mL/min Estimated GFR (MDRD) mL/min Glucose mg/dL POC Glucose 287 H 326 H (74-106) mg/dl Calcium (8.7-10.3) mg/dL Blood Type O POSITIVE Gel Antibody Screen Negative Crossmatch See Detail 03/24/18 03/24/18 03/25/18 Range/Units 21:25 22:47 06:39 WBC (5.00-10.00) 10^3/uL RBC (4.50-6.00) 10^6/uL Hgb 8.1 L (13.0-17.0) g/dL Hct 25.2 L (40.0-52.0) % MCV (82.0-92.0) fL MCH (27.0-31.0) pg MCHC (32.0-36.0) g/dL RDW (11.5-14.5) % Plt Count (150-400) 10^3/uL Add Manual Diff Neutrophils % (Manual) (50-70) % Lymphocytes % (Manual) (20-40) % Monocytes % (Manual) (2-8) % Eosinophils % (Manual) (1-3) % Absolute Neutrophils Lymphocytes # (Manual) Monocytes # (Manual) Eosinophils # (Manual) Platelet Estimate PT (8.9-11.4) SEC INR (0.9-1.1) Sodium (136-145) mmol/L Potassium (3.3-5.3) mmol/L Chloride (98-115) mmol/L Carbon Dioxide (21.0-32.0) mmol/L Anion Gap (5-15) mmol/L BUN (6-25) mg/dL Creatinine (0.51-1.17) mg/dL Est Cr Clr Drug Dosing mL/min Estimated GFR (MDRD) mL/min Glucose mg/dL POC Glucose 268 H 83 (74-106) mg/dl Calcium (8.7-10.3) mg/dL Blood Type Gel Antibody Screen Crossmatch 03/25/18 03/25/18 03/25/18 Range/Units 07:10 07:10 07:10 WBC 6.51 (5.00-10.00) 10^3/uL RBC 2.53 L (4.50-6.00) 10^6/uL Hgb 8.4 L (13.0-17.0) g/dL Hct 26.5 L (40.0-52.0) % MCV 104.7 H D (82.0-92.0) fL MCH 33.2 H (27.0-31.0) pg MCHC 31.7 L (32.0-36.0) g/dL RDW 23.9 H (11.5-14.5) % Plt Count 35 L (150-400) 10^3/uL Add Manual Diff Yes Neutrophils % (Manual) 76 H (50-70) % Lymphocytes % (Manual) 19 L (20-40) % Monocytes % (Manual) 1 L (2-8) % Eosinophils % (Manual) 4 H (1-3) % Absolute Neutrophils 4.9476 Lymphocytes # (Manual) 1.2369 Monocytes # (Manual) 0.0651 Eosinophils # (Manual) 0.2604 Platelet Estimate Decreased PT 15.9 H (8.9-11.4) SEC INR 1.6 H (0.9-1.1) Sodium 132 L (136-145) mmol/L Potassium 3.5 (3.3-5.3) mmol/L Chloride 99 (98-115) mmol/L Carbon Dioxide 29.0 (21.0-32.0) mmol/L Anion Gap 7.5 (5-15) mmol/L BUN 31 H (6-25) mg/dL Creatinine 1.17 (0.51-1.17) mg/dL Est Cr Clr Drug Dosing 52.17 mL/min Estimated GFR (MDRD) 59 mL/min Glucose 116 mg/dL POC Glucose (74-106) mg/dl Calcium 8.1 L (8.7-10.3) mg/dL Blood Type Gel Antibody Screen Crossmatch 03/25/18 Range/Units 11:04 WBC (5.00-10.00) 10^3/uL RBC (4.50-6.00) 10^6/uL Hgb (13.0-17.0) g/dL Hct (40.0-52.0) % MCV (82.0-92.0) fL MCH (27.0-31.0) pg MCHC (32.0-36.0) g/dL RDW (11.5-14.5) % Plt Count (150-400) 10^3/uL Add Manual Diff Neutrophils % (Manual) (50-70) % Lymphocytes % (Manual) (20-40) % Monocytes % (Manual) (2-8) % Eosinophils % (Manual) (1-3) % Absolute Neutrophils Lymphocytes # (Manual) Monocytes # (Manual) Eosinophils # (Manual) Platelet Estimate PT (8.9-11.4) SEC INR (0.9-1.1) Sodium (136-145) mmol/L Potassium (3.3-5.3) mmol/L Chloride (98-115) mmol/L Carbon Dioxide (21.0-32.0) mmol/L Anion Gap (5-15) mmol/L BUN (6-25) mg/dL Creatinine (0.51-1.17) mg/dL Est Cr Clr Drug Dosing mL/min Estimated GFR (MDRD) mL/min Glucose mg/dL POC Glucose 255 H (74-106) mg/dl Calcium (8.7-10.3) mg/dL Blood Type Gel Antibody Screen Crossmatch Med Orders - Current: Current Medications Atropine Sulfate (Atropine 0.1 Mg/Ml) 0 mg IVPUSH ASDIRECTED PRN PRN Reason: Heart Calcium Citrate (Calcium Citrate + D) 2 tab PO BIDMEALS [facility] Last Admin: 03/25/18 09:01 Dose: 2 tab Carbidopa/Levodopa (Sinemet 25-100 Mg) 1.5 tab PO QID [facility] Last Admin: 03/25/18 09:02 Dose: 1.5 tab Carvedilol (Coreg) 3.125 mg PO BIDMEALS [facility] Last Admin: 03/25/18 09:01 Dose: 3.125 mg Diclofenac Sodium (Voltaren 1% Gel) 0 gm TOP TID PRN PRN Reason: Pain Epinephrine HCl (Epinephrine 1:10,000) 1 mg IVPUSH ASDIRECTED PRN PRN Reason: Heart Furosemide (Lasix) 40 mg PO DAILY [facility] Lidocaine HCl (Xylocaine 2%) 0 mg IVPUSH ASDIRECTED PRN PRN Reason: Heart Magnesium Oxide (Magnesium Oxide) 500 mg PO BEDTIME [facility] Last Admin: 03/24/18 21:30 Dose: 500 mg Midodrine (Midodrine) 5 mg PO TID@0800,1200,1800 [facility] Last Admin: 03/25/18 09:01 Dose: 5 mg Multivitamins/Minerals (Centrum) 1 tab PO DAILY@1200 [facility] Nitroglycerin (Nitrostat) 0.4 mg SL ASDIRECTED PRN PRN Reason: Heart Omeprazole (Omeprazole) 20 mg PO ACBREAKFAST [facility] Last Admin: 03/25/18 06:38 Dose: 20 mg Lenalidomide [ (Revlimid] 2.5 Mg Tab) 1 each PO DAILY [facility] Last Admin: 03/25/18 09:03 Dose: 1 each Insulin Degludec ( Tresiba) 200 Unit/Ml Pen 18 each SUBCUT DAILY [facility] Last Admin: 03/25/18 09:02 Dose: 18 each Victoza (Liraglutide () 6 Mg/1 Ml 3 Ml Pen) 1.2 each SUBCUT DAILY [facility] Last Admin: 03/25/18 09:03 Dose: 1.2 each Phytonadione (Vitamin K) 100 mcg PO DAILY@1800 [facility] Last Admin: 03/24/18 17:36 Dose: 100 mcg Polysaccharide Iron Complex (Ferrex 150) 150 mg PO WITHBREAKFAST [facility] Last Admin: 03/25/18 09:01 Dose: 150 mg Sertraline HCl (Zoloft) 50 mg PO DAILY [facility] Last Admin: 03/25/18 09:01 Dose: 50 mg Simvastatin (Zocor) 40 mg PO BEDTIME [facility] Last Admin: 03/24/18 21:30 Dose: 40 mg Warfarin Sodium (Coumadin) 1.5 mg PO SUTUTHSA@1800 [facility] Warfarin Sodium (Coumadin) 3 mg PO MOWEFR@1800 [facility] Last Admin: 03/24/18 17:35 Dose: 3 mg Discontinued Medications Acetaminophen (Tylenol) 650 mg PO NOW ONE Stop: 03/24/18 15:04 Last Admin: 03/24/18 15:16 Dose: 650 mg Carbidopa/Levodopa (Sinemet 25-100 Mg) 1.5 tab PO TID@0730,1030,1330 [facility] Diphenhydramine HCl (Benadryl) 25 mg PO ONETIME ONE Stop: 03/24/18 15:11 Last Admin: 03/24/18 15:17 Dose: 25 mg Furosemide (Lasix) 40 mg IVPUSH NOW ONE Stop: 03/24/18 14:31 Last Admin: 03/24/18 15:17 Dose: 40 mg Furosemide (Lasix) 40 mg IVPUSH NOW ONE Stop: 03/24/18 17:31 Last Admin: 03/24/18 21:29 Dose: 40 mg Sodium Chloride (Normal Saline) 250 mls @ 125 mls/hr IV ASDIRECTED [facility] Stop: 03/24/18 21:00 Last Admin: 03/24/18 15:59 Dose: 125 mls/hr Insulin Aspart (Novolog) 8 unit SUBCUT ONETIME ONE Stop: 03/24/18 21:23 Last Admin: 03/24/18 21:49 Dose: 8 unit Insulin Degludec (Tresiba Flextouch U-100) 18 unit SQ DAILY [facility] Liraglutide (Victoza) 1.2 mg SUBCUT DAILY [facility] Warfarin Sodium (Coumadin) 1.5 mg PO ONETIME ONE Stop: 03/24/18 18:01 - Exam Quality Assessment: No: Supplemental Oxygen General: Alert, Oriented Neck: JVD Lungs: No: Clear to Auscultation, Crackles, Wheezing Cardiovascular: Gallops GI/Abdominal Exam: Soft, Non-Tender (Male) Exam: Deferred Back Exam: No: CVA Tenderness (L), CVA Tenderness (R) Extremities: Pedal Edema (1-2+ LLE) Skin: Warm, Dry, Intact Neurological: Normal Gait, Sensation Intact Psy/Mental Status: Alert, Normal Affect, Normal Mood - Problem List Review Problem List Initiated/Reviewed/Updated: Yes - My Orders Last 24 Hours: My Active Orders 03/25/18 11:02 Discontinue Telemetry Monitoring [Cardiac Monitoring Discontinue] [RC] Click to Edit 03/25/18 11:30 Furosemide [Lasix] 40 mg PO DAILY 03/26/18 05:11 BASIC METABOLIC PANEL,BMP [CHEM] AM 03/26/18 06:00 INR,PT,PROTHROMBIN TIME [COAG] AM - Plan Plan:: History: 83-year-old gentleman was admitted to the hospital due to acute on chronic CHF exacerbation. Patient was seen March 24 [facility] complaining of increased shortness of breath, weight gain, increased swelling in lower extremities. Patient was recently discharged from the hospital due to acute on chronic CHF exacerbation and pneumonia in which he did well in the hospital and subsequent follow-up appointment he was doing quite well. Patient has had multiple hospital admissions for the past few months. He lives in assisted living facility and does get help with medication set up an pill packs however speaking with pharmacy they state they're at his apartment 2-3 x a week to help him with this medication. She did have anemia due to his cardiac history was transfused 1 unit packed red blood cells last night with her mitten diuretic therapy Primary hospital problems HFpEF; acute on chronic, combined. Chronic problems Atrial fibrillation, paroxysmal, [id number] CVR, INR goal for patient 1.5-2. Therapeutic T2DM CAD with VT/CABG hx CVA hx, embolic HLD Parkinsonism Prostate CA MDS, recently reduce Revlimid GERD Overweight PULMONARY: Pulmonary status has improved, No rales, pox 96%--RA, Denies PND, orthopnea. CV: Atrial fibrillation, paroxysmal, [id number] high, CVR, anticoagulation with Coumadin, INR 1.6 which is therapeutic for patient. She knew Coumadin. Rate control with B1a coreg; MAP now 80's. BNP 1490 [facility]. improving clinically with diuretics with less edema in LE, however mild JVD, with S3 gallop noted. 6 pound weight loss last night. Diuresing well. ECHO (2017) noted EF 50%, mild to moderate LVH, mildly reduced systolic function and hypokinetic wall segments. Continue with Lasix hour we will change to oral assess if he diuresis with this to determine home compliance. HEMATOLOGY: Hgb/Hct 8.4/27.0 macrocytic with anisocytosis however MDS; improved after 1 unit of transfusion yesterday. no neutrophilia. FLUIDS, ELECTROLYTES, AND RENAL: No IV fluids. I/O, >3,000 mL O/P; Mild Hypotension, asymptomatic. no stools, no vomiting, change Lasix to oral. Add potassium as anticipate renal loss. BUN 31, creatinine 1.17, GFR greater than 60. Calcium 8.1, NA+ 132, on mg supplementation ENDOCRINE: T2DM, on GLP-1A, and Long-acting Basal Tresiba, A1c 7%, Metformin was DC'd . GI: No vomiting, tolerating diet, add low-sodium diet INFECTIOUS DISEASE: Recent pneumonia/hospitalization. Denies cough or sputum. immunization status good. HEALTH MAINTENANCE: DVT prophylaxis on Coumadin due to atrial fibrillation, TEDS, Full code Overall plan today, change Lasix to oral. Discontinue telemetry. Social service consultation as patient has had multiple prior admissions, medication mistakes at home, With the need of extensive pharmacy aide failing outpatient treatment. Strongly recommend SNF on discharge as patient is very high risk on readmission.
[2018-03-25] MEDS: Furosemide 40 MG Tab PO SCH (11:47)
[2018-03-25] MEDS: Multivitamins with Minerals/Iron/Folic Acid/Lycopene Tab PO SCH (11:47)
[2018-03-25] MEDS ORDERED: Potassium Bicarbonate/Potassium Chloride 25 MEQ Tab.Eff PO ONE (12:45)
[2018-03-25] MEDS: Phytonadione 100 MCG Tab PO SCH (18:03)
[2018-03-25] MEDS: Magnesium Oxide 500 MG Tab PO SCH (21:27)
[2018-03-25] MEDS: Simvastatin 20 MG Tab PO SCH (21:27)
[2018-03-26] MEDS: Omeprazole 20 MG Cap.CR PO SCH (06:35)
[2018-03-26 07:48] LABS: ANION GAP 12.7 mmol/L (5-15)
[2018-03-26] MEDS: Calcium Citrate/Vitamin D3 315 MG-250 Unit Tab PO SCH ×2 (08:05→17:01)
[2018-03-26] MEDS: Iron Polysaccharides Complex 150 MG Cap PO SCH (08:06)
[2018-03-26] MEDS: Sertraline 50 MG Tab PO SCH (08:06)
[2018-03-26] MEDS: Furosemide 40 MG Tab PO SCH (08:06)
[2018-03-26] MEDS: Midodrine 5 MG Tab PO SCH ×3 (08:06→17:01)
[2018-03-26] MEDS: Carbidopa/Levodopa 25-100 MG Tab PO SCH ×4 (08:07→21:20)
[2018-03-26] MEDS: LIRAGLUTIDE SUBCUT SCH (08:07)
[2018-03-26] MEDS: INSULIN DEGLUDEC 200 UNIT/ML SUBCUT SCH (08:08)
[2018-03-26] MEDS: LENALIDOMIDE 2.5 MG PO SCH (08:09)
[2018-03-26] MEDS: Carvedilol 6.25 MG Tab PO SCH ×2 (08:10→17:00)
--- NOTE | 2018-03-26 10:35 | PCM.PN ---
- General Info Date of Service: 03/26/18 Functional Status: Reports: Pain Controlled - Review of Systems General: Reports: No Symptoms HEENT: Reports: No Symptoms Pulmonary: Reports: No Symptoms Cardiovascular: Reports: Edema (Much less edema) Gastrointestinal: Reports: No Symptoms Genitourinary: Reports: No Symptoms Musculoskeletal: Reports: No Symptoms Skin: Reports: No Symptoms Neurological: Reports: No Symptoms Psychiatric: Reports: No Symptoms - Patient Data Vitals - Most Recent: Last Vital Signs Temp 98.8 F 03/26/18 06:33 Pulse 88 03/26/18 08:10 Resp 20 03/26/18 06:33 BP 112/62 03/26/18 08:10 Pulse Ox 96 03/26/18 06:33 Weight - Most Recent: 206 lb 1 oz I&O - Last 24 Hours: Intake & Output 03/25/18 03/26/18 03/26/18 22:59 06:59 14:59 Intake Total 320 0 Output Total 1000 400 Balance -680 -400 Lab Results Last 24 Hours: Laboratory Results - last 24 hr 03/25/18 03/25/18 03/25/18 Range/Units 11:04 17:51 21:25 PT (8.9-11.4) SEC INR (0.9-1.1) Sodium (136-145) mmol/L Potassium (3.3-5.3) mmol/L Chloride (98-115) mmol/L Carbon Dioxide (21.0-32.0) mmol/L Anion Gap (5-15) mmol/L BUN (6-25) mg/dL Creatinine (0.51-1.17) mg/dL Est Cr Clr Drug Dosing mL/min Estimated GFR (MDRD) mL/min Glucose mg/dL POC Glucose 255 H 248 H 308 H (74-106) mg/dl Calcium (8.7-10.3) mg/dL 03/26/18 03/26/18 03/26/18 Range/Units 07:05 07:05 07:09 PT 17.2 H (8.9-11.4) SEC INR 1.7 H (0.9-1.1) Sodium 139 (136-145) mmol/L Potassium 3.9 (3.3-5.3) mmol/L Chloride 101 (98-115) mmol/L Carbon Dioxide 29.2 (21.0-32.0) mmol/L Anion Gap 12.7 (5-15) mmol/L BUN 29 H (6-25) mg/dL Creatinine 1.23 H (0.51-1.17) mg/dL Est Cr Clr Drug Dosing 49.62 mL/min Estimated GFR (MDRD) 56 mL/min Glucose 152 mg/dL POC Glucose 168 H (74-106) mg/dl Calcium 7.9 L (8.7-10.3) mg/dL Med Orders - Current: Current Medications Atropine Sulfate (Atropine 0.1 Mg/Ml) 0 mg IVPUSH ASDIRECTED PRN PRN Reason: Heart Calcium Citrate (Calcium Citrate + D) 2 tab PO BIDMEALS [facility] Last Admin: 03/26/18 08:05 Dose: 2 tab Carbidopa/Levodopa (Sinemet 25-100 Mg) 1.5 tab PO QID [facility] Last Admin: 03/26/18 08:07 Dose: 1.5 tab Carvedilol (Coreg) 3.125 mg PO BIDMEALS [facility] Last Admin: 03/26/18 08:10 Dose: 3.125 mg Diclofenac Sodium (Voltaren 1% Gel) 0 gm TOP TID PRN PRN Reason: Pain Epinephrine HCl (Epinephrine 1:10,000) 1 mg IVPUSH ASDIRECTED PRN PRN Reason: Heart Furosemide (Lasix) 40 mg PO DAILY [facility] Last Admin: 03/26/18 08:06 Dose: 40 mg Lidocaine HCl (Xylocaine 2%) 0 mg IVPUSH ASDIRECTED PRN PRN Reason: Heart Magnesium Oxide (Magnesium Oxide) 500 mg PO BEDTIME [facility] Last Admin: 03/25/18 21:27 Dose: 500 mg Midodrine (Midodrine) 5 mg PO TID@0800,1200,1800 [facility] Last Admin: 03/26/18 08:06 Dose: 5 mg Multivitamins/Minerals (Centrum) 1 tab PO DAILY@1200 [facility] Last Admin: 03/25/18 11:47 Dose: 1 tab Nitroglycerin (Nitrostat) 0.4 mg SL ASDIRECTED PRN PRN Reason: Heart Omeprazole (Omeprazole) 20 mg PO ACBREAKFAST [facility] Last Admin: 03/26/18 06:35 Dose: 20 mg Lenalidomide [ (Revlimid] 2.5 Mg Tab) 1 each PO DAILY [facility] Last Admin: 03/26/18 08:09 Dose: 1 each Insulin Degludec ( Tresiba) 200 Unit/Ml Pen 18 each SUBCUT DAILY [facility] Last Admin: 03/26/18 08:08 Dose: 18 each Victoza (Liraglutide () 6 Mg/1 Ml 3 Ml Pen) 1.2 each SUBCUT DAILY [facility] Last Admin: 03/26/18 08:07 Dose: 1.2 each Phytonadione (Vitamin K) 100 mcg PO DAILY@1800 [facility] Last Admin: 03/25/18 18:03 Dose: 100 mcg Polysaccharide Iron Complex (Ferrex 150) 150 mg PO WITHBREAKFAST [facility] Last Admin: 03/26/18 08:06 Dose: 150 mg Sertraline HCl (Zoloft) 50 mg PO DAILY [facility] Last Admin: 03/26/18 08:06 Dose: 50 mg Simvastatin (Zocor) 40 mg PO BEDTIME [facility] Last Admin: 03/25/18 21:27 Dose: 40 mg Warfarin Sodium (Coumadin) 1.5 mg PO SUTUTHSA@1800 [facility] Last Admin: 03/25/18 18:02 Dose: 1.5 mg Warfarin Sodium (Coumadin) 3 mg PO MOWEFR@1800 [facility] Last Admin: 03/24/18 17:35 Dose: 3 mg Discontinued Medications Acetaminophen (Tylenol) 650 mg PO NOW ONE Stop: 03/24/18 15:04 Last Admin: 03/24/18 15:16 Dose: 650 mg Carbidopa/Levodopa (Sinemet 25-100 Mg) 1.5 tab PO TID@0730,1030,1330 [facility] Diphenhydramine HCl (Benadryl) 25 mg PO ONETIME ONE Stop: 03/24/18 15:11 Last Admin: 03/24/18 15:17 Dose: 25 mg Furosemide (Lasix) 40 mg IVPUSH NOW ONE Stop: 03/24/18 14:31 Last Admin: 03/24/18 15:17 Dose: 40 mg Furosemide (Lasix) 40 mg IVPUSH NOW ONE Stop: 03/24/18 17:31 Last Admin: 03/24/18 21:29 Dose: 40 mg Sodium Chloride (Normal Saline) 250 mls @ 125 mls/hr IV ASDIRECTED [facility] Stop: 03/24/18 21:00 Last Admin: 03/24/18 15:59 Dose: 125 mls/hr Insulin Aspart (Novolog) 8 unit SUBCUT ONETIME ONE Stop: 03/24/18 21:23 Last Admin: 03/24/18 21:49 Dose: 8 unit Insulin Degludec (Tresiba Flextouch U-100) 18 unit SQ DAILY [facility] Liraglutide (Victoza) 1.2 mg SUBCUT DAILY [facility] Potassium Bicarb/Potassium Chloride (Potassium Chloride, Effervescent) 25 meq PO ONETIME ONE Stop: 03/25/18 12:46 Last Admin: 03/25/18 13:22 Dose: 25 meq Warfarin Sodium (Coumadin) 1.5 mg PO ONETIME ONE Stop: 03/24/18 18:01 - Exam Quality Assessment: No: Supplemental Oxygen General: Alert, Oriented Neck: No JVD Lungs: Clear to Auscultation, Normal Respiratory Effort Cardiovascular: Regular Rate, Regular Rhythm GI/Abdominal Exam: Soft (Male) Exam: Deferred Back Exam: No: CVA Tenderness (L) Extremities: Pedal Edema (1+ pedal edema BLE much improved) Neurological: No New Focal Deficit Psy/Mental Status: Alert, Normal Affect, Normal Mood - Problem List Review Problem List Initiated/Reviewed/Updated: Yes - My Orders Last 24 Hours: My Active Orders 03/25/18 11:02 Discontinue Telemetry Monitoring [Cardiac Monitoring Discontinue] [RC] Click to Edit 03/25/18 11:30 Furosemide [Lasix] 40 mg PO DAILY 03/25/18 12:09 Consult to Case Management/Emergency Communications Dispatcher [CONS] Routine - Plan Plan:: History: 83-year-old gentleman was admitted to the hospital due to acute on chronic CHF exacerbation. Patient was seen March 24 [facility] complaining of increased shortness of breath, weight gain, increased swelling in lower extremities. Patient was recently discharged from the hospital due to acute on chronic CHF exacerbation and pneumonia in which he did well in the hospital and subsequent follow-up appointment he was doing quite well. Patient has had multiple hospital admissions for the past few months. He lives in assisted living facility and does get help with medication set up an pill packs however speaking with pharmacy they state they're at his apartment 2-3 x a week to help him with this medication. She did have anemia due to his cardiac history was transfused 1 unit packed red blood cells last night with her mitten diuretic therapy Primary hospital problems HFpEF; acute on chronic, combined. Chronic problems Atrial fibrillation, paroxysmal, [id number] CVR, INR goal for patient 1.5-2. 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 No rales, pox 96%--RA, Denies PND, orthopnea. CV: Atrial fibrillation, paroxysmal, [id number] high, CVR, anticoagulation with Coumadin, INR 1.6 which is therapeutic for patient. Continue Coumadin. Rate control with B1a coreg; MAP now 80's. BNP 1490 [facility]. improving clinically with diuretics with less edema in LE, longer JVD, however mild S3 gallop noted. 7 pound weight loss since admission. Diuresing well. ECHO (2017 ) noted EF 50%, mild to moderate LVH, mildly reduced systolic function and hypokinetic wall segments. Likely drying out and becoming euvolemic. Reduce by mouth Lasix. HEMATOLOGY: Hgb/Hct 8.4/27.0 macrocytic with anisocytosis however MDS; improved after 1 unit of transfusion. no neutrophilia. FLUIDS, ELECTROLYTES, AND RENAL: No IV fluids. I/O, >4,000 mL O/P; Hypotension now normalized. no vomiting, BUN 31, creatinine 1.23, GFR greater than 60. Calcium 8.1, NA+ 132, on mg supplementation. Creatinine slightly creeping up. Reduce Lasix. ENDOCRINE: T2DM, on GLP-1A, and Long-acting Basal Tresiba, A1c 7%, Metformin was DC'd . GI: No vomiting, tolerating diet, added low-sodium diet INFECTIOUS DISEASE: Recent pneumonia/hospitalization. Denies cough or sputum. immunization status UTD. HEALTH MAINTENANCE: DVT prophylaxis on Coumadin due to atrial fibrillation, TEDS, Full code Overall plan today, continue acute care stay. reduce Lasix, however continue Aldactone. lavender farm worker and I long discussion with patient regarding eventual discharge to detention facility. Initially patient quite reluctant however he appears conducive to at least temporary SNF. Anticipate discharge to SNF Saturday.
[2018-03-26] MEDS ORDERED: Iron Polysaccharides Complex 150 MG Cap PO SCH (10:45)
[2018-03-26] MEDS: Multivitamins with Minerals/Iron/Folic Acid/Lycopene Tab PO SCH (12:05)
[2018-03-26] MEDS: Phytonadione 100 MCG Tab PO SCH (17:02)
[2018-03-26] MEDS: Simvastatin 20 MG Tab PO SCH (21:20)
[2018-03-26] MEDS: Magnesium Oxide 500 MG Tab PO SCH (21:20)
[2018-03-27] MEDS: Omeprazole 20 MG Cap.CR PO SCH (06:47)
[2018-03-27 06:56] VITALS: BP 115/72
[2018-03-27 08:02] LABS: ANION GAP 8.2 mmol/L (5-15)
[2018-03-27] MEDS: LENALIDOMIDE 2.5 MG PO SCH (08:15)
[2018-03-27] MEDS: Sertraline 50 MG Tab PO SCH (08:15)
[2018-03-27] MEDS: Midodrine 5 MG Tab PO SCH ×2 (08:16→12:54)
[2018-03-27] MEDS: LIRAGLUTIDE SUBCUT SCH (08:16)
[2018-03-27] MEDS: Carbidopa/Levodopa 25-100 MG Tab PO SCH (08:16)
[2018-03-27] MEDS: INSULIN DEGLUDEC 200 UNIT/ML SUBCUT SCH (08:17)
[2018-03-27] MEDS: Calcium Citrate/Vitamin D3 315 MG-250 Unit Tab PO SCH (08:18)
[2018-03-27] MEDS: Carvedilol 6.25 MG Tab PO SCH (08:18)
[2018-03-27] MEDS ORDERED: Furosemide 40 MG Tab PO SCH (09:00)
[2018-03-27] MEDS ORDERED: Furosemide 20 MG Tab PO SCH (09:00)
--- NOTE | 2018-03-27 09:50 | PCM.DCSUM1 ---
Discharge Summary - Hospital Course Diagnosis: Stroke: No - Discharge Data Discharge Date: 03/27/18 Discharge Disposition: DC/Tfer to SNF 03 Condition: Good - Patient Summary/Data Consults: Consultations 03/25/18 12:09 Consult to Case Management/Finish Repair Worker [CONS] Routine 03/26/18 17:44 Consult to Physical Therapy [PT Evaluation and Treatment] [CONS] Routine - Patient Instructions Activity: As Tolerated Showering/Bathing: November Shower Notify Provider of: Fever, Nausea and/or Vomiting Other/Special Instructions: Weigh patient on Mondays and . Report weight gain more than 5 pounds - Discharge Plan *PRESCRIPTION DRUG MONITORING PROGRAM REVIEWED*: Not Applicable *COPY OF PRESCRIPTION DRUG MONITORING REPORT IN PATIENT DOMENICA: Not Applicable Prescriptions/Med Rec: Liraglutide [Victoza] 1.2 mg SUBCUT DAILY #6 ml Lisinopril [Zestril] 2.5 mg PO DAILY #30 tablet Home Medications: Home Meds Calcium Carbonate/Vitamin D3 [Calcium 600 + Vit D 400] 1 tab PO BIDMEALS [History] Multivit-Min/FA/Lycopene/Lut [Centrum Silver] 1 tab PO DAILY@1200 04/24/14 [ History] Simvastatin 40 mg PO BEDTIME 04/24/14 [History] Sertraline [Zoloft] 50 mg PO DAILY 03/23/16 [History] Diclofenac Sodium [Voltaren 1% Gel] 1 gm TOP TID PRN 05/25/17 [History] Insulin Degludec [Tresiba Flextouch U-200] 18 units SUBCUT DAILY 03/24/18 [ History] Carbidopa/Levodopa [Carbidopa-Levodopa 25-100] 1.5 tab PO QID tablet 03/27/18 [ Rx] Carbidopa/Levodopa [Carbidopa-Levodopa 25-100] 1.5 tab PO QID #0 03/27/18 [Rx] Carvedilol [Coreg] 3.125 mg PO BIDMEALS #30 03/27/18 [Rx] Furosemide [Lasix] 20 mg PO DAILY #0 03/27/18 [Rx] Furosemide [Lasix] 20 mg PO DAILY #0 tablet 03/27/18 [Rx] Iron Polysaccharide Complex [Poly-Iron] 150 mg PO Q48H #0 03/27/18 [Rx] Lenalidomide [Revlimid] 2.5 mg PO DAILY #0 03/27/18 [Rx] Liraglutide [Victoza] 1.2 mg SUBCUT DAILY #6 ml 03/27/18 [Rx] Lisinopril [Zestril] 2.5 mg PO DAILY #30 tablet 03/27/18 [Rx] Magnesium Oxide 500 mg PO BEDTIME #0 03/27/18 [Rx] Midodrine 5 mg PO TID@0800,1200,1800 #0 03/27/18 [Rx] Nitroglycerin [Nitrostat] 0.4 mg SL ASDIRECTED PRN tab.sl 03/27/18 [Rx] Nitroglycerin [Nitrostat] 1 tab SL Q5M PRN #1 bottle 03/27/18 [Rx] Omeprazole 20 mg PO DAILY #0 03/27/18 [Rx] Patient's Own Medication [Ptom] 18 each SUBCUT DAILY #0 each 03/27/18 [Rx] Phytonadione [Vitamin K] 100 mcg PO DAILY@1800 #0 03/27/18 [Rx] Spironolactone [Aldactone] 25 mg PO DAILY #30 tablet 03/27/18 [Rx] Warfarin Sodium [Jantoven] 3 mg PO MOWEFR@1800 #0 03/27/18 [Rx] Warfarin [Coumadin] 1.5 mg PO SUTUTHSA@1800 #0 03/27/18 [Rx] - Discharge Summary/Plan Comment DC Time >30 min.: Yes Discharge Summary/Plan Comment: Final diagnosis HFpEF; acute on chronic, combined. Chronic problems Atrial fibrillation, paroxysmal, [id number] CVR, INR goal for patient 1.5-2. T2DM CAD with CA/CABG hx CVA hx, embolic HLD Parkinsonism Prostate CA MDS, recently reduced Revlimid GERD Overweight History: Rebecca is an 83-year-old gentleman was admitted to the hospital due to acute on chronic CHF exacerbation. Patient was seen March 24 [facility] complaining of increased shortness of breath, weight gain, increased swelling in lower extremities. Patient was recently discharged from the hospital due to acute on chronic CHF exacerbation and pneumonia in which he did well in the hospital and subsequent follow-up appointment he was doing quite well. Patient has had multiple hospital admissions for the past few months for various reasons but many were due to fluid overload status. She does live by himself in assisted living facility however he does get significant help with setting of his medication. He admits to strict compliance guarding taken proper pill packs. Hospital course Total course went well and as expected. He diuresed significantly and lost approximately 8 pounds. The Lasix was given, he was in fluid overload status upon admission. Electrolytes were carefully monitored. He did have slightly low blood pressure at times however normalized. His pulmonary status was monitored carefully. On discharge he had No rales, pox 96%--RA, Denies PND, orthopnea. CV status was monitored carefully. Does have Atrial fibrillation, paroxysmal, [id number] high, CVR, anticoagulation with Coumadin, INR remained therapeutic and upon discharge it was 1.7 which is therapeutic for patient. His goal is 1.5-2.0 INR. ECHO (2017) noted EF 50%, mild to moderate LVH, mildly reduced systolic function and hypokinetic wall segments. On discharge he was very near dry weight of 203 lbs. Hgb/Hct 8.4/27.0 macrocytic with anisocytosis however MDS; improved after 1 unit of transfusion--due to cardiac history and hemoglobin threshold. He remained on his diabetes medication of GLP- 1A, and Long-acting Basal Tresiba, A1c 7%, Metformin was DC'd in past for unknown reasons. He was placed on a low-sodium diet. His immunization status is up-to-date. Medication changes/adjustments on discharge Lisinopril 2.5 mg's by mouth daily (newly added due to heart failure)--goal 20- 30 mg Changed iron to every other day Continue with Lasix 20 mg daily and spironolactone 5 mg daily along with other home medications. Disposition Long discussion with patient and in coordination with 7th grade social studies teacher. Due to multiple readmissions patient will be discharged to [facility]. MDM, greater than 60 minutes was spent on discharge summary, discharge planning , care coordination, pharmacy consultation and 7th grade social studies teacher coronation for placement. - General Info Functional Status: Reports: Pain Controlled - Review of Systems General: Reports: No Symptoms HEENT: Reports: No Symptoms Pulmonary: Reports: Other (Patient stated he did cough up slightly bloody mucus one time last night.) Cardiovascular: Reports: Edema (Very slight edema minimal bilateral lower extremities). Denies: Chest Pain, Palpitations, Dyspnea on Exertion Gastrointestinal: Reports: No Symptoms Genitourinary: Reports: No Symptoms Musculoskeletal: Reports: No Symptoms Skin: Reports: Bruising Neurological: Reports: No Symptoms - Patient Data Vitals - Most Recent: Last Vital Signs Temp 98.9 F 03/27/18 06:53 Pulse 87 03/27/18 08:18 Resp 16 03/27/18 06:53 BP 115/72 03/27/18 08:18 Pulse Ox 95 03/27/18 06:53 Weight - Most Recent: 206 lb 1 oz I&O - Last 24 hours: Intake & Output 03/26/18 03/27/18 03/27/18 22:59 06:59 14:59 Intake Total 300 50 Output Total 1050 550 Balance -750 -500 Lab Results - Last 24 hrs: Laboratory Results - last 24 hr 03/26/18 03/26/18 03/26/18 Range/Units 11:58 17:52 21:32 Sodium (136-145) mmol/L Potassium (3.3-5.3) mmol/L Chloride (98-115) mmol/L Carbon Dioxide (21.0-32.0) mmol/L Anion Gap (5-15) mmol/L BUN (6-25) mg/dL Creatinine (0.51-1.17) mg/dL Est Cr Clr Drug Dosing mL/min Estimated GFR (MDRD) mL/min Glucose mg/dL POC Glucose 216 H 217 H 285 H (74-106) mg/dl Calcium (8.7-10.3) mg/dL 03/27/18 03/27/18 Range/Units 06:46 07:10 Sodium 137 (136-145) mmol/L Potassium 3.8 (3.3-5.3) mmol/L Chloride 103 (98-115) mmol/L Carbon Dioxide 29.6 (21.0-32.0) mmol/L Anion Gap 8.2 (5-15) mmol/L BUN 26 H (6-25) mg/dL Creatinine 1.22 H (0.51-1.17) mg/dL Est Cr Clr Drug Dosing 50.03 mL/min Estimated GFR (MDRD) 56 mL/min Glucose 144 mg/dL POC Glucose 161 H (74-106) mg/dl Calcium 8.0 L (8.7-10.3) mg/dL Med Orders - Current: Current Medications Calcium Citrate (Calcium Citrate + D) 2 tab PO BIDMEALS [facility] Last Admin: 03/27/18 08:18 Dose: 2 tab Carbidopa/Levodopa (Sinemet 25-100 Mg) 1.5 tab PO QID [facility] Last Admin: 03/27/18 08:16 Dose: 1.5 tab Carvedilol (Coreg) 3.125 mg PO BIDMEALS [facility] Last Admin: 03/27/18 08:18 Dose: 3.125 mg Diclofenac Sodium (Voltaren 1% Gel) 0 gm TOP TID PRN PRN Reason: Pain Furosemide (Lasix) 20 mg PO DAILY [facility] Last Admin: 03/27/18 08:18 Dose: 20 mg Magnesium Oxide (Magnesium Oxide) 500 mg PO BEDTIME [facility] Last Admin: 03/26/18 21:20 Dose: 500 mg Midodrine (Midodrine) 5 mg PO TID@0800,1200,1800 [facility] Last Admin: 03/27/18 08:16 Dose: 5 mg Multivitamins/Minerals (Centrum) 1 tab PO DAILY@1200 [facility] Last Admin: 03/26/18 12:05 Dose: 1 tab Nitroglycerin (Nitrostat) 0.4 mg SL ASDIRECTED PRN PRN Reason: Heart Omeprazole (Omeprazole) 20 mg PO ACBREAKFAST [facility] Last Admin: 03/27/18 06:47 Dose: 20 mg Lenalidomide [ (Revlimid] 2.5 Mg Tab) 1 each PO DAILY [facility] Last Admin: 03/27/18 08:15 Dose: 1 each Insulin Degludec ( Tresiba) 200 Unit/Ml Pen 18 each SUBCUT DAILY [facility] Last Admin: 03/27/18 08:17 Dose: 18 each Victoza (Liraglutide () 6 Mg/1 Ml 3 Ml Pen) 1.2 each SUBCUT DAILY [facility] Last Admin: 03/27/18 08:16 Dose: 1.2 each Phytonadione (Vitamin K) 100 mcg PO DAILY@1800 [facility] Last Admin: 03/26/18 17:02 Dose: 100 mcg Polysaccharide Iron Complex (Ferrex 150) 150 mg PO Q48H [facility] Last Admin: 03/26/18 11:41 Dose: Not Given Sertraline HCl (Zoloft) 50 mg PO DAILY [facility] Last Admin: 03/27/18 08:15 Dose: 50 mg Simvastatin (Zocor) 40 mg PO BEDTIME [facility] Last Admin: 03/26/18 21:20 Dose: 40 mg Warfarin Sodium (Coumadin) 1.5 mg PO SUTUTHSA@1800 [facility] Last Admin: 03/25/18 18:02 Dose: 1.5 mg Warfarin Sodium (Coumadin) 3 mg PO MOWEFR@1800 [facility] Last Admin: 03/26/18 17:01 Dose: 3 mg Discontinued Medications Acetaminophen (Tylenol) 650 mg PO NOW ONE Stop: 03/24/18 15:04 Last Admin: 03/24/18 15:16 Dose: 650 mg Atropine Sulfate (Atropine 0.1 Mg/Ml) 0 mg IVPUSH ASDIRECTED PRN PRN Reason: Heart Carbidopa/Levodopa (Sinemet 25-100 Mg) 1.5 tab PO TID@0730,1030,1330 [facility] Diphenhydramine HCl (Benadryl) 25 mg PO ONETIME ONE Stop: 03/24/18 15:11 Last Admin: 03/24/18 15:17 Dose: 25 mg Epinephrine HCl (Epinephrine 1:10,000) 1 mg IVPUSH ASDIRECTED PRN PRN Reason: Heart Furosemide (Lasix) 40 mg IVPUSH NOW ONE Stop: 03/24/18 14:31 Last Admin: 03/24/18 15:17 Dose: 40 mg Furosemide (Lasix) 40 mg IVPUSH NOW ONE Stop: 03/24/18 17:31 Last Admin: 03/24/18 21:29 Dose: 40 mg Furosemide (Lasix) 40 mg PO DAILY [facility] Last Admin: 03/26/18 08:06 Dose: 40 mg Furosemide (Lasix) 20 mg PO DAILY [facility] Sodium Chloride (Normal Saline) 250 mls @ 125 mls/hr IV ASDIRECTED [facility] Stop: 03/24/18 21:00 Last Admin: 03/24/18 15:59 Dose: 125 mls/hr Insulin Aspart (Novolog) 8 unit SUBCUT ONETIME ONE Stop: 03/24/18 21:23 Last Admin: 03/24/18 21:49 Dose: 8 unit Insulin Degludec (Tresiba Flextouch U-100) 18 unit SQ DAILY [facility] Lidocaine HCl (Xylocaine 2%) 0 mg IVPUSH ASDIRECTED PRN PRN Reason: Heart Liraglutide (Victoza) 1.2 mg SUBCUT DAILY [facility] Polysaccharide Iron Complex (Ferrex 150) 150 mg PO WITHBREAKFAST [facility] Last Admin: 03/26/18 08:06 Dose: 150 mg Potassium Bicarb/Potassium Chloride (Potassium Chloride, Effervescent) 25 meq PO ONETIME ONE Stop: 03/25/18 12:46 Last Admin: 03/25/18 13:22 Dose: 25 meq Warfarin Sodium (Coumadin) 1.5 mg PO ONETIME ONE Stop: 03/24/18 18:01 - Exam Quality Assessment: Denies: Skin Breakdown General: Reports: Alert, Oriented Neck: Reports: Supple Lungs: Reports: Clear to Auscultation, Normal Respiratory Effort Cardiovascular: Reports: Regular Rate, Regular Rhythm GI/Abdominal Exam: No Distention. No: Distended (Male) Exam: Deferred Rectal (Males) Exam: Deferred Extremities: Pedal Edema (Very minimal pitting edema BLE--very near euvolemic status) Neurological: Reports: No New Focal Deficit Psy/Mental Status: Reports: Alert, Normal Affect, Normal Mood
[2018-03-27] MEDS: Multivitamins with Minerals/Iron/Folic Acid/Lycopene Tab PO SCH (12:54)
== END 2018-03-27 12:15 | DRG 293 ==
LOC: KA.MS 12:45
PROVIDERS: ADMIT Nurse Practitioner Family; ATTEND Family Medicine
PROC: 30233N1 Transfusion of Nonautologous Red Blood Cells into Peripheral Vein, Percutaneous Approach (ICD-10-PCS; principal; 2018-03-24)
DX: I50.43 Acute on chronic combined systolic (congestive) and diastolic (congestive) heart failure (principal); E11.9 Type 2 diabetes mellitus without complications; I48.0 Paroxysmal atrial fibrillation; I25.10 Atherosclerotic heart disease of native coronary artery without angina pectoris; Z68.30 Body mass index [BMI] 30.0-30.9, adult; E78.5 Hyperlipidemia, unspecified; G20 Parkinson's disease; C61 Malignant neoplasm of prostate; D46.9 Myelodysplastic syndrome, unspecified; K21.9 Gastro-esophageal reflux disease without esophagitis; E66.3 Overweight; Z95.1 Presence of aortocoronary bypass graft; I25.2 Old myocardial infarction; Z86.73 Personal history of transient ischemic attack (TIA), and cerebral infarction without residual deficits; Z79.899 Other long term (current) drug therapy; Z88.5 Allergy status to narcotic agent
CPT/HCPCS: 36415; 36430; 80048; 82962; 85014; 85018; 85025; 85610; 86850; 86900; 86901; 86920; 86922; 97162-GP; A9270-GY; J1815-GY; J1940; J7050; P9016

== ENCOUNTER 2018-07-16 02:43 | Inpatient (IN) | payer MEDICARE, OTHER ==
--- NOTE | 2018-07-16 03:47 | EDM.PDOC ---
ED HPI GENERAL MEDICAL PROBLEM - General Chief Complaint: General Stated Complaint: back pain, fever Time Seen by Provider: 07/16/18 03:27 Source of Information: Reports: Patient, Custodial Records History Limitations: Reports: No Limitations - History of Present Illness INITIAL COMMENTS - FREE TEXT/NARRATIVE: Patient [place] via ambulance from [place] with right flank pain and fever that started a couple hours ago. He says he felt a little flank pain when he went to bed but it woke him up during the night and [place] staff found him to have fever and tachycardia so called Dr. Franco and sent him to ER. No history of kidney infections or stones. - Related Data Allergies Allergy/AdvReac Type Severity Reaction Status Date / Time morphine Allergy Intermediate Nausea and Verified 07/10/18 13:22 Vomiting Home Meds: Home Meds Calcium Carbonate/Vitamin D3 [Calcium 600 + Vit D 400] 1 tab PO 1200,1800 [History] Simvastatin 40 mg PO BEDTIME 04/24/14 [History] Sertraline [Zoloft] 50 mg PO DAILY 03/23/16 [History] Diclofenac Sodium [Voltaren 1% Gel] 1 gm TOP TID PRN 05/25/17 [History] Insulin Degludec [Tresiba Flextouch U-200] 20 units SUBCUT DAILY 03/24/18 [ History] Carvedilol [Coreg] 3.125 mg PO BIDMEALS #30 03/27/18 [Rx] Furosemide [Lasix] 20 mg PO DAILY #0 tablet 03/27/18 [Rx] Iron Polysaccharide Complex [Poly-Iron] 150 mg PO Q48H #0 03/27/18 [Rx] Liraglutide [Victoza] 1.2 mg SUBCUT DAILY #6 ml 03/27/18 [Rx] Lisinopril [Zestril] 2.5 mg PO DAILY #30 tablet 03/27/18 [Rx] Midodrine 5 mg PO TID@0800,1200,1800 #0 03/27/18 [Rx] Nitroglycerin [Nitrostat] 1 tab SL Q5M PRN #1 bottle 03/27/18 [Rx] Omeprazole 20 mg PO DAILY #0 03/27/18 [Rx] Spironolactone [Aldactone] 25 mg PO DAILY #30 tablet 03/27/18 [Rx] Lanolin/Min Oil/NaCl/Pet,Wh [Lubriderm Daily Moisture Lotion] 177 ml TOP BID PRN 05/15/18 [History] Loperamide HCl [Imodium A-D] 2 mg PO ASDIRECTED PRN MDD 8 capsules/24hr [History] Magnesium Oxide 400 mg PO BEDTIME 05/15/18 [History] Carbidopa/Levodopa [Carbidopa-Levodopa 25-100] 2 tab PO 0700,1100,1600,2000 03/26 [History] Carboxymethylcellulose Sodium [Refresh Tears] 1 drop EYEBOTH QID PRN 07/16/18 [ History] Multivit-Min/FA/Lycopene/Lut [Centrum Silver Tablet] 1 tab PO DAILY 07/16/18 [ History] Saline Solution 0.65% 2 spray NASBOTH QID 07/16/18 [History] Past Medical History HEENT History: Reports: Other (See Below) Other HEENT History: surgery to right eye to remove piece of steel, 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 Genitourinary History: Reports: Prostate Disorder Musculoskeletal History: Reports: None Neurological History: Reports: CVA, Parkinson's Psychiatric History: Reports: None Endocrine/Metabolic History: Reports: Diabetes, Type II Hematologic History: Reports: Anemia, Blood Transfusion(s), Other (See Below) Other Hematologic History: MDS Immunologic History: Reports: None Oncologic (Cancer) History: Reports: Prostate Other Oncologic History: MDS Dermatologic History: Reports: None - Infectious Disease History Infectious Disease History: Reports: Chicken Pox, Measles - Past Surgical History Head Surgeries/Procedures: Reports: None HEENT Surgical History: Reports: Eye Surgery Cardiovascular Surgical History: Reports: Coronary Artery Bypass Respiratory Surgical History: Reports: None GI Surgical History: Reports: Appendectomy, Colonoscopy, EGD, Other (See Below) Male Surgical History: Reports: Prostate Biopsy Neurological Surgical History: Reports: None Musculoskeletal Surgical History: Reports: Hip Replacement Social & Family History - Family History Family Medical History: Noncontributory HEENT: Reports: None Cardiac: Reports: Aneurysm, [place] : Reports: None OBGYN: Reports: None Musculoskeletal: Reports: None Neurological: Reports: Cerebral Aneurysms Psychiatric: Reports: None Endocrine/Metabolic: Reports: Diabetes, type II Hematologic: Reports: None Immunologic: Reports: None Dermatologic: Reports: None Oncologic: Reports: Breast - Caffeine Use Caffeine Use: Reports: Soda Other Caffeine Use: coke - Living Situation & Occupation Occupation: Retired ED ROS GENERAL - Review of Systems Review Of Systems: See Below Constitutional: Reports: Fever. Denies: Chills, Malaise, Weakness HEENT: Reports: Nosebleed (quite often) Respiratory: Denies: Shortness of Breath, Cough Cardiovascular: Denies: Chest Pain, Lightheadedness, Syncope GI/Abdominal: Denies: Abdominal Pain, Bloody Stool (but was having last week so his warfarin was stopped), Constipation, Diarrhea, Nausea, Vomiting : Reports: Dysuria (yesterday morning), Flank Pain, Incontinence. Denies: Hematuria Musculoskeletal: Reports: No Symptoms Skin: Denies: Cyanosis, Jaundice, Mottled, Pallor, Diaphoresis Neurological: Reports: Confusion (a little tonight per [facility]; he was yelling for the nurse instead of using his call-light as usual). Denies: Trouble Speaking Psychiatric: Denies: Anxiety Hematologic/Lymphatic: Reports: Easy Bleeding ED EXAM, GENERAL - Physical Exam Exam: See Below Exam Limited By: No Limitations General Appearance: Alert, WD/WN, No Apparent Distress Eye Exam: Bilateral Eye: EOMI, Normal Inspection, PERRL Ears: Normal External Exam, Hearing Grossly Normal Nose: Normal Inspection, Other (dried blood under left nare but no active bleeding) Throat/Mouth: Normal Inspection, Normal Lips, Normal Voice, No Airway Compromise Head: Atraumatic, Normocephalic Neck: Normal Inspection, Full Range of Motion Respiratory/Chest: No Respiratory Distress, Lungs Clear, Normal Breath Sounds ( had some crackles in left lung that cleared with respirations), No Accessory Muscle Use. No: Crackles, Rales, Rhonchi, Wheezing, Stridor Cardiovascular: Tachycardia, Systolic Murmur Peripheral Pulses: 2+: Brachial (L), Brachial (R), Posterior Tibial (L), Posterior Tibial (R) GI/Abdominal: Normal Bowel Sounds, Soft, Non-Tender, No Organomegaly, Distended (mild). No: Guarding, Rigid, Tender Back Exam: Normal Inspection, Full Range of Motion. No: CVA Tenderness (L), CVA Tenderness (R) Extremities: Normal Inspection, Normal Range of Motion, Non-Tender, No Pedal Edema, Normal Capillary Refill Neurological: Alert, Oriented, Normal Cognition, No Motor/Sensory Deficits Psychiatric: Normal Affect, Normal Mood Skin Exam: Warm, Dry, Intact, Normal Color, No Rash Course - Vital Signs Last Recorded V/S: Last Vital Signs Temp 101.7 F H 07/16/18 04:43 Pulse 111 H 07/16/18 02:50 Resp 20 07/16/18 02:50 BP 129/74 07/16/18 02:50 Pulse Ox 94 L 07/16/18 02:50 - Orders/Labs/Meds Orders: Active Orders 24 hr Category Date Time Status Patient Status [ADT] Routine ADT 07/16/18 06:34 Ordered Abdomen Pelvis w Cont [CT] Stat Exams 07/16/18 04:27 Ordered Chest 2V [CR] Stat Exams 07/16/18 04:27 Ordered CULTURE BLOOD [BC] Stat Lab 07/16/18 03:06 Ordered CULTURE BLOOD [BC] Stat Lab 07/16/18 03:06 Ordered Sodium Chloride 0.9% @ 999 MLS/HR (1000ml) Med 07/16/18 06:36 Ordered Sodium Chloride 0.9% [Normal Saline] 1,000 ml IV .BOLUS Sodium Chloride 0.9% [Normal Saline] 50 ml Med 07/16/18 05:15 Active IV ASDIRECTED Blood Culture x2 Reflex Set [OM.PC] Stat Oth 07/16/18 03:06 Ordered Medication Orders Sodium Chloride (Normal Saline) 50 mls @ 3 mls/sec IV ASDIRECTED WILLARD Last Admin: 07/16/18 05:59 Dose: 3 mls/sec Sodium Chloride (Normal Saline) 1,000 mls @ 999 mls/hr IV .BOLUS ONE Stop: 07/16/18 07:36 Labs: Laboratory Tests 07/16/18 07/16/18 07/16/18 Range/Units 03:35 03:35 03:35 WBC 2.80 L (5.00-10.00) 10^3/uL RBC 2.52 L (4.50-6.00) 10^6/uL Hgb 8.2 L (13.0-17.0) g/dL Hct 24.7 L (40.0-52.0) % MCV 98.0 H D (82.0-92.0) fL MCH 32.5 H (27.0-31.0) pg MCHC 33.2 (32.0-36.0) g/dL RDW 18.8 H (11.5-14.5) % Plt Count 21 L* (150-400) 10^3/uL Immature Gran % (Auto) 0.7 (0.0-5.0) % Neut % (Auto) 77.8 H (50.0-70.0) % Lymph % (Auto) 15.0 L (20.0-40.0) % [place] % (Auto) 5.7 (2.0-8.0) % Eos % (Auto) 0.4 L (1.0-3.0) % Baso % (Auto) 0.4 (0.0-1.0) % Immature Gran # (Auto) 0.02 (0.00-0.50) 10^3/uL Neut # (Auto) 2.18 L (2.50-7.00) 10^3/uL Lymph # (Auto) 0.42 L (1.00-4.00) 10^3/uL [place] # (Auto) 0.16 (0.10-0.80) 10^3/uL Eos # (Auto) 0.01 L (0.10-0.30) 10^3/uL Baso # (Auto) 0.01 (0.00-0.10) 10^3/uL Platelet Estimate Marked dec Sodium 134 L (136-145) mmol/L Potassium 4.5 (3.3-5.3) mmol/L Chloride 99 (98-115) mmol/L Carbon Dioxide 27.3 (21.0-32.0) mmol/L Anion Gap 12.2 (5-15) mmol/L BUN 26 H (6-25) mg/dL Creatinine 0.99 (0.51-1.17) mg/dL Est Cr Clr Drug Dosing TNP Estimated GFR (MDRD) > 60 mL/min Glucose 212 H (75 - 99) mg/dL Lactic Acid (0.4-2.0) mmol/L Calcium 8.8 (8.7-10.3) mg/dL Total Bilirubin 2.5 H (0.2-1.0) mg/dL AST 24 (15-37) U/L ALT 15 (12-78) U/L Alkaline Phosphatase 238 H (46-116) IU/L C-Reactive Protein 2.9 H (0.0-0.9) mg/dL Total Protein 7.7 (6.4-8.2) g/dL Albumin 3.52 (3.00-4.80) g/dL Specimen Type Urinvoid Urine Color Yellow (YELLOW) Urine Appearance Clear (CLEAR) Urine pH 8.5 (5.0-9.0) Ur Specific [place] 1.020 (1.005-1.030) Urine Protein 100 H (NEGATIVE) mg/dL Urine Glucose (UA) 100 H (NEGATIVE) mg/dL Urine Ketones Negative (NEGATIVE) mg/dL Urine Occult Blood Negative (NEGATIVE) Urine Nitrite Negative (NEGATIVE) Urine Bilirubin Negative (NEGATIVE) Urine Urobilinogen 2.0 H (0.2-1.0) E.U./dL Ur Leukocyte Esterase Negative (NEGATIVE) Urine RBC 0-5 (0-5) /HPF Urine WBC 0-5 (0-5) /HPF Ur Epithelial Cells Occasional /LPF Urine Bacteria Not seen (NONE TO FEW) /HPF 07/16/18 Range/Units 03:35 WBC (5.00-10.00) 10^3/uL RBC (4.50-6.00) 10^6/uL Hgb (13.0-17.0) g/dL Hct (40.0-52.0) % MCV (82.0-92.0) fL MCH (27.0-31.0) pg MCHC (32.0-36.0) g/dL RDW (11.5-14.5) % Plt Count (150-400) 10^3/uL Immature Gran % (Auto) (0.0-5.0) % Neut % (Auto) (50.0-70.0) % Lymph % (Auto) (20.0-40.0) % [place] % (Auto) (2.0-8.0) % Eos % (Auto) (1.0-3.0) % Baso % (Auto) (0.0-1.0) % Immature Gran # (Auto) (0.00-0.50) 10^3/uL Neut # (Auto) (2.50-7.00) 10^3/uL Lymph # (Auto) (1.00-4.00) 10^3/uL [place] # (Auto) (0.10-0.80) 10^3/uL Eos # (Auto) (0.10-0.30) 10^3/uL Baso # (Auto) (0.00-0.10) 10^3/uL Platelet Estimate Sodium (136-145) mmol/L Potassium (3.3-5.3) mmol/L Chloride (98-115) mmol/L Carbon Dioxide (21.0-32.0) mmol/L Anion Gap (5-15) mmol/L BUN (6-25) mg/dL Creatinine (0.51-1.17) mg/dL Est Cr Clr Drug Dosing Estimated GFR (MDRD) mL/min Glucose (75 - 99) mg/dL Lactic Acid 1.8 (0.4-2.0) mmol/L Calcium (8.7-10.3) mg/dL Total Bilirubin (0.2-1.0) mg/dL AST (15-37) U/L ALT (12-78) U/L Alkaline Phosphatase (46-116) IU/L C-Reactive Protein (0.0-0.9) mg/dL Total Protein (6.4-8.2) g/dL Albumin (3.00-4.80) g/dL Specimen Type Urine Color (YELLOW) Urine Appearance (CLEAR) Urine pH (5.0-9.0) Ur Specific [place] (1.005-1.030) Urine Protein (NEGATIVE) mg/dL Urine Glucose (UA) (NEGATIVE) mg/dL Urine Ketones (NEGATIVE) mg/dL Urine Occult Blood (NEGATIVE) Urine Nitrite (NEGATIVE) Urine Bilirubin (NEGATIVE) Urine Urobilinogen (0.2-1.0) E.U./dL Ur Leukocyte Esterase (NEGATIVE) Urine RBC (0-5) /HPF Urine WBC (0-5) /HPF Ur Epithelial Cells /LPF Urine Bacteria (NONE TO FEW) /HPF Meds: Medications Generic Name Dose Route Start Last Admin Trade Name Freq PRN Reason Stop Dose Admin Sodium Chloride 50 mls @ 3 mls/sec 07/16/18 05:15 07/16/18 05:59 Normal Saline IV 3 mls/sec ASDIRECTED WILLARD Administration Sodium Chloride 1,000 mls @ 999 mls/hr 07/16/18 06:36 Normal Saline IV 07/16/18 07:36 .BOLUS ONE Discontinued Medications Generic Name Dose Route Start Last Admin Trade Name Yadira PRN Reason Stop Dose Admin Acetaminophen 650 mg 07/16/18 04:00 07/16/18 04:13 Tylenol PO 07/16/18 04:01 650 mg NOW ONE Administration Ceftriaxone Sodium 1 gm 07/16/18 05:53 07/16/18 05:58 Rocephin IVPUSH 07/16/18 05:54 1 gm ONETIME ONE Administration Iopamidol 75 ml 07/16/18 05:10 07/16/18 05:59 [id number] (76%) IVPUSH 07/16/18 05:11 75 ml ONETIME ONE Administration - Re-Assessments/Exams Free Text/Narrative Re-Assessment/Exam: 07/16/18 04:09 Patient tells me that the right posterior flank pain was severe when it woke him up. He later reported it in lateral flank and now is RLQ of abdomen. The pain is much less than it was. Temp has gone from 101.4 to 101.8 now. Giving Tylenol now. Don't have IV access yet. It took several attempts to get blood samples too. 07/16/18 04:23 His pain is completely gone now without any analgesic. The urine was collected and no stone seen. UA shows no blood 07/16/18 05:[address] results. Patient is pain-free. Temp has dropped some. Labs show WBC 2.8, Hg 8.2, Plt 21 and no UTI. This is mild neutropenia with fever but not the low neutrophil level generally termed neutropenic fever and not as low as he has been in the recent past. Will give Rocephin now and plan to admit after CT resulted. 07/16/18 06:[address] Franco who accepts for admission. No additional antibiotics for now. Discussed with patient also and is stable with temp down to 100.1 Departure - Departure Time of Disposition: 06:36 Disposition: Admitted As Inpatient 64 Condition: Good Clinical Impression: Fever, UTI (urinary tract infection), Acute right flank pain - Discharge Information Forms: ED Department Discharge - My Orders Last 24 Hours: My Active Orders 07/16/18 03:06 CULTURE BLOOD [BC] Stat CULTURE BLOOD [BC] Stat Blood Culture x2 Reflex Set [OM.PC] Stat 07/16/18 04:27 Abdomen Pelvis w Cont [CT] Stat Chest 2V [CR] Stat 07/16/18 05:15 Sodium Chloride 0.9% [Normal Saline] 50 ml IV ASDIRECTED 07/16/18 06:34 Patient Status [ADT] Routine 07/16/18 06:36 Sodium Chloride 0.9% @ 999 MLS/HR (1000ml) Sodium Chloride 0.9% [Normal Saline] 1,000 ml IV .BOLUS - Assessment/Plan Last 24 Hours: My Active Orders 07/16/18 03:06 CULTURE BLOOD [BC] Stat CULTURE BLOOD [BC] Stat Blood Culture x2 Reflex Set [OM.PC] Stat 07/16/18 04:27 Abdomen Pelvis w Cont [CT] Stat Chest 2V [CR] Stat 07/16/18 05:15 Sodium Chloride 0.9% [Normal Saline] 50 ml IV ASDIRECTED 07/16/18 06:34 Patient Status [ADT] Routine 07/16/18 06:36 Sodium Chloride 0.9% @ 999 MLS/HR (1000ml) Sodium Chloride 0.9% [Normal Saline] 1,000 ml IV .BOLUS
[2018-07-16] MEDS ORDERED: Acetaminophen 325 MG Tab PO ONE (04:00)
[2018-07-16 04:14] LABS: ANION GAP 12.2 mmol/L (5-15); CHLORIDE,CL 99 mmol/L (98-115); SODIUM,NA 134 mmol/L (136-145)
[2018-07-16] MEDS ORDERED: Iopamidol 755 Mg/ML 75 ML Bottle IVPUSH ONE (05:10)
[2018-07-16] MEDS ORDERED: Sodium Chloride 0.9% 50 ML IV SCH (05:15)
[2018-07-16] MEDS ORDERED: cefTRIAXone 1 GM Vial IVPUSH ONE (05:53)
[2018-07-16] MEDS ORDERED: Sodium Chloride 0.9% 1,000 ML IV ONE (06:36)
--- NOTE | 2018-07-16 07:42 | CT ---
[id number] CT/CT Abdomen Pelvis W IV EXAM: CT Abdomen Pelvis W IV CLINICAL DATA: RIGHT FLANK PAIN. FEVER. COMPARISON: NO PREVIOUS SIMILAR EXAM IS AVAILABLE. FINDINGS: Median sternotomy sutures are seen. There is a small amount of free fluid in the abdomen and pelvis. The liver and spleen show no focal abnormalities. There is evidence of cholecystolithiasis. The gallbladder is minimally distended. The gallbladder wall is normal. There are atheromatous changes. The adrenals and kidneys show no acute abnormalities. There is mild bowel distention. The pancreas is unremarkable. The mesenteric vessels demonstrate normal enhancement. There is no free air or pneumatosis intestinalis. 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 There are degenerative changes of the lumbar spine. There is thickening of the wall of the descending colon. There is uncomplicated diverticular disease of the colon. The appendix is not seen. There is no evidence of appendicitis. A right hip prosthesis is identified. IMPRESSION: SMALL AMOUNT OF FREE FLUID IN ABDOMEN AND PELVIS. POSSIBILITY OF PERITONITIS CONSIDERED. CHOLECYSTOLITHIASIS. THICKENING OF WALL OF DESCENDING COLON NONSPECIFIC. CONSIDER FOLLOW-UP AND SURGICAL CONSULTATION. CONSIDER PARACENTESIS. POSSIBILITY OF RUPTURED APPENDICITIS IS NOT EXCLUDED. Javier Carvajal MD 07/16/18 0741 Thank you for allowing us to participate in the care of your patient.
--- NOTE | 2018-07-16 07:43 | CR ---
[id number] RAD/RAD Chest PA And Lateral EXAM: RAD Chest PA And Lateral CLINICAL DATA: RIGHT FLANK PAIN. FEVER. COMPARISON: CORRELATION IS MADE WITH THE EXAM OF FEBRUARY 16, 2017 FINDINGS: There is no pneumonia or edema. Median sternotomy sutures are seen. The cardiomediastinal contour is stable. IMPRESSION: NO ACUTE PROCESS. Javier Carvajal MD 07/16/18 0742 Thank you for allowing us to participate in the care of your patient.
--- NOTE | 2018-07-16 09:02 | PCM.HP ---
H&P History of Present Illness - General Date of Service: 07/16/18 Admit Problem/Dx: Admission Diagnosis/Problem Admission Diagnosis/Problem Fever Right Lower Chest Pain Score (Numeric/FACES): 0 Right Lower Abdomen Pain Score (Numeric/FACES): 5 Right Flank Pain Score (Numeric/FACES): 2 Right Abdomen Pain Score (Numeric/FACES): 3 Right Hip Pain Score (Numeric/FACES): 2 - Related Data Allergies/Adverse Reactions: Allergies Allergy/AdvReac Type Severity Reaction Status Date / Time morphine Allergy Intermediate Nausea and Verified 07/16/18 10:30 Vomiting Home Medications: Home Meds Calcium Carbonate/Vitamin D3 [Calcium 600 + Vit D 400] 1 tab PO BID@1200,1700 [History] Simvastatin 40 mg PO BEDTIME 04/24/14 [History] Sertraline [Zoloft] 50 mg PO DAILY 03/23/16 [History] Insulin Degludec [Tresiba Flextouch U-200] 20 units SUBCUT DAILY 03/24/18 [ History] Carvedilol [Coreg] 3.125 mg PO BIDMEALS #30 03/27/18 [Rx] Furosemide [Lasix] 20 mg PO DAILY #0 tablet 03/27/18 [Rx] Iron Polysaccharide Complex [Poly-Iron] 150 mg PO Q48H #0 03/27/18 [Rx] Liraglutide [Victoza] 1.2 mg SUBCUT DAILY #6 ml 03/27/18 [Rx] Lisinopril [Zestril] 2.5 mg PO DAILY #30 tablet 03/27/18 [Rx] Nitroglycerin [Nitrostat] 1 tab SL Q5M PRN #1 bottle 03/27/18 [Rx] Omeprazole 20 mg PO DAILY #0 03/27/18 [Rx] Spironolactone [Aldactone] 25 mg PO DAILY #30 tablet 03/27/18 [Rx] Loperamide HCl [Imodium A-D] 2 mg PO ASDIRECTED PRN MDD 8 capsules/24hr [History] Magnesium Oxide 400 mg PO BEDTIME 05/15/18 [History] Carbidopa/Levodopa [Carbidopa-Levodopa 25-100] 2 tab PO 0700,1100,1600,2000 03/26 [History] Carboxymethylcellulose Sodium [Refresh Tears] 1 drop EYEBOTH QID PRN 07/16/18 [ History] Multivit-Min/FA/Lycopene/Lut [Centrum Silver Tablet] 1 tab PO DAILY@1200 [History] Saline Solution 0.65% 2 spray NASBOTH QID 07/16/18 [History] Midodrine 5 mg PO TID@0700,1200,2000 07/17/18 [History] Past Medical History HEENT History: Reports: Other (See Below) Other HEENT History: surgery to right eye to remove piece of steel, 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 Genitourinary History: Reports: Prostate Disorder Musculoskeletal History: Reports: None Neurological History: Reports: CVA, Parkinson's Psychiatric History: Reports: None Endocrine/Metabolic History: Reports: Diabetes, Type II Hematologic History: Reports: Anemia, Blood Transfusion(s), Other (See Below) Other Hematologic History: MDS Immunologic History: Reports: None Oncologic (Cancer) History: Reports: Prostate Other Oncologic History: MDS Dermatologic History: Reports: None - Infectious Disease History Infectious Disease History: Reports: Chicken Pox, Measles - Past Surgical History Head Surgeries/Procedures: Reports: None HEENT Surgical History: Reports: Eye Surgery Cardiovascular Surgical History: Reports: Coronary Artery Bypass Respiratory Surgical History: Reports: None GI Surgical History: Reports: Appendectomy, Colonoscopy, EGD, Other (See Below) Male Surgical History: Reports: Prostate Biopsy Neurological Surgical History: Reports: None Musculoskeletal Surgical History: Reports: Hip Replacement Social & Family History - Family History Family Medical History: Noncontributory HEENT: Reports: None Cardiac: Reports: Aneurysm, [place] : Reports: None OBGYN: Reports: None Musculoskeletal: Reports: None Neurological: Reports: Cerebral Aneurysms Psychiatric: Reports: None Endocrine/Metabolic: Reports: Diabetes, type II Hematologic: Reports: None Immunologic: Reports: None Dermatologic: Reports: None Oncologic: Reports: Breast - Tobacco Use Smoking Status *Q: Never Smoker Second Hand Smoke Exposure: No - Caffeine Use Caffeine Use: Reports: Soda Other Caffeine Use: coke - Recreational Drug Use Recreational Drug Use: No - Living Situation & Occupation Occupation: Retired H&P Review of Systems - Review of Systems: Review Of Systems: See Below General: Reports: Fever. Denies: Chills, Night Sweats, Diaphoresis, Decreased Appetite HEENT: Reports: Other (bloody nose at times, ) Pulmonary: Reports: No Symptoms Cardiovascular: Reports: Chest Pain, Dyspnea on Exertion Gastrointestinal: Reports: Abdominal Pain (much improved on his rlq pain. ). Denies: Black Stool (off coumadin and no more dark stools. ), Constipation, Diarrhea, Decreased Appetite, Distension, Nausea Genitourinary: Reports: No Symptoms Musculoskeletal: Reports: No Symptoms Skin: Reports: No Symptoms Psychiatric: Reports: No Symptoms Neurological: Reports: Tremors Hematologic/Lymphatic: Reports: Easy Bleeding Exam - Exam Exam: See Below - Vital Signs Vital Signs: Last Vital Signs Temp 100.3 F 07/16/18 07:53 Pulse 102 H 07/16/18 07:53 Resp 24 H 07/16/18 07:53 BP 114/67 07/16/18 07:53 Pulse Ox 96 07/16/18 07:53 Weight: 196 lb 14.4 oz - Exam Quality Assessment: No: DVT Prophylaxis General: Alert, Oriented, Cooperative HEENT: No: Mucosa Moist & [place] Neck: No: Supple, Lymphadenopathy, JVD Lungs: Clear to Auscultation, Normal Respiratory Effort Cardiovascular: Normal S1, Normal S2, Tachycardia GI/Abdominal Exam: No Mass, Distended, Tender. No: Guarding, Rigid, Hernia (Male) Exam: Deferred Rectal (Males) Exam: Deferred Back Exam: No: CVA Tenderness (L), CVA Tenderness (R) Extremities: No: Pedal Edema, Slow Capillary Refill Peripheral Pulses: 2+: Radial (L), Radial (R) Skin: Warm, Dry, Intact Neurological: Cranial Nerves Intact, Reflexes Equal Bilateral Neuro Extensive - Mental Status: Alert, Oriented x3, Normal Mood/Affect, Normal Cognition Neuro Extensive - Motor, Sensory, Reflexes: CN II-XII Intact, Normal Gait, Normal Reflexes Psychiatric: Alert, Normal Affect, Normal Mood - Patient Data Lab Results Last 24 hrs: Laboratory Results - last 24 hr 07/16/18 07/16/18 07/16/18 Range/Units 03:35 03:35 03:35 WBC 2.80 L (5.00-10.00) 10^3/uL RBC 2.52 L (4.50-6.00) 10^6/uL Hgb 8.2 L (13.0-17.0) g/dL Hct 24.7 L (40.0-52.0) % MCV 98.0 H D (82.0-92.0) fL MCH 32.5 H (27.0-31.0) pg MCHC 33.2 (32.0-36.0) g/dL RDW 18.8 H (11.5-14.5) % Plt Count 21 L* (150-400) 10^3/uL Immature Gran % (Auto) 0.7 (0.0-5.0) % Neut % (Auto) 77.8 H (50.0-70.0) % Lymph % (Auto) 15.0 L (20.0-40.0) % [place] % (Auto) 5.7 (2.0-8.0) % Eos % (Auto) 0.4 L (1.0-3.0) % Baso % (Auto) 0.4 (0.0-1.0) % Immature Gran # (Auto) 0.02 (0.00-0.50) 10^3/uL Neut # (Auto) 2.18 L (2.50-7.00) 10^3/uL Lymph # (Auto) 0.42 L (1.00-4.00) 10^3/uL [place] # (Auto) 0.16 (0.10-0.80) 10^3/uL Eos # (Auto) 0.01 L (0.10-0.30) 10^3/uL Baso # (Auto) 0.01 (0.00-0.10) 10^3/uL Platelet Estimate Marked dec Sodium 134 L (136-145) mmol/L Potassium 4.5 (3.3-5.3) mmol/L Chloride 99 (98-115) mmol/L Carbon Dioxide 27.3 (21.0-32.0) mmol/L Anion Gap 12.2 (5-15) mmol/L BUN 26 H (6-25) mg/dL Creatinine 0.99 (0.51-1.17) mg/dL Est Cr Clr Drug Dosing TNP Estimated GFR (MDRD) > 60 mL/min Glucose 212 H (75 - 99) mg/dL Lactic Acid (0.4-2.0) mmol/L Calcium 8.8 (8.7-10.3) mg/dL Total Bilirubin 2.5 H (0.2-1.0) mg/dL AST 24 (15-37) U/L ALT 15 (12-78) U/L Alkaline Phosphatase 238 H (46-116) IU/L C-Reactive Protein 2.9 H (0.0-0.9) mg/dL Total Protein 7.7 (6.4-8.2) g/dL Albumin 3.52 (3.00-4.80) g/dL Specimen Type Urinvoid Urine Color Yellow (YELLOW) Urine Appearance Clear (CLEAR) Urine pH 8.5 (5.0-9.0) Ur Specific [place] 1.020 (1.005-1.030) Urine Protein 100 H (NEGATIVE) mg/dL Urine Glucose (UA) 100 H (NEGATIVE) mg/dL Urine Ketones Negative (NEGATIVE) mg/dL Urine Occult Blood Negative (NEGATIVE) Urine Nitrite Negative (NEGATIVE) Urine Bilirubin Negative (NEGATIVE) Urine Urobilinogen 2.0 H (0.2-1.0) E.U./dL Ur Leukocyte Esterase Negative (NEGATIVE) Urine RBC 0-5 (0-5) /HPF Urine WBC 0-5 (0-5) /HPF Ur Epithelial Cells Occasional /LPF Urine Bacteria Not seen (NONE TO FEW) /HPF 07/16/18 Range/Units 03:35 WBC (5.00-10.00) 10^3/uL RBC (4.50-6.00) 10^6/uL Hgb (13.0-17.0) g/dL Hct (40.0-52.0) % MCV (82.0-92.0) fL MCH (27.0-31.0) pg MCHC (32.0-36.0) g/dL RDW (11.5-14.5) % Plt Count (150-400) 10^3/uL Immature Gran % (Auto) (0.0-5.0) % Neut % (Auto) (50.0-70.0) % Lymph % (Auto) (20.0-40.0) % [place] % (Auto) (2.0-8.0) % Eos % (Auto) (1.0-3.0) % Baso % (Auto) (0.0-1.0) % Immature Gran # (Auto) (0.00-0.50) 10^3/uL Neut # (Auto) (2.50-7.00) 10^3/uL Lymph # (Auto) (1.00-4.00) 10^3/uL [place] # (Auto) (0.10-0.80) 10^3/uL Eos # (Auto) (0.10-0.30) 10^3/uL Baso # (Auto) (0.00-0.10) 10^3/uL Platelet Estimate Sodium (136-145) mmol/L Potassium (3.3-5.3) mmol/L Chloride (98-115) mmol/L Carbon Dioxide (21.0-32.0) mmol/L Anion Gap (5-15) mmol/L BUN (6-25) mg/dL Creatinine (0.51-1.17) mg/dL Est Cr Clr Drug Dosing Estimated GFR (MDRD) mL/min Glucose (75 - 99) mg/dL Lactic Acid 1.8 (0.4-2.0) mmol/L Calcium (8.7-10.3) mg/dL Total Bilirubin (0.2-1.0) mg/dL AST (15-37) U/L ALT (12-78) U/L Alkaline Phosphatase (46-116) IU/L C-Reactive Protein (0.0-0.9) mg/dL Total Protein (6.4-8.2) g/dL Albumin (3.00-4.80) g/dL Specimen Type Urine Color (YELLOW) Urine Appearance (CLEAR) Urine pH (5.0-9.0) Ur Specific [place] (1.005-1.030) Urine Protein (NEGATIVE) mg/dL Urine Glucose (UA) (NEGATIVE) mg/dL Urine Ketones (NEGATIVE) mg/dL Urine Occult Blood (NEGATIVE) Urine Nitrite (NEGATIVE) Urine Bilirubin (NEGATIVE) Urine Urobilinogen (0.2-1.0) E.U./dL Ur Leukocyte Esterase (NEGATIVE) Urine RBC (0-5) /HPF Urine WBC (0-5) /HPF Ur Epithelial Cells /LPF Urine Bacteria (NONE TO FEW) /HPF Result Diagrams: 07/18/18 08:00 07/17/18 07:40 Problem List Initiated/Reviewed/Updated: Yes Orders Last 24hrs: Active Orders 24 hr Category Date Time Status Patient Status [ADT] Routine ADT 07/16/18 06:34 Ordered 2 Gram Sodium Diet [DIET] Diet 07/16/18 Breakfast Active [place] [employer] Diet [DIET] Diet 07/16/18 Lunch Active CULTURE BLOOD [BC] Stat Lab 07/16/18 03:35 Received CULTURE BLOOD [BC] Stat Lab 07/16/18 03:35 Received Sodium Chloride 0.9% [Normal Saline] 50 ml Med 07/16/18 05:15 Active IV ASDIRECTED Blood Culture x2 Reflex Set [OM.PC] Stat Oth 07/16/18 03:06 Ordered Medication Orders Sodium Chloride (Normal Saline) 50 mls @ 3 mls/sec IV ASDIRECTED WILLARD Last Admin: 07/16/18 05:59 Dose: 3 mls/sec Assessment/Plan Comment:: History of present illness 83-year-old gentleman was admitted fig washer hours through the ED after he had considerable abdominal pain right lower right mid significant yesterday however much improved today. Patient stated he had significant abdominal pain possible fever and has not remembered much events from yesterday. It came into the ED complaining of right flank pain and fever that started a couple hours prior to arrival. He says he felt a little flank pain when he went to bed but it woke him up during the night and NH staff found him to have fever and tachycardia. No history of kidney infections or renal stones. ED findings --Chest x-ray, no acute process --Amended abnormal CT demonstrates small amount of free fluid in abdomen and pelvis, consider peritonitis, cholelithiasis, thickening wall of descending colon which is nonspecific, possibly ruptured appendix cannot be excluded Total bili 2.5 CRP, 2.9 Urobilinogen in urine 2.0 Platelet 21,000 WBC 2.8 SPENCER globin 8.2 Primary hospital problems Possible colitis R/O appendicitis Chronic problems Thrombocytopenia with frequent nosebleeds, off Coumadin, may need platelets that , no bleeding now, monitor carefully HFpEF; chronic, combined. ECHO (2017) noted EF 50%, mild to moderate LVH, mildly reduced systolic function and hypokinetic wall segments. carvedilol 3.125 mg b.i.d., Lasix 20 mg daily, lisinopril 2.5 mg daily, midodrine 5 mg t.i.d. for orthostatic hypotension, spironolactone 25 mg daily. Atrial fibrillation, paroxysmal, [id number] CVR, INR goal for patient 1.5-2. Off Coumadin T2DM, GLP-1A, long acting basal Tresiba 200 units/mL, 20 units subcutaneous daily, and Victoza 18 mg daily. Metformin was DC'd 10/2017 CAD with [place]/CABG hx CVA hx, embolic HLD, statin therapy, no myalgias, Parkinsonism, Sinemet Prostate CA Depression, on Zoloft, MDS, followed by oncology, GERD Weekly Procrit, 07/17/2017 Add broad-spectrum abx, add urine cx, fluids IV today and monitor of signs/sx sepsis. qSOFA 07/10. Hold HTN meds, monitor MAP. Will monitor for declaration. Consult with surgery to confirm course of plan
[2018-07-16] MEDS ORDERED: Acetaminophen 325 MG Tab PO PRN (10:37)
[2018-07-16] MEDS ORDERED: Diclofenac Sodium 1% Gel 100 GM Tube TOP PRN (10:53)
[2018-07-16] MEDS ORDERED: Ceres/Mineral Oil/Petrolatum/Wool Alcohol Cream 57 GM Tube TOP PRN (10:53)
[2018-07-16] MEDS ORDERED: Carboxymethylcellulose Sodium 0.5% Ophth Soln 15 ML Bottle EYEBOTH PRN (10:53)
[2018-07-16] MEDS ORDERED: Loperamide 2 MG Cap PO PRN (10:53)
[2018-07-16] MEDS ORDERED: Piperacillin/Tazobactam 3.375 GM in Sodium Chloride 0.9% 100 ML IV SCH (11:00)
[2018-07-16] MEDS ORDERED: Sodium Chloride 0.9% 1,000 ML IV SCH (11:00)
[2018-07-16] MEDS: Iron Polysaccharides Complex 150 MG Cap PO SCH (12:06)
[2018-07-16] MEDS: Piperacillin/Tazobactam/Dext 50 ML IV SCH ×3 (12:06→23:41)
[2018-07-16] MEDS: Carbidopa/Levodopa 25-100 MG Tab PO SCH ×3 (12:06→21:02)
[2018-07-16] MEDS: Midodrine 5 MG Tab PO SCH ×2 (12:13→18:02)
[2018-07-16] MEDS: Sodium Chloride 0.65% Nasal Spray 45 ML Bottle NASBOTH SCH ×3 (13:27→21:05)
[2018-07-16] MEDS: Simvastatin 20 MG Tab PO SCH (21:02)
[2018-07-16] MEDS: Magnesium Oxide 500 MG Tab PO SCH (21:02)
[2018-07-16] MEDS: Sodium Chloride 0.9% 1,000 ML IV SCH (23:48)
[2018-07-17] MEDS: Piperacillin/Tazobactam/Dext 50 ML IV SCH ×4 (04:55→22:46)
[2018-07-17] MEDS: Omeprazole 20 MG Cap.CR PO SCH (06:33)
[2018-07-17] MEDS: Carbidopa/Levodopa 25-100 MG Tab PO SCH ×4 (06:34→20:16)
[2018-07-17] MEDS: Midodrine 5 MG Tab PO SCH ×3 (07:46→20:16)
[2018-07-17 08:07] LABS: ANION GAP 13.3 mmol/L (5-15); CHLORIDE,CL 103 mmol/L (98-115); SODIUM,NA 137 mmol/L (136-145)
[2018-07-17] MEDS ORDERED: Liraglutide (rDNA Origin) 0.6 MG/0.1 ML 3 ML Pen SUBCUT SCH (09:00)
[2018-07-17] MEDS: Sodium Chloride 0.65% Nasal Spray 45 ML Bottle NASBOTH SCH ×4 (09:23→20:18)
[2018-07-17] MEDS: [UNRECOGNIZED DRUG - OTHER] SUBCUT SCH (09:23)
[2018-07-17] MEDS: INSULIN DEGLUDEC SUBCUT SCH (09:23)
[2018-07-17] MEDS: Sertraline 50 MG Tab PO SCH (09:23)
[2018-07-17] MEDS: Liraglutide (rDNA Origin) 0.6 MG/0.1 ML 3 ML Pen SUBCUT SCH (09:24)
--- NOTE | 2018-07-17 09:42 | PCM.PN ---
- General Info Date of Service: 07/17/18 Subjective Update: Patient states he's feeling stronger slept well last night, temperature 99.2 Functional Status: Reports: Pain Controlled, Tolerating Diet, Incentive Spirometry. Denies: Ambulating, New Symptoms - Review of Systems General: Denies: Fever, Weakness, Fatigue, Malaise, Chills, Night Sweats HEENT: Reports: Rhinitis Pulmonary: Reports: No Symptoms Cardiovascular: Denies: Chest Pain, Dyspnea on Exertion, PND, Edema, Lightheadedness Gastrointestinal: Reports: Abdominal Pain. Denies: Constipation, Decreased Appetite, Diarrhea, Difficulty Swallowing, Nausea, Vomiting Genitourinary: Reports: No Symptoms Skin: Reports: Dryness Neurological: Reports: Tremors Psychiatric: Reports: No Symptoms - Patient Data Vitals - Most Recent: Last Vital Signs Temp 99.2 F 07/17/18 06:55 Pulse 92 07/17/18 06:55 Resp 22 H 07/17/18 06:55 BP 98/50 L 07/17/18 06:55 Pulse Ox 96 07/17/18 06:55 Weight - Most Recent: 198 lb 3.2 oz I&O - Last 24 Hours: Intake & Output 07/16/18 07/17/18 07/17/18 22:59 06:59 14:59 Intake Total 702 907 Output Total 550 1200 Balance 152 -293 Lab Results Last 24 Hours: Laboratory Results - last 24 hr 07/17/18 07/17/18 07/17/18 Range/Units 06:37 07:40 07:40 WBC 3.30 L (5.00-10.00) 10^3/uL RBC 2.15 L (4.50-6.00) 10^6/uL Hgb 7.0 L (13.0-17.0) g/dL Hct 21.1 L (40.0-52.0) % MCV 98.1 H (82.0-92.0) fL MCH 32.6 H (27.0-31.0) pg MCHC 33.2 (32.0-36.0) g/dL RDW 19.0 H (11.5-14.5) % Plt Count 14 L* (150-400) 10^3/uL Immature Gran % (Auto) 0.6 (0.0-5.0) % Neut % (Auto) 71.8 H (50.0-70.0) % Lymph % (Auto) 20.9 (20.0-40.0) % [place] % (Auto) 6.1 (2.0-8.0) % Eos % (Auto) 0.6 L (1.0-3.0) % Baso % (Auto) 0.0 (0.0-1.0) % Immature Gran # (Auto) 0.02 (0.00-0.50) 10^3/uL Neut # (Auto) 2.37 L (2.50-7.00) 10^3/uL Lymph # (Auto) 0.69 L (1.00-4.00) 10^3/uL [place] # (Auto) 0.20 (0.10-0.80) 10^3/uL Eos # (Auto) 0.02 L (0.10-0.30) 10^3/uL Baso # (Auto) 0.00 (0.00-0.10) 10^3/uL Platelet Estimate Marked dec Sodium 137 (136-145) mmol/L Potassium 4.2 (3.3-5.3) mmol/L Chloride 103 (98-115) mmol/L Carbon Dioxide 24.9 (21.0-32.0) mmol/L Anion Gap 13.3 (5-15) mmol/L BUN 24 (6-25) mg/dL Creatinine 0.96 (0.51-1.17) mg/dL Est Cr Clr Drug Dosing 61.75 mL/min Estimated GFR (MDRD) > 60 mL/min Glucose 163 H (75 - 99) mg/dL POC Glucose 197 H (74-106) mg/dl Calcium 8.3 L (8.7-10.3) mg/dL He Results Last 24 Hours: Microbiology 07/16/18 04:00 Urine Culture - Final Urine, Bladder MIXED TENZIN SUGGESTIVE OF CONTAMINATION. 07/16/18 03:35 Aerobic Blood Culture - Preliminary Blood - Venous NO GROWTH AFTER 1 DAY Anaerobic Blood Culture - Preliminary NO GROWTH AFTER 1 DAY 07/16/18 03:35 Aerobic Blood Culture - Preliminary Blood - Venous - Lab Draw NO GROWTH AFTER 1 DAY Anaerobic Blood Culture - Preliminary NO GROWTH AFTER 1 DAY Med Orders - Current: Current Medications Acetaminophen (Tylenol) 325 - 650 mg PO Q4H PRN PRN Reason: Fever Last Admin: 07/16/18 11:28 Dose: 650 mg Artificial Tears (Refresh Tears 0.5%) 0 ml EYEBOTH QID PRN PRN Reason: dry eye syndrome Carbidopa/Levodopa (Sinemet 25-100 Mg) 2 tab PO 0700,1100,1600,2000 [facility] Last Admin: 07/17/18 06:34 Dose: 2 tab Diclofenac Sodium (Voltaren 1% Gel) 1 gm TOP TID PRN PRN Reason: Pain Piperacillin/Tazobactam/Dextrose (Zosyn In Dextrose Iso-Osmotic 3.375 Gm) 50 mls @ 100 mls/hr IV Q6H [facility] Last Admin: 07/17/18 04:55 Dose: 100 mls/hr Sodium Chloride (Normal Saline) 1,000 mls @ 60 mls/hr IV ASDIRECTED [facility] Last Admin: 07/16/18 23:48 Dose: 60 mls/hr Loperamide HCl (Imodium) 2 mg PO ASDIRECTED PRN PRN Reason: Diarrhea Magnesium Oxide (Magnesium Oxide) 500 mg PO BEDTIME [facility] Last Admin: 07/16/18 21:02 Dose: 500 mg Midodrine (Midodrine) 5 mg PO TID@0800,1200,1800 [facility] Last Admin: 07/17/18 07:46 Dose: 5 mg Multi-Ingredient Ointment (Eucerin Creme) 0 gm TOP BID PRN PRN Reason: Itching Omeprazole (Omeprazole) 20 mg PO ACBREAKFAST [facility] Last Admin: 07/17/18 06:33 Dose: 20 mg Tresiba Flextouch U- (200/Ml 3ml) 0 each SUBCUT DAILY [facility] Liraglutide (Rdna Origin) 0.6 Mg/0.1 Ml 3 Ml Pen 0 each SUBCUT DAILY [facility] Polysaccharide Iron Complex (Ferrex 150) 150 mg PO Q48H [facility] Last Admin: 07/16/18 12:06 Dose: 150 mg Sertraline HCl (Zoloft) 50 mg PO DAILY [facility] Simvastatin (Zocor) 40 mg PO BEDTIME [facility] Last Admin: 07/16/18 21:02 Dose: 40 mg Sodium Chloride (Garden Nasal [place]) 0 ml NASBOTH QID [facility] Last Admin: 07/16/18 21:05 Dose: 2 spray Discontinued Medications Acetaminophen (Tylenol) 650 mg PO NOW ONE Stop: 07/16/18 04:01 Last Admin: 07/16/18 04:13 Dose: 650 mg Ceftriaxone Sodium (Rocephin) 1 gm IVPUSH ONETIME ONE Stop: 07/16/18 05:54 Last Admin: 07/16/18 05:58 Dose: 1 gm Sodium Chloride (Normal Saline) 50 mls @ 3 mls/sec IV ASDIRECTED [facility] Last Admin: 07/16/18 05:59 Dose: 3 mls/sec Sodium Chloride (Normal Saline) 1,000 mls @ 999 mls/hr IV .BOLUS ONE Stop: 07/16/18 07:36 Last Admin: 07/16/18 06:55 Dose: 999 mls/hr Piperacillin Sod/Tazobactam (Sod 3.375 gm/ Sodium Chloride) 100 mls @ 200 mls/ hr IV Q6H [facility] Last Admin: 07/16/18 12:15 Dose: Not Given Sodium Chloride (Normal Saline) 1,000 mls @ 100 mls/hr IV ASDIRECTED [facility] Last Infusion: 07/16/18 17:21 Dose: 60 mls/hr Iopamidol (Isovue-370 (76%)) 75 ml IVPUSH ONETIME ONE Stop: 07/16/18 05:11 Last Admin: 07/16/18 05:59 Dose: 75 ml Liraglutide (Victoza) 1.2 mg SUBCUT DAILY WILLARD - Exam Quality Assessment: No: Supplemental Oxygen General: Alert, Oriented, Cooperative. No: No Acute Distress, Mild Distress Neck: Trachea Midline, No JVD Lungs: Clear to Auscultation, Normal Respiratory Effort. No: Rhonchi Cardiovascular: Irregular Rhythm GI/Abdominal Exam: Distended, Tender (Tender right lower quadrant to right mid quadrant abdominal, fluid wave). No: Guarding (Male) Exam: Deferred Back Exam: No: CVA Tenderness (L), CVA Tenderness (R) Peripheral Pulses: 2+: Radial (L), Radial (R) Skin: Other (Bruising) - Problem List Review Problem List Initiated/Reviewed/Updated: Yes - My Orders Last 24 Hours: My Active Orders 07/16/18 10:37 Acetaminophen [Tylenol] 325 - 650 mg PO Q4H PRN 07/16/18 10:52 Oxygen Therapy [RC] PRN Up With Assistance [RC] ASDIRECTED Up to Chair [RC] ASDIRECTED VTE/DVT Education [RC] PER UNIT ROUTINE Vital Signs [RC] 0300,0700,1100,1500,1900,2300 Resuscitation Status Routine 07/16/18 10:53 Intake and Output [RC] 1400,2200,0600 Carboxymethylcellulose Sodium [Refresh Tears 0.5%] 0 ml EYEBOTH QID PRN [place]/Min Oil/Bri/Wool Alcoh [Eucerin Creme] 0 gm TOP BID PRN Diclofenac Sodium [Voltaren 1% Gel] 1 gm TOP TID PRN Loperamide [Imodium] 2 mg PO ASDIRECTED PRN Antiembolic Hose [OM.PC] Per Unit Routine 07/16/18 11:00 Carbidopa/Levodopa [Sinemet 25-100 mg] 2 tab PO 0700,1100,1600,2000 Iron Polysaccharides Complex [Ferrex 150] 150 mg PO Q48H 07/16/18 11:14 Piperacillin/Tazobactam/Dext [Zosyn in Dextrose Iso-Osmotic 3.375 GM] 50 ml IV Q6H 07/16/18 12:00 Midodrine 5 mg PO TID@0800,1200,1800 07/16/18 13:00 Sodium Chloride 0.65% [Garden Nasal [place]] 0 ml NASBOTH QID 07/16/18 13:10 Sodium Chloride 0.9% [Normal Saline] 1,000 ml IV ASDIRECTED 07/16/18 13:17 Communication Order [RC] 0100,0900,1700 07/16/18 21:00 Magnesium Oxide 500 mg PO BEDTIME Simvastatin [Zocor] 40 mg PO BEDTIME 07/16/18 Lunch [employer] Diet [DIET] 07/17/18 07:00 Blood Glucose Check, Bedside [RC] 0700 07/17/18 07:30 Omeprazole 20 mg PO ACBREAKFAST 07/17/18 09:00 Patient's Own Medication [Ptom] 0 each SUBCUT DAILY Patient's Own Medication [Ptom] 0 each SUBCUT DAILY Sertraline [Zoloft] 50 mg PO DAILY - Plan Plan:: History of present illness 83-year-old gentleman was 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 Patient stated he had significant abdominal pain possible fever and has not remembered much events from yesterday. It came into the ED complaining of right flank pain and fever that started a couple hours prior to arrival. He says he felt a little flank pain when he went to bed but it woke him up during the night and NH staff found him to have fever and tachycardia. No history of kidney infections or renal stones. ED findings --Chest x-ray, no acute process --Amended abnormal CT demonstrates small amount of free fluid in abdomen and pelvis, consider peritonitis, cholelithiasis, thickening wall of descending colon which is nonspecific, possibly ruptured appendix cannot be excluded Total bili 2.5 CRP, 2.9 Urobilinogen in urine 2.0 Platelet 21,000 WBC 2.8 SPENCER globin 8.2 Primary hospital problems Possible colitis R/O appendicitis Anemia, MDS 5q deletion, Procrit today in attempt to avoid transfuse, in light of CAD concerning. Neutropenia, neutropenic precautions Surgical consultation. Chronic problems Thrombocytopenia with frequent nosebleeds, off Coumadin HFpEF; chronic, combined. ECHO (2017) noted EF 50%, mild to moderate LVH, mildly reduced systolic function and hypokinetic wall segments. carvedilol 3.125 mg b.i.d., Lasix 20 mg daily, lisinopril 2.5 mg daily, midodrine 5 mg t.i.d. for orthostatic hypotension, spironolactone 25 mg daily. Atrial fibrillation, paroxysmal, [id number] CVR, INR goal for patient 1.5-2. Off Coumadin T2DM, GLP-1A, long acting basal Tresiba 200 units/mL, 20 units subcutaneous daily, and Victoza 18 mg daily. 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 qSOFA 07/10. Hold HTN meds, monitor MAP. Will monitor for declaration, surgical consultation, Procrit today and attempt to avoid a transfusion.
[2018-07-17] MEDS ORDERED: Epoetin Alfa 40,000 Units/1 ML SDV SUBCUT SCH (11:00)
[2018-07-17] MEDS: Sodium Chloride 0.9% 1,000 ML IV SCH (18:36)
[2018-07-17] MEDS: Simvastatin 20 MG Tab PO SCH (20:16)
[2018-07-17] MEDS: Magnesium Oxide 500 MG Tab PO SCH (20:16)
[2018-07-18] MEDS: Piperacillin/Tazobactam/Dext 50 ML IV SCH ×4 (05:00→23:35)
[2018-07-18] MEDS: Midodrine 5 MG Tab PO SCH ×3 (07:17→20:38)
[2018-07-18] MEDS: Omeprazole 20 MG Cap.CR PO SCH (07:17)
[2018-07-18] MEDS: Carbidopa/Levodopa 25-100 MG Tab PO SCH ×4 (07:17→20:37)
[2018-07-18] MEDS: [UNRECOGNIZED DRUG - OTHER] SUBCUT SCH (08:46)
[2018-07-18] MEDS: INSULIN DEGLUDEC SUBCUT SCH (08:46)
[2018-07-18] MEDS: Sodium Chloride 0.65% Nasal Spray 45 ML Bottle NASBOTH SCH ×4 (08:46→20:39)
[2018-07-18] MEDS: Sertraline 50 MG Tab PO SCH (08:46)
[2018-07-18] MEDS: Liraglutide (rDNA Origin) 0.6 MG/0.1 ML 3 ML Pen SUBCUT SCH (08:47)
[2018-07-18] MEDS: Iron Polysaccharides Complex 150 MG Cap PO SCH (11:06)
[2018-07-18] MEDS: Sodium Chloride 0.9% 1,000 ML IV SCH (12:15)
--- NOTE | 2018-07-18 14:44 | PCM.SN ---
- Free Text/Narrative Note: I consulted with trauma surgeon Dr. Hansen explained patient's clinical course, examination, vital signs. She reviewed both reports and films. She concur with our current treatment plan, Abx, as this is reasonable based off hx, PE, ROS, being ambulatory, age, comorbidity, etc coupled with our ability to monitor while in the hospital. We'll notify her of any changes, any hemodynamic instability, she did recommend eventually switching to oral ciprofloxacin or oral Augmentin x14 days post hospitalization. R
[2018-07-18] MEDS: Magnesium Oxide 500 MG Tab PO SCH (20:37)
[2018-07-18] MEDS: Simvastatin 20 MG Tab PO SCH (20:38)
--- NOTE | 2018-07-18 23:39 | PCM.PN ---
- General Info Date of Service: 07/18/18 Subjective Update: Mr. Gutiérrez reports no concerns this morning and generally feels well and back to his baseline. Complains of some chronic hip pain this morning. Has also had some looser stools in the last day. Denies any fever, abdominal pain, nausea, vomiting, chest pain, shortness of breath, dysuria, or other complaints. No nursing concerns. No evidence of bleeding. - Patient Data Vitals - Most Recent: Last Vital Signs Temp 36.3 C 07/18/18 22:36 Pulse 70 07/18/18 22:36 Resp 18 07/18/18 22:36 BP 108/59 L 07/18/18 22:36 Pulse Ox 96 07/18/18 22:36 Weight - Most Recent: 89.902 kg I&O - Last 24 Hours: Intake & Output 07/18/18 07/18/18 07/19/18 14:59 22:59 06:59 Intake Total 1098 486 Output Total 300 850 Balance 798 -364 Lab Results Last 24 Hours: Laboratory Results - last 24 hr 07/18/18 07/18/18 Range/Units 07:19 08:00 WBC 3.71 L (5.00-10.00) 10^3/uL RBC 2.35 L (4.50-6.00) 10^6/uL Hgb 7.7 L (13.0-17.0) g/dL Hct 23.6 L (40.0-52.0) % MCV 100.4 H (82.0-92.0) fL MCH 32.8 H (27.0-31.0) pg MCHC 32.6 (32.0-36.0) g/dL RDW 19.6 H (11.5-14.5) % Plt Count 20 L* (150-400) 10^3/uL MPV TNP POC Glucose 152 H (74-106) mg/dl He Results Last 24 Hours: Microbiology 07/16/18 03:35 Aerobic Blood Culture - Preliminary Blood - Venous NO GROWTH AFTER 2 DAYS Anaerobic Blood Culture - Preliminary NO GROWTH AFTER 2 DAYS 07/16/18 03:35 Aerobic Blood Culture - Preliminary Blood - Venous - Lab Draw NO GROWTH AFTER 2 DAYS Anaerobic Blood Culture - Preliminary NO GROWTH AFTER 2 DAYS Med Orders - Current: Current Medications Acetaminophen (Tylenol) 325 - 650 mg PO Q4H PRN PRN Reason: Fever Last Admin: 07/16/18 11:28 Dose: 650 mg Artificial Tears (Refresh Tears 0.5%) 0 ml EYEBOTH QID PRN PRN Reason: dry eye syndrome Carbidopa/Levodopa (Sinemet 25-100 Mg) 2 tab PO 0700,1100,1600,2000 [facility] Last Admin: 07/18/18 20:37 Dose: 2 tab Diclofenac Sodium (Voltaren 1% Gel) 1 gm TOP TID PRN PRN Reason: Pain Epoetin Maury (Procrit) 40,000 units SUBCUT Th [facility] Last Admin: 07/17/18 15:47 Dose: 40,000 units Piperacillin/Tazobactam/Dextrose (Zosyn In Dextrose Iso-Osmotic 3.375 Gm) 50 mls @ 100 mls/hr IV Q6H [facility] Last Admin: 07/18/18 17:58 Dose: 100 mls/hr Sodium Chloride (Normal Saline) 1,000 mls @ 60 mls/hr IV ASDIRECTED [facility] Last Admin: 07/18/18 12:15 Dose: 60 mls/hr Loperamide HCl (Imodium) 2 mg PO ASDIRECTED PRN PRN Reason: Diarrhea Last Admin: 07/18/18 07:57 Dose: 2 mg Magnesium Oxide (Magnesium Oxide) 500 mg PO BEDTIME [facility] Last Admin: 07/18/18 20:37 Dose: 500 mg Midodrine (Midodrine) 5 mg PO TID@0700,1200,2000 [facility] Last Admin: 07/18/18 20:38 Dose: 5 mg Multi-Ingredient Ointment (Eucerin Creme) 0 gm TOP BID PRN PRN Reason: Itching Omeprazole (Omeprazole) 20 mg PO ACBREAKFAST [facility] Last Admin: 07/18/18 07:17 Dose: 20 mg Tresiba Flextouch U- (200/Ml 3ml) 0 each SUBCUT DAILY [facility] Last Admin: 07/18/18 08:46 Dose: 1 each Liraglutide (Rdna Origin) 0.6 Mg/0.1 Ml 3 Ml Pen 0 each SUBCUT DAILY [facility] Last Admin: 07/18/18 08:47 Dose: 1 each Polysaccharide Iron Complex (Ferrex 150) 150 mg PO Q48H [facility] Last Admin: 07/18/18 11:06 Dose: 150 mg Sertraline HCl (Zoloft) 50 mg PO DAILY [facility] Last Admin: 07/18/18 08:46 Dose: 50 mg Simvastatin (Zocor) 40 mg PO BEDTIME [facility] Last Admin: 07/18/18 20:38 Dose: 40 mg Sodium Chloride ([place] Nasal [place]) 0 ml NASBOTH QID [facility] Last Admin: 07/18/18 20:39 Dose: 2 spray Discontinued Medications Acetaminophen (Tylenol) 650 mg PO NOW ONE Stop: 07/16/18 04:01 Last Admin: 07/16/18 04:13 Dose: 650 mg Ceftriaxone Sodium (Rocephin) 1 gm IVPUSH ONETIME ONE Stop: 07/16/18 05:54 Last Admin: 07/16/18 05:58 Dose: 1 gm Sodium Chloride (Normal Saline) 50 mls @ 3 mls/sec IV ASDIRECTED [facility] Last Admin: 07/16/18 05:59 Dose: 3 mls/sec Sodium Chloride (Normal Saline) 1,000 mls @ 999 mls/hr IV .BOLUS ONE Stop: 07/16/18 07:36 Last Admin: 07/16/18 06:55 Dose: 999 mls/hr Piperacillin Sod/Tazobactam (Sod 3.375 gm/ Sodium Chloride) 100 mls @ 200 mls/ hr IV Q6H [facility] Last Admin: 07/16/18 12:15 Dose: Not Given Sodium Chloride (Normal Saline) 1,000 mls @ 100 mls/hr IV ASDIRECTED [facility] Last Infusion: 07/16/18 17:21 Dose: 60 mls/hr Iopamidol (Isovue-370 (76%)) 75 ml IVPUSH ONETIME ONE Stop: 07/16/18 05:11 Last Admin: 07/16/18 05:59 Dose: 75 ml Liraglutide (Victoza) 1.2 mg SUBCUT DAILY [facility] Midodrine (Midodrine) 5 mg PO TID@0800,1200,1800 [facility] Last Admin: 07/17/18 11:39 Dose: 5 mg - Exam Physical Findings Comments:: GENERAL: Pale, elderly white male lying in hospital bed in no acute distress. HEENT: Normocephalic, atraumatic. Conjunctiva clear. Nares patent without discharge. Mucous membranes moist. NECK: Supple, no masses. CV: Irregular, no murmurs, rubs, or gallops. 2+ radial pulses. PULMONARY: Normal effort, clear to auscultation bilaterally, no wheezes, rales, or rhonchi. ABDOMEN: Positive bowel sounds, soft, very slight tenderness to deep palpation in the R mid abdomen, nondistended, no rigidity/guarding/rebound. EXTREMITIES: No edema, cyanosis, or clubbing. MUSCULOSKELETAL: Moves all extremities well. NEUROLOGICAL: No obvious deficits. DERMATOLOGIC: No rashes or suspicious lesions in exposed areas. PSYCHIATRIC: Alert, interactive, appropriate affect. - Problem List Review Problem List Initiated/Reviewed/Updated: Yes - My Orders Last 24 Hours: My Active Orders 07/19/18 05:11 CBC WITH AUTO DIFF [HEME] AM COMPREHENSIVE METABOLIC PN,CMP [CHEM] AM CRP [C-REACTIVE PROTEIN] [CHEM] AM - Plan Plan:: HPI summary: 83yoM with a history notable for MDS who resides at [facility] and came to the ED on 07/16/17 for fever and tachycardia. It was also noted by SNF staff that he had right-sided abdominal pain on the day prior. ED course: VS noted to be unremarkable. Diagnostics notable for the following: -WBC 2.8 -Platelets 21,000 - Total bilirubin 2.5 - CRP 2.9 - UA unremarkable except urobilinogen - Chest x-ray with no acute process - CT abdomen with small amount of free fluid in abdomen and pelvis, consider peritonitis, cholelithiasis, thickening wall of descending colon which is nonspecific, possibly ruptured appendix cannot be excluded. Interval hospital course: Mr. Gutiérrez has had no fever or VS instability since arrival. Abdominal pain has nearly resolved. Has had some formed, but soft, stools. VS improved since weekly Procrit administration on 07/17/17. Cultures negative. Saleem Nolan consulted with Dr. Hansen, general surgery, on 07/17/17, who reviewed labs and imaging and agreed with ongoing conservative management without surgical intervention; recommends completing 14 day course of antibiotics, with switch to oral ciprofloxacin or Augmentin post-hospitalization. Hospitalization problems: # Fever, resolved since admission # Right abdominal pain, improved with near-resolution # Possible colitis versus ruptured appendicitis # MDS with pancytopenia Anemia, MDS 5q deletion, Procrit today in attempt to avoid transfuse, in light of CAD concerning. Continue close monitoring of clinical status and ongoing administration of Zosyn , with plan to switch to oral antibiotic course in the coming days to finish 14 day course as recommended by general surgery, as above. Continue with neutropenic precautions. Recheck labs tomorrow. Chronic, stable conditions: # Hx CVA, embolic # Parkinsonism: Continue Sinemet. # HFpEF, chronic: Echo (2017) noted EF 50%, mild to moderate LVH, mildly reduced systolic function and hypokinetic wall segments. Continue carvedilol 3.125mg BID, lisinopril 2.5mg daily, spironolactone 25mg daily, furosemide 20mg daily. # CAD with hx VT/CABG # Atrial fibrillation, paroxysmal: Off anticoagulation due to recurrent nosebleeds and pancytopenia. # Orthostatic hypotension: Continue midodrine 5mg TID. # GERD # T2DM: Continue Tresiba 20 units daily and liraglutide. Metformin was DC'd 2017. # HLD: Continue statin. # Hx prostate CA # Depression: Continue sertraline. Hospitalization details: # FEN: No IVF. Electrolytes normal. Diabetic diet. # PPX: Pharmacologic DVT ppx contraindicated with hx bleeding and pancytopenia. # Code status: DNR/DNI. # Emergency contact: Step-daughter, who was updated by nursing. # Disposition: Continue in inpatient status. Possible discharge back to [facility] tomorrow.
[2018-07-19] MEDS: Piperacillin/Tazobactam/Dext 50 ML IV SCH ×4 (05:04→22:55)
[2018-07-19] MEDS: Midodrine 5 MG Tab PO SCH ×3 (06:28→20:13)
[2018-07-19] MEDS: Carbidopa/Levodopa 25-100 MG Tab PO SCH ×4 (06:28→20:13)
[2018-07-19] MEDS: Omeprazole 20 MG Cap.CR PO SCH (06:31)
[2018-07-19] MEDS: Sodium Chloride 0.9% 1,000 ML IV SCH (07:37)
[2018-07-19 08:20] LABS: ANION GAP 13.4 mmol/L (5-15); CHLORIDE,CL 104 mmol/L (98-115); SODIUM,NA 137 mmol/L (136-145)
[2018-07-19] MEDS: Sodium Chloride 0.65% Nasal Spray 45 ML Bottle NASBOTH SCH ×4 (08:37→20:12)
[2018-07-19] MEDS: Liraglutide (rDNA Origin) 0.6 MG/0.1 ML 3 ML Pen SUBCUT SCH (08:38)
[2018-07-19] MEDS: Sertraline 50 MG Tab PO SCH (09:08)
[2018-07-19] MEDS: [UNRECOGNIZED DRUG - OTHER] SUBCUT SCH (09:09)
[2018-07-19] MEDS: INSULIN DEGLUDEC SUBCUT SCH (09:09)
--- NOTE | 2018-07-19 12:19 | PCM.PN ---
- General Info Date of Service: 07/19/18 Subjective Update: Mr. Gutiérrez reports feeling fairly well this morning. In the past 24 hrs, he states he has had intermittent cramping abdominal pain which improves following bowel movement. Mildly loose stools, which are his baseline, continue without blood. Denies any fever, nausea, vomiting, chest pain, shortness of breath, dysuria, or other complaints. Tolerating diet well. No nursing concerns. No evidence of bleeding. - Patient Data Vitals - Most Recent: Last Vital Signs Temp 36.9 C 07/19/18 11:00 Pulse 101 H 07/19/18 11:00 Resp 20 07/19/18 06:14 BP 144/95 H 07/19/18 11:00 Pulse Ox 99 07/19/18 11:00 Weight - Most Recent: 89.902 kg I&O - Last 24 Hours: Intake & Output 07/18/18 07/19/18 07/19/18 22:59 06:59 14:59 Intake Total 486 624 Output Total 850 1100 Balance -364 -476 Lab Results Last 24 Hours: Laboratory Results - last 24 hr 07/19/18 07/19/18 07/19/18 Range/Units 06:27 07:38 07:38 WBC 3.07 L (5.00-10.00) 10^3/uL RBC 2.26 L (4.50-6.00) 10^6/uL Hgb 7.4 L (13.0-17.0) g/dL Hct 22.2 L (40.0-52.0) % MCV 98.2 H (82.0-92.0) fL MCH 32.7 H (27.0-31.0) pg MCHC 33.3 (32.0-36.0) g/dL RDW 19.3 H (11.5-14.5) % Plt Count 12 L* (150-400) 10^3/uL Immature Gran % (Auto) 0.3 (0.0-5.0) % Neut % (Auto) 66.8 (50.0-70.0) % Lymph % (Auto) 26.4 (20.0-40.0) % [place] % (Auto) 5.2 (2.0-8.0) % Eos % (Auto) 1.3 (1.0-3.0) % Baso % (Auto) 0.0 (0.0-1.0) % Immature Gran # (Auto) 0.01 (0.00-0.50) 10^3/uL Neut # (Auto) 2.05 L (2.50-7.00) 10^3/uL Lymph # (Auto) 0.81 L (1.00-4.00) 10^3/uL [place] # (Auto) 0.16 (0.10-0.80) 10^3/uL Eos # (Auto) 0.04 L (0.10-0.30) 10^3/uL Baso # (Auto) 0.00 (0.00-0.10) 10^3/uL Sodium 137 (136-145) mmol/L Potassium 4.3 (3.3-5.3) mmol/L Chloride 104 (98-115) mmol/L Carbon Dioxide 23.9 (21.0-32.0) mmol/L Anion Gap 13.4 (5-15) mmol/L BUN 18 (6-25) mg/dL Creatinine 0.98 (0.51-1.17) mg/dL Est Cr Clr Drug Dosing 60.49 mL/min Estimated GFR (MDRD) > 60 mL/min Glucose 108 H (75 - 99) mg/dL POC Glucose 108 H (74-106) mg/dl Calcium 8.3 L (8.7-10.3) mg/dL Total Bilirubin 1.7 H (0.2-1.0) mg/dL AST 18 (15-37) U/L ALT 9 L (12-78) U/L Alkaline Phosphatase 152 H (46-116) IU/L C-Reactive Protein 5.5 H (0.0-0.9) mg/dL Total Protein 7.0 (6.4-8.2) g/dL Albumin 2.87 L (3.00-4.80) g/dL He Results Last 24 Hours: Microbiology 07/16/18 03:35 Aerobic Blood Culture - Preliminary Blood - Venous NO GROWTH AFTER 3 DAYS Anaerobic Blood Culture - Preliminary NO GROWTH AFTER 3 DAYS 07/16/18 03:35 Aerobic Blood Culture - Preliminary Blood - Venous - Lab Draw NO GROWTH AFTER 3 DAYS Anaerobic Blood Culture - Preliminary NO GROWTH AFTER 3 DAYS Med Orders - Current: Current Medications Acetaminophen (Tylenol) 325 - 650 mg PO Q4H PRN PRN Reason: Fever Last Admin: 07/16/18 11:28 Dose: 650 mg Artificial Tears (Refresh Tears 0.5%) 0 ml EYEBOTH QID PRN PRN Reason: dry eye syndrome Carbidopa/Levodopa (Sinemet 25-100 Mg) 2 tab PO 0700,1100,1600,2000 [facility] Last Admin: 07/19/18 11:38 Dose: 2 tab Diclofenac Sodium (Voltaren 1% Gel) 1 gm TOP TID PRN PRN Reason: Pain Epoetin Maury (Procrit) 40,000 units SUBCUT Th [facility] Last Admin: 07/17/18 15:47 Dose: 40,000 units Piperacillin/Tazobactam/Dextrose (Zosyn In Dextrose Iso-Osmotic 3.375 Gm) 50 mls @ 100 mls/hr IV Q6H [facility] Last Admin: 07/19/18 12:06 Dose: 100 mls/hr Sodium Chloride (Normal Saline) 1,000 mls @ 60 mls/hr IV ASDIRECTED [facility] Last Admin: 07/19/18 07:37 Dose: 60 mls/hr Loperamide HCl (Imodium) 2 mg PO ASDIRECTED PRN PRN Reason: Diarrhea Last Admin: 07/18/18 07:57 Dose: 2 mg Magnesium Oxide (Magnesium Oxide) 500 mg PO BEDTIME [facility] Last Admin: 07/18/18 20:37 Dose: 500 mg Midodrine (Midodrine) 5 mg PO TID@0700,1200,2000 [facility] Last Admin: 07/19/18 11:39 Dose: 5 mg Multi-Ingredient Ointment (Eucerin Creme) 0 gm TOP BID PRN PRN Reason: Itching Omeprazole (Omeprazole) 20 mg PO ACBREAKFAST [facility] Last Admin: 07/19/18 06:31 Dose: 20 mg Tresiba Flextouch U- (200/Ml 3ml) 0 each SUBCUT DAILY [facility] Last Admin: 07/19/18 09:09 Dose: 20 each Liraglutide (Rdna Origin) 0.6 Mg/0.1 Ml 3 Ml Pen 0 each SUBCUT DAILY [facility] Last Admin: 07/19/18 08:38 Dose: 1 each Polysaccharide Iron Complex (Ferrex 150) 150 mg PO Q48H [facility] Last Admin: 07/18/18 11:06 Dose: 150 mg Sertraline HCl (Zoloft) 50 mg PO DAILY [facility] Last Admin: 07/19/18 09:08 Dose: 50 mg Simvastatin (Zocor) 40 mg PO BEDTIME [facility] Last Admin: 07/18/18 20:38 Dose: 40 mg Sodium Chloride ([place] Nasal [place]) 0 ml NASBOTH QID [facility] Last Admin: 07/19/18 08:37 Dose: 1 spray Discontinued Medications Acetaminophen (Tylenol) 650 mg PO NOW ONE Stop: 07/16/18 04:01 Last Admin: 07/16/18 04:13 Dose: 650 mg Ceftriaxone Sodium (Rocephin) 1 gm IVPUSH ONETIME ONE Stop: 07/16/18 05:54 Last Admin: 07/16/18 05:58 Dose: 1 gm Sodium Chloride (Normal Saline) 50 mls @ 3 mls/sec IV ASDIRECTED [facility] Last Admin: 07/16/18 05:59 Dose: 3 mls/sec Sodium Chloride (Normal Saline) 1,000 mls @ 999 mls/hr IV .BOLUS ONE Stop: 07/16/18 07:36 Last Admin: 07/16/18 06:55 Dose: 999 mls/hr Piperacillin Sod/Tazobactam (Sod 3.375 gm/ Sodium Chloride) 100 mls @ 200 mls/ hr IV Q6H [facility] Last Admin: 07/16/18 12:15 Dose: Not Given Sodium Chloride (Normal Saline) 1,000 mls @ 100 mls/hr IV ASDIRECTED [facility] Last Infusion: 07/16/18 17:21 Dose: 60 mls/hr Iopamidol (Isovue-370 (76%)) 75 ml IVPUSH ONETIME ONE Stop: 07/16/18 05:11 Last Admin: 07/16/18 05:59 Dose: 75 ml Liraglutide (Victoza) 1.2 mg SUBCUT DAILY [facility] Midodrine (Midodrine) 5 mg PO TID@0800,1200,1800 [facility] Last Admin: 07/17/18 11:39 Dose: 5 mg - Exam Physical Findings Comments:: GENERAL: Pale, elderly white male lying in hospital bed in no acute distress. HEENT: Normocephalic, atraumatic. Conjunctiva clear. Nares patent without discharge. Mucous membranes moist. NECK: Supple, no masses. CV: Irregular, no murmurs, rubs, or gallops. 2+ radial pulses. PULMONARY: Normal effort, clear to auscultation bilaterally, no wheezes, rales, or rhonchi. ABDOMEN: Positive bowel sounds, soft, nontender, nondistended, no rigidity/ guarding/rebound. EXTREMITIES: No edema, cyanosis, or clubbing. MUSCULOSKELETAL: Moves all extremities well. NEUROLOGICAL: No obvious deficits. DERMATOLOGIC: No rashes or suspicious lesions in exposed areas. PSYCHIATRIC: Alert, interactive, appropriate affect. - Problem List Review Problem List Initiated/Reviewed/Updated: Yes - My Orders Last 24 Hours: My Active Orders 07/20/18 05:11 CBC WITH AUTO DIFF [HEME] AM CMP [COMPREHENSIVE METABOLIC PN,CMP] [CHEM] AM - Plan Plan:: HPI summary: 83yoM with a history notable for pancytopenia secondary to MDS who resides at [facility] who was transported to the ED on 07/16/17 for fever and tachycardia. It was also noted by SNF staff that he had right-sided abdominal pain on the day prior. ED course: VS notable for fever with T 38.8 and mild tachycardia, but otherwise normal. Diagnostics notable for the following: -WBC 2.8 -Platelets 21,000 - Total bilirubin 2.5 - CRP 2.9 - UA unremarkable except urobilinogen - Chest x-ray with no acute process - CT abdomen with small amount of free fluid in abdomen and pelvis, consider peritonitis, cholelithiasis, thickening wall of descending colon which is nonspecific, possibly ruptured appendix cannot be excluded. Interval hospital course: Mr. Gutiérrez has had no fever or VS instability since admission. Abdominal pain has nearly resolved. Has had some formed, but soft, stools, which is his baseline. CBC stable. Cultures negative. Saleem Nolan consulted with Dr. Hansen, general surgery, on 07/17/17, who reviewed labs and imaging and agreed with ongoing conservative management without surgical intervention; recommends completing 14 day course of antibiotics, with switch to oral ciprofloxacin or Augmentin post-hospitalization. Of note, he has a history of appendectomy in the remote past so etiology of abdominal pain and CT findings are likely colitis. Interval improvement of colitis symptoms and no recurrence of fever or evidence of VS instability, but with mild downtrend in blood counts. Hospitalization problems: # Fever, resolved # Tachycardia, resolved # Right abdominal pain, nearly resolved # Colitis # MDS with pancytopenia # HTN - Continue Zosyn, with plan to switch to Augmentin 875mg q8h tomorrow to finish 14 day course as recommended by general surgery, as above - Stop IVF - Resume carvedilol 3.125mg BID, but continue holding other antihypertensives ( lisinopril 2.5mg daily, spironolactone 25mg daily, furosemide 20mg daily) - Continue iron supplementation qod and Procrit weekly - Monitor fluid status closely - Recheck CBC and CMP tomorrow - Continue with neutropenic precautions Chronic, stable conditions: # Hx CVA, embolic # Parkinson disease: Continue Sinemet. # HFpEF, chronic: Echo (2017) noted EF 50%, mild to moderate LVH, mildly reduced systolic function and hypokinetic wall segments. # CAD with hx NV and CABG/HLD: Continue beta niru and statin. # Atrial fibrillation, paroxysmal: Off anticoagulation due to worsening pancytopenia. # Orthostatic hypotension: Continue midodrine 5mg TID. # GERD: Continue omeprazole 20mg daily. # Hyperbilirubinemia: Secondary to hemolysis. Stable. # CKD, stage 3: Stable. # T2DM: Continue Tresiba 20 units daily and liraglutide 1.2mg daily. Metformin was discontinued 10/2017. # Hypomagnesemia: Continue supplementation along with loperamide prn. # OA: Continue Tylenol prn and diclofenac gel prn. # Depression: Continue sertraline. # Hx prostate CA Hospitalization details: # FEN: Discontinue IVF. Electrolytes normal. Diabetic diet. # PPX: Pharmacologic DVT ppx contraindicated with hx bleeding and pancytopenia. # Code status: DNR/DNI. # Emergency contact: Step-daughter, who was updated by nursing. # Disposition: Continue in inpatient status. Likely discharge back to [facility] SN[facility] tomorrow pending stability of blood counts.
[2018-07-19] MEDS: Simvastatin 20 MG Tab PO SCH (20:13)
[2018-07-19] MEDS: Magnesium Oxide 500 MG Tab PO SCH (20:13)
[2018-07-20] MEDS: Piperacillin/Tazobactam/Dext 50 ML IV SCH ×2 (05:13→11:05)
[2018-07-20] MEDS ORDERED: Sodium Chloride 0.9% 10 ML Syringe FLUSH PRN (05:15)
[2018-07-20] MEDS: Midodrine 5 MG Tab PO SCH ×2 (06:38→11:05)
[2018-07-20] MEDS: Carbidopa/Levodopa 25-100 MG Tab PO SCH ×2 (06:38→11:05)
[2018-07-20] MEDS: Omeprazole 20 MG Cap.CR PO SCH (06:38)
[2018-07-20 07:57] LABS: ANION GAP 17.9 mmol/L (5-15); CHLORIDE,CL 103 mmol/L (98-115); SODIUM,NA 140 mmol/L (136-145)
[2018-07-20] MEDS ORDERED: Carvedilol 6.25 MG Tab PO SCH (08:00)
[2018-07-20] MEDS: Sertraline 50 MG Tab PO SCH (08:21)
[2018-07-20] MEDS: Sodium Chloride 0.65% Nasal Spray 45 ML Bottle NASBOTH SCH ×2 (08:21→12:09)
[2018-07-20] MEDS: Liraglutide (rDNA Origin) 0.6 MG/0.1 ML 3 ML Pen SUBCUT SCH (08:21)
[2018-07-20] MEDS: INSULIN DEGLUDEC SUBCUT SCH (08:23)
[2018-07-20] MEDS: [UNRECOGNIZED DRUG - OTHER] SUBCUT SCH (08:23)
[2018-07-20 11:05] VITALS: BP 128/84
[2018-07-20] MEDS: Iron Polysaccharides Complex 150 MG Cap PO SCH (11:05)
[2018-07-20] MEDS ORDERED: Amoxicillin/Clavulanate K 875-125 MG Tab PO SCH (12:30)
--- NOTE | 2018-07-20 12:30 | PCM.DCSUM1 ---
Discharge Summary - Discharge Data Discharge Date: 07/20/18 Discharge Disposition: DC/Tfer to SNF 03 Condition: Fair - Patient Instructions Diet: Diabetic Diet Activity: As Tolerated Showering/Bathing: May Shower Notify Provider of: Fever, Increased Pain, Nausea and/or Vomiting - Discharge Plan *PRESCRIPTION DRUG MONITORING PROGRAM REVIEWED*: Not Applicable *COPY OF PRESCRIPTION DRUG MONITORING REPORT IN PATIENT DOMENICA: Not Applicable Prescriptions/Med Rec: Amoxicillin/Clavulanate K [Augmentin 875-125 MG] 1 tab PO TID 9 Days #27 tablet Amoxicillin/Potassium Clav [Augmentin 875-125 Tablet] 1 each PO BID 9 Days #18 tablet Home Medications: Home Meds Calcium Carbonate/Vitamin D3 [Calcium 600 + Vit D 400] 1 tab PO BID@1200,1700 [History] Simvastatin 40 mg PO BEDTIME 04/24/14 [History] Sertraline [Zoloft] 50 mg PO DAILY 03/23/16 [History] Insulin Degludec [Tresiba Flextouch U-200] 20 units SUBCUT DAILY 03/24/18 [ History] Carvedilol [Coreg] 3.125 mg PO BIDMEALS #30 03/27/18 [Rx] Iron Polysaccharide Complex [Poly-Iron] 150 mg PO Q48H #0 03/27/18 [Rx] Liraglutide [Victoza] 1.2 mg SUBCUT DAILY #6 ml 03/27/18 [Rx] Lisinopril [Zestril] 2.5 mg PO DAILY #30 tablet 03/27/18 [Rx] Nitroglycerin [Nitrostat] 1 tab SL Q5M PRN #1 bottle 03/27/18 [Rx] Omeprazole 20 mg PO DAILY #0 03/27/18 [Rx] Loperamide HCl [Imodium A-D] 2 mg PO ASDIRECTED PRN MDD 8 capsules/24hr [History] Magnesium Oxide 400 mg PO BEDTIME 05/15/18 [History] Carbidopa/Levodopa [Carbidopa-Levodopa 25-100] 2 tab PO 0700,1100,1600,2000 03/26 [History] Carboxymethylcellulose Sodium [Refresh Tears] 1 drop EYEBOTH QID PRN 07/16/18 [ History] Multivit-Min/FA/Lycopene/Lut [Centrum Silver Tablet] 1 tab PO DAILY@1200 [History] Saline Solution 0.65% 2 spray NASBOTH QID 07/16/18 [History] Midodrine 5 mg PO TID@0700,1200,2000 07/17/18 [History] Amoxicillin/Clavulanate K [Augmentin 875-125 MG] 1 tab PO TID 9 Days #27 tablet 07/20/18 [Rx] Amoxicillin/Potassium Clav [Augmentin 875-125 Tablet] 1 each PO BID 9 Days #18 tablet 07/20/18 [Rx] Referrals: Priscilla Moraes PA-C [Physician Outside Sales Associate] - 07/22/18 (See on [facility] rounds , address possible restarting of furosemide/spironolactone) - Discharge Summary/Plan Comment DC Time >30 min.: Yes - Patient Data Vitals - Most Recent: Last Vital Signs Temp 35.4 C 07/20/18 11:00 Pulse 89 07/20/18 11:00 Resp 17 07/20/18 11:00 BP 128/84 07/20/18 11:00 Pulse Ox 95 07/20/18 06:17 Weight - Most Recent: 90.293 kg I&O - Last 24 hours: Intake & Output 07/19/18 07/20/18 07/20/18 22:59 06:59 14:59 Intake Total 845 100 Output Total 750 1750 Balance 95 -1650 Lab Results - Last 24 hrs: Laboratory Results - last 24 hr 07/20/18 07/20/18 07/20/18 Range/Units 06:36 07:11 07:11 WBC 3.08 L (5.00-10.00) 10^3/uL RBC 2.29 L (4.50-6.00) 10^6/uL Hgb 7.5 L (13.0-17.0) g/dL Hct 22.6 L (40.0-52.0) % MCV 98.7 H (82.0-92.0) fL MCH 32.8 H (27.0-31.0) pg MCHC 33.2 (32.0-36.0) g/dL RDW 19.3 H (11.5-14.5) % Plt Count 13 L* (150-400) 10^3/uL Immature Gran % (Auto) 0.0 (0.0-5.0) % Neut % (Auto) 63.7 (50.0-70.0) % Lymph % (Auto) 28.6 (20.0-40.0) % Coles % (Auto) 5.8 (2.0-8.0) % Eos % (Auto) 1.9 (1.0-3.0) % Baso % (Auto) 0.0 (0.0-1.0) % Immature Gran # (Auto) 0.00 (0.00-0.50) 10^3/uL Neut # (Auto) 1.96 L (2.50-7.00) 10^3/uL Lymph # (Auto) 0.88 L (1.00-4.00) 10^3/uL Coles # (Auto) 0.18 (0.10-0.80) 10^3/uL Eos # (Auto) 0.06 L (0.10-0.30) 10^3/uL Baso # (Auto) 0.00 (0.00-0.10) 10^3/uL Platelet Estimate Marked dec Clumped Platelets Not seen Tear Drop Cells 1+ slight Schistocytes 1+ slight Sodium 140 (136-145) mmol/L Potassium 4.3 (3.3-5.3) mmol/L Chloride 103 (98-115) mmol/L Carbon Dioxide 23.4 (21.0-32.0) mmol/L Anion Gap 17.9 H (5-15) mmol/L BUN 17 (6-25) mg/dL Creatinine 0.87 (0.51-1.17) mg/dL Est Cr Clr Drug Dosing 68.14 mL/min Estimated GFR (MDRD) > 60 mL/min Glucose 115 H (75 - 99) mg/dL POC Glucose 112 H (74-106) mg/dl Calcium 8.6 L (8.7-10.3) mg/dL Total Bilirubin 2.1 H (0.2-1.0) mg/dL AST 15 (15-37) U/L ALT 10 L (12-78) U/L Alkaline Phosphatase 156 H (46-116) IU/L Total Protein 7.4 (6.4-8.2) g/dL Albumin 3.14 (3.00-4.80) g/dL LACEY Results - Last 24 hrs: Microbiology 07/16/18 03:35 Aerobic Blood Culture - Preliminary Blood - Venous NO GROWTH AFTER 4 DAYS Anaerobic Blood Culture - Preliminary NO GROWTH AFTER 4 DAYS 07/16/18 03:35 Aerobic Blood Culture - Preliminary Blood - Venous - Lab Draw NO GROWTH AFTER 4 DAYS Anaerobic Blood Culture - Preliminary NO GROWTH AFTER 4 DAYS Med Orders - Current: Current Medications Acetaminophen (Tylenol) 325 - 650 mg PO Q4H PRN PRN Reason: Fever Last Admin: 07/16/18 11:28 Dose: 650 mg Amoxicillin/Clavulanate Potassium (Augmentin 875 Mg/125 Mg) 1 tab PO BID [facility] Last Admin: 07/20/18 12:09 Dose: 1 tab Artificial Tears (Refresh Tears 0.5%) 0 ml EYEBOTH QID PRN PRN Reason: dry eye syndrome Carbidopa/Levodopa (Sinemet 25-100 Mg) 2 tab PO 0700,1100,1600,2000 [facility] Last Admin: 07/20/18 11:05 Dose: 2 tab Carvedilol (Coreg) 3.125 mg PO BIDMEALS [facility] Last Admin: 07/20/18 08:24 Dose: 3.125 mg Diclofenac Sodium (Voltaren 1% Gel) 1 gm TOP TID PRN PRN Reason: Pain Epoetin Maury (Procrit) 40,000 units SUBCUT Th [facility] Last Admin: 07/17/18 15:47 Dose: 40,000 units Loperamide HCl (Imodium) 2 mg PO ASDIRECTED PRN PRN Reason: Diarrhea Last Admin: 07/18/18 07:57 Dose: 2 mg Magnesium Oxide (Magnesium Oxide) 500 mg PO BEDTIME [facility] Last Admin: 07/19/18 20:13 Dose: 500 mg Midodrine (Midodrine) 5 mg PO TID@0700,1200,2000 [facility] Last Admin: 07/20/18 11:05 Dose: 5 mg Multi-Ingredient Ointment (Eucerin Creme) 0 gm TOP BID PRN PRN Reason: Itching Omeprazole (Omeprazole) 20 mg PO ACBREAKFAST [facility] Last Admin: 07/20/18 06:38 Dose: 20 mg Tresiba Flextouch U- (200/Ml 3ml) 0 each SUBCUT DAILY [facility] Last Admin: 07/20/18 08:23 Dose: 20 each Liraglutide (Rdna Origin) 0.6 Mg/0.1 Ml 3 Ml Pen 0 each SUBCUT DAILY [facility] Last Admin: 07/20/18 08:21 Dose: 1 each Polysaccharide Iron Complex (Ferrex 150) 150 mg PO Q48H [facility] Last Admin: 07/20/18 11:05 Dose: 150 mg Sertraline HCl (Zoloft) 50 mg PO DAILY [facility] Last Admin: 07/20/18 08:21 Dose: 50 mg Simvastatin (Zocor) 40 mg PO BEDTIME [facility] Last Admin: 07/19/18 20:13 Dose: 40 mg Sodium Chloride ([place] Nasal [place]) 0 ml NASBOTH QID [facility] Last Admin: 07/20/18 12:09 Dose: 1 spray Sodium Chloride (Saline Flush) 10 ml FLUSH Q8HR PRN PRN Reason: keep vein open Last Admin: 07/20/18 05:45 Dose: 10 ml Discontinued Medications Acetaminophen (Tylenol) 650 mg PO NOW ONE Stop: 07/16/18 04:01 Last Admin: 07/16/18 04:13 Dose: 650 mg Ceftriaxone Sodium (Rocephin) 1 gm IVPUSH ONETIME ONE Stop: 07/16/18 05:54 Last Admin: 07/16/18 05:58 Dose: 1 gm Sodium Chloride (Normal Saline) 50 mls @ 3 mls/sec IV ASDIRECTED [facility] Last Admin: 07/16/18 05:59 Dose: 3 mls/sec Sodium Chloride (Normal Saline) 1,000 mls @ 999 mls/hr IV .BOLUS ONE Stop: 07/16/18 07:36 Last Admin: 07/16/18 06:55 Dose: 999 mls/hr Piperacillin Sod/Tazobactam (Sod 3.375 gm/ Sodium Chloride) 100 mls @ 200 mls/ hr IV Q6H [facility] Last Admin: 07/16/18 12:15 Dose: Not Given Sodium Chloride (Normal Saline) 1,000 mls @ 100 mls/hr IV ASDIRECTED [facility] Last Infusion: 07/16/18 17:21 Dose: 60 mls/hr Piperacillin/Tazobactam/Dextrose (Zosyn In Dextrose Iso-Osmotic 3.375 Gm) 50 mls @ 100 mls/hr IV Q6H [facility] Last Admin: 07/20/18 11:05 Dose: Not Given Sodium Chloride (Normal Saline) 1,000 mls @ 60 mls/hr IV ASDIRECTED [facility] Last Admin: 07/19/18 07:37 Dose: 60 mls/hr Iopamidol (Isovue-370 (76%)) 75 ml IVPUSH ONETIME ONE Stop: 07/16/18 05:11 Last Admin: 07/16/18 05:59 Dose: 75 ml Liraglutide (Victoza) 1.2 mg SUBCUT DAILY [facility] Midodrine (Midodrine) 5 mg PO TID@0800,1200,1800 [facility] Last Admin: 07/17/18 11:39 Dose: 5 mg
== END 2018-07-20 12:40 | DRG 392 ==
LOC: KA.ED 02:43 → KA.MS 06:34
PROVIDERS: ADMIT Physician Assistant Surgical; ATTEND Family Medicine
DX: N39.0 Urinary tract infection, site not specified (principal); K52.9 Noninfective gastroenteritis and colitis, unspecified; D61.818 Other pancytopenia; I48.91 Unspecified atrial fibrillation; I10 Essential (primary) hypertension; I50.32 Chronic diastolic (congestive) heart failure; I13.0 Hypertensive heart and chronic kidney disease with heart failure and stage 1 through stage 4 chronic kidney disease, or unspecified chronic kidney disease; R50.9 Fever, unspecified; E11.9 Type 2 diabetes mellitus without complications; R00.0 Tachycardia, unspecified; R10.9 Unspecified abdominal pain; D46.9 Myelodysplastic syndrome, unspecified; G20 Parkinson's disease; I25.10 Atherosclerotic heart disease of native coronary artery without angina pectoris; Z86.73 Personal history of transient ischemic attack (TIA), and cerebral infarction without residual deficits; Z95.1 Presence of aortocoronary bypass graft; I25.2 Old myocardial infarction; I48.0 Paroxysmal atrial fibrillation; I95.1 Orthostatic hypotension; K21.9 Gastro-esophageal reflux disease without esophagitis; E80.6 Other disorders of bilirubin metabolism; N18.3 Chronic kidney disease, stage 3 (moderate); E11.22 Type 2 diabetes mellitus with diabetic chronic kidney disease; E83.42 Hypomagnesemia; D46.4 Refractory anemia, unspecified; K80.20 Calculus of gallbladder without cholecystitis without obstruction; M19.90 Unspecified osteoarthritis, unspecified site; F32.9 Major depressive disorder, single episode, unspecified; Z85.46 Personal history of malignant neoplasm of prostate; Z88.5 Allergy status to narcotic agent; Z79.899 Other long term (current) drug therapy; Z79.4 Long term (current) use of insulin
CPT/HCPCS: 36415; 71046; 74177; 80048; 80053; 81001; 82962; 83605; 85025; 85027; 86140; 87040; 87086; 96374; 99284; 99285; A9270-GY; J0696; J0885; J2543; J7030; J7050; Q9967

== ENCOUNTER 2019-03-10 06:11 | Day surgery (SDC) | payer MEDICARE, OTHER ==
[2019-03-10] MEDS ORDERED: Sodium Chloride 0.9% 10 ML Syringe FLUSH PRN (06:15)
[2019-03-10] MEDS ORDERED: Gatifloxacin 0.5% Ophth Soln 2.5 ML Bot EYELF SCH (06:15)
[2019-03-10] MEDS ORDERED: Sodium Chloride 0.9% 1,000 ML IV SCH (06:15)
[2019-03-10] MEDS ORDERED: Moxifloxacin 0.5% Ophth Soln 3 ML Bottle EYELF ONE (06:16)
[2019-03-10] MEDS: Cyclopentolate 1% Opth Soln 2 ML Bottle EYELF SCH ×3 (06:48→07:25)
[2019-03-10] MEDS: Phenylephrine 10% Ophth Soln 5 ML Bot EYELF SCH ×3 (06:54→07:47)
[2019-03-10] MEDS ORDERED: Water For Irrigation,Sterile 1,500 ML Container IRR ONE (08:36)
[2019-03-10] MEDS ORDERED: Balanced Salt Solution Ophth Irrig 15 ML Bottle EYELF ONE (08:36)
[2019-03-10] MEDS ORDERED: EPINEPHrine 1 MG/1 ML Amp ONE (08:37)
[2019-03-10] MEDS ORDERED: Balanced Salt Solution Plus Ophth Irrig 500 ML Bottle IOCULAR ONE (08:37)
[2019-03-10] MEDS ORDERED: Carbachol 0.01% Intraocular 1.5 ML Vial EYELF ONE (08:37)
[2019-03-10] MEDS ORDERED: Dexamethasone/Neomycin/Polymyxin B Ophth Oint 3.5 GM Tube EYELF ONE (08:38)
[2019-03-10] MEDS ORDERED: Lidocaine 2% with EPINEPHrine 1:100,000 20 ML MDV INJECT ONE (08:38)
[2019-03-10] MEDS ORDERED: Lidocaine 1% 10 ML MDV INJECT ONE (08:38)
[2019-03-10] MEDS ORDERED: Tetracaine HCl/PF 0.5% 4 ML Bottle EYEBOTH ONE (08:39)
[2019-03-10] MEDS ORDERED: Hyaluronate Sodium 1% 0.85 ML Syringe IOCULAR ONE (08:39)
[2019-03-10 09:16] VITALS: BP 115/56
--- NOTE | 2019-03-10 11:47 | OR ---
DATE OF SURGERY: 03/10/2019 SURGEON: Jorge Luis Hernández MD PREOPERATIVE DIAGNOSIS: Cataract, left eye. POSTOPERATIVE DIAGNOSIS: Cataract, left eye. OPERATION PERFORMED: Phacoemulsification with posterior chamber lens insertion, left eye. HISTORY: The patient presents at this time with increasing amount of difficulty seeing to read the newspaper and also difficulty seeing TV. The left eye has a vision of 20/100. The left lens has a 2 to 3+ nuclear sclerosis and 1+ cortical change and 1+ posterior subcapsular change. This eye has a combined cataract and a cataract of aging. FINDINGS: The patient was taken to the operating room where appropriate anesthesia, sedation and monitoring were provided. A retrobulbar block was given on the left side. The eye was massaged and was found to be appropriately soft. The eye and eyelids were then prepped and draped in the usual sterile manner. A lid speculum was placed. A micro sharp blade was used to enter the anterior chamber inside the limbus inferior-temporally. Xylocaine was irrigated into the eye at this site. Healon was irrigated into the eye through this site. Then using a 2.85 mm corneal blade an entry was made into the anterior chamber just inside the limbus temporally. Healon was again irrigated into the eye. Then using a cystitome, the anterior capsulorrhexis was created. The lens nucleus was hydrodissected using a 27 gauge cannula and balanced salt solution. The phacoemulsification unit was introduced through the temporal site and the Nayan spatula through the inferior temporal site. In so doing, the lens nucleus was phacoemulsified. The cortical fragments of the lens were removed using the irrigation aspiration unit. The posterior capsule was polished. Healon was irrigated into the eye. The posterior chamber lens was inserted and rotated into position inside the capsular bag. The Healon was irrigated out of the eye. Miostat was irrigated into the eye and the pupil rounded nicely. Two interrupted 10-0 nylon sutures were placed through the temporal corneal incision site and an additional interrupted 10 nylon suture was placed through the inferior temporal corneal incision site. Balanced salt solution was irrigated into the eye. The wound was tested and found to be tight. Maxitrol ointment was placed into the patient's left eye. The eyelids were closed and an eye patch and peterson shield were placed. The patient left the operating room in good condition. /[id number]/MODL
== END 2019-03-10 09:45 ==
LOC: KA.SDS 06:11
PROVIDERS: ATTEND Ophthalmology
DX: E11.36 Type 2 diabetes mellitus with diabetic cataract (principal); H25.812 Combined forms of age-related cataract, left eye; G20 Parkinson's disease; D46.9 Myelodysplastic syndrome, unspecified; I25.10 Atherosclerotic heart disease of native coronary artery without angina pectoris; I48.0 Paroxysmal atrial fibrillation; I13.0 Hypertensive heart and chronic kidney disease with heart failure and stage 1 through stage 4 chronic kidney disease, or unspecified chronic kidney disease; I50.42 Chronic combined systolic (congestive) and diastolic (congestive) heart failure; N18.3 Chronic kidney disease, stage 3 (moderate); E11.22 Type 2 diabetes mellitus with diabetic chronic kidney disease; F33.0 Major depressive disorder, recurrent, mild; I95.1 Orthostatic hypotension; K21.9 Gastro-esophageal reflux disease without esophagitis; E66.3 Overweight; E78.2 Mixed hyperlipidemia; Z88.5 Allergy status to narcotic agent; Z95.1 Presence of aortocoronary bypass graft; Z79.4 Long term (current) use of insulin; Z79.899 Other long term (current) drug therapy; Z88.8 Allergy status to other drugs, medicaments and biological substances
CPT/HCPCS: 82962; A9270-GY; J0171; J2001; J7030; V2632

== ENCOUNTER 2019-04-07 05:52 | Day surgery (SDC) | payer MEDICARE, OTHER ==
[2019-04-07] MEDS ORDERED: Gatifloxacin 0.5% Ophth Soln 2.5 ML Bot EYERT SCH (06:00)
[2019-04-07] MEDS ORDERED: Sodium Chloride 0.9% 1,000 ML IV SCH (06:00)
[2019-04-07] MEDS ORDERED: Sodium Chloride 0.9% 10 ML Syringe FLUSH PRN (06:00)
[2019-04-07] MEDS: Cyclopentolate 1% Opth Soln 2 ML Bottle EYERT SCH ×3 (06:14→06:43)
[2019-04-07] MEDS: Phenylephrine 10% Ophth Soln 5 ML Bot EYERT SCH ×3 (06:20→06:48)
[2019-04-07] MEDS ORDERED: Moxifloxacin 0.5% Ophth Soln 3 ML Bottle EYERT ONE (06:49)
[2019-04-07] MEDS ORDERED: Water For Irrigation,Sterile 1,500 ML Container IRR ONE (07:54)
[2019-04-07] MEDS ORDERED: Balanced Salt Solution Ophth Irrig 15 ML Bottle EYERT ONE (07:54)
[2019-04-07] MEDS ORDERED: Balanced Salt Solution Plus Ophth Irrig 500 ML Bottle IOCULAR ONE (07:55)
[2019-04-07] MEDS ORDERED: Carbachol 0.01% Intraocular 1.5 ML Vial EYERT ONE (07:56)
[2019-04-07] MEDS ORDERED: Dexamethasone/Neomycin/Polymyxin B Ophth Oint 3.5 GM Tube EYERT ONE (07:57)
[2019-04-07] MEDS ORDERED: EPINEPHrine 1 MG/1 ML Amp ONE (07:57)
[2019-04-07] MEDS ORDERED: Lidocaine 2% with EPINEPHrine 1:100,000 20 ML MDV INJECT ONE (07:58)
[2019-04-07] MEDS ORDERED: Lidocaine 1% 10 ML MDV INJECT ONE (07:59)
[2019-04-07] MEDS ORDERED: Hyaluronate Sodium 1% 0.85 ML Syringe IOCULAR ONE (08:00)
[2019-04-07] MEDS ORDERED: Tetracaine HCl/PF 0.5% 4 ML Bottle EYEBOTH ONE (08:01)
[2019-04-07 08:41] VITALS: BP 118/57; PULSE 79
--- NOTE | 2019-04-07 10:51 | OR ---
DATE OF SURGERY: 04/07/2019 SURGEON: Jorge Luis Hernández MD PREOPERATIVE DIAGNOSIS: Cataract, right eye. POSTOPERATIVE DIAGNOSIS: Cataract, right eye. OPERATION PERFORMED: Phacoemulsification with posterior chamber lens insertion, right eye. HISTORY: The patient has an increasing amount of difficulty using the right eye trying to see TV and the newspaper. The right eye has a vision of 20/60 -2. The right lens has 2 to 3+ nuclear sclerosis along with a 2+ posterior subcapsular change and 1+ cortical change. This eye has a combined cataract and a cataract of aging. FINDINGS: The patient was taken to the operating room where appropriate anesthesia, sedation and monitoring were provided. A retrobulbar block was given on the right side. The eye was massaged and was found to be appropriately soft. The eye and eyelids were then prepped and draped in the usual sterile manner. A lid speculum was placed. A micro sharp blade was used to enter the anterior chamber inside the limbus superior-temporally. Xylocaine was irrigated into the eye at this site. Healon was irrigated into the eye through this site. Then using a 2.85 mm corneal blade an entry was made into the anterior chamber just inside the limbus temporally. Healon was again irrigated into the eye. Then using a cystitome, the anterior capsulorrhexis was created. The lens nucleus was hydrodissected using a 27 gauge cannula and balanced salt solution. The phacoemulsification unit was introduced through the temporal site and the Nayan spatula through the superior temporal site. In so doing, the lens nucleus was phacoemulsified. The cortical fragments of the lens were removed using the irrigation aspiration unit. The posterior capsule was polished. Healon was irrigated into the eye. The posterior chamber lens was inserted and rotated into position inside the capsular bag. The Healon was irrigated out of the eye. Miostat was irrigated into the eye and the pupil rounded nicely. A single interrupted 10-0 Nylon suture was placed through the temporal corneal incision site. Balanced salt solution was irrigated into the eye. The wound was tested and found to be tight. Maxitrol ointment was placed into the patient's right eye. The eyelids were closed and an eye patch and peterson shield were placed. The patient left the operating room in good condition. /[id number]/MODL
== END 2019-04-07 09:04 ==
LOC: KA.SDS 05:52
PROVIDERS: ATTEND Ophthalmology
DX: E11.36 Type 2 diabetes mellitus with diabetic cataract (principal); H25.811 Combined forms of age-related cataract, right eye; I25.10 Atherosclerotic heart disease of native coronary artery without angina pectoris; D46.C Myelodysplastic syndrome with isolated del(5q) chromosomal abnormality; I13.0 Hypertensive heart and chronic kidney disease with heart failure and stage 1 through stage 4 chronic kidney disease, or unspecified chronic kidney disease; E11.22 Type 2 diabetes mellitus with diabetic chronic kidney disease; I50.42 Chronic combined systolic (congestive) and diastolic (congestive) heart failure; N18.4 Chronic kidney disease, stage 4 (severe); E78.2 Mixed hyperlipidemia; K21.9 Gastro-esophageal reflux disease without esophagitis; Z95.1 Presence of aortocoronary bypass graft; Z79.4 Long term (current) use of insulin; Z79.899 Other long term (current) drug therapy; Z88.8 Allergy status to other drugs, medicaments and biological substances; Z88.5 Allergy status to narcotic agent
CPT/HCPCS: 82962; A9270-GY; J0171; J2001; J7030; V2632

== ENCOUNTER 2019-04-10 16:45 | Inpatient (IN) | payer MEDICARE, OTHER ==
[2019-04-10] MEDS ORDERED: Furosemide 40 MG/4 ML VIAL IVPUSH ONE (17:05)
[2019-04-10] MEDS ORDERED: Calcium Gluconate 10% 1 GM/10 ML SDV IVPUSH ONE (17:05)
[2019-04-10 17:47] VITALS: PULSE 105
--- NOTE | 2019-04-10 17:51 | CT ---
[id number] CT/CT Head WO IV EXAM: NONCONTRAST HEAD CT INDICATION: HEADACHE. COMPARISON: April 07, 2017. DISCUSSION: Stable encephalomalacia in the right occipital lobe consistent with a chronic posterior cerebral artery territory infarct. Mild to moderate generalized atrophy and mild chronic small vessel ischemic changes are similar to the previous study. No acute hemorrhage, mass effect, midline shift, hydrocephalus or acute territorial infarct is identified. The orbits and paranasal sinuses are unremarkable. IMPRESSION: 1. No acute findings. Bruce Segura MD 04/10/19 1749 Thank you for allowing us to participate in the care of your patient.
--- NOTE | 2019-04-10 17:57 | CT ---
[id number] CT/CT Abdomen Pelvis WO IV EXAM: ABDOMEN AND PELVIS CT WITHOUT CONTRAST INDICATION: Elevated liver function tests. COMPARISON: July 16, 2018. DISCUSSION: The liver has a mildly lobular contour suggesting underlying cirrhosis. Mild splenomegaly at 14 cm and small to moderate ascites is compatible with portal hypertension. Body wall edema. 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 Cholelithiasis. No definite evidence of acute cholecystitis, but surrounding ascites limits assessment for inflammatory changes. No intra or extrahepatic bile duct dilation is identified on this unenhanced examination. Colonic diverticulosis without evidence of diverticulitis. Mild diastases recti. Small fat-containing left inguinal hernia. Right hip arthroplasty. Degenerative changes in the spine. The osseous structures are otherwise unremarkable. IMPRESSION: 1. Findings suggestive of cirrhosis with underlying portal hypertension resulting in mild splenomegaly and small to moderate ascites. 2. Cholelithiasis. Bruce Segura MD 04/10/19 [id number] Thank you for allowing us to participate in the care of your patient.
[2019-04-10] MEDS: Sodium Chloride 0.9% 10 ML Syringe FLUSH PRN ×2 (18:11→18:12)
[2019-04-10 19:32] VITALS: BP 105/60
[2019-04-10 20:20] LABS: ANION GAP 13.5 mmol/L (5-15); CHLORIDE,CL 106 mmol/L (98-115); SODIUM,NA 138 mmol/L (136-145)
--- NOTE | 2019-04-11 11:40 | PCM.DCSUM1 ---
Discharge Summary - Discharge Data Discharge Disposition: DC/Tfer to Acute Hospital 02 Condition: Good - Referral to Home Health Primary Care Physician: Terrance Burroughs MD - Discharge Plan Home Medications: Home Meds Calcium Carbonate/Vitamin D3 [Calcium 600 + Vit D 400] 1 tab PO BID@1200,1800 [History] Simvastatin 40 mg PO BEDTIME 04/24/14 [History] Insulin Degludec [Tresiba Flextouch U-200] 12 units SUBCUT DAILY 03/24/18 [ History] Carvedilol [Coreg] 3.125 mg PO BIDMEALS #30 03/27/18 [Rx] Nitroglycerin [Nitrostat] 1 tab SL Q5M PRN #1 bottle 03/27/18 [Rx] Omeprazole 20 mg PO DAILY #0 03/27/18 [Rx] Loperamide HCl [Imodium A-D] 2 mg PO ASDIRECTED PRN MDD 8 capsules/24hr [History] Magnesium Oxide 400 mg PO BEDTIME 05/15/18 [History] Carboxymethylcellulose Sodium [Refresh Tears] 1 drop EYEBOTH BID PRN 07/16/18 [ History] Multivit-Min/FA/Lycopene/Lut [Centrum Silver Tablet] 1 tab PO DAILY@1200 [History] Midodrine 10 mg PO TID@0700,1200,2000 07/17/18 [History] Furosemide [Lasix] 40 mg PO DAILY 02/26/19 [History] Sodium Chloride 1 gm PO BID 02/26/19 [History] Carbidopa/Levodopa [Carbidopa-Levodopa 25-100] 2 tab PO QID@07,11,16,20 [History] prednisoLONE Acetate [Prednisolone Acetate] 1 drop EYELF QID 03/27/19 [History] Acetaminophen [Acetaminophen 8 Hour] 650 mg PO Q8H PRN 04/06/19 [History] Ondansetron [Zofran] 4 mg PO DAILY 04/06/19 [History] Loperamide HCl [Anti-Diarrheal] 2 mg PO PRN MDD 8 tablets 04/10/19 [History] Moxifloxacin [Vigamox 0.5% Ophth Soln] 1 drop EYERT QID 04/10/19 [History] Tobramycin 0.3% [Tobramycin 0.3% Ophth Soln] 1 drop EARLF QID 04/10/19 [History] prednisoLONE Acetate [Prednisolone Acetate] 10 ml EYERT QID 04/10/19 [History] - Patient Data Vitals - Most Recent: Last Vital Signs Temp 36.9 C 04/10/19 19:00 Pulse 105 H 04/10/19 19:00 Resp 24 H 04/10/19 19:00 BP 105/60 04/10/19 19:00 Pulse Ox 95 04/10/19 19:00 Weight - Most Recent: 93.712 kg Lab Results - Last 24 hrs: Laboratory Results - last 24 hr 04/10/19 04/10/19 04/10/19 Range/Units 17:05 18:26 19:45 PT (8.9-11.4) SEC INR (0.9-1.1) Sodium 138 (136-145) mmol/L Potassium 6.3 H D (3.3-5.3) mmol/L Chloride 106 (98-115) mmol/L Carbon Dioxide 24.8 (21.0-32.0) mmol/L Anion Gap 13.5 (5-15) mmol/L BUN 37 H (6-25) mg/dL Creatinine 1.85 H (0.51-1.17) mg/dL Est Cr Clr Drug Dosing TNP Estimated GFR (MDRD) 35 mL/min Glucose 98 (75 - 99) mg/dL POC Glucose 111 H (74-106) mg/dl Calcium 9.2 (8.7-10.3) mg/dL Total Bilirubin 1.3 H (0.2-1.0) mg/dL AST 1015 H (15-37) U/L ALT 182 H (12-78) U/L Alkaline Phosphatase 325 H (46-116) IU/L Troponin I 0.04 (0.00-0.070) ng/mL Total Protein 6.9 (6.4-8.2) g/dL Albumin 3.42 (3.00-4.80) g/dL 04/10/19 Range/Units 19:45 PT 13.9 H (8.9-11.4) SEC INR 1.4 H (0.9-1.1) Sodium (136-145) mmol/L Potassium (3.3-5.3) mmol/L Chloride (98-115) mmol/L Carbon Dioxide (21.0-32.0) mmol/L Anion Gap (5-15) mmol/L BUN (6-25) mg/dL Creatinine (0.51-1.17) mg/dL Est Cr Clr Drug Dosing Estimated GFR (MDRD) mL/min Glucose (75 - 99) mg/dL POC Glucose (74-106) mg/dl Calcium (8.7-10.3) mg/dL Total Bilirubin (0.2-1.0) mg/dL AST (15-37) U/L ALT (12-78) U/L Alkaline Phosphatase (46-116) IU/L Troponin I (0.00-0.070) ng/mL Total Protein (6.4-8.2) g/dL Albumin (3.00-4.80) g/dL Med Orders - Current: Current Medications Discontinued Medications Calcium Gluconate (Calcium Gluconate) 1 gm IVPUSH ONETIME ONE Stop: 04/10/19 17:06 Last Admin: 04/10/19 18:09 Dose: 1 gm Furosemide (Lasix) 40 mg IVPUSH NOW ONE Stop: 04/10/19 17:06 Last Admin: 04/10/19 18:13 Dose: 40 mg Sodium Chloride (Saline Flush) 10 ml FLUSH Q8HR PRN PRN Reason: keep vein open Last Admin: 04/10/19 18:12 Dose: 10 ml
== END 2019-04-10 20:55 | DRG 641 ==
LOC: UNDOADMIN 16:48 → KA.MS 16:48 → UNDODISIN 20:55
PROVIDERS: ADMIT Nurse Practitioner Family; ATTEND Family Medicine
DX: E87.5 Hyperkalemia (principal); I50.42 Chronic combined systolic (congestive) and diastolic (congestive) heart failure; D46.C Myelodysplastic syndrome with isolated del(5q) chromosomal abnormality; N18.3 Chronic kidney disease, stage 3 (moderate); R74.0 Nonspecific elevation of levels of transaminase and lactic acid dehydrogenase [LDH]; R51 Headache; E83.42 Hypomagnesemia; I48.0 Paroxysmal atrial fibrillation; D64.9 Anemia, unspecified; I25.10 Atherosclerotic heart disease of native coronary artery without angina pectoris; R14.0 Abdominal distension (gaseous); K59.00 Constipation, unspecified; Z95.1 Presence of aortocoronary bypass graft; Z79.52 Long term (current) use of systemic steroids; Z79.899 Other long term (current) drug therapy
CPT/HCPCS: 36415; 70450; 74176; 80053; 82728; 82962; 83540; 83550; 84484; 85610; J0610; J1940